=== PATIENT | female | born 1970 | race Caucasian/White ===

== ENCOUNTER 2019-11-24 13:10 | Inpatient (IN) | payer MEDICAID, OTHER ==
[2019-11-24] MEDS ORDERED: Sodium Chloride 0.9% 10 ML Syringe FLUSH PRN (13:18)
[2019-11-24] MEDS ORDERED: LORazepam 2 MG/ML SDV IVPUSH ONE ×2 (13:18→17:28)
[2019-11-24] MEDS ORDERED: Ondansetron 4 MG/2 ML SDV IVPUSH ONE (13:18)
[2019-11-24] MEDS ORDERED: Lactated Ringers 1,000 ML IV ONE (13:18)
[2019-11-24] MEDS ORDERED: Sodium Chloride 0.9% 2.5 ML Syringe FLUSH PRN (13:18)
[2019-11-24] MEDS ORDERED: chlordiazePOXIDE 25 MG Cap PO ONE (13:20)
[2019-11-24] MEDS ORDERED: Ketorolac 30 MG/ML SDV IVPUSH ONE (13:27)
--- NOTE | 2019-11-24 13:28 | EDM.PDOCBH ---
ED HPI GENERAL MEDICAL PROBLEM - General Chief Complaint: Drug or Alcohol Abuse Stated Complaint: DETOX Time Seen by Provider: 11/24/19 13:17 Source of Information: Reports: Patient History Limitations: Reports: No Limitations - History of Present Illness INITIAL COMMENTS - FREE TEXT/NARRATIVE: 49F PMHx COPD, TOB use, alcohol abuse, gastritis, pancreatitis presents for multiple complaints. Patient notes several days of worsening N/V with inability to tolerate PO. She states this feels just like prior episodes of pancreatitis. She had been on a drinking binge last week before symptoms. She ahs been trying to drink with last drink "a shot" this morning, but she has cut back a lot. She notes chronic cough and SOB unchanged, but she is concerned about COVID. No fevers or CP. Patient notes auditory and visual hallucinations since htis morning "the angle on my shoulder keeps talking to me even though I know she isn't real." Right Back Pain Score (Numeric/FACES): 8 - Related Data Allergies Allergy/AdvReac Type Severity Reaction Status Date / Time No Known Allergies Allergy Verified 11/24/19 13:22 Home Meds: Home Meds Amylase/Lipase/Protease [John LYLE 24,000 Unit] 12,000 unit PO WITHMEALSANDBED 01/21/18 [History] Levothyroxine [Levothroid] 225 mcg PO DAILY 01/21/18 [History] Omeprazole 40 mg PO DAILY 01/21/18 [History] hydrOXYzine HCL [hydrOXYzine] 10 mg PO DAILY PRN 01/21/18 [History] Fluticasone Propionate [Flonase] 1 spray NASBOTH DAILY #1 bottle 01/26/18 [Rx] diphenhydrAMINE HCL [Benadryl Allergy] 100 mg DAILY PRN 02/24/19 [History] Ketorolac [Toradol] 10 mg PO Q8H PRN #15 tab 02/28/19 [Rx] Thiamine [Vitamin B-1] 100 mg PO BEDTIME #30 tab 02/28/19 [Rx] Non-Formulary Medication [NF Drug] 11/24/19 [History] Past Medical History HEENT History: Reports: Impaired Vision Cardiovascular History: Reports: None Respiratory History: Reports: None Gastrointestinal History: Reports: Pancreatitis Other Gastrointestinal History: fatty liver Genitourinary History: Reports: None SAMPLE STITCHER History: Reports: Other (See Below) Other SAMPLE STITCHER History: Patient has tubes tied. Musculoskeletal History: Reports: None Neurological History: Reports: None Psychiatric History: Reports: Anxiety, Depression Endocrine/Metabolic History: Reports: None Hematologic History: Reports: Other (See Below) Other Hematologic History: Hep C Immunologic History: Reports: None Oncologic (Cancer) History: Reports: None Dermatologic History: Reports: Psoriasis - Infectious Disease History Infectious Disease History: Reports: Hepatitis C - Past Surgical History Head Surgeries/Procedures: Reports: None HEENT Surgical History: Reports: None Cardiovascular Surgical History: Reports: None Respiratory Surgical History: Reports: None GI Surgical History: Reports: None, Hernia Repair/Other Female Surgical History: Reports: Tubal Ligation Endocrine Surgical History: Reports: None Neurological Surgical History: Reports: None Musculoskeletal Surgical History: Reports: None Oncologic Surgical History: Reports: None Dermatological Surgical History: Reports: None Social & Family History - Family History Family Medical History: Noncontributory - Caffeine Use Caffeine Use: Reports: None ED ROS GENERAL - Review of Systems Review Of Systems: Comprehensive ROS is negative, except as noted in HPI. ED EXAM, BEHAVIORAL HEALTH - Physical Exam Exam: See Below Exam Limited By: No Limitations General Appearance: Alert, WD/WN, No Apparent Distress, Anxious Ears: Normal External Exam Nose: Normal Inspection Throat/Mouth: Normal Inspection, Normal Voice, No Airway Compromise Head: Atraumatic, Normocephalic Neck: Normal Inspection Respiratory/Chest: No Respiratory Distress, No Accessory Muscle Use, Rales, Rhonchi, Wheezing Cardiovascular: Normal Peripheral Pulses, Regular Rate, Rhythm GI/Abdominal: Soft, Other (midepigastric TTP without rebound or guarding) Back Exam: Normal Inspection Extremities: Normal Inspection Neurological: Alert, Normal Mood/Affect Psychiatric: Alert, Normal Affect Skin Exam: Warm, Dry, Intact EKG INTERPRETATION EKG Date: 11/24/19 Time: 13:40 Rhythm: NSR Rate (Beats/Min): 82 [place]: Normal P-Wave: Present QRS: Normal ST-T: Normal QT: Normal COURSE, BEHAVIORAL HEALTH COMP - Course Vital Signs: Last Vital Signs Temp 96.9 F 11/24/19 13:22 Pulse 74 11/24/19 17:41 Resp 16 11/24/19 17:41 BP 120/76 11/24/19 17:41 Pulse Ox 96 11/24/19 17:41 Orders, Labs, Meds: Active Orders 24 hr Category Date Time Status Cardiac Monitoring [RC] . DIRECTED Care 11/24/19 13:18 Active EKG Documentation Completion [RC] STAT Care 11/24/19 13:18 Active Pulse Oximetry [RC] ASDIRECTED Care 11/24/19 13:18 Active LACTIC ACID,WHOLE BLOOD [BG] Routine Lab 11/24/19 17:49 Ordered Sodium Chloride 0.9% [Saline Flush] Med 11/24/19 13:18 Active 10 ml FLUSH ASDIRECTED PRN Sodium Chloride 0.9% [Saline Flush] Med 11/24/19 13:18 Active 2.5 ml FLUSH ASDIRECTED PRN Saline Lock Insert [OM.PC] Stat Oth 11/24/19 13:18 Ordered Medication Orders Sodium Chloride (Saline Flush) 10 ml FLUSH ASDIRECTED PRN PRN Reason: Keep Vein Open Last Admin: 11/24/19 13:52 Dose: 10 ml Documented by: MURYOSEF Sodium Chloride (Saline Flush) 2.5 ml FLUSH ASDIRECTED PRN PRN Reason: Keep Vein Open Last Admin: 11/24/19 13:52 Dose: 2.5 ml Documented by: MURDNIC Laboratory Tests 11/24/19 11/24/19 11/24/19 Range/Units 13:44 13:44 13:44 WBC 4.61 (4.0-11.0) K/uL RBC 4.34 (4.30-5.90) M/uL Hgb 14.7 (12.0-16.0) g/dL Hct 43.7 (36.0-46.0) % MCV 100.7 H (80.0-98.0) fL MCH 33.9 H (27.0-32.0) pg MCHC 33.6 (31.0-37.0) g/dL RDW Std Deviation 50.3 (28.0-62.0) fl RDW Coeff of Jennifer 14 (11.0-15.0) % Plt Count 131 L (150-400) K/uL MPV 9.90 (7.40-12.00) fL Neut % (Auto) 54.9 (48.0-80.0) % Lymph % (Auto) 35.6 (16.0-40.0) % Cache % (Auto) 6.7 (0.0-15.0) % Eos % (Auto) 1.5 (0.0-7.0) % Baso % (Auto) 1.3 (0.0-1.5) % Neut # (Auto) 2.5 (1.4-5.7) K/uL Lymph # (Auto) 1.6 (0.6-2.4) K/uL [place] # (Auto) 0.3 (0.0-0.8) K/uL Eos # (Auto) 0.1 (0.0-0.7) K/uL Baso # (Auto) 0.1 (0.0-0.1) K/uL Nucleated RBC % 0.0 /100WBC Nucleated RBCs # 0 K/uL INR 1.29 APTT 24.3 (18.6-31.3) SEC Lactate 2.3 H* (0.20-2.00) mmol/L Sodium (136-145) mmol/L Potassium (3.5-5.1) mmol/L Chloride (98-107) mmol/L Carbon Dioxide (21.0-32.0) mmol/L BUN (7.0-18.0) mg/dL Creatinine (0.6-1.0) mg/dL Est Cr Clr Drug Dosing mL/min Estimated GFR (MDRD) ml/min Glucose (74-106) mg/dL Calcium (8.5-10.1) mg/dL Magnesium (1.8-2.4) mg/dL Total Bilirubin (0.2-1.0) mg/dL AST (15-37) IU/L ALT (14-63) IU/L Alkaline Phosphatase (46-116) U/L Total Protein (6.4-8.2) g/dL Albumin (3.4-5.0) g/dL Globulin (2.6-4.0) g/dL Albumin/Globulin Ratio (0.9-1.6) Lipase (73-393) U/L Urine Color Urine Appearance Urine pH (5.0-8.0) Ur Specific [place] (1.001-1.035) Urine Protein (NEGATIVE) mg/dL Urine Glucose (UA) (NEGATIVE) mg/dL Urine Ketones (NEGATIVE) mg/dL Urine Occult Blood (NEGATIVE) Urine Nitrite (NEGATIVE) Urine Bilirubin (NEGATIVE) Urine Urobilinogen (<2.0) EU/dL Ur Leukocyte Esterase (NEGATIVE) Urine HCG, Qual (NEGATIVE) Urine Opiates Screen (NEGATIVE) Ur Oxycodone Screen (NEGATIVE) Urine Methadone Screen (NEGATIVE) Ur Barbiturates Screen (NEGATIVE) Ur Phencyclidine Scrn (NEGATIVE) Ur Amphetamine Screen (NEGATIVE) U Methamphetamines Scrn (NEGATIVE) U Benzodiazepines Scrn (NEGATIVE) U Cocaine Metab Screen (NEGATIVE) U Marijuana (THC) Screen (NEGATIVE) Ethyl Alcohol mg/dL SARS-CoV-2 RNA (DICK) (NEGATIVE) 11/24/19 11/24/19 11/24/19 Range/Units 13:44 14:03 14:03 WBC (4.0-11.0) K/uL RBC (4.30-5.90) M/uL Hgb (12.0-16.0) g/dL Hct (36.0-46.0) % MCV (80.0-98.0) fL MCH (27.0-32.0) pg MCHC (31.0-37.0) g/dL RDW Std Deviation (28.0-62.0) fl RDW Coeff of Jennifer (11.0-15.0) % Plt Count (150-400) K/uL MPV (7.40-12.00) fL Neut % (Auto) (48.0-80.0) % Lymph % (Auto) (16.0-40.0) % Cache % (Auto) (0.0-15.0) % Eos % (Auto) (0.0-7.0) % Baso % (Auto) (0.0-1.5) % Neut # (Auto) (1.4-5.7) K/uL Lymph # (Auto) (0.6-2.4) K/uL [place] # (Auto) (0.0-0.8) K/uL Eos # (Auto) (0.0-0.7) K/uL Baso # (Auto) (0.0-0.1) K/uL Nucleated RBC % /100WBC Nucleated RBCs # K/uL INR APTT (18.6-31.3) SEC Lactate (0.20-2.00) mmol/L Sodium 138 (136-145) mmol/L Potassium 4.0 (3.5-5.1) mmol/L Chloride 101 (98-107) mmol/L Carbon Dioxide 24.7 (21.0-32.0) mmol/L BUN 7 (7.0-18.0) mg/dL Creatinine 0.8 (0.6-1.0) mg/dL Est Cr Clr Drug Dosing 74.26 mL/min Estimated GFR (MDRD) > 60.0 ml/min Glucose 115 H (74-106) mg/dL Calcium 8.2 L (8.5-10.1) mg/dL Magnesium 1.7 L (1.8-2.4) mg/dL Total Bilirubin 0.4 (0.2-1.0) mg/dL AST 161 H (15-37) IU/L ALT 75 H (14-63) IU/L Alkaline Phosphatase 117 H (46-116) U/L Total Protein 6.7 (6.4-8.2) g/dL Albumin 3.7 (3.4-5.0) g/dL Globulin 3.0 (2.6-4.0) g/dL Albumin/Globulin Ratio 1.2 (0.9-1.6) Lipase 123 (73-393) U/L Urine Color YELLOW Urine Appearance CLEAR Urine pH 6.0 (5.0-8.0) Ur Specific [place] 1.020 (1.001-1.035) Urine Protein NEGATIVE (NEGATIVE) mg/dL Urine Glucose (UA) NEGATIVE (NEGATIVE) mg/dL Urine Ketones NEGATIVE (NEGATIVE) mg/dL Urine Occult Blood NEGATIVE (NEGATIVE) Urine Nitrite NEGATIVE (NEGATIVE) Urine Bilirubin NEGATIVE (NEGATIVE) Urine Urobilinogen 0.2 (<2.0) EU/dL Ur Leukocyte Esterase NEGATIVE (NEGATIVE) Urine HCG, Qual NEGATIVE (NEGATIVE) Urine Opiates Screen (NEGATIVE) Ur Oxycodone Screen (NEGATIVE) Urine Methadone Screen (NEGATIVE) Ur Barbiturates Screen (NEGATIVE) Ur Phencyclidine Scrn (NEGATIVE) Ur Amphetamine Screen (NEGATIVE) U Methamphetamines Scrn (NEGATIVE) U Benzodiazepines Scrn (NEGATIVE) U Cocaine Metab Screen (NEGATIVE) U Marijuana (THC) Screen (NEGATIVE) Ethyl Alcohol 150 mg/dL SARS-CoV-2 RNA (DICK) (NEGATIVE) 11/24/19 11/24/19 11/24/19 Range/Units 14:03 14:06 15:22 WBC (4.0-11.0) K/uL RBC (4.30-5.90) M/uL Hgb (12.0-16.0) g/dL Hct (36.0-46.0) % MCV (80.0-98.0) fL MCH (27.0-32.0) pg MCHC (31.0-37.0) g/dL RDW Std Deviation (28.0-62.0) fl RDW Coeff of Jennifer (11.0-15.0) % Plt Count (150-400) K/uL MPV (7.40-12.00) fL Neut % (Auto) (48.0-80.0) % Lymph % (Auto) (16.0-40.0) % [place] % (Auto) (0.0-15.0) % Eos % (Auto) (0.0-7.0) % Baso % (Auto) (0.0-1.5) % Neut # (Auto) (1.4-5.7) K/uL Lymph # (Auto) (0.6-2.4) K/uL [place] # (Auto) (0.0-0.8) K/uL Eos # (Auto) (0.0-0.7) K/uL Baso # (Auto) (0.0-0.1) K/uL Nucleated RBC % /100WBC Nucleated RBCs # K/uL INR APTT (18.6-31.3) SEC Lactate 2.8 H* (0.20-2.00) mmol/L Sodium (136-145) mmol/L Potassium (3.5-5.1) mmol/L Chloride (98-107) mmol/L Carbon Dioxide (21.0-32.0) mmol/L BUN (7.0-18.0) mg/dL Creatinine (0.6-1.0) mg/dL Est Cr Clr Drug Dosing mL/min Estimated GFR (MDRD) ml/min Glucose (74-106) mg/dL Calcium (8.5-10.1) mg/dL Magnesium (1.8-2.4) mg/dL Total Bilirubin (0.2-1.0) mg/dL AST (15-37) IU/L ALT (14-63) IU/L Alkaline Phosphatase (46-116) U/L Total Protein (6.4-8.2) g/dL Albumin (3.4-5.0) g/dL Globulin (2.6-4.0) g/dL Albumin/Globulin Ratio (0.9-1.6) Lipase (73-393) U/L Urine Color Urine Appearance Urine pH (5.0-8.0) Ur Specific [place] (1.001-1.035) Urine Protein (NEGATIVE) mg/dL Urine Glucose (UA) (NEGATIVE) mg/dL Urine Ketones (NEGATIVE) mg/dL Urine Occult Blood (NEGATIVE) Urine Nitrite (NEGATIVE) Urine Bilirubin (NEGATIVE) Urine Urobilinogen (<2.0) EU/dL Ur Leukocyte Esterase (NEGATIVE) Urine HCG, Qual (NEGATIVE) Urine Opiates Screen NEGATIVE (NEGATIVE) Ur Oxycodone Screen NEGATIVE (NEGATIVE) Urine Methadone Screen NEGATIVE (NEGATIVE) Ur Barbiturates Screen NEGATIVE (NEGATIVE) Ur Phencyclidine Scrn NEGATIVE (NEGATIVE) Ur Amphetamine Screen NEGATIVE (NEGATIVE) U Methamphetamines Scrn NEGATIVE (NEGATIVE) U Benzodiazepines Scrn NEGATIVE (NEGATIVE) U Cocaine Metab Screen NEGATIVE (NEGATIVE) U Marijuana (THC) Screen NEGATIVE (NEGATIVE) Ethyl Alcohol mg/dL SARS-CoV-2 RNA (DICK) NEGATIVE (NEGATIVE) Medications Generic Name Dose Route Start Last Admin Trade Name Freq PRN Reason Stop Dose Admin Sodium Chloride 10 ml 11/24/19 13:18 11/24/19 13:52 Saline Flush FLUSH 10 ml ASDIRECTED PRN Administration Keep Vein Open Sodium Chloride 2.5 ml 11/24/19 13:18 11/24/19 13:52 Saline Flush FLUSH 2.5 ml ASDIRECTED PRN Administration Keep Vein Open Discontinued Medications Generic Name Dose Route Start Last Admin Trade Name Freq PRN Reason Stop Dose Admin Chlordiazepoxide HCl 50 mg 11/24/19 13:20 11/24/19 13:53 Librium PO 11/24/19 13:21 50 mg ONETIME ONE Administration Al Hydroxide/Mg Hydroxide 15 0 ml 11/24/19 17:45 ml/ Metoclopramide HCl 5 mg/ PO 11/24/19 17:46 Lidocaine HCl 5 ml ONETIME ONE Lactated Ringer's 1,000 mls @ 999 mls/hr 11/24/19 13:18 11/24/19 13:47 Ringers, Lactated IV 11/24/19 14:18 999 mls/hr .BOLUS ONE Administration Sodium Chloride 1,000 mls @ 999 mls/hr 11/24/19 14:16 11/24/19 15:05 Normal Saline IV 11/24/19 15:16 999 mls/hr .BOLUS ONE Administration Ketorolac Tromethamine 30 mg 11/24/19 13:27 11/24/19 13:52 Toradol IVPUSH 11/24/19 13:28 30 mg ONETIME ONE Administration Lorazepam 1 mg 11/24/19 13:18 11/24/19 13:52 Ativan IVPUSH 11/24/19 13:19 1 mg ONETIME ONE Administration Lorazepam 1 mg 11/24/19 17:28 11/24/19 17:40 Ativan IVPUSH 11/24/19 17:29 1 mg ONETIME ONE Administration Morphine Sulfate 4 mg 11/24/19 15:26 11/24/19 15:35 Morphine IVPUSH 11/24/19 15:27 4 mg ONETIME ONE Administration Ondansetron HCl 4 mg 11/24/19 13:18 11/24/19 13:52 Zofran IVPUSH 11/24/19 13:19 4 mg ONETIME ONE Administration Re-Assessment/Re-Exam: Will get labs, will treat symptomatically for EtOH w/d and eval for pancreatitis. CIWA = 25 [id number]: morphine ordered as toradol was not adequate for analgesia; labs grossly unremarkable aside from uptrending lactate from 2.3 to 2.8 despite 2-L IVFB. Will get CT A/P to r/o emergent intraabdominal pathology. Lipase was negative. 1727: CT scan unremarkable. Patient still with abdominal pain. She is starting to feel shaky again. Will admit for EtOH w/d. She is no longer hallucinating. She does have h/o alcohol withdrawal seizures. 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 DIRECTED EKG Documentation Completion [RC] STAT Pulse Oximetry [RC] ASDIRECTED Sodium Chloride 0.9% [Saline Flush] 10 ml FLUSH ASDIRECTED PRN Sodium Chloride 0.9% [Saline Flush] 2.5 ml FLUSH ASDIRECTED PRN Saline Lock Insert [OM.PC] Stat 11/24/19 17:49 LACTIC ACID,WHOLE BLOOD [BG] Routine - Assessment/Plan Last 24 Hours: My Active Orders 11/24/19 13:18 Cardiac Monitoring [RC] . DIRECTED EKG Documentation Completion [RC] STAT Pulse Oximetry [RC] ASDIRECTED Sodium Chloride 0.9% [Saline Flush] 10 ml FLUSH ASDIRECTED PRN Sodium Chloride 0.9% [Saline Flush] 2.5 ml FLUSH ASDIRECTED PRN Saline Lock Insert [OM.PC] Stat 11/24/19 17:49 LACTIC ACID,WHOLE BLOOD [BG] Routine
[2019-11-24] MEDS ORDERED: Sodium Chloride 0.9% 1,000 ML IV ONE (14:16)
[2019-11-24 14:42] LABS: BLOOD UREA NITROGEN,BUN 7 mg/dL (7.0-18.0); CARBON DIOXIDE,CO2 24.7 mmol/L (21.0-32.0); CHLORIDE,CL 101 mmol/L (98-107); GLUCOSE RANDOM 115 mg/dL (74-106); LIPASE 123 U/L (73-393); SODIUM,NA 138 mmol/L (136-145)
[2019-11-24] MEDS ORDERED: Morphine 4 MG/ML Syringe IVPUSH ONE (15:26)
--- NOTE | 2019-11-24 15:30 | CR ---
Indication: Cough, COPD Technique: Chest 1 view Comparison: February 25, 2019 Findings/Impression: Cardiovascular and mediastinum: Heart size and vasculature are normal in caliber and appearance. Mediastinum is within normal limits. Lungs and pleural space: Lungs are clear. No sign of infiltrate or mass. No sign of pleural effusion. No pneumothorax. Bones and soft tissues: No significant findings. Dictated by Rizwana Brown MD @ Nov 24 2019 3:28PM Signed by Dr. Rizwana Brown @ Nov 24 2019 3:29PM
--- NOTE | 2019-11-24 17:23 | CT ---
INDICATION: Abdominal pain with nausea and vomiting TECHNIQUE: CT abdomen and pelvis acquired with 100 cc Isovue 370 IV contrast. COMPARISON: February 24, 2019 FINDINGS: Lower chest: Unremarkable. Liver: Hepatic steatosis. The liver measures 21.2 cm in length. Spleen: Unremarkable. Pancreas: Unremarkable. Gallbladder and bile ducts: Unremarkable. Adrenal glands: Unremarkable. Kidneys: Unremarkable. GI tract: Fatty infiltration of the jung of the ascending and transverse colon likely from prior inflammatory process. Appendix is not seen. Vascular structures: Unremarkable. Lymph nodes: Unremarkable. Miscellaneous: Status post ventral herniorrhaphy with mesh placement. No free air or significant free fluid. There is a 4.7 x 1.7 cm rim enhancing fluid collection in the soft tissues of the left flank. This previously measured 9.6 x 4.8 centimeters. Pelvic Organs: Unremarkable. Bones: Unremarkable for age. IMPRESSION: No acute intra-abdominal process identified. Note that the appendix is not seen on this exam. Hepatic steatosis and hepatomegaly. Significant decreased in size of rim enhancing fluid collection in the left flank, likely representing resolving hematoma. Please note that all CT scans at this facility use dose modulation, iterative reconstruction, and/or weight-based dosing when appropriate to reduce radiation dose to as low as reasonably achievable. Dictated by Rizwana Brown MD @ Nov 24 2019 5:14PM Signed by Dr. Rizwana Brown @ Nov 24 2019 5:21PM
[2019-11-24] MEDS ORDERED: Alum Hydrox/Mag Hydrox/Simeth 15 ML, Metoclopramide 5 MG, Lidocaine 2% 5 ML PO ONE ×3 (17:45)
--- NOTE | 2019-11-24 21:46 | PCM.HP.2 ---
H&P History of Present Illness - General Date of Service: 11/24/19 Admit Problem/Dx: Admission Diagnosis/Problem Admission Diagnosis/Problem Alcohol withdrawal syndrome - History of Present Illness Initial Comments - Free Text/Narative: 49 yo female with pmh of ETOH abuse, and chronic pancreatitis presents with s everal day history of abdominal pain, nausea and vomiting. She reports drinking a fifth of liquor a day. Her last drink was this morning. She does report a history of seizures during withdrawal and reports having hallucinations today. Right Back Pain Score (Numeric/FACES): 8 Abdominal Pain Score (Numeric/FACES): 8 Right Shoulder Pain Score (Numeric/FACES): 4 - Related Data Allergies/Adverse Reactions: Allergies Allergy/AdvReac Type Severity Reaction Status Date / Time No Known Allergies Allergy Verified 11/24/19 20:41 Home Medications: Home Meds Amylase/Lipase/Protease [Creon DR 24,000 Unit] 12,000 unit PO WITHMEALSANDBED 01/21/18 [History] Levothyroxine [Levothroid] 225 mcg PO DAILY 01/21/18 [History] Omeprazole 40 mg PO DAILY 01/21/18 [History] hydrOXYzine HCL [hydrOXYzine] 10 mg PO DAILY PRN 01/21/18 [History] diphenhydrAMINE HCL [Benadryl Allergy] 100 mg DAILY PRN 02/24/19 [History] Ketorolac [Toradol] 10 mg PO Q8H PRN #15 tab 02/28/19 [Rx] Thiamine [Vitamin B-1] 100 mg PO BEDTIME #30 tab 02/28/19 [Rx] Furosemide [Lasix] 40 mg PO BID 11/24/19 [History] Nicotine [Nicotine Patch] 1 patch 11/24/19 [History] Non-Formulary Medication [NF Drug] 11/24/19 [History] Past Medical History HEENT History: Reports: Impaired Vision Cardiovascular History: Reports: None Other Cardiovascular History: edema Respiratory History: Reports: COPD Gastrointestinal History: Reports: Fatty Liver, Pancreatitis Other Gastrointestinal History: fatty liver Genitourinary History: Reports: None PLUG STITCHER 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 Psychiatric History: Reports: Anxiety, Depression, Panic Attack, PTSD Endocrine/Metabolic History: Reports: Hypothyroidism, Obesity/BMI 30+ Hematologic History: Reports: Other (See Below) Other Hematologic History: Hep C Immunologic History: Reports: None Oncologic (Cancer) History: Reports: None Dermatologic History: Reports: Psoriasis - Infectious Disease History Infectious Disease History: Reports: Hepatitis C - Past Surgical History Head Surgeries/Procedures: Reports: None HEENT Surgical History: Reports: None Cardiovascular Surgical History: Reports: None Respiratory Surgical History: Reports: None GI Surgical History: Reports: None, Hernia Repair/Other Female Surgical History: Reports: Tubal Ligation Endocrine Surgical History: Reports: None Neurological Surgical History: Reports: None Musculoskeletal Surgical History: Reports: None Oncologic Surgical History: Reports: None Dermatological Surgical History: Reports: None Social & Family History - Family History Family Medical History: Noncontributory - Caffeine Use Caffeine Use: Reports: None - Recreational Drug Use Recreational Drug Use: No H&P Review of Systems - Review of Systems: Review Of Systems: Comprehensive ROS is negative, except as noted in HPI. Exam - Exam Exam: See Below - Vital Signs Vital Signs: Last Vital Signs Temp 36.3 C 11/24/19 20:35 Pulse 72 11/24/19 20:35 Resp 19 11/24/19 20:35 BP 122/76 11/24/19 20:35 Pulse Ox 96 11/24/19 20:35 Weight: 110.223 kg - Exam General: Alert, Oriented HEENT: Mucosa Moist & [place] Neck: Supple Lungs: Clear to Auscultation, Normal Respiratory Effort Cardiovascular: Regular Rate, Regular Rhythm GI/Abdominal Exam: Normal Bowel Sounds, Soft, Non-Tender, No Distention Extremities: Non-Tender, No Pedal Edema Skin: Warm, Dry, Intact Neurological: Cranial Nerves Intact. No: Focal Deficit - Patient Data Lab Results Last 24 hrs: Laboratory Results - last 24 hr 11/24/19 11/24/19 11/24/19 Range/Units 13:44 13:44 13:44 WBC 4.61 (4.0-11.0) K/uL RBC 4.34 (4.30-5.90) M/uL Hgb 14.7 (12.0-16.0) g/dL Hct 43.7 (36.0-46.0) % MCV 100.7 H (80.0-98.0) fL MCH 33.9 H (27.0-32.0) pg MCHC 33.6 (31.0-37.0) g/dL RDW Std Deviation 50.3 (28.0-62.0) fl RDW Coeff of Jennifer 14 (11.0-15.0) % Plt Count 131 L (150-400) K/uL MPV 9.90 (7.40-12.00) fL Neut % (Auto) 54.9 (48.0-80.0) % Lymph % (Auto) 35.6 (16.0-40.0) % [place] % (Auto) 6.7 (0.0-15.0) % Eos % (Auto) 1.5 (0.0-7.0) % Baso % (Auto) 1.3 (0.0-1.5) % Neut # (Auto) 2.5 (1.4-5.7) K/uL Lymph # (Auto) 1.6 (0.6-2.4) K/uL [place] # (Auto) 0.3 (0.0-0.8) K/uL Eos # (Auto) 0.1 (0.0-0.7) K/uL Baso # (Auto) 0.1 (0.0-0.1) K/uL Nucleated RBC % 0.0 /100WBC Nucleated RBCs # 0 K/uL INR 1.29 APTT 24.3 (18.6-31.3) SEC Lactate 2.3 H* (0.20-2.00) mmol/L Sodium (136-145) mmol/L Potassium (3.5-5.1) mmol/L Chloride (98-107) mmol/L Carbon Dioxide (21.0-32.0) mmol/L BUN (7.0-18.0) mg/dL Creatinine (0.6-1.0) mg/dL Est Cr Clr Drug Dosing mL/min Estimated GFR (MDRD) ml/min Glucose (74-106) mg/dL Calcium (8.5-10.1) mg/dL Magnesium (1.8-2.4) mg/dL Total Bilirubin (0.2-1.0) mg/dL AST (15-37) IU/L ALT (14-63) IU/L Alkaline Phosphatase (46-116) U/L Total Protein (6.4-8.2) g/dL Albumin (3.4-5.0) g/dL Globulin (2.6-4.0) g/dL Albumin/Globulin Ratio (0.9-1.6) Lipase (73-393) U/L Urine Color Urine Appearance Urine pH (5.0-8.0) Ur Specific [place] (1.001-1.035) Urine Protein (NEGATIVE) mg/dL Urine Glucose (UA) (NEGATIVE) mg/dL Urine Ketones (NEGATIVE) mg/dL Urine Occult Blood (NEGATIVE) Urine Nitrite (NEGATIVE) Urine Bilirubin (NEGATIVE) Urine Urobilinogen (<2.0) EU/dL Ur Leukocyte Esterase (NEGATIVE) Urine HCG, Qual (NEGATIVE) Urine Opiates Screen (NEGATIVE) Ur Oxycodone Screen (NEGATIVE) Urine Methadone Screen (NEGATIVE) Ur Barbiturates Screen (NEGATIVE) Ur Phencyclidine Scrn (NEGATIVE) Ur Amphetamine Screen (NEGATIVE) U Methamphetamines Scrn (NEGATIVE) U Benzodiazepines Scrn (NEGATIVE) U Cocaine Metab Screen (NEGATIVE) U Marijuana (THC) Screen (NEGATIVE) Ethyl Alcohol mg/dL SARS-CoV-2 RNA (DICK) (NEGATIVE) 11/24/19 11/24/19 11/24/19 Range/Units 13:44 14:03 14:03 WBC (4.0-11.0) K/uL RBC (4.30-5.90) M/uL Hgb (12.0-16.0) g/dL Hct (36.0-46.0) % MCV (80.0-98.0) fL MCH (27.0-32.0) pg MCHC (31.0-37.0) g/dL RDW Std Deviation (28.0-62.0) fl RDW Coeff of Jennifer (11.0-15.0) % Plt Count (150-400) K/uL MPV (7.40-12.00) fL Neut % (Auto) (48.0-80.0) % Lymph % (Auto) (16.0-40.0) % [place] % (Auto) (0.0-15.0) % Eos % (Auto) (0.0-7.0) % Baso % (Auto) (0.0-1.5) % Neut # (Auto) (1.4-5.7) K/uL Lymph # (Auto) (0.6-2.4) K/uL [place] # (Auto) (0.0-0.8) K/uL Eos # (Auto) (0.0-0.7) K/uL Baso # (Auto) (0.0-0.1) K/uL Nucleated RBC % /100WBC Nucleated RBCs # K/uL INR APTT (18.6-31.3) SEC Lactate (0.20-2.00) mmol/L Sodium 138 (136-145) mmol/L Potassium 4.0 (3.5-5.1) mmol/L Chloride 101 (98-107) mmol/L Carbon Dioxide 24.7 (21.0-32.0) mmol/L BUN 7 (7.0-18.0) mg/dL Creatinine 0.8 (0.6-1.0) mg/dL Est Cr Clr Drug Dosing 74.26 mL/min Estimated GFR (MDRD) > 60.0 ml/min Glucose 115 H (74-106) mg/dL Calcium 8.2 L (8.5-10.1) mg/dL Magnesium 1.7 L (1.8-2.4) mg/dL Total Bilirubin 0.4 (0.2-1.0) mg/dL AST 161 H (15-37) IU/L ALT 75 H (14-63) IU/L Alkaline Phosphatase 117 H (46-116) U/L Total Protein 6.7 (6.4-8.2) g/dL Albumin 3.7 (3.4-5.0) g/dL Globulin 3.0 (2.6-4.0) g/dL Albumin/Globulin Ratio 1.2 (0.9-1.6) Lipase 123 (73-393) U/L Urine Color YELLOW Urine Appearance CLEAR Urine pH 6.0 (5.0-8.0) Ur Specific [place] 1.020 (1.001-1.035) Urine Protein NEGATIVE (NEGATIVE) mg/dL Urine Glucose (UA) NEGATIVE (NEGATIVE) mg/dL Urine Ketones NEGATIVE (NEGATIVE) mg/dL Urine Occult Blood NEGATIVE (NEGATIVE) Urine Nitrite NEGATIVE (NEGATIVE) Urine Bilirubin NEGATIVE (NEGATIVE) Urine Urobilinogen 0.2 (<2.0) EU/dL Ur Leukocyte Esterase NEGATIVE (NEGATIVE) Urine HCG, Qual NEGATIVE (NEGATIVE) Urine Opiates Screen (NEGATIVE) Ur Oxycodone Screen (NEGATIVE) Urine Methadone Screen (NEGATIVE) Ur Barbiturates Screen (NEGATIVE) Ur Phencyclidine Scrn (NEGATIVE) Ur Amphetamine Screen (NEGATIVE) U Methamphetamines Scrn (NEGATIVE) U Benzodiazepines Scrn (NEGATIVE) U Cocaine Metab Screen (NEGATIVE) U Marijuana (THC) Screen (NEGATIVE) Ethyl Alcohol 150 mg/dL SARS-CoV-2 RNA (DICK) (NEGATIVE) 11/24/19 11/24/19 11/24/19 Range/Units 14:03 14:06 15:22 WBC (4.0-11.0) K/uL RBC (4.30-5.90) M/uL Hgb (12.0-16.0) g/dL Hct (36.0-46.0) % MCV (80.0-98.0) fL MCH (27.0-32.0) pg MCHC (31.0-37.0) g/dL RDW Std Deviation (28.0-62.0) fl RDW Coeff of Jennifer (11.0-15.0) % Plt Count (150-400) K/uL MPV (7.40-12.00) fL Neut % (Auto) (48.0-80.0) % Lymph % (Auto) (16.0-40.0) % [place] % (Auto) (0.0-15.0) % Eos % (Auto) (0.0-7.0) % Baso % (Auto) (0.0-1.5) % Neut # (Auto) (1.4-5.7) K/uL Lymph # (Auto) (0.6-2.4) K/uL [place] # (Auto) (0.0-0.8) K/uL Eos # (Auto) (0.0-0.7) K/uL Baso # (Auto) (0.0-0.1) K/uL Nucleated RBC % /100WBC Nucleated RBCs # K/uL INR APTT (18.6-31.3) SEC Lactate 2.8 H* (0.20-2.00) mmol/L Sodium (136-145) mmol/L Potassium (3.5-5.1) mmol/L Chloride (98-107) mmol/L Carbon Dioxide (21.0-32.0) mmol/L BUN (7.0-18.0) mg/dL Creatinine (0.6-1.0) mg/dL Est Cr Clr Drug Dosing mL/min Estimated GFR (MDRD) ml/min Glucose (74-106) mg/dL Calcium (8.5-10.1) mg/dL Magnesium (1.8-2.4) mg/dL Total Bilirubin (0.2-1.0) mg/dL AST (15-37) IU/L ALT (14-63) IU/L Alkaline Phosphatase (46-116) U/L Total Protein (6.4-8.2) g/dL Albumin (3.4-5.0) g/dL Globulin (2.6-4.0) g/dL Albumin/Globulin Ratio (0.9-1.6) Lipase (73-393) U/L Urine Color Urine Appearance Urine pH (5.0-8.0) Ur Specific [place] (1.001-1.035) Urine Protein (NEGATIVE) mg/dL Urine Glucose (UA) (NEGATIVE) mg/dL Urine Ketones (NEGATIVE) mg/dL Urine Occult Blood (NEGATIVE) Urine Nitrite (NEGATIVE) Urine Bilirubin (NEGATIVE) Urine Urobilinogen (<2.0) EU/dL Ur Leukocyte Esterase (NEGATIVE) Urine HCG, Qual (NEGATIVE) Urine Opiates Screen NEGATIVE (NEGATIVE) Ur Oxycodone Screen NEGATIVE (NEGATIVE) Urine Methadone Screen NEGATIVE (NEGATIVE) Ur Barbiturates Screen NEGATIVE (NEGATIVE) Ur Phencyclidine Scrn NEGATIVE (NEGATIVE) Ur Amphetamine Screen NEGATIVE (NEGATIVE) U Methamphetamines Scrn NEGATIVE (NEGATIVE) U Benzodiazepines Scrn NEGATIVE (NEGATIVE) U Cocaine Metab Screen NEGATIVE (NEGATIVE) U Marijuana (THC) Screen NEGATIVE (NEGATIVE) Ethyl Alcohol mg/dL SARS-CoV-2 RNA (DICK) NEGATIVE (NEGATIVE) 11/24/19 11/24/19 Range/Units 18:06 19:50 WBC (4.0-11.0) K/uL RBC (4.30-5.90) M/uL Hgb (12.0-16.0) g/dL Hct (36.0-46.0) % MCV (80.0-98.0) fL MCH (27.0-32.0) pg MCHC (31.0-37.0) g/dL RDW Std Deviation (28.0-62.0) fl RDW Coeff of Jennifer (11.0-15.0) % Plt Count (150-400) K/uL MPV (7.40-12.00) fL Neut % (Auto) (48.0-80.0) % Lymph % (Auto) (16.0-40.0) % [place] % (Auto) (0.0-15.0) % Eos % (Auto) (0.0-7.0) % Baso % (Auto) (0.0-1.5) % Neut # (Auto) (1.4-5.7) K/uL Lymph # (Auto) (0.6-2.4) K/uL [place] # (Auto) (0.0-0.8) K/uL Eos # (Auto) (0.0-0.7) K/uL Baso # (Auto) (0.0-0.1) K/uL Nucleated RBC % /100WBC Nucleated RBCs # K/uL INR APTT (18.6-31.3) SEC Lactate 2.0 3.2 H* (0.20-2.00) mmol/L Sodium (136-145) mmol/L Potassium (3.5-5.1) mmol/L Chloride (98-107) mmol/L Carbon Dioxide (21.0-32.0) mmol/L BUN (7.0-18.0) mg/dL Creatinine (0.6-1.0) mg/dL Est Cr Clr Drug Dosing mL/min Estimated GFR (MDRD) ml/min Glucose (74-106) mg/dL Calcium (8.5-10.1) mg/dL Magnesium (1.8-2.4) mg/dL Total Bilirubin (0.2-1.0) mg/dL AST (15-37) IU/L ALT (14-63) IU/L Alkaline Phosphatase (46-116) U/L Total Protein (6.4-8.2) g/dL Albumin (3.4-5.0) g/dL Globulin (2.6-4.0) g/dL Albumin/Globulin Ratio (0.9-1.6) Lipase (73-393) U/L Urine Color Urine Appearance Urine pH (5.0-8.0) Ur Specific [place] (1.001-1.035) Urine Protein (NEGATIVE) mg/dL Urine Glucose (UA) (NEGATIVE) mg/dL Urine Ketones (NEGATIVE) mg/dL Urine Occult Blood (NEGATIVE) Urine Nitrite (NEGATIVE) Urine Bilirubin (NEGATIVE) Urine Urobilinogen (<2.0) EU/dL Ur Leukocyte Esterase (NEGATIVE) Urine HCG, Qual (NEGATIVE) Urine Opiates Screen (NEGATIVE) Ur Oxycodone Screen (NEGATIVE) Urine Methadone Screen (NEGATIVE) Ur Barbiturates Screen (NEGATIVE) Ur Phencyclidine Scrn (NEGATIVE) Ur Amphetamine Screen (NEGATIVE) U Methamphetamines Scrn (NEGATIVE) U Benzodiazepines Scrn (NEGATIVE) U Cocaine Metab Screen (NEGATIVE) U Marijuana (THC) Screen (NEGATIVE) Ethyl Alcohol mg/dL SARS-CoV-2 RNA (DICK) (NEGATIVE) Result Diagrams: 11/25/19 05:25 11/25/19 05:25 Sepsis Event Note - Evaluation Sepsis Screening Result: No Definite Risk - Focused Exam Vital Signs: Vital Signs Temp Pulse Resp BP Pulse Ox 11/24/19 20:35 36.3 C 72 19 122/76 96 11/24/19 19:35 36.0 C L 76 18 121/96 H 97 11/24/19 17:41 74 16 120/76 96 11/24/19 15:06 75 18 110/79 96 11/24/19 14:07 80 18 116/78 95 11/24/19 13:22 36.1 C 97 18 67/36 L 95 Problem List Initiated/Reviewed/Updated: Yes Orders Last 24hrs: Active Orders 24 hr Category Date Time Status Patient Status [ADT] Routine ADT 11/24/19 17:53 Active Cardiac Monitoring [RC] . DIRECTED Care 11/24/19 13:18 Active Pulse Oximetry [RC] ASDIRECTED Care 11/24/19 13:18 Active CBC WITH AUTO DIFF [HEME] AM Lab 11/25/19 05:11 Ordered CBC WITH AUTO DIFF [HEME] AM Lab 11/26/19 05:11 Ordered COMPREHENSIVE METABOLIC PN,CMP [CHEM] AM Lab 11/25/19 05:11 Ordered COMPREHENSIVE METABOLIC PN,CMP [CHEM] AM Lab 11/26/19 05:11 Ordered LACTATE WITH REFLEX [BG] Stat Lab 11/25/19 02:00 Ordered LIPASE [CHEM] AM Lab 11/25/19 05:11 Ordered LIPASE [CHEM] AM Lab 11/26/19 05:11 Ordered Folic Acid Med 11/24/19 21:45 Ordered 1 mg IV DAILY LORazepam [Ativan] Med 11/24/19 21:40 Ordered See Protocol IVPUSH Q4H PRN Sodium Chloride 0.9% @ 150 MLS/HR (1,000ml) Med 11/24/19 21:45 Ordered Sodium Chloride 0.9% [Normal Saline] 1,000 ml IV ASDIRECTED Sodium Chloride 0.9% [Saline Flush] Med 11/24/19 13:18 Active 10 ml FLUSH ASDIRECTED PRN Sodium Chloride 0.9% [Saline Flush] Med 11/24/19 13:18 Active 2.5 ml FLUSH ASDIRECTED PRN Thiamine [Vitamin B-1] Med 11/24/19 21:45 Ordered 100 mg IVPUSH DAILY traMADol [Ultram] Med 11/24/19 21:42 Ordered 50 mg PO Q6H PRN Saline Lock Insert [OM.PC] Stat Oth 11/24/19 13:18 Ordered Medication Orders Folic Acid (Folic Acid) 1 mg IV DAILY DIANA Sodium Chloride (Normal Saline) 1,000 mls @ 150 mls/hr IV ASDIRECTED DIANA Lorazepam (Ativan) 0 mg IVPUSH Q4H PRN; Protocol PRN Reason: CIWAA Sodium Chloride (Saline Flush) 10 ml FLUSH ASDIRECTED PRN PRN Reason: Keep Vein Open Last Admin: 11/24/19 13:52 Dose: 10 ml Documented by: MURDNIC Sodium Chloride (Saline Flush) 2.5 ml FLUSH ASDIRECTED PRN PRN Reason: Keep Vein Open Last Admin: 11/24/19 13:52 Dose: 2.5 ml Documented by: MURDNIC Thiamine HCl (Vitamin B-1) 100 mg IVPUSH DAILY DIANA Tramadol HCl (Ultram) 50 mg PO Q6H PRN PRN Reason: Pain Assessment/Plan Comment:: 49 yo female admitted with ETOH gastritis. ETOH gastritis: will keep NPO tonight, Hydrate with IV fluids ETOH withdrawal: patient is agreeable to detox. Will treat with IV ativan prn CIWAA, thiamin and folic acid.
[2019-11-24] MEDS ORDERED: Ondansetron 4 MG/2 ML SDV IVPUSH PRN (21:51)
[2019-11-24] MEDS: Sodium Chloride 0.9% 1,000 ML IV SCH (22:15)
[2019-11-24] MEDS: traMADol 50 MG Tab PO PRN (22:19)
[2019-11-24] MEDS: Thiamine 200 MG/2 ML MDV IVPUSH SCH (22:21)
[2019-11-24] MEDS: Folic Acid 50 MG/10 ML MDV IV SCH (22:21)
[2019-11-24] MEDS: LORazepam 2 MG/ML SDV IVPUSH PRN (22:22)
[2019-11-25] MEDS ORDERED: Pantoprazole 40 MG in Sodium Chloride 0.9% 10 ML IV SCH ×2
[2019-11-25] MEDS ORDERED: Albuterol/Ipratropium 3.0-0.5 MG/3 ML Neb Soln NEB PRN (00:29)
[2019-11-25] MEDS: traMADol 50 MG Tab PO PRN (04:09)
[2019-11-25] MEDS: LORazepam 2 MG/ML SDV IVPUSH PRN ×6 (04:24→23:48)
[2019-11-25] MEDS: Sodium Chloride 0.9% 1,000 ML IV SCH ×4 (05:05→21:28)
[2019-11-25 06:15] LABS: BLOOD UREA NITROGEN,BUN 6 mg/dL (7.0-18.0); CARBON DIOXIDE,CO2 22.2 mmol/L (21.0-32.0); CHLORIDE,CL 103 mmol/L (98-107); GLUCOSE RANDOM 105 mg/dL (74-106); LIPASE 109 U/L (73-393); POTASSIUM,K 3.7 mmol/L (3.5-5.1); SODIUM,NA 138 mmol/L (136-145)
[2019-11-25] MEDS: Folic Acid 50 MG/10 ML MDV IV SCH (09:07)
[2019-11-25] MEDS: Thiamine 200 MG/2 ML MDV IVPUSH SCH (09:08)
[2019-11-25] MEDS ORDERED: Alum Hydrox/Mag Hydrox/Simeth 15 ML, Lidocaine 2% 5 ML PO ONE ×2 (12:30)
[2019-11-25] MEDS ORDERED: oxyCODONE 5 MG Tab PO ONE (13:23)
[2019-11-25] MEDS: Nystatin Topical Powder 15 GM Bottle TOP SCH ×2 (13:41→21:33)
[2019-11-25] MEDS: Nicotine 14 MG/24 Hr Patch TRDERM SCH (14:15)
--- NOTE | 2019-11-25 14:16 | PCM.PN ---
- General Info Date of Service: 11/25/19 Admission Dx/Problem (Free Text): Admission Diagnosis/Problem Admission Diagnosis/Problem Alcohol withdrawal syndrome Subjective Update: Reports abdominal pain is the same, Tramadol not helping with pain Functional Status: Reports: Pain Controlled, Tolerating Diet, Ambulating - Review of Systems General: Reports: No Symptoms. Denies: Fever, Weakness, Fatigue HEENT: Reports: No Symptoms Pulmonary: Reports: No Symptoms. Denies: Shortness of Breath, Cough, Sputum Cardiovascular: Reports: No Symptoms. Denies: Chest Pain Gastrointestinal: Reports: No Symptoms. Denies: Abdominal Pain Genitourinary: Reports: No Symptoms. Denies: Dysuria, Frequency, Burning Neurological: Reports: No Symptoms Psychiatric: Reports: No Symptoms - Patient Data Vitals - Most Recent: Last Vital Signs Temp 98.6 F 11/25/19 11:00 Pulse 90 11/25/19 11:00 Resp 16 11/25/19 11:00 BP 112/72 11/25/19 11:00 Pulse Ox 94 L 11/25/19 11:00 Weight - Most Recent: 110.223 kg I&O - Last 24 Hours: Intake & Output 11/24/19 11/25/19 11/25/19 22:59 06:59 14:59 Intake Total 1030 Output Total 500 Balance 530 Lab Results Last 24 Hours: Laboratory Results - last 24 hr 11/24/19 11/24/19 11/24/19 Range/Units 13:44 14:03 14:03 WBC (4.0-11.0) K/uL RBC (4.30-5.90) M/uL Hgb (12.0-16.0) g/dL Hct (36.0-46.0) % MCV (80.0-98.0) fL MCH (27.0-32.0) pg MCHC (31.0-37.0) g/dL RDW Std Deviation (28.0-62.0) fl RDW Coeff of Jennifer (11.0-15.0) % Plt Count (150-400) K/uL MPV (7.40-12.00) fL Neut % (Auto) (48.0-80.0) % Lymph % (Auto) (16.0-40.0) % [place] % (Auto) (0.0-15.0) % Eos % (Auto) (0.0-7.0) % Baso % (Auto) (0.0-1.5) % Neut # (Auto) (1.4-5.7) K/uL Lymph # (Auto) (0.6-2.4) K/uL [place] # (Auto) (0.0-0.8) K/uL Eos # (Auto) (0.0-0.7) K/uL Baso # (Auto) (0.0-0.1) K/uL Nucleated RBC % /100WBC Nucleated RBCs # K/uL Lactate (0.20-2.00) mmol/L Sodium 138 (136-145) mmol/L Potassium 4.0 (3.5-5.1) mmol/L Chloride 101 (98-107) mmol/L Carbon Dioxide 24.7 (21.0-32.0) mmol/L BUN 7 (7.0-18.0) mg/dL Creatinine 0.8 (0.6-1.0) mg/dL Est Cr Clr Drug Dosing 74.26 mL/min Estimated GFR (MDRD) > 60.0 ml/min Glucose 115 H (74-106) mg/dL Calcium 8.2 L (8.5-10.1) mg/dL Magnesium 1.7 L (1.8-2.4) mg/dL Total Bilirubin 0.4 (0.2-1.0) mg/dL AST 161 H (15-37) IU/L ALT 75 H (14-63) IU/L Alkaline Phosphatase 117 H (46-116) U/L Total Protein 6.7 (6.4-8.2) g/dL Albumin 3.7 (3.4-5.0) g/dL Globulin 3.0 (2.6-4.0) g/dL Albumin/Globulin Ratio 1.2 (0.9-1.6) Lipase 123 (73-393) U/L Urine Color YELLOW Urine Appearance CLEAR Urine pH 6.0 (5.0-8.0) Ur Specific [place] 1.020 (1.001-1.035) Urine Protein NEGATIVE (NEGATIVE) mg/dL Urine Glucose (UA) NEGATIVE (NEGATIVE) mg/dL Urine Ketones NEGATIVE (NEGATIVE) mg/dL Urine Occult Blood NEGATIVE (NEGATIVE) Urine Nitrite NEGATIVE (NEGATIVE) Urine Bilirubin NEGATIVE (NEGATIVE) Urine Urobilinogen 0.2 (<2.0) EU/dL Ur Leukocyte Esterase NEGATIVE (NEGATIVE) Urine HCG, Qual NEGATIVE (NEGATIVE) Urine Opiates Screen (NEGATIVE) Ur Oxycodone Screen (NEGATIVE) Urine Methadone Screen (NEGATIVE) Ur Barbiturates Screen (NEGATIVE) Ur Phencyclidine Scrn (NEGATIVE) Ur Amphetamine Screen (NEGATIVE) U Methamphetamines Scrn (NEGATIVE) U Benzodiazepines Scrn (NEGATIVE) U Cocaine Metab Screen (NEGATIVE) U Marijuana (THC) Screen (NEGATIVE) Ethyl Alcohol 150 mg/dL SARS-CoV-2 RNA (DICK) (NEGATIVE) 11/24/19 11/24/19 11/24/19 Range/Units 14:03 14:06 15:22 WBC (4.0-11.0) K/uL RBC (4.30-5.90) M/uL Hgb (12.0-16.0) g/dL Hct (36.0-46.0) % MCV (80.0-98.0) fL MCH (27.0-32.0) pg MCHC (31.0-37.0) g/dL RDW Std Deviation (28.0-62.0) fl RDW Coeff of Jennifer (11.0-15.0) % Plt Count (150-400) K/uL MPV (7.40-12.00) fL Neut % (Auto) (48.0-80.0) % Lymph % (Auto) (16.0-40.0) % [place] % (Auto) (0.0-15.0) % Eos % (Auto) (0.0-7.0) % Baso % (Auto) (0.0-1.5) % Neut # (Auto) (1.4-5.7) K/uL Lymph # (Auto) (0.6-2.4) K/uL [place] # (Auto) (0.0-0.8) K/uL Eos # (Auto) (0.0-0.7) K/uL Baso # (Auto) (0.0-0.1) K/uL Nucleated RBC % /100WBC Nucleated RBCs # K/uL Lactate 2.8 H* (0.20-2.00) mmol/L Sodium (136-145) mmol/L Potassium (3.5-5.1) mmol/L Chloride (98-107) mmol/L Carbon Dioxide (21.0-32.0) mmol/L BUN (7.0-18.0) mg/dL Creatinine (0.6-1.0) mg/dL Est Cr Clr Drug Dosing mL/min Estimated GFR (MDRD) ml/min Glucose (74-106) mg/dL Calcium (8.5-10.1) mg/dL Magnesium (1.8-2.4) mg/dL Total Bilirubin (0.2-1.0) mg/dL AST (15-37) IU/L ALT (14-63) IU/L Alkaline Phosphatase (46-116) U/L Total Protein (6.4-8.2) g/dL Albumin (3.4-5.0) g/dL Globulin (2.6-4.0) g/dL Albumin/Globulin Ratio (0.9-1.6) Lipase (73-393) U/L Urine Color Urine Appearance Urine pH (5.0-8.0) Ur Specific [place] (1.001-1.035) Urine Protein (NEGATIVE) mg/dL Urine Glucose (UA) (NEGATIVE) mg/dL Urine Ketones (NEGATIVE) mg/dL Urine Occult Blood (NEGATIVE) Urine Nitrite (NEGATIVE) Urine Bilirubin (NEGATIVE) Urine Urobilinogen (<2.0) EU/dL Ur Leukocyte Esterase (NEGATIVE) Urine HCG, Qual (NEGATIVE) Urine Opiates Screen NEGATIVE (NEGATIVE) Ur Oxycodone Screen NEGATIVE (NEGATIVE) Urine Methadone Screen NEGATIVE (NEGATIVE) Ur Barbiturates Screen NEGATIVE (NEGATIVE) Ur Phencyclidine Scrn NEGATIVE (NEGATIVE) Ur Amphetamine Screen NEGATIVE (NEGATIVE) U Methamphetamines Scrn NEGATIVE (NEGATIVE) U Benzodiazepines Scrn NEGATIVE (NEGATIVE) U Cocaine Metab Screen NEGATIVE (NEGATIVE) U Marijuana (THC) Screen NEGATIVE (NEGATIVE) Ethyl Alcohol mg/dL SARS-CoV-2 RNA (DICK) NEGATIVE (NEGATIVE) 11/24/19 11/24/19 11/25/19 Range/Units 18:06 19:50 02:02 WBC (4.0-11.0) K/uL RBC (4.30-5.90) M/uL Hgb (12.0-16.0) g/dL Hct (36.0-46.0) % MCV (80.0-98.0) fL MCH (27.0-32.0) pg MCHC (31.0-37.0) g/dL RDW Std Deviation (28.0-62.0) fl RDW Coeff of Jennifer (11.0-15.0) % Plt Count (150-400) K/uL MPV (7.40-12.00) fL Neut % (Auto) (48.0-80.0) % Lymph % (Auto) (16.0-40.0) % [place] % (Auto) (0.0-15.0) % Eos % (Auto) (0.0-7.0) % Baso % (Auto) (0.0-1.5) % Neut # (Auto) (1.4-5.7) K/uL Lymph # (Auto) (0.6-2.4) K/uL [place] # (Auto) (0.0-0.8) K/uL Eos # (Auto) (0.0-0.7) K/uL Baso # (Auto) (0.0-0.1) K/uL Nucleated RBC % /100WBC Nucleated RBCs # K/uL Lactate 2.0 3.2 H* 2.1 H* (0.20-2.00) mmol/L Sodium (136-145) mmol/L Potassium (3.5-5.1) mmol/L Chloride (98-107) mmol/L Carbon Dioxide (21.0-32.0) mmol/L BUN (7.0-18.0) mg/dL Creatinine (0.6-1.0) mg/dL Est Cr Clr Drug Dosing mL/min Estimated GFR (MDRD) ml/min Glucose (74-106) mg/dL Calcium (8.5-10.1) mg/dL Magnesium (1.8-2.4) mg/dL Total Bilirubin (0.2-1.0) mg/dL AST (15-37) IU/L ALT (14-63) IU/L Alkaline Phosphatase (46-116) U/L Total Protein (6.4-8.2) g/dL Albumin (3.4-5.0) g/dL Globulin (2.6-4.0) g/dL Albumin/Globulin Ratio (0.9-1.6) Lipase (73-393) U/L Urine Color Urine Appearance Urine pH (5.0-8.0) Ur Specific [place] (1.001-1.035) Urine Protein (NEGATIVE) mg/dL Urine Glucose (UA) (NEGATIVE) mg/dL Urine Ketones (NEGATIVE) mg/dL Urine Occult Blood (NEGATIVE) Urine Nitrite (NEGATIVE) Urine Bilirubin (NEGATIVE) Urine Urobilinogen (<2.0) EU/dL Ur Leukocyte Esterase (NEGATIVE) Urine HCG, Qual (NEGATIVE) Urine Opiates Screen (NEGATIVE) Ur Oxycodone Screen (NEGATIVE) Urine Methadone Screen (NEGATIVE) Ur Barbiturates Screen (NEGATIVE) Ur Phencyclidine Scrn (NEGATIVE) Ur Amphetamine Screen (NEGATIVE) U Methamphetamines Scrn (NEGATIVE) U Benzodiazepines Scrn (NEGATIVE) U Cocaine Metab Screen (NEGATIVE) U Marijuana (THC) Screen (NEGATIVE) Ethyl Alcohol mg/dL SARS-CoV-2 RNA (DICK) (NEGATIVE) 11/25/19 11/25/19 11/25/19 Range/Units 05:25 05:25 08:48 WBC 7.13 (4.0-11.0) K/uL RBC 3.92 L (4.30-5.90) M/uL Hgb 13.2 (12.0-16.0) g/dL Hct 40.0 (36.0-46.0) % MCV 102.0 H (80.0-98.0) fL MCH 33.7 H (27.0-32.0) pg MCHC 33.0 (31.0-37.0) g/dL RDW Std Deviation 50.9 (28.0-62.0) fl RDW Coeff of Jennifer 14 (11.0-15.0) % Plt Count 116 L (150-400) K/uL MPV 10.00 (7.40-12.00) fL Neut % (Auto) 65.3 (48.0-80.0) % Lymph % (Auto) 26.9 (16.0-40.0) % [place] % (Auto) 5.5 (0.0-15.0) % Eos % (Auto) 2.0 (0.0-7.0) % Baso % (Auto) 0.3 (0.0-1.5) % Neut # (Auto) 4.7 (1.4-5.7) K/uL Lymph # (Auto) 1.9 (0.6-2.4) K/uL [place] # (Auto) 0.4 (0.0-0.8) K/uL Eos # (Auto) 0.1 (0.0-0.7) K/uL Baso # (Auto) 0.0 (0.0-0.1) K/uL Nucleated RBC % 0.0 /100WBC Nucleated RBCs # 0 K/uL Lactate 1.7 (0.20-2.00) mmol/L Sodium 138 (136-145) mmol/L Potassium 3.7 (3.5-5.1) mmol/L Chloride 103 (98-107) mmol/L Carbon Dioxide 22.2 (21.0-32.0) mmol/L BUN 6 L (7.0-18.0) mg/dL Creatinine 0.9 (0.6-1.0) mg/dL Est Cr Clr Drug Dosing 63.24 mL/min Estimated GFR (MDRD) > 60.0 ml/min Glucose 105 (74-106) mg/dL Calcium 7.1 L (8.5-10.1) mg/dL Magnesium (1.8-2.4) mg/dL Total Bilirubin 0.5 (0.2-1.0) mg/dL AST 116 H (15-37) IU/L ALT 67 H (14-63) IU/L Alkaline Phosphatase 100 (46-116) U/L Total Protein 6.1 L (6.4-8.2) g/dL Albumin 3.3 L (3.4-5.0) g/dL Globulin 2.8 (2.6-4.0) g/dL Albumin/Globulin Ratio 1.2 (0.9-1.6) Lipase 109 (73-393) U/L Urine Color Urine Appearance Urine pH (5.0-8.0) Ur Specific [place] (1.001-1.035) Urine Protein (NEGATIVE) mg/dL Urine Glucose (UA) (NEGATIVE) mg/dL Urine Ketones (NEGATIVE) mg/dL Urine Occult Blood (NEGATIVE) Urine Nitrite (NEGATIVE) Urine Bilirubin (NEGATIVE) Urine Urobilinogen (<2.0) EU/dL Ur Leukocyte Esterase (NEGATIVE) Urine HCG, Qual (NEGATIVE) Urine Opiates Screen (NEGATIVE) Ur Oxycodone Screen (NEGATIVE) Urine Methadone Screen (NEGATIVE) Ur Barbiturates Screen (NEGATIVE) Ur Phencyclidine Scrn (NEGATIVE) Ur Amphetamine Screen (NEGATIVE) U Methamphetamines Scrn (NEGATIVE) U Benzodiazepines Scrn (NEGATIVE) U Cocaine Metab Screen (NEGATIVE) U Marijuana (THC) Screen (NEGATIVE) Ethyl Alcohol mg/dL SARS-CoV-2 RNA (DICK) (NEGATIVE) Med Orders - Current: Current Medications Albuterol/Ipratropium (Duoneb 3.0-0.5 Mg/3 Ml) 3 ml NEB Q4HRRT PRN PRN Reason: Wheezing Folic Acid (Folic Acid) 1 mg IV DAILY [facility] Last Admin: 11/25/19 09:07 Dose: 1 mg Documented by: Sodium Chloride (Normal Saline) 1,000 mls @ 150 mls/hr IV ASDIRECTED [facility] Last Admin: 11/25/19 11:30 Dose: 150 mls/hr Documented by: Pantoprazole Sodium 40 mg/ (Sodium Chloride) 10 mls @ 300 mls/hr IV Q24H [facility] Last Admin: 11/25/19 00:33 Dose: 300 mls/hr Documented by: Lorazepam (Ativan) 0 mg IVPUSH Q4H PRN; Protocol PRN Reason: CIWAA Last Admin: 11/25/19 12:55 Dose: 1 mg Documented by: Nicotine (Habitrol) 14 mg TRDERM DAILY [facility] Nystatin (Nystop) 1 gm TOP TID [facility] Last Admin: 11/25/19 13:41 Dose: 1 applic Documented by: Ondansetron HCl (Zofran) 4 mg IVPUSH Q4H PRN PRN Reason: Nausea Amylase/Lipase/Protease 12,000 Unit Cap.Cr 1 each PO WITHMEALSANDBED [facility] Sodium Chloride (Saline Flush) 10 ml FLUSH ASDIRECTED PRN PRN Reason: Keep Vein Open Last Admin: 11/24/19 13:52 Dose: 10 ml Documented by: Sodium Chloride (Saline Flush) 2.5 ml FLUSH ASDIRECTED PRN PRN Reason: Keep Vein Open Last Admin: 11/24/19 13:52 Dose: 2.5 ml Documented by: Thiamine HCl (Vitamin B-1) 100 mg IVPUSH DAILY [facility] Last Admin: 11/25/19 09:08 Dose: 100 mg Documented by: Discontinued Medications Chlordiazepoxide HCl (Librium) 50 mg PO ONETIME ONE Stop: 11/24/19 13:21 Last Admin: 11/24/19 13:53 Dose: 50 mg Documented by: Al Hydroxide/Mg Hydroxide 15 ml/ Metoclopramide HCl 5 mg/Lidocaine HCl 5 ml 0 ml PO ONETIME ONE Stop: 11/24/19 17:46 Last Admin: 11/24/19 19:35 Dose: 25 each Documented by: Al Hydroxide/Mg Hydroxide 15 (ml/ Lidocaine HCl 5 ml) 0 ml PO ONETIME ONE Stop: 11/25/19 12:31 Last Admin: 11/25/19 12:38 Dose: 1 each Documented by: Lactated Ringer's (Ringers, Lactated) 1,000 mls @ 999 mls/hr IV .BOLUS ONE Stop: 11/24/19 14:18 Last Admin: 11/24/19 13:47 Dose: 999 mls/hr Documented by: Sodium Chloride (Normal Saline) 1,000 mls @ 999 mls/hr IV .BOLUS ONE Stop: 11/24/19 15:16 Last Admin: 11/24/19 15:05 Dose: 999 mls/hr Documented by: Ketorolac Tromethamine (Toradol) 30 mg IVPUSH ONETIME ONE Stop: 11/24/19 13:28 Last Admin: 11/24/19 13:52 Dose: 30 mg Documented by: Lorazepam (Ativan) 1 mg IVPUSH ONETIME ONE Stop: 11/24/19 13:19 Last Admin: 11/24/19 13:52 Dose: 1 mg Documented by: Lorazepam (Ativan) 1 mg IVPUSH ONETIME ONE Stop: 11/24/19 17:29 Last Admin: 11/24/19 17:40 Dose: 1 mg Documented by: Morphine Sulfate (Morphine) 4 mg IVPUSH ONETIME ONE Stop: 11/24/19 15:27 Last Admin: 11/24/19 15:35 Dose: 4 mg Documented by: Ondansetron HCl (Zofran) 4 mg IVPUSH ONETIME ONE Stop: 11/24/19 13:19 Last Admin: 11/24/19 13:52 Dose: 4 mg Documented by: Oxycodone HCl (Oxycodone) 5 mg PO ONETIME ONE Stop: 11/25/19 13:24 Last Admin: 11/25/19 13:41 Dose: 5 mg Documented by: Tramadol HCl (Ultram) 50 mg PO Q6H PRN PRN Reason: Pain Last Admin: 11/25/19 04:09 Dose: 50 mg Documented by: - Exam General: Alert, Oriented, Cooperative, No Acute Distress Lungs: Clear to Auscultation Cardiovascular: Regular Rate, Regular Rhythm GI/Abdominal Exam: Normal Bowel Sounds, Soft, Non-Tender Extremities: Normal Inspection, Normal Range of Motion, Non-Tender, No Pedal Edema Psy/Mental Status: Alert, Normal Affect, Normal Mood Sepsis Event Note - Evaluation Sepsis Screening Result: No Definite Risk - Focused Exam Vital Signs: Vital Signs Temp Pulse Resp BP Pulse Ox 11/25/19 11:00 98.6 F 90 16 112/72 94 L 11/25/19 07:11 98.0 F 93 18 121/76 96 11/25/19 04:00 97.3 F 89 18 111/62 91 L - Problem List & Annotations (1) Chronic pancreatitis SNOMED Code(s): 449886713 Code(s): K86.1 - OTHER CHRONIC PANCREATITIS Status: Acute Current Visit: Yes (2) Alcohol withdrawal SNOMED Code(s): 684533169 Code(s): F10.239 - ALCOHOL DEPENDENCE WITH WITHDRAWAL, UNSPECIFIED Status: Acute Current Visit: Yes Qualifiers: Complication of substance-induced condition: with perceptual disturbance Qualified Code(s): F10.232 - Alcohol dependence with withdrawal with perceptual disturbance (3) Alcohol abuse SNOMED Code(s): 89839834 Code(s): F10.10 - ALCOHOL ABUSE, UNCOMPLICATED Status: Chronic Current Visit: No (4) Hypothyroidism SNOMED Code(s): 13296531 Code(s): E03.9 - HYPOTHYROIDISM, UNSPECIFIED Status: Chronic Current Visit: No (5) Psoriasis SNOMED Code(s): 9894906 Code(s): L40.9 - PSORIASIS, UNSPECIFIED Status: Chronic Current Visit: No (6) Tobacco abuse SNOMED Code(s): 947859263 Code(s): Z72.0 - Status: Chronic Current Visit: No - Problem List Review Problem List Initiated/Reviewed/Updated: Yes - My Orders Last 24 Hours: My Active Orders 11/25/19 Breakfast Clear Liquid Diet [DIET] 11/25/19 14:00 Nicotine [Habitrol] 14 mg TRDERM DAILY Nystatin [Nystop] 1 gm TOP TID 11/25/19 17:30 Patient's Own Medication [Ptom] 1 each PO WITHMEALSANDBED - Plan Plan:: 49 yo female admitted with ETOH gastritis. 1. ETOH gastritis: - Continue Protonix - Give Oxycodone x1 today and monitor 2. ETOH withdrawal: - CIWAA with PRN Ativan - Thiamine and folic acid 3. Chronic pancreatitis - Lipase normal - Oxycodone x1 - Advance diet to CL today VTE prophylaxis: SCDs Dispo: 1-2 days
[2019-11-25] MEDS ORDERED: hydrOXYzine HCl 25 MG Tab PO PRN (14:22)
[2019-11-25] MEDS: Pantoprazole 40 MG in Sodium Chloride 0.9% 10 ML IV SCH (14:54)
[2019-11-25] MEDS ORDERED: Acetaminophen 325 MG Tab PO PRN (16:35)
[2019-11-25] MEDS: Acetaminophen 325 MG Tab PO PRN ×2 (16:46→21:27)
[2019-11-25] MEDS: Amylase/Lipase/Protease 12,000 Unit Cap.CR PO SCH ×2 (18:08→21:59)
[2019-11-25] MEDS: Acetaminophen/oxyCODONE 325-5 MG Tab PO PRN (23:40)
[2019-11-26] MEDS: Sodium Chloride 0.9% 1,000 ML IV SCH (02:05)
[2019-11-26] MEDS: Pantoprazole 40 MG in Sodium Chloride 0.9% 10 ML IV SCH ×2 (02:10→14:10)
[2019-11-26] MEDS: Nystatin Topical Powder 15 GM Bottle TOP SCH ×3 (06:32→22:15)
[2019-11-26] MEDS: Acetaminophen/oxyCODONE 325-5 MG Tab PO PRN ×3 (06:37→20:18)
[2019-11-26] MEDS: LORazepam 2 MG/ML SDV IVPUSH PRN ×2 (06:52→14:34)
[2019-11-26 07:40] LABS: BLOOD UREA NITROGEN,BUN 4 mg/dL (7.0-18.0); CARBON DIOXIDE,CO2 26.6 mmol/L (21.0-32.0); CHLORIDE,CL 109 mmol/L (98-107); GLUCOSE RANDOM 93 mg/dL (74-106); LIPASE 93 U/L (73-393); SODIUM,NA 143 mmol/L (136-145)
[2019-11-26] MEDS ORDERED: Potassium Chloride 20 MEQ Tab.ER PO ONE (08:04)
[2019-11-26] MEDS: Amylase/Lipase/Protease 12,000 Unit Cap.CR PO SCH ×4 (09:23→21:02)
[2019-11-26] MEDS: Folic Acid 50 MG/10 ML MDV IV SCH (09:24)
[2019-11-26] MEDS: Thiamine 200 MG/2 ML MDV IVPUSH SCH (09:25)
[2019-11-26] MEDS: Nicotine 14 MG/24 Hr Patch TRDERM SCH (09:25)
[2019-11-26] MEDS: Acetaminophen 325 MG Tab PO PRN (10:46)
[2019-11-26] MEDS ORDERED: Magnesium Sulfate/Water 2 GM/50 ML Premix Bag IV ONE (11:03)
--- NOTE | 2019-11-26 11:04 | PCM.PN ---
- General Info Date of Service: 11/26/19 Admission Dx/Problem (Free Text): Admission Diagnosis/Problem Admission Diagnosis/Problem Alcohol withdrawal syndrome Subjective Update: Reports abdominal pain, but wanting to eat more. Withdrawal is improving, no further hallucinations. No chest pain or SOB. Functional Status: Reports: Pain Controlled, Tolerating Diet, Ambulating, Urinating - Review of Systems General: Reports: No Symptoms. Denies: Fever, Weakness, Fatigue Pulmonary: Reports: No Symptoms. Denies: Shortness of Breath Cardiovascular: Reports: No Symptoms. Denies: Chest Pain Gastrointestinal: Reports: Abdominal Pain. Denies: Diarrhea, Nausea, Vomiting Genitourinary: Reports: No Symptoms. Denies: Dysuria, Frequency Musculoskeletal: Reports: No Symptoms Skin: Reports: No Symptoms Neurological: Reports: No Symptoms Psychiatric: Reports: No Symptoms - Patient Data Vitals - Most Recent: Last Vital Signs Temp 97.1 F 11/26/19 08:00 Pulse 67 11/26/19 08:00 Resp 16 11/26/19 08:00 BP 108/63 11/26/19 08:00 Pulse Ox 88 L 11/26/19 08:00 Weight - Most Recent: 110.223 kg I&O - Last 24 Hours: Intake & Output 11/25/19 11/26/19 11/26/19 22:59 06:59 14:59 Intake Total 860 1260 Balance 860 1260 Lab Results Last 24 Hours: Laboratory Results - last 24 hr 11/26/19 11/26/19 11/26/19 Range/Units 06:28 06:28 06:28 WBC 3.36 L (4.0-11.0) K/uL RBC 3.57 L (4.30-5.90) M/uL Hgb 11.9 L (12.0-16.0) g/dL Hct 37.1 (36.0-46.0) % MCV 103.9 H (80.0-98.0) fL MCH 33.3 H (27.0-32.0) pg MCHC 32.1 (31.0-37.0) g/dL RDW Std Deviation 52.7 (28.0-62.0) fl RDW Coeff of Jennifer 14 (11.0-15.0) % Plt Count 100 L (150-400) K/uL MPV 10.30 (7.40-12.00) fL Neut % (Auto) 33.9 L (48.0-80.0) % Lymph % (Auto) 52.4 H (16.0-40.0) % [place] % (Auto) 9.5 (0.0-15.0) % Eos % (Auto) 3.6 (0.0-7.0) % Baso % (Auto) 0.6 (0.0-1.5) % Neut # (Auto) 1.1 L (1.4-5.7) K/uL Lymph # (Auto) 1.8 (0.6-2.4) K/uL [place] # (Auto) 0.3 (0.0-0.8) K/uL Eos # (Auto) 0.1 (0.0-0.7) K/uL Baso # (Auto) 0.0 (0.0-0.1) K/uL Nucleated RBC % 0.0 /100WBC Nucleated RBCs # 0 K/uL Sodium 143 (136-145) mmol/L Potassium 3.0 L (3.5-5.1) mmol/L Chloride 109 H (98-107) mmol/L Carbon Dioxide 26.6 (21.0-32.0) mmol/L BUN 4 L (7.0-18.0) mg/dL Creatinine 0.8 (0.6-1.0) mg/dL Est Cr Clr Drug Dosing 71.14 mL/min Estimated GFR (MDRD) > 60.0 ml/min Glucose 93 (74-106) mg/dL Calcium 6.7 L (8.5-10.1) mg/dL Magnesium 1.7 L (1.8-2.4) mg/dL Total Bilirubin 0.6 (0.2-1.0) mg/dL AST 62 H (15-37) IU/L ALT 48 (14-63) IU/L Alkaline Phosphatase 83 (46-116) U/L Total Protein 5.4 L (6.4-8.2) g/dL Albumin 2.8 L (3.4-5.0) g/dL Globulin 2.6 (2.6-4.0) g/dL Albumin/Globulin Ratio 1.1 (0.9-1.6) Lipase 93 (73-393) U/L Med Orders - Current: Current Medications Acetaminophen (Tylenol) 650 mg PO Q6H PRN PRN Reason: Pain Last Admin: 11/26/19 10:46 Dose: 650 mg Documented by: Albuterol/Ipratropium (Duoneb 3.0-0.5 Mg/3 Ml) 3 ml NEB Q4HRRT PRN PRN Reason: Wheezing Folic Acid (Folic Acid) 1 mg IV DAILY [facility] Last Admin: 11/26/19 09:24 Dose: 1 mg Documented by: Hydroxyzine HCl (Atarax) 25 mg PO DAILY PRN PRN Reason: Itching Last Admin: 11/25/19 16:46 Dose: 25 mg Documented by: Pantoprazole Sodium 40 mg/ (Sodium Chloride) 10 mls @ 300 mls/hr IV Q12H [facility] Last Admin: 11/26/19 02:10 Dose: 300 mls/hr Documented by: Lorazepam (Ativan) 0 mg IVPUSH Q4H PRN; Protocol PRN Reason: CIWAA Last Admin: 11/26/19 06:52 Dose: 2 mg Documented by: Magnesium Sulfate (Magnesium Sulfate In Water Premix) 2 gm IV ONETIME ONE Stop: 11/26/19 11:04 Nicotine (Habitrol) 14 mg TRDERM DAILY [facility] Last Admin: 11/26/19 09:25 Dose: 14 mg Documented by: Nystatin (Nystop) 1 gm TOP TID [facility] Last Admin: 11/26/19 06:32 Dose: 1 applic Documented by: Ondansetron HCl (Zofran) 4 mg IVPUSH Q4H PRN PRN Reason: Nausea Oxycodone/Acetaminophen (Percocet 325-5 Mg) 1 tab PO Q6H PRN PRN Reason: Pain Last Admin: 11/26/19 06:37 Dose: 1 tab Documented by: Amylase/Lipase/Protease 12,000 Unit Cap.Cr 1 each PO WITHMEALSANDBED [facility] Last Admin: 11/26/19 09:23 Dose: Not Given Documented by: Sodium Chloride (Saline Flush) 10 ml FLUSH ASDIRECTED PRN PRN Reason: Keep Vein Open Last Admin: 11/24/19 13:52 Dose: 10 ml Documented by: Sodium Chloride (Saline Flush) 2.5 ml FLUSH ASDIRECTED PRN PRN Reason: Keep Vein Open Last Admin: 11/24/19 13:52 Dose: 2.5 ml Documented by: Thiamine HCl (Vitamin B-1) 100 mg IVPUSH DAILY [facility] Last Admin: 11/26/19 09:25 Dose: 100 mg Documented by: Discontinued Medications Acetaminophen (Tylenol) 650 mg PO Q4H PRN PRN Reason: Pain Chlordiazepoxide HCl (Librium) 50 mg PO ONETIME ONE Stop: 11/24/19 13:21 Last Admin: 11/24/19 13:53 Dose: 50 mg Documented by: Al Hydroxide/Mg Hydroxide 15 ml/ Metoclopramide HCl 5 mg/Lidocaine HCl 5 ml 0 ml PO ONETIME ONE Stop: 11/24/19 17:46 Last Admin: 11/24/19 19:35 Dose: 25 each Documented by: Al Hydroxide/Mg Hydroxide 15 (ml/ Lidocaine HCl 5 ml) 0 ml PO ONETIME ONE Stop: 11/25/19 12:31 Last Admin: 11/25/19 12:38 Dose: 1 each Documented by: Lactated Ringer's (Ringers, Lactated) 1,000 mls @ 999 mls/hr IV .BOLUS ONE Stop: 11/24/19 14:18 Last Admin: 11/24/19 13:47 Dose: 999 mls/hr Documented by: Sodium Chloride (Normal Saline) 1,000 mls @ 999 mls/hr IV .BOLUS ONE Stop: 11/24/19 15:16 Last Admin: 11/24/19 15:05 Dose: 999 mls/hr Documented by: Sodium Chloride (Normal Saline) 1,000 mls @ 150 mls/hr IV ASDIRECTED [facility] Last Admin: 11/25/19 11:30 Dose: 150 mls/hr Documented by: Pantoprazole Sodium 40 mg/ (Sodium Chloride) 10 mls @ 300 mls/hr IV Q24H [facility] Last Admin: 11/25/19 00:33 Dose: 300 mls/hr Documented by: Sodium Chloride (Normal Saline) 1,000 mls @ 100 mls/hr IV Q10H [facility] Last Admin: 11/26/19 02:05 Dose: Not Given Documented by: Ketorolac Tromethamine (Toradol) 30 mg IVPUSH ONETIME ONE Stop: 11/24/19 13:28 Last Admin: 09/30/20 13:52 Dose: 30 mg Documented by: Lorazepam (Ativan) 1 mg IVPUSH ONETIME ONE Stop: 11/24/19 13:19 Last Admin: 11/24/19 13:52 Dose: 1 mg Documented by: Lorazepam (Ativan) 1 mg IVPUSH ONETIME ONE Stop: 11/24/19 17:29 Last Admin: 11/24/19 17:40 Dose: 1 mg Documented by: Morphine Sulfate (Morphine) 4 mg IVPUSH ONETIME ONE Stop: 11/24/19 15:27 Last Admin: 11/24/19 15:35 Dose: 4 mg Documented by: Ondansetron HCl (Zofran) 4 mg IVPUSH ONETIME ONE Stop: 11/24/19 13:19 Last Admin: 11/24/19 13:52 Dose: 4 mg Documented by: Oxycodone HCl (Oxycodone) 5 mg PO ONETIME ONE Stop: 11/25/19 13:24 Last Admin: 11/25/19 13:41 Dose: 5 mg Documented by: Potassium Chloride (Klor-Con M20) 40 meq PO ONETIME ONE Stop: 11/26/19 08:05 Last Admin: 11/26/19 09:24 Dose: 40 meq Documented by: Tramadol HCl (Ultram) 50 mg PO Q6H PRN PRN Reason: Pain Last Admin: 11/25/19 04:09 Dose: 50 mg Documented by: - Exam General: Alert, Oriented, Cooperative, No Acute Distress Lungs: Clear to Auscultation, Normal Respiratory Effort Cardiovascular: Regular Rate, Regular Rhythm GI/Abdominal Exam: Normal Bowel Sounds, Soft, Tender Extremities: Normal Inspection, Normal Range of Motion, Non-Tender, No Pedal Edema Neurological: No New Focal Deficit Psy/Mental Status: Alert, Normal Affect, Normal Mood Sepsis Event Note - Evaluation Sepsis Screening Result: No Definite Risk - Focused Exam Vital Signs: Vital Signs Temp Pulse Resp BP Pulse Ox 11/26/19 08:00 97.1 F 67 16 108/63 88 L 11/26/19 04:19 98.2 F 75 16 107/63 92 L 11/25/19 23:43 97.4 F 90 16 111/64 93 L - Problem List & Annotations (1) Chronic pancreatitis SNOMED Code(s): 603736582 Code(s): K86.1 - OTHER CHRONIC PANCREATITIS Status: Acute Current Visit: Yes (2) Alcohol withdrawal SNOMED Code(s): 768266764 Code(s): F10.239 - ALCOHOL DEPENDENCE WITH WITHDRAWAL, UNSPECIFIED Status: Acute Current Visit: Yes Qualifiers: Complication of substance-induced condition: with perceptual disturbance Qualified Code(s): F10.232 - Alcohol dependence with withdrawal with perceptual disturbance (3) Alcohol abuse SNOMED Code(s): 89819594 Code(s): F10.10 - ALCOHOL ABUSE, UNCOMPLICATED Status: Chronic Current Visit: No (4) Hypothyroidism SNOMED Code(s): 54559774 Code(s): E03.9 - HYPOTHYROIDISM, UNSPECIFIED Status: Chronic Current Visit: No (5) Psoriasis SNOMED Code(s): 4927952 Code(s): L40.9 - PSORIASIS, UNSPECIFIED Status: Chronic Current Visit: No (6) Tobacco abuse SNOMED Code(s): 125899614 Code(s): Z72.0 - TOBACCO USE Status: Chronic Current Visit: No - Problem List Review Problem List Initiated/Reviewed/Updated: Yes - My Orders Last 24 Hours: My Active Orders 11/25/19 14:00 Nicotine [Habitrol] 14 mg TRDERM DAILY Nystatin [Nystop] 1 gm TOP TID 11/25/19 14:22 hydrOXYzine HCL [Atarax] 25 mg PO DAILY PRN 11/25/19 14:30 Pantoprazole [ProTONIX IV] 40 mg Sodium Chloride 0.9% [Normal Saline] 10 ml IV Q12H 11/25/19 16:37 Acetaminophen [TylenoL] 650 mg PO Q6H PRN 11/25/19 17:30 Patient's Own Medication [Ptom] 1 each PO WITHMEALSANDBED 11/26/19 Breakfast Soft Diet [DIET] 11/26/19 11:03 Magnesium Sulfate/Water [Magnesium Sulfate in Water Premix] 2 gm IV ONETIME ONE - Plan Plan:: 49 yo female admitted with ETOH gastritis. 1. ETOH gastritis: - Continue Protonix - Give Percocet every 6 hours PRN 2. ETOH withdrawal: - CIWAA with PRN Ativan - Thiamine and folic acid 3. Chronic pancreatitis - Lipase normal - Advance diet to soft VTE prophylaxis: SCDs Dispo: 1-2 days
[2019-11-26] MEDS ORDERED: Magnesium Sulfate/Water 2 GM/50 ML BAG IV ONE (11:15)
[2019-11-26] MEDS ORDERED: Ketorolac 15 MG/ML SDV IVPUSH PRN (22:34)
[2019-11-27] MEDS: Pantoprazole 40 MG in Sodium Chloride 0.9% 10 ML IV SCH (03:49)
[2019-11-27] MEDS: LORazepam 2 MG/ML SDV IVPUSH PRN (04:17)
[2019-11-27] MEDS ORDERED: Ketorolac 15 MG/ML SDV IVPUSH PRN (05:00)
[2019-11-27] MEDS: Nystatin Topical Powder 15 GM Bottle TOP SCH (06:24)
[2019-11-27] MEDS: Acetaminophen/oxyCODONE 325-5 MG Tab PO PRN ×2 (06:25→14:32)
[2019-11-27 06:34] LABS: BLOOD UREA NITROGEN,BUN 3 mg/dL (7.0-18.0); CHLORIDE,CL 108 mmol/L (98-107); GLUCOSE RANDOM 99 mg/dL (74-106); POTASSIUM,K 3.8 mmol/L (3.5-5.1); SODIUM,NA 142 mmol/L (136-145)
[2019-11-27] MEDS: Amylase/Lipase/Protease 12,000 Unit Cap.CR PO SCH ×2 (08:18→12:44)
[2019-11-27] MEDS: Folic Acid 50 MG/10 ML MDV IV SCH (08:38)
[2019-11-27] MEDS: Thiamine 200 MG/2 ML MDV IVPUSH SCH (08:39)
[2019-11-27] MEDS: Nicotine 14 MG/24 Hr Patch TRDERM SCH (08:39)
[2019-11-27] MEDS ORDERED: Ketorolac 10 MG Tab PO PRN (09:50)
--- NOTE | 2019-11-27 09:54 | PCM.PN ---
- Patient Data Vitals - Most Recent: Last Vital Signs Temp 36.4 C 11/27/19 08:00 Pulse 67 11/27/19 08:00 Resp 18 11/27/19 08:00 BP 107/79 11/27/19 08:00 Pulse Ox 94 L 11/27/19 08:00 Weight - Most Recent: 110.223 kg I&O - Last 24 Hours: Intake & Output 11/26/19 11/27/19 11/27/19 22:59 06:59 14:59 Intake Total 1420 1000 Output Total 700 1300 Balance 720 -300 Lab Results Last 24 Hours: Laboratory Results - last 24 hr 11/27/19 11/27/19 Range/Units 05:55 05:55 WBC 3.61 L (4.0-11.0) K/uL RBC 3.52 L (4.30-5.90) M/uL Hgb 11.7 L (12.0-16.0) g/dL Hct 37.2 (36.0-46.0) % MCV 105.7 H (80.0-98.0) fL MCH 33.2 H (27.0-32.0) pg MCHC 31.5 (31.0-37.0) g/dL RDW Std Deviation 54.2 (28.0-62.0) fl RDW Coeff of Jennifer 14 (11.0-15.0) % Plt Count 114 L (150-400) K/uL MPV 10.60 (7.40-12.00) fL Neut % (Auto) 42.6 L (48.0-80.0) % Lymph % (Auto) 47.1 H (16.0-40.0) % [place] % (Auto) 6.1 (0.0-15.0) % Eos % (Auto) 3.6 (0.0-7.0) % Baso % (Auto) 0.6 (0.0-1.5) % Neut # (Auto) 1.5 (1.4-5.7) K/uL Lymph # (Auto) 1.7 (0.6-2.4) K/uL [place] # (Auto) 0.2 (0.0-0.8) K/uL Eos # (Auto) 0.1 (0.0-0.7) K/uL Baso # (Auto) 0.0 (0.0-0.1) K/uL Nucleated RBC % 0.0 /100WBC Nucleated RBCs # 0 K/uL Sodium 142 (136-145) mmol/L Potassium 3.8 (3.5-5.1) mmol/L Chloride 108 H (98-107) mmol/L Carbon Dioxide 29.0 (21.0-32.0) mmol/L BUN 3 L (7.0-18.0) mg/dL Creatinine 0.7 (0.6-1.0) mg/dL Est Cr Clr Drug Dosing 81.30 mL/min Estimated GFR (MDRD) > 60.0 ml/min Glucose 99 (74-106) mg/dL Calcium 7.5 L (8.5-10.1) mg/dL Magnesium 2.1 (1.8-2.4) mg/dL Total Bilirubin 0.4 (0.2-1.0) mg/dL AST 57 H (15-37) IU/L ALT 44 (14-63) IU/L Alkaline Phosphatase 77 (46-116) U/L Total Protein 5.2 L (6.4-8.2) g/dL Albumin 2.6 L (3.4-5.0) g/dL Globulin 2.6 (2.6-4.0) g/dL Albumin/Globulin Ratio 1.0 (0.9-1.6) Med Orders - Current: Current Medications Acetaminophen (Tylenol) 650 mg PO Q6H PRN PRN Reason: Pain Last Admin: 11/26/19 10:46 Dose: 650 mg Documented by: Albuterol/Ipratropium (Duoneb 3.0-0.5 Mg/3 Ml) 3 ml NEB Q4HRRT PRN PRN Reason: Wheezing Folic Acid (Folic Acid) 1 mg IV DAILY [facility] Last Admin: 11/27/19 08:38 Dose: 1 mg Documented by: Hydroxyzine HCl (Atarax) 25 mg PO DAILY PRN PRN Reason: Itching Last Admin: 11/25/19 16:46 Dose: 25 mg Documented by: Pantoprazole Sodium 40 mg/ (Sodium Chloride) 10 mls @ 300 mls/hr IV Q12H [facility] Last Admin: 11/27/19 03:49 Dose: 300 mls/hr Documented by: Ketorolac Tromethamine (Toradol) 10 mg PO Q8H PRN PRN Reason: Abdominal Pain Stop: 12/02/19 09:51 Lorazepam (Ativan) 0 mg IVPUSH Q4H PRN; Protocol PRN Reason: CIWAA Last Admin: 11/27/19 04:17 Dose: 1 mg Documented by: Nicotine (Habitrol) 14 mg TRDERM DAILY [facility] Last Admin: 11/27/19 08:39 Dose: 14 mg Documented by: Non-Formulary Medication (Levothyroxine [Levothroid]) 225 mcg PO DAILY [facility] Nystatin (Nystop) 1 gm TOP TID [facility] Last Admin: 11/27/19 06:24 Dose: 1 applic Documented by: Ondansetron HCl (Zofran) 4 mg IVPUSH Q4H PRN PRN Reason: Nausea Oxycodone/Acetaminophen (Percocet 325-5 Mg) 1 tab PO Q6H PRN PRN Reason: Pain Last Admin: 11/27/19 06:25 Dose: 1 tab Documented by: Amylase/Lipase/Protease 12,000 Unit Cap.Cr 1 each PO WITHMEALSANDBED [facility] Last Admin: 11/27/19 08:18 Dose: Not Given Documented by: Sodium Chloride (Saline Flush) 10 ml FLUSH ASDIRECTED PRN PRN Reason: Keep Vein Open Last Admin: 11/24/19 13:52 Dose: 10 ml Documented by: Sodium Chloride (Saline Flush) 2.5 ml FLUSH ASDIRECTED PRN PRN Reason: Keep Vein Open Last Admin: 11/24/19 13:52 Dose: 2.5 ml Documented by: Thiamine HCl (Vitamin B-1) 100 mg IVPUSH DAILY [facility] Last Admin: 11/27/19 08:39 Dose: 100 mg Documented by: Discontinued Medications Acetaminophen (Tylenol) 650 mg PO Q4H PRN PRN Reason: Pain Chlordiazepoxide HCl (Librium) 50 mg PO ONETIME ONE Stop: 11/24/19 13:21 Last Admin: 11/24/19 13:53 Dose: 50 mg Documented by: Al Hydroxide/Mg Hydroxide 15 ml/ Metoclopramide HCl 5 mg/Lidocaine HCl 5 ml 0 ml PO ONETIME ONE Stop: 11/24/19 17:46 Last Admin: 11/24/19 19:35 Dose: 25 each Documented by: Al Hydroxide/Mg Hydroxide 15 (ml/ Lidocaine HCl 5 ml) 0 ml PO ONETIME ONE Stop: 11/25/19 12:31 Last Admin: 11/25/19 12:38 Dose: 1 each Documented by: Lactated Ringer's (Ringers, Lactated) 1,000 mls @ 999 mls/hr IV .BOLUS ONE Stop: 11/24/19 14:18 Last Admin: 11/24/19 13:47 Dose: 999 mls/hr Documented by: Sodium Chloride (Normal Saline) 1,000 mls @ 999 mls/hr IV .BOLUS ONE Stop: 11/24/19 15:16 Last Admin: 11/24/19 15:05 Dose: 999 mls/hr Documented by: Sodium Chloride (Normal Saline) 1,000 mls @ 150 mls/hr IV ASDIRECTED [facility] Last Admin: 11/25/19 11:30 Dose: 150 mls/hr Documented by: Pantoprazole Sodium 40 mg/ (Sodium Chloride) 10 mls @ 300 mls/hr IV Q24H [facility] Last Admin: 11/25/19 00:33 Dose: 300 mls/hr Documented by: Sodium Chloride (Normal Saline) 1,000 mls @ 100 mls/hr IV Q10H [facility] Last Admin: 11/26/19 02:05 Dose: Not Given Documented by: Magnesium Sulfate (Magnesium Sulfate In Water Premix) 2 gm in 50 mls @ 50 mls/hr IV ONETIME ONE Stop: 11/26/19 12:14 Last Admin: 11/26/19 11:38 Dose: 50 mls/hr Documented by: Ketorolac Tromethamine (Toradol) 30 mg IVPUSH ONETIME ONE Stop: 11/24/19 13:28 Last Admin: 11/24/19 13:52 Dose: 30 mg Documented by: Ketorolac Tromethamine (Toradol) 15 mg IVPUSH Q4H PRN PRN Reason: Pain Stop: 12/01/19 22:34 Last Admin: 11/26/19 23:07 Dose: 15 mg Documented by: Ketorolac Tromethamine (Toradol) 15 mg IVPUSH Q6H PRN PRN Reason: Pain Stop: 12/02/19 05:01 Last Admin: 11/27/19 08:41 Dose: 15 mg Documented by: Lorazepam (Ativan) 1 mg IVPUSH ONETIME ONE Stop: 11/24/19 13:19 Last Admin: 11/24/19 13:52 Dose: 1 mg Documented by: Lorazepam (Ativan) 1 mg IVPUSH ONETIME ONE Stop: 11/24/19 17:29 Last Admin: 11/24/19 17:40 Dose: 1 mg Documented by: Morphine Sulfate (Morphine) 4 mg IVPUSH ONETIME ONE Stop: 11/24/19 15:27 Last Admin: 11/24/19 15:35 Dose: 4 mg Documented by: Ondansetron HCl (Zofran) 4 mg IVPUSH ONETIME ONE Stop: 11/24/19 13:19 Last Admin: 11/24/19 13:52 Dose: 4 mg Documented by: Oxycodone HCl (Oxycodone) 5 mg PO ONETIME ONE Stop: 11/25/19 13:24 Last Admin: 11/25/19 13:41 Dose: 5 mg Documented by: Potassium Chloride (Klor-Con M20) 40 meq PO ONETIME ONE Stop: 11/26/19 08:05 Last Admin: 11/26/19 09:24 Dose: 40 meq Documented by: Tramadol HCl (Ultram) 50 mg PO Q6H PRN PRN Reason: Pain Last Admin: 11/25/19 04:09 Dose: 50 mg Documented by: Sepsis Event Note - Evaluation Sepsis Screening Result: No Definite Risk - Focused Exam Vital Signs: Vital Signs Temp Pulse Resp BP Pulse Ox 11/27/19 08:00 36.4 C 67 18 107/79 94 L 11/27/19 04:00 36.6 C 75 18 100/66 91 L 11/27/19 00:00 36.9 C 81 18 136/77 95 - My Orders Last 24 Hours: My Active Orders 11/27/19 09:50 Ketorolac [Toradol] 10 mg PO Q8H PRN 11/27/19 10:00 Nicotine [Habitrol] DOSE UNIT RTE FREQ 11/28/19 09:00 Levothyroxine [Levothroid] 225 mcg PO DAILY - Plan Plan:: 49 yo female admitted with ETOH gastritis. 1. ETOH gastritis: - Continue Protonix - Give Percocet every 6 hours PRN 2. ETOH withdrawal: - CIWAA with PRN Ativan - Thiamine and folic acid 3. Chronic pancreatitis - Lipase normal - Advance diet to soft VTE prophylaxis: SCDs Dispo: 1-2 days
--- NOTE | 2019-11-27 11:59 | PCM.DCSUM1 ---
Discharge Summary - Hospital Course Free Text/Narrative:: 49 yo female with pmh of ETOH abuse, and chronic pancreatitis presented with several day history of abdominal pain, nausea and vomiting. She reported drinking a fifth of liquor a day. Her last drink was on day of admission. She did report a history of seizures during withdrawal and reports having hallucinations. Patient admitted for managdent of alcoholic gastritis, kept NPO, started on IV fluids, IV PPI, and prn opoids for pain. patient was started on CIWAA protocol and Ativan to help her with possible alcohol withdrawal. Over next2 days patients pain improved, she was close to her baseline, was eating and drinking, medically stable, was counseled thoroughly against alcohol abuse, was discharged home, given resources to call for possible alcohol rehab if needed. Diagnosis: Stroke: No - Discharge Data Discharge Date: 11/27/19 Discharge Disposition: Home, Self-Care 01 Condition: Good - Referral to Home Health Primary Care Physician: PCP None - Patient Instructions Diet: GI Soft/Low Residue/Low Fiber Driving: [address] Drive Today Showering/Bathing: June Shower Notify Provider of: Fever, Increased Pain, Swelling and Redness, Drainage, Nausea and/or Vomiting - Discharge Plan *PRESCRIPTION DRUG MONITORING PROGRAM REVIEWED*: No *COPY OF PRESCRIPTION DRUG MONITORING REPORT IN PATIENT BAKARI: No Prescriptions/Med Rec: Nystatin [Nystop] 1 gm TOP TID #1 bottle Acetaminophen/oxyCODONE [Percocet 325-5 MG] 1 tab PO Q6H PRN #20 tablet PRN Reason: Pain Home Medications: Home Meds Amylase/Lipase/Protease [John LYLE 24,000 Unit] 12,000 unit PO WITHMEALSANDBED 01/21/18 [History] Levothyroxine [Levothroid] 225 mcg PO DAILY 01/21/18 [History] Omeprazole 40 mg PO DAILY 01/21/18 [History] hydrOXYzine HCL [hydrOXYzine] 10 mg PO DAILY PRN 01/21/18 [History] diphenhydrAMINE HCL [Benadryl Allergy] 100 mg DAILY PRN 02/24/19 [History] Ketorolac [Toradol] 10 mg PO Q8H PRN #15 tab 02/28/19 [Rx] Thiamine [Vitamin B-1] 100 mg PO BEDTIME #30 tab 02/28/19 [Rx] Furosemide [Lasix] 40 mg PO BID 11/24/19 [History] Nicotine [Nicotine Patch] 1 patch 11/24/19 [History] Non-Formulary Medication [NF Drug] 11/24/19 [History] Acetaminophen/oxyCODONE [Percocet 325-5 MG] 1 tab PO Q6H PRN #20 tablet 11/27/19 [Rx] Nystatin [Nystop] 1 gm TOP TID #1 bottle 11/27/19 [Rx] Oxygen Therapy Mode: Room Air Patient Handouts: Alcohol Use Disorder, Nystatin tablets, Oxycodone tablets or capsules Referrals: Gisel Durham PA [Physician [facility]] - 12/06/19 8:30 am - Discharge Summary/Plan Comment DC Time >30 min.: No - Patient Data Vitals - Most Recent: Last Vital Signs Temp 36.4 C 11/27/19 11:28 Pulse 73 11/27/19 11:28 Resp 18 11/27/19 11:28 BP 95/61 11/27/19 11:28 Pulse Ox 94 L 11/27/19 11:28 Weight - Most Recent: 110.223 kg I&O - Last 24 hours: Intake & Output 11/26/19 11/27/19 11/27/19 22:59 06:59 14:59 Intake Total 1420 1000 Output Total 700 1300 Balance 720 -300 Lab Results - Last 24 hrs: Laboratory Results - last 24 hr 11/27/19 11/27/19 Range/Units 05:55 05:55 WBC 3.61 L (4.0-11.0) K/uL RBC 3.52 L (4.30-5.90) M/uL Hgb 11.7 L (12.0-16.0) g/dL Hct 37.2 (36.0-46.0) % MCV 105.7 H (80.0-98.0) fL MCH 33.2 H (27.0-32.0) pg MCHC 31.5 (31.0-37.0) g/dL RDW Std Deviation 54.2 (28.0-62.0) fl RDW Coeff of Jennifer 14 (11.0-15.0) % Plt Count 114 L (150-400) K/uL MPV 10.60 (7.40-12.00) fL Neut % (Auto) 42.6 L (48.0-80.0) % Lymph % (Auto) 47.1 H (16.0-40.0) % [place] % (Auto) 6.1 (0.0-15.0) % Eos % (Auto) 3.6 (0.0-7.0) % Baso % (Auto) 0.6 (0.0-1.5) % Neut # (Auto) 1.5 (1.4-5.7) K/uL Lymph # (Auto) 1.7 (0.6-2.4) K/uL [place] # (Auto) 0.2 (0.0-0.8) K/uL Eos # (Auto) 0.1 (0.0-0.7) K/uL Baso # (Auto) 0.0 (0.0-0.1) K/uL Nucleated RBC % 0.0 /100WBC Nucleated RBCs # 0 K/uL Sodium 142 (136-145) mmol/L Potassium 3.8 (3.5-5.1) mmol/L Chloride 108 H (98-107) mmol/L Carbon Dioxide 29.0 (21.0-32.0) mmol/L BUN 3 L (7.0-18.0) mg/dL Creatinine 0.7 (0.6-1.0) mg/dL Est Cr Clr Drug Dosing 81.30 mL/min Estimated GFR (MDRD) > 60.0 ml/min Glucose 99 (74-106) mg/dL Calcium 7.5 L (8.5-10.1) mg/dL Magnesium 2.1 (1.8-2.4) mg/dL Total Bilirubin 0.4 (0.2-1.0) mg/dL AST 57 H (15-37) IU/L ALT 44 (14-63) IU/L Alkaline Phosphatase 77 (46-116) U/L Total Protein 5.2 L (6.4-8.2) g/dL Albumin 2.6 L (3.4-5.0) g/dL Globulin 2.6 (2.6-4.0) g/dL Albumin/Globulin Ratio 1.0 (0.9-1.6) Med Orders - Current: Current Medications Acetaminophen (Tylenol) 650 mg PO Q6H PRN PRN Reason: Pain Last Admin: 11/26/19 10:46 Dose: 650 mg Documented by: Albuterol/Ipratropium (Duoneb 3.0-0.5 Mg/3 Ml) 3 ml NEB Q4HRRT PRN PRN Reason: Wheezing Folic Acid (Folic Acid) 1 mg IV DAILY [facility] Last Admin: 11/27/19 08:38 Dose: 1 mg Documented by: Hydroxyzine HCl (Atarax) 25 mg PO DAILY PRN PRN Reason: Itching Last Admin: 11/25/19 16:46 Dose: 25 mg Documented by: Pantoprazole Sodium 40 mg/ (Sodium Chloride) 10 mls @ 300 mls/hr IV Q12H [facility] Last Admin: 11/27/19 03:49 Dose: 300 mls/hr Documented by: Ketorolac Tromethamine (Toradol) 10 mg PO Q8H PRN PRN Reason: Abdominal Pain Stop: 12/02/19 09:51 Levothyroxine Sodium 125 mcg/ (Levothyroxine Sodium 100 mcg) 225 mcg PO ACBREAKFAST [facility] Lorazepam (Ativan) 0 mg IVPUSH Q4H PRN; Protocol PRN Reason: CIWAA Last Admin: 11/27/19 04:17 Dose: 1 mg Documented by: Nicotine (Habitrol) 14 mg TRDERM DAILY [facility] Last Admin: 11/27/19 08:39 Dose: 14 mg Documented by: Nystatin (Nystop) 1 gm TOP TID [facility] Last Admin: 11/27/19 06:24 Dose: 1 applic Documented by: Ondansetron HCl (Zofran) 4 mg IVPUSH Q4H PRN PRN Reason: Nausea Oxycodone/Acetaminophen (Percocet 325-5 Mg) 1 tab PO Q6H PRN PRN Reason: Pain Last Admin: 11/27/19 06:25 Dose: 1 tab Documented by: Amylase/Lipase/Protease 12,000 Unit Cap.Cr 1 each PO WITHMEALSANDBED [facility] Last Admin: 11/27/19 08:18 Dose: Not Given Documented by: Sodium Chloride (Saline Flush) 10 ml FLUSH ASDIRECTED PRN PRN Reason: Keep Vein Open Last Admin: 11/24/19 13:52 Dose: 10 ml Documented by: Sodium Chloride (Saline Flush) 2.5 ml FLUSH ASDIRECTED PRN PRN Reason: Keep Vein Open Last Admin: 11/24/19 13:52 Dose: 2.5 ml Documented by: Thiamine HCl (Vitamin B-1) 100 mg IVPUSH DAILY [facility] Last Admin: 11/27/19 08:39 Dose: 100 mg Documented by: Discontinued Medications Acetaminophen (Tylenol) 650 mg PO Q4H PRN PRN Reason: Pain Chlordiazepoxide HCl (Librium) 50 mg PO ONETIME ONE Stop: 11/24/19 13:21 Last Admin: 11/24/19 13:53 Dose: 50 mg Documented by: Al Hydroxide/Mg Hydroxide 15 ml/ Metoclopramide HCl 5 mg/Lidocaine HCl 5 ml 0 ml PO ONETIME ONE Stop: 11/24/19 17:46 Last Admin: 11/24/19 19:35 Dose: 25 each Documented by: Al Hydroxide/Mg Hydroxide 15 (ml/ Lidocaine HCl 5 ml) 0 ml PO ONETIME ONE Stop: 11/25/19 12:31 Last Admin: 11/25/19 12:38 Dose: 1 each Documented by: Lactated Ringer's (Ringers, Lactated) 1,000 mls @ 999 mls/hr IV .BOLUS ONE Stop: 11/24/19 14:18 Last Admin: 11/24/19 13:47 Dose: 999 mls/hr Documented by: Sodium Chloride (Normal Saline) 1,000 mls @ 999 mls/hr IV .BOLUS ONE Stop: 11/24/19 15:16 Last Admin: 11/24/19 15:05 Dose: 999 mls/hr Documented by: Sodium Chloride (Normal Saline) 1,000 mls @ 150 mls/hr IV ASDIRECTED [facility] Last Admin: 11/25/19 11:30 Dose: 150 mls/hr Documented by: Pantoprazole Sodium 40 mg/ (Sodium Chloride) 10 mls @ 300 mls/hr IV Q24H [facility] Last Admin: 11/25/19 00:33 Dose: 300 mls/hr Documented by: Sodium Chloride (Normal Saline) 1,000 mls @ 100 mls/hr IV Q10H [facility] Last Admin: 11/26/19 02:05 Dose: Not Given Documented by: Magnesium Sulfate (Magnesium Sulfate In Water Premix) 2 gm in 50 mls @ 50 mls/hr IV ONETIME ONE Stop: 11/26/19 12:14 Last Admin: 11/26/19 11:38 Dose: 50 mls/hr Documented by: Ketorolac Tromethamine (Toradol) 30 mg IVPUSH ONETIME ONE Stop: 11/24/19 13:28 Last Admin: 11/24/19 13:52 Dose: 30 mg Documented by: Ketorolac Tromethamine (Toradol) 15 mg IVPUSH Q4H PRN PRN Reason: Pain Stop: 12/01/19 22:34 Last Admin: 11/26/19 23:07 Dose: 15 mg Documented by: Ketorolac Tromethamine (Toradol) 15 mg IVPUSH Q6H PRN PRN Reason: Pain Stop: 12/02/19 05:01 Last Admin: 11/27/19 08:41 Dose: 15 mg Documented by: Lorazepam (Ativan) 1 mg IVPUSH ONETIME ONE Stop: 11/24/19 13:19 Last Admin: 11/24/19 13:52 Dose: 1 mg Documented by: Lorazepam (Ativan) 1 mg IVPUSH ONETIME ONE Stop: 11/24/19 17:29 Last Admin: 11/24/19 17:40 Dose: 1 mg Documented by: Morphine Sulfate (Morphine) 4 mg IVPUSH ONETIME ONE Stop: 11/24/19 15:27 Last Admin: 11/24/19 15:35 Dose: 4 mg Documented by: Ondansetron HCl (Zofran) 4 mg IVPUSH ONETIME ONE Stop: 11/24/19 13:19 Last Admin: 11/24/19 13:52 Dose: 4 mg Documented by: Oxycodone HCl (Oxycodone) 5 mg PO ONETIME ONE Stop: 11/25/19 13:24 Last Admin: 11/25/19 13:41 Dose: 5 mg Documented by: Potassium Chloride (Klor-Con M20) 40 meq PO ONETIME ONE Stop: 11/26/19 08:05 Last Admin: 11/26/19 09:24 Dose: 40 meq Documented by: Tramadol HCl (Ultram) 50 mg PO Q6H PRN PRN Reason: Pain Last Admin: 11/25/19 04:09 Dose: 50 mg Documented by:
[2019-11-28] MEDS ORDERED: LEVOTHYROXINE PO SCH (09:00)
== END 2019-11-27 12:15 | disposition home or self-care (01) | DRG 897 ==
LOC: MW.ED 13:10 → MW.MS 17:53 → OBSVTOIN 21:50 → MW.MS 11-25 10:25
PROVIDERS: ADMIT Internal Medicine; ATTEND Internal Medicine
DX: F10.232 Alcohol dependence with withdrawal with perceptual disturbance (principal); K86.1 Other chronic pancreatitis; Z68.41 Body mass index [BMI] 40.0-44.9, adult; K29.20 Alcoholic gastritis without bleeding; F10.288 Alcohol dependence with other alcohol-induced disorder; F32.9 Major depressive disorder, single episode, unspecified; K76.0 Fatty (change of) liver, not elsewhere classified; Z20.828 Contact with and (suspected) exposure to other viral communicable diseases; J44.9 Chronic obstructive pulmonary disease, unspecified; F41.0 Panic disorder [episodic paroxysmal anxiety]; E03.9 Hypothyroidism, unspecified; Z79.890 Hormone replacement therapy; Z79.899 Other long term (current) drug therapy; E66.9 Obesity, unspecified
CPT/HCPCS: 36415; 71045; 71045-26; 74177; 74177-26; 80053; 80305-QW; 80307; 81003; 81025; 83605; 83690; 83735; 85025; 85610; 85730; 93005; 93010; 96361; 96374; 96375; 96376; 99222; 99232; 99238; 99285; 99285-25; A9270-GY; C9113; G0378; J1885; J2060; J2270; J2405; J3411; J3475; J7030; J7050; J7120; U0002

== ENCOUNTER 2019-12-16 08:08 | Day surgery (SDC) | payer MEDICAID ==
[~2019-12-16 08:08] MED LIST: Lactated Ringers 1,000 ML IV SCH
[2019-12-16] MEDS ORDERED: Propofol 200 MG/20 ML SDV ONE ×2 (09:07→10:13)
[2019-12-16] MEDS ORDERED: Midazolam 1 MG/ML 2 ML SDV ONE (09:08)
[2019-12-16] MEDS ORDERED: fentaNYL 100 MCG/2 ML SDV ONE (09:08)
--- NOTE | 2019-12-16 09:43 | PCM.PREANE ---
Preanesthetic Assessment - Anesthesia/Transfusion/Family Hx Anesthesia History: No Prior Anesthesia Family History of Anesthesia Reaction: No Transfusion History: No Prior Transfusion(s) Intubation History: Unknown - Review of Systems General: No Symptoms Pulmonary: No Symptoms Cardiovascular: No Symptoms Gastrointestinal: Abdominal Pain (epigastric) Neurological: No Symptoms Other: Reports: None - Physical Assessment Height: 5 ft 5 in Weight: 104.326 kg ASA Class: 3 Mental Status: Alert & Oriented x3 Airway Class: Mallampati = 2 Dentition: Reports: Dentures (upper) Thyro-Mental Finger Breadths: 3 Mouth Opening Finger Breadths: 3 ROM/Head Extension: Full Lungs: Clear to Auscultation, Normal Respiratory Effort Cardiovascular: Regular Rate, Regular Rhythm - Allergies Allergies/Adverse Reactions: Allergies Allergy/AdvReac Type Severity Reaction Status Date / Time No Known Allergies Allergy Verified 12/10/19 10:38 - Blood Blood Available: No - Anesthesia Plan Pre-Op Medication Ordered: None - Acknowledgements Anesthesia Type Planned: MAC Pt an Appropriate Candidate for the Planned Anesthesia: Yes Alternatives and Risks of Anesthesia Discussed w Pt/Guardian: Yes Pt/Guardian Understands and Agrees with Anesthesia Plan: Yes PreAnesthesia Questionnaire HEENT History: Reports: Impaired Vision Other HEENT History: wears glasses Cardiovascular History: Reports: None Other Cardiovascular History: edema Respiratory History: Reports: COPD Other Respiratory History: states wheezes at times from smoking Gastrointestinal History: Reports: Fatty Liver, Pancreatitis (chronic from ETOH abuse, sobe last three weeks) Other Gastrointestinal History: fatty liver Genitourinary History: Reports: None 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 Psychiatric History: Reports: Anxiety, Bipolar, Depression, Panic Attack, PTSD, Other (See Below) (ETOH abuse) Endocrine/Metabolic History: Reports: Hypothyroidism, Obesity/BMI 30+ (BMI 38.3) Hematologic History: Reports: Other (See Below) Other Hematologic History: Hep C Immunologic History: Reports: None Oncologic (Cancer) History: Reports: None Dermatologic History: Reports: Psoriasis - Infectious Disease History Infectious Disease History: Reports: Hepatitis C - Past Surgical History Other Head Surgeries/Procedures: facial surgery HEENT Surgical History: Reports: None GI Surgical History: Reports: Hernia Repair/Other (umbilical) Female Surgical History: Reports: Tubal Ligation Dermatological Surgical History: Reports: None - SUBSTANCE USE Tobacco Use Status *Q: Current Every Day Tobacco User (1/2 ppd now) Recreational Drug Use History: Yes - HOME MEDS Home Medications: Home Meds Amylase/Lipase/Protease [John LYLE 24,000 Unit] 12,000 unit PO ASDIRECTED 01/21/18 [History] Levothyroxine [Levothroid] 300 mcg PO DAILY 01/21/18 [History] Omeprazole 40 mg PO DAILY 01/21/18 [History] hydrOXYzine HCL [hydrOXYzine] 10 mg PO BEDTIME PRN 01/21/18 [History] Furosemide [Lasix] 40 mg PO BID 11/24/19 [History] Albuterol Sulfate [Albuterol Sulfate Hfa] 1 - 2 puff INH ASDIRECTED PRN 12/10/19 [History] Budesonide/Formoterol Fumarate [Symbicort 80-4.5 MCG] 2 puff INH BID 12/10/19 [History] Clobetasol [Clobetasol 0.05%] 1 applic TOP ASDIRECTED 12/10/19 [History] Fluocinolone Acetonide [Capex 0.01% Shampoo] 1 applic TOP ASDIRECTED 12/10/19 [History] Folic Acid 1 tab PO DAILY 12/10/19 [History] Ibuprofen 1 tab PO TID PRN 12/10/19 [History] Mv-Mn/Iron/FA/Herbal/Digestive [ One Tablet] 1 tab PO DAILY 12/10/19 [History] Naproxen [Naprosyn] 1 tab PO ASDIRECTED PRN 12/10/19 [History] Potassium Chloride 2 tab PO DAILY 12/10/19 [History] Sertraline HCl 1 tab PO DAILY 12/10/19 [History] - CURRENT (IN HOUSE) MEDS Current Meds: Current Medications Lactated Ringer's (Ringers, Lactated) 1,000 mls @ 125 mls/hr IV ASDIRECTED DIANA Discontinued Medications Fentanyl (Sublimaze) Confirm Administered Dose 100 mcg .ROUTE .STK-MED ONE Stop: 12/16/19 09:09 Lidocaine HCl (Xylocaine-Mpf 1%) Confirm Administered Dose 5 ml .ROUTE .STK-MED ONE Stop: 12/16/19 09:09 Midazolam HCl (Versed 1 Mg/Ml) Confirm Administered Dose 2 mg .ROUTE .STK-MED ONE Stop: 12/16/19 09:09 Propofol (Diprivan 20 Ml) Confirm Administered Dose 200 mg .ROUTE .STK-MED ONE Stop: 12/16/19 09:08
[2019-12-16] MEDS ORDERED: Ketorolac 15 MG/ML SDV IVPUSH ONE (11:18)
[2019-12-16] MEDS ORDERED: Ketorolac 30 MG/ML SDV ONE (11:21)
--- NOTE | 2019-12-16 11:31 | PCM.POSTAN ---
POST ANESTHESIA ASSESSMENT - MENTAL STATUS Mental Status: Alert, Oriented - VITAL SIGNS Vital Signs: Last Vital Signs Temp 36.0 C L 12/16/19 09:30 Pulse 64 12/16/19 09:30 Resp 15 12/16/19 09:30 BP 126/80 12/16/19 09:30 Pulse Ox 95 12/16/19 09:30 - RESPIRATORY Respiratory Status: Respiratory Rate WNL, Airway Patent, O2 Saturation Stable - CARDIOVASCULAR CV Status: Pulse Rate WNL, Blood Pressure Stable - GASTROINTESTINAL GI Status: No Symptoms - PAIN Pain Score: 0 - POST OP HYDRATION Hydration Status: Adequate & Stable - OBSERVATIONS Free Text/Narrative:: No anesthesia problems
--- NOTE | 2019-12-16 12:19 | PCM48HPAN ---
Post Anesthesia Note - EVALUATION WITHIN 48HRS OF ANESTHETIC Vital Signs in Normal Range: Yes Patient Participated in Evaluation: Yes Respiratory Function Stable: Yes Airway Patent: Yes Cardiovascular Function Stable: Yes Hydration Status Stable: Yes Pain Control Satisfactory: Yes Nausea and Vomiting Control Satisfactory: Yes Mental Status Recovered: Yes Vital Signs: Last Vital Signs Temp 36.0 C L 12/16/19 09:30 Pulse 54 L 12/16/19 11:30 Resp 10 L 12/16/19 11:30 BP 96/59 L 12/16/19 11:30 Pulse Ox 94 L 12/16/19 11:30 - COMMENTS/OBSERVATIONS Free Text/Narrative:: No anesthesia problems
--- NOTE | 2019-12-16 12:34 | PCM.OPNOTE ---
- General Post-Op/Procedure Note Date of Surgery/Procedure: 12/16/19 Operative Procedure(s): EGD with biopsies Findings: Irregular GE junction, dictation #[id number] Pre Op Diagnosis: Abdominal pain Post-Op Diagnosis: irregular GE junction Anesthesia Technique: Moderate Sedation Primary Surgeon: Donny Bucio Pathology: biopsies of pylorus and GE junction Complications: None Condition: Good Free Text/Narrative:: Intake & Output 12/15/19 12/16/19 12/16/19 22:59 06:59 14:59 Intake Total 1250 Balance 1250
--- NOTE | 2019-12-16 15:49 | OR ---
SURGEON: LUISITO MISHRA MD DATE OF PROCEDURE: 12/16/2019 PREOPERATIVE DIAGNOSIS: Abdominal pain. POSTOPERATIVE DIAGNOSIS: Irregular gastroesophageal junction. PROCEDURE PERFORMED: Esophagogastroduodenoscopy with biopsies. PRIMARY SURGEON: Luisito Mishra MD ANESTHESIA: General with the anesthesiologist present. BIOPSIES: GE junction and pylorus. COMPLICATIONS: None. REASON FOR PROCEDURE: The patient is a pleasant 49-year-old female who has had upper abdominal pain for the past 3 to 4 years. She says it is in the epigastric area. She says she has been diagnosed with chronic pancreatitis. She was admitted in the hospital for alcohol withdrawals and was told she had alcoholic gastritis. She has now been off alcohol for 3 weeks and is going back to an inpatient rehab. She has started taking her omeprazole. She is doing a little bit better, but still having the abdominal pain that she has had for the last 3 to 4 years. PROCEDURE IN DETAIL: Physical examination was performed. The major risks and benefits associated with the procedure were explained to the patient in detail. The patient verbalized understanding of the same. The patient was then connected to appropriate monitoring devices and IV started. EKG, pulse, pulse oximetry, blood pressure, and capnography were monitored throughout the procedure. The patient's oxygen and sedation were provided by the anesthesiologist. The patient was placed in left lateral decubitus position and sedation began. After sedation began, the bite block was placed. Now, an upper endoscope was advanced under direct visualization without any difficulties. The underlying mucosae of the esophagus, GE junction, stomach, pylorus, and at least the first part of duodenum were inspected. Duodenum appeared normal. Scope was brought back to the stomach. Stomach also with retrograde and antegrade views were done. Mucosa looked fairly normal. No signs of ulcerations. Did do some biopsies of the pylorus. Checked for H. pylori. Scope was brought up to the GE junction. GE junction was about 36 cm from incisor and had slightly irregular squamocolumnar junction, so four-quadrant biopsies were done. The scope was brought back down into the stomach. The stomach was desufflated. Scope was brought up to the GE junction. There was good hemostasis. Scope was brought up to esophagus. Esophagus appeared normal. Now, scope was removed and the procedure was terminated. ENDOSCOPIC DIAGNOSIS: Irregular gastroesophageal junction. RECOMMENDATIONS: The patient should continue her omeprazole, continue her sobriety. The patient may follow up in clinic to go over her biopsies. AMTTHEW / DEYANIRA /[id number]
== END 2019-12-16 12:05 | disposition home or self-care (01) ==
LOC: MW.SDS 08:08
PROVIDERS: ATTEND Surgery
DX: K29.50 Unspecified chronic gastritis without bleeding (principal); K31.89 Other diseases of stomach and duodenum; F10.20 Alcohol dependence, uncomplicated; K86.1 Other chronic pancreatitis; J44.9 Chronic obstructive pulmonary disease, unspecified; F41.8 Other specified anxiety disorders; B18.2 Chronic viral hepatitis C; E03.9 Hypothyroidism, unspecified; G47.00 Insomnia, unspecified; F17.200 Nicotine dependence, unspecified, uncomplicated; E66.9 Obesity, unspecified; Z68.38 Body mass index [BMI] 38.0-38.9, adult; Z79.899 Other long term (current) drug therapy; Z79.890 Hormone replacement therapy; Z98.890 Other specified postprocedural states
CPT/HCPCS: 43239; 81025; J1885; J2001; J2250; J2704; J3010; J7120; 00731; 88305; 88312

== ENCOUNTER 2020-01-14 17:40 | Emergency (ER) | payer MEDICAID ==
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
[2020-01-14] MEDS ORDERED: Haloperidol Lactate 5 MG/ML SDV ONE (18:42)
[2020-01-14] MEDS ORDERED: LORazepam 2 MG/ML SDV ONE (18:42)
[2020-01-14 18:58] LABS: BLOOD UREA NITROGEN,BUN 8 mg/dL (7.0-18.0); CARBON DIOXIDE,CO2 26.8 mmol/L (21.0-32.0); CHLORIDE,CL 111 mmol/L (98-107); GLUCOSE RANDOM 109 mg/dL (74-106); POTASSIUM,K 3.8 mmol/L (3.5-5.1); SODIUM,NA 148 mmol/L (136-145)
[2020-01-14 19:00] LABS: ACETAMINOPHEN <2.0 ug/mL
[2020-01-14] MEDS ORDERED: LORazepam 2 MG/ML SDV IM ONE (19:29)
[2020-01-14] MEDS ORDERED: Haloperidol Lactate 5 MG/ML SDV IM ONE (19:29)
[2020-01-14] MEDS ORDERED: Sodium Chloride 0.9% 1,000 ML IV ONE ×2 (20:08)
--- NOTE | 2020-01-15 00:01 | PCM.SN.2 ---
- Free Text/Narrative Note: After prolonged observation in the ER, the patient improved and is currently stable for discharge. I performed a repeat exam and did not appreciate new abnormal findings. Patient exhibits normal vital signs. I reassessed the patient, she is now clinically sober and denies suicidality. She was taking her prescribed dose of her Suboxone. She denies HI, SI, VH, AH, physical pain. From my assessment at this time, I do not think she warrants transfer for psychiatric assessment. Case was discussed with Radha Geiger [facility], they agree she doesn't meet criteria for psych assessment now. They did offer her inpatient detox if she consents to that plan. This was offered to the patient. We asked Radha Andujar and requested them to follow-up with the patient by phone. Patient has a ride home. She exhibits a normal gait. I advised the patient to return to the ER for reevaluation if symptoms worsened, including fever, suicidal thoughts, hallucinations, or any other worrisome symptoms. I instructed the patient to follow up with Radha Geiger [facility] on Friday.
== END 2020-01-15 00:56 | disposition home or self-care (01) ==
LOC: MW.ED 17:40
DX: F10.129 Alcohol abuse with intoxication, unspecified (principal); J44.9 Chronic obstructive pulmonary disease, unspecified; E03.9 Hypothyroidism, unspecified; F41.9 Anxiety disorder, unspecified; F31.9 Bipolar disorder, unspecified; E66.9 Obesity, unspecified; Z68.36 Body mass index [BMI] 36.0-36.9, adult; Z79.899 Other long term (current) drug therapy; Y90.8 Blood alcohol level of 240 mg/100 ml or more; Z20.828 Contact with and (suspected) exposure to other viral communicable diseases
CPT/HCPCS: 36415; 80053; 80305; 80307; 81001; 83735; 84443; 84702; 85025; 87635; 93005; 96372; 99284; J1630; J2060; J7030; 93010; 99283; U0002

== ENCOUNTER 2020-02-11 12:12 | Inpatient (IN) | payer MEDICAID ==
[2020-02-11] MEDS ORDERED: Ondansetron 4 MG/2 ML SDV IVPUSH ONE (13:02)
[2020-02-11] MEDS ORDERED: Sodium Chloride 0.9% 10 ML Syringe FLUSH PRN (13:02)
[2020-02-11] MEDS ORDERED: Sodium Chloride 0.9% 2.5 ML Syringe FLUSH PRN (13:02)
[2020-02-11] MEDS ORDERED: LORazepam 2 MG/ML SDV IVPUSH ONE ×2 (13:05→18:50)
[2020-02-11] MEDS ORDERED: Pantoprazole 40 MG in Sodium Chloride 0.9% 10 ML IV ONE (13:05)
--- NOTE | 2020-02-11 13:07 | EDM.PDOC ---
ED HPI GENERAL MEDICAL PROBLEM - General Chief Complaint: Abdominal Pain Stated Complaint: ABDOMINAL PAIN Time Seen by Provider: 02/11/20 12:58 - History of Present Illness INITIAL COMMENTS - FREE TEXT/NARRATIVE: History of present illness: [] This patient is an admitted alcoholic says she quit drinking yesterday because her belly hurts so bad. Increasing pain since is gotten unbearable. She has severe epigastric pain nausea vomiting and during the night thought she might of vomited a little bit of blood. Has a long history of alcohol abuse and when she which her last time she was in the hospital for 11 days and says she was in ICU and went into DTs. He has no fever chills cough or other systemic signs of infection. Review of systems: As per history of present illness and below otherwise all systems reviewed and negative. Past medical history: As per history of present illness and as reviewed below otherwise noncontributory. Surgical history: As per history of present illness and as reviewed below otherwise noncontributory. Social history: No reported history of drug or alcohol abuse. Family history: As per history of present illness and as reviewed below otherwise noncontributory. Physical exam: Constitutional - well developed, well-nourished and in no acute distress HEENT - normocephalic, no evidence of trauma - external nose and mouth normal - no mass in neck and no JVD - mucosae moist EYES - full EOM, PERRL, no icterus - no evidence of inflammation, injection, or drainage Respiratory - no respiratory distress, equal bilateral expansion, lungs clear to auscultation and no abnormal lung sounds Cardiovascular - Regular Rhythm with S1 and S2 appreciated and no murmur, gallop or rub. GI - abdomen soft without distension or organomegaly - normal bowel sounds - no guard or rebound diffusely tender Musculoskeletal no gross deformity of long bones or joints - no tenderness, swelling or edema Neurologic - Alert and oriented times four - CN II-XII grossly intact - motor sensory and coordination symmetrically normal Psychiatric - appropriate mood and affect with normal thought content Hematologic - No petechiae or purpura - mucosa appropriate color and sclera not pale - normal nail bed color and refill Integument - no rash or evidence of trauma - normal turgor Diagnostics: [] Therapeutics: [] Impression: [] Plan: [] Definitive disposition and diagnosis as appropriate pending reevaluation and review of above. abdomen Pain Score (Numeric/FACES): 10 - Related Data Allergies Allergy/AdvReac Type Severity Reaction Status Date / Time No Known Allergies Allergy Verified 02/11/20 13:03 Home Meds: Home Meds Amylase/Lipase/Protease [John LYLE 24,000 Unit] 12,000 unit PO ASDIRECTED 01/21/18 [History] Levothyroxine [Levothroid] 300 mcg PO DAILY 01/21/18 [History] Omeprazole 40 mg PO DAILY 01/21/18 [History] hydrOXYzine HCL [hydrOXYzine] 10 mg PO BEDTIME PRN 01/21/18 [History] Furosemide [Lasix] 40 mg PO BID 11/24/19 [History] Albuterol Sulfate [Albuterol Sulfate Hfa] 1 - 2 puff INH ASDIRECTED PRN 12/10/19 [History] Budesonide/Formoterol Fumarate [Symbicort 80-4.5 MCG] 2 puff INH BID 12/10/19 [History] Clobetasol [Clobetasol 0.05%] 1 applic TOP ASDIRECTED 12/10/19 [History] Fluocinolone Acetonide [C[employer] 0.01% Shampoo] 1 applic TOP ASDIRECTED 12/10/19 [History] Folic Acid 1 tab PO DAILY 12/10/19 [History] Ibuprofen 1 tab PO TID PRN 12/10/19 [History] Mv-Mn/Iron/FA/Herbal/Digestive [ One Tablet] 1 tab PO DAILY 12/10/19 [History] Naproxen [Naprosyn] 1 tab PO ASDIRECTED PRN 12/10/19 [History] Potassium Chloride 2 tab PO DAILY 12/10/19 [History] Sertraline HCl 1 tab PO DAILY 12/10/19 [History] Past Medical History HEENT History: Reports: Impaired Vision Other HEENT History: wears glasses Cardiovascular History: Reports: None Other Cardiovascular History: edema Respiratory History: Reports: COPD Other Respiratory History: states wheezes at times from smoking Gastrointestinal History: Reports: Fatty Liver, Pancreatitis Other Gastrointestinal History: fatty liver Genitourinary History: Reports: None ONCOLOGY COORDINATOR History: Reports: Other (See Below) Other ONCOLOGY COORDINATOR History: Patient has tubes tied. 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 Psychiatric History: Reports: Anxiety, Bipolar, Depression, Panic Attack, PTSD, Other (See Below) Endocrine/Metabolic History: Reports: Hypothyroidism, Obesity/BMI 30+ Hematologic History: Reports: Other (See Below) Other Hematologic History: Hep C Immunologic History: Reports: None Oncologic (Cancer) History: Reports: None Dermatologic History: Reports: Psoriasis - Infectious Disease History Infectious Disease History: Reports: Hepatitis C - Past Surgical History Head Surgeries/Procedures: Reports: None HEENT Surgical History: Reports: None Cardiovascular Surgical History: Reports: None Respiratory Surgical History: Reports: None GI Surgical History: Reports: Hernia Repair/Other Female Surgical History: Reports: Tubal Ligation Endocrine Surgical History: Reports: None Neurological Surgical History: Reports: None Musculoskeletal Surgical History: Reports: None Oncologic Surgical History: Reports: None Dermatological Surgical History: Reports: None Social & Family History - Family History Family Medical History: No Pertinent Family History - Caffeine Use Caffeine Use: Reports: Coffee ED ROS GENERAL - Review of Systems Review Of Systems: Comprehensive ROS is negative, except as noted in HPI. ED EXAM, GENERAL - Physical Exam Exam: See Below Free Text/Narrative:: My physical exam is in the HPI #1 Interpretation EKG Interpretation Comments: G done at 1:17 PM sinus tachycardia heart rate 101 axis -16 HI 167 QT 468 prominent S wave in 1 2 and 3. R prime in V1 and V2. Impression no obvious injury. Course - Vital Signs Text/Narrative:: Plan adequate relief with IV moderate pain. Then she went to ultrasound because of the elevated lipase and severe pain. Found pending at 1458 hrs. Lactate came down to normal with hydration. Patient improved somewhat. Still severe pain. Requesting change in pain medicine his morphine is not working. Discussed with Dr. Manjarrez and Dr. Napoles. Patient admitted to inpatient care. Last Recorded V/S: Last Vital Signs Temp 36.2 C 02/11/20 12:49 Pulse 78 02/11/20 18:11 Resp 16 02/11/20 18:11 BP 130/76 02/11/20 18:11 Pulse Ox 98 02/11/20 18:11 - Orders/Labs/Meds Orders: Active Orders 24 hr Category Date Time Status Admission Status [Patient Status] [ADT] Stat ADT 02/11/20 18:13 Ordered EKG Documentation Completion [RC] AM Care 02/11/20 13:02 Active Sodium Chloride 0.9% [Normal Saline] 1,000 ml Med 02/11/20 13:15 Active IV ASDIRECTED Sodium Chloride 0.9% [Normal Saline] 1,000 ml Med 02/11/20 13:45 Active IV ASDIRECTED Sodium Chloride 0.9% [Saline Flush] Med 02/11/20 13:02 Active 10 ml FLUSH ASDIRECTED PRN Sodium Chloride 0.9% [Saline Flush] Med 02/11/20 13:02 Active 2.5 ml FLUSH ASDIRECTED PRN Saline Lock Insert [OM.PC] Stat Oth 02/11/20 13:03 Ordered Medication Orders Sodium Chloride (Normal Saline) 1,000 mls @ 150 mls/hr IV ASDIRECTED DIANA Last Admin: 02/11/20 13:27 Dose: 150 mls/hr Documented by: MURDNIC Sodium Chloride (Normal Saline) 1,000 mls @ 1,000 mls/hr IV ASDIRECTED DIANA Last Admin: 02/11/20 16:33 Dose: 1,000 mls/hr Documented by: MURDNIC Sodium Chloride (Saline Flush) 10 ml FLUSH ASDIRECTED PRN PRN Reason: Keep Vein Open Last Admin: 02/11/20 13:28 Dose: 10 ml Documented by: MURDNIC Sodium Chloride (Saline Flush) 2.5 ml FLUSH ASDIRECTED PRN PRN Reason: Keep Vein Open Last Admin: 02/11/20 13:28 Dose: 2.5 ml Documented by: KIKI Labs: Laboratory Tests 02/11/20 02/11/20 02/11/20 Range/Units 13:18 13:18 13:18 WBC 11.66 H (4.0-11.0) K/uL RBC 5.39 (4.30-5.90) M/uL Hgb 17.2 H (12.0-16.0) g/dL Hct 51.4 H (36.0-46.0) % MCV 95.4 (80.0-98.0) fL MCH 31.9 (27.0-32.0) pg MCHC 33.5 (31.0-37.0) g/dL RDW Std Deviation 44.3 (28.0-62.0) fl RDW Coeff of Jennifer 13 (11.0-15.0) % Plt Count 171 (150-400) K/uL MPV 10.50 (7.40-12.00) fL Neut % (Auto) 72.7 (48.0-80.0) % Lymph % (Auto) 20.1 (16.0-40.0) % [place] % (Auto) 6.8 (0.0-15.0) % Eos % (Auto) 0.2 (0.0-7.0) % Baso % (Auto) 0.2 (0.0-1.5) % Neut # (Auto) 8.5 H (1.4-5.7) K/uL Lymph # (Auto) 2.3 (0.6-2.4) K/uL [place] # (Auto) 0.8 (0.0-0.8) K/uL Eos # (Auto) 0.0 (0.0-0.7) K/uL Baso # (Auto) 0.0 (0.0-0.1) K/uL Nucleated RBC % 0.0 /100WBC Nucleated RBCs # 0 K/uL Lactate 3.2 H* (0.20-2.00) mmol/L Sodium 140 (136-145) mmol/L Potassium 4.5 (3.5-5.1) mmol/L Chloride 100 (98-107) mmol/L Carbon Dioxide 25.8 (21.0-32.0) mmol/L BUN 15 (7.0-18.0) mg/dL Creatinine 1.2 H (0.6-1.0) mg/dL Est Cr Clr Drug Dosing TNP Estimated GFR (MDRD) 47.9 ml/min Glucose 130 H (74-106) mg/dL Calcium 9.8 (8.5-10.1) mg/dL Magnesium 1.7 L (1.8-2.4) mg/dL Total Bilirubin 1.2 H (0.2-1.0) mg/dL AST 35 (15-37) IU/L ALT 31 (14-63) IU/L Alkaline Phosphatase 105 (46-116) U/L Total Protein 8.2 (6.4-8.2) g/dL Albumin 4.2 (3.4-5.0) g/dL Globulin 4.0 (2.6-4.0) g/dL Albumin/Globulin Ratio 1.0 (0.9-1.6) Lipase 949 H (73-393) U/L SARS-CoV-2 RNA (DICK) (NEGATIVE) 02/11/20 02/11/20 Range/Units 17:08 17:55 WBC (4.0-11.0) K/uL RBC (4.30-5.90) M/uL Hgb (12.0-16.0) g/dL Hct (36.0-46.0) % MCV (80.0-98.0) fL MCH (27.0-32.0) pg MCHC (31.0-37.0) g/dL RDW Std Deviation (28.0-62.0) fl RDW Coeff of Jennifer (11.0-15.0) % Plt Count (150-400) K/uL MPV (7.40-12.00) fL Neut % (Auto) (48.0-80.0) % Lymph % (Auto) (16.0-40.0) % [place] % (Auto) (0.0-15.0) % Eos % (Auto) (0.0-7.0) % Baso % (Auto) (0.0-1.5) % Neut # (Auto) (1.4-5.7) K/uL Lymph # (Auto) (0.6-2.4) K/uL [place] # (Auto) (0.0-0.8) K/uL Eos # (Auto) (0.0-0.7) K/uL Baso # (Auto) (0.0-0.1) K/uL Nucleated RBC % /100WBC Nucleated RBCs # K/uL Lactate 1.7 (0.20-2.00) mmol/L Sodium (136-145) mmol/L Potassium (3.5-5.1) mmol/L Chloride (98-107) mmol/L Carbon Dioxide (21.0-32.0) mmol/L BUN (7.0-18.0) mg/dL Creatinine (0.6-1.0) mg/dL Est Cr Clr Drug Dosing Estimated GFR (MDRD) ml/min Glucose (74-106) mg/dL Calcium (8.5-10.1) mg/dL Magnesium (1.8-2.4) mg/dL Total Bilirubin (0.2-1.0) mg/dL AST (15-37) IU/L ALT (14-63) IU/L Alkaline Phosphatase (46-116) U/L Total Protein (6.4-8.2) g/dL Albumin (3.4-5.0) g/dL Globulin (2.6-4.0) g/dL Albumin/Globulin Ratio (0.9-1.6) Lipase (73-393) U/L SARS-CoV-2 RNA (DICK) NEGATIVE (NEGATIVE) Meds: Medications Generic Name Dose Route Start Last Admin Trade Name Freq PRN Reason Stop Dose Admin Sodium Chloride 1,000 mls @ 150 mls/hr 02/11/20 13:15 02/11/20 13:27 Normal Saline IV 150 mls/hr ASDIRECTED DIANA Administration Sodium Chloride 1,000 mls @ 1,000 mls/hr 02/11/20 13:45 02/11/20 16:33 Normal Saline IV 1,000 mls/hr ASDIRECTED DIANA Administration Sodium Chloride 10 ml 02/11/20 13:02 02/11/20 13:28 Saline Flush FLUSH 10 ml ASDIRECTED PRN Administration Keep Vein Open Sodium Chloride 2.5 ml 02/11/20 13:02 02/11/20 13:28 Saline Flush FLUSH 2.5 ml ASDIRECTED PRN Administration Keep Vein Open Discontinued Medications Generic Name Dose Route Start Last Admin Trade Name Freq PRN Reason Stop Dose Admin Pantoprazole Sodium 40 mg/ 10 mls @ 300 mls/hr 02/11/20 13:05 02/11/20 13:27 Sodium Chloride IV 02/11/20 13:06 300 mls/hr NOW ONE Administration Iopamidol 100 ml 02/11/20 16:22 02/11/20 16:22 Isovue Multipack-370 (76%) IVPUSH 02/11/20 16:23 100 ml ONETIME ONE Administration Lorazepam 1 mg 02/11/20 13:05 02/11/20 13:28 Ativan IVPUSH 02/11/20 13:06 1 mg ONETIME ONE Administration Morphine Sulfate 4 mg 02/11/20 13:52 02/11/20 14:12 Morphine IVPUSH 02/11/20 13:53 4 mg ONETIME ONE Administration Morphine Sulfate 4 mg 02/11/20 15:43 02/11/20 16:00 Morphine IVPUSH 02/11/20 15:44 4 mg ONETIME ONE Administration Ondansetron HCl 4 mg 02/11/20 13:02 02/11/20 13:28 Zofran IVPUSH 02/11/20 13:03 4 mg ONETIME ONE Administration Departure - Departure Time of Disposition: 18:16 Disposition: Admitted As Inpatient 67 Condition: Fair Clinical Impression: Acute pancreatitis - Discharge Information Referrals: Gisel Durham PA [Primary Care Provider] - Forms: ED Department Discharge Sepsis Event Note (ED) - Evaluation Sepsis Screening Result: No Definite Risk - Focused Exam Vital Signs: Vital Signs Temp Pulse Resp BP Pulse Ox 02/11/20 18:11 78 16 130/76 98 02/11/20 17:16 98 18 130/76 98 02/11/20 16:34 93 16 120/80 96 02/11/20 15:40 89 16 127/64 95 02/11/20 14:00 92 16 136/85 96 02/11/20 13:40 91 18 143/83 H 98 02/11/20 12:49 36.2 C 107 H 20 163/114 H 99 - My Orders Last 24 Hours: My Active Orders 02/11/20 13:02 EKG Documentation Completion [RC] AM Sodium Chloride 0.9% [Saline Flush] 10 ml FLUSH ASDIRECTED PRN Sodium Chloride 0.9% [Saline Flush] 2.5 ml FLUSH ASDIRECTED PRN 02/11/20 13:03 Saline Lock Insert [OM.PC] Stat 02/11/20 13:15 Sodium Chloride 0.9% [Normal Saline] 1,000 ml IV ASDIRECTED 02/11/20 13:45 Sodium Chloride 0.9% [Normal Saline] 1,000 ml IV ASDIRECTED 02/11/20 18:13 Admission Status [Patient Status] [ADT] Stat - Assessment/Plan Last 24 Hours: My Active Orders 02/11/20 13:02 EKG Documentation Completion [RC] AM Sodium Chloride 0.9% [Saline Flush] 10 ml FLUSH ASDIRECTED PRN Sodium Chloride 0.9% [Saline Flush] 2.5 ml FLUSH ASDIRECTED PRN 02/11/20 13:03 Saline Lock Insert [OM.PC] Stat 02/11/20 13:15 Sodium Chloride 0.9% [Normal Saline] 1,000 ml IV ASDIRECTED 02/11/20 13:45 Sodium Chloride 0.9% [Normal Saline] 1,000 ml IV ASDIRECTED 02/11/20 18:13 Admission Status [Patient Status] [ADT] Stat
[2020-02-11] MEDS ORDERED: Sodium Chloride 0.9% 1,000 ML IV SCH ×2 (13:15→13:45)
[2020-02-11] MEDS ORDERED: Morphine 4 MG/ML Syringe IVPUSH ONE ×2 (13:52→15:43)
[2020-02-11 14:04] LABS: BLOOD UREA NITROGEN,BUN 15 mg/dL (7.0-18.0); CARBON DIOXIDE,CO2 25.8 mmol/L (21.0-32.0); CHLORIDE,CL 100 mmol/L (98-107); GLUCOSE RANDOM 130 mg/dL (74-106); LIPASE 949 U/L (73-393); POTASSIUM,K 4.5 mmol/L (3.5-5.1); SODIUM,NA 140 mmol/L (136-145)
[2020-02-11] MEDS ORDERED: Iopamidol 755 MG/ML 500 ML Multipack Bottle IVPUSH ONE (16:22)
--- NOTE | 2020-02-11 16:22 | US ---
INDICATION: Right upper quadrant pain, elevated LFTs TECHNIQUE: Multiple grayscale sonographic images of the right upper quadrant the abdomen. COMPARISON: CT abdomen pelvis with contrast 11/24/2019 and ultrasound abdomen 02/25/2019 FINDINGS: There is mild hepatomegaly. Increased echogenicity of the liver parenchyma wound is consistent with steatosis. No stones are seen in the gallbladder lumen. Small amount of sludge is suggested. There is no gallbladder wall thickening or pericholecystic fluid. However, a positive sonographic Murillo sign is reported by the foundry engineer. The common bile duct is mildly enlarged, measuring up to 8 mm. The pancreas is partially visualized, with the visualized portions appearing unremarkable. The pancreatic duct is nondilated where visualized. The intrahepatic IVC is patent. There is normal caliber of the abdominal aorta. The right kidney measures 11.9 cm in length and demonstrates normal cortical thickness and echotexture, without hydronephrosis. IMPRESSION: 1. Small amount of gallbladder sludge. No significant gallbladder wall thickening or pericholecystic fluid. Positive sonographic Murillo sign. Findings are equivocal for cholecystitis. Consider follow-up HIDA scan. 2. Dilated CBD measuring up to 8 mm. No choledocholithiasis demonstrated by sonography. Consider follow-up MRCP. 3. Mild hepatomegaly with steatosis, similar to priors. Dictated by Mario Maddox MD @ Feb 11 2020 4:04PM Signed by Dr. Mario Maddox @ Feb 11 2020 4:22PM
--- NOTE | 2020-02-11 17:32 | CT ---
Indication: Severe pain, pancreatitis Technique: Contrast enhanced axial CT imaging through the abdomen. 100 mL of Isovue 370 contrast agent was administered intravenously. Sagittal and coronal reconstructions are provided. Comparison: Ultrasound abdomen limited 02/11/[address] abdomen pelvis with contrast 11/24/2019 Findings: There is moderate retroperitoneal edema centered around the pancreatic head, consistent with pancreatitis. There is normal enhancement of the pancreatic parenchyma. The pancreatic duct is nondilated. There is no peripancreatic fluid collection. The common bile duct is mildly distended, measuring up to 8 mm. No radiopaque filling defects are seen within the distal CBD. The gallbladder is mildly distended. There is no appreciable gallbladder wall thickening or pericholecystic fluid No significant abnormalities are demonstrated relating to the liver, spleen, adrenal glands, and kidneys. There is no significant lymphadenopathy. There is normal caliber of the abdominal aorta. The portal vein, hepatic veins, IVC, and renal veins are patent. The stomach is unremarkable. The visualized small bowel and colon demonstrate no wall thickening or abnormal distention. There is evidence of old supraumbilical ventral hernia repair. The visualized osseous structures are unremarkable. The included lung bases are clear. Impression: 1. Acute pancreatitis involving the pancreatic head. No evidence of pancreatic necrosis or peripancreatic pseudocyst. 2. Mild extrahepatic biliary dilatation. No radiopaque CBD stone. Consider follow-up MRCP. Please note that all CT scans at this facility use dose modulation, iterative reconstruction, and/or weight-based dosing when appropriate to reduce radiation dose to as low as reasonably achievable. Dictated by Mario Maddox MD @ Feb 11 2020 5:23PM Signed by Dr. Mario Maddox @ Feb 11 2020 5:30PM
[2020-02-11] MEDS ORDERED: Ibuprofen 400 MG Tab PO PRN (18:47)
[2020-02-11] MEDS ORDERED: Morphine 2 MG/ML SYRINGE IVPUSH PRN (18:47)
[2020-02-11] MEDS ORDERED: fentaNYL 50 MCG/ML SDV IVPUSH ONE (18:50)
--- NOTE | 2020-02-11 18:56 | PCM.HP.2 ---
<Guera Brooke - Last Filed: 02/11/20 19:43> H&P History of Present Illness - General Date of Service: 02/11/20 Admit Problem/Dx: Admission Diagnosis/Problem Admission Diagnosis/Problem Pancreatitis Source of Information: Patient History Limitations: Reports: No Limitations - History of Present Illness Initial Comments - Free Text/Narative: Patient is a chronic alcoholic with a significant past medical history of chronic pancreatitis, COPD, hepatitis C, bipolar disorder, depression, hypothyroidism; presenting today to the ED for worsening abdominal pain. Of note patient was discharged from the hospital for acute pancreatitis 1/2 months prior; however was drinking alcohol right after discharge up until 1 days prior. Patient denies any fevers or chills but does endorses significant nausea and vomiting and nonbloody emesis x 2 to 3 days. Last drink of alcohol was yesterday with concerns about increasing abdominal pain. Past medical history also includes alcohol withdrawal with hallucinations. 1 pack/day tobacco abuse. ED course: Received 2 L lactated Ringer's. Morphine and fentanyl for pain control. CT abdomen: Acute pancreatitis involving pancreatic head. No evidence of pancreatic necrosis and or pseudocyst. Mild extrahepatic biliary dilatation. Abdominal ultrasound: CBD measuring at 8 mm. positive sonographic Murillo sign Surgery consulted recommended medical management at this time. Bedside: Patient endorsing moderate abdominal pain and emotional distress secondary to returning back to the hospital. abdomen Pain Score (Numeric/FACES): 10 - Related Data Allergies/Adverse Reactions: Allergies Allergy/AdvReac Type Severity Reaction Status Date / Time No Known Allergies Allergy Verified 02/13/20 02:23 Home Medications: Home Meds Amylase/Lipase/Protease [John LYLE 24,000 Unit] 24,000 unit PO TIDMEALS 01/21/18 [History] Levothyroxine [Levothroid] 300 mcg PO DAILY 01/21/18 [History] Omeprazole 40 mg PO DAILY 01/21/18 [History] hydrOXYzine HCL [hydrOXYzine] 10 mg PO BEDTIME PRN 01/21/18 [History] Furosemide [Lasix] 40 mg PO BID 11/24/19 [History] Albuterol Sulfate [Albuterol Sulfate Hfa] 1 - 2 puff INH ASDIRECTED PRN 12/10/19 [History] Budesonide/Formoterol Fumarate [Symbicort 80-4.5 MCG] 2 puff INH BID 12/10/19 [History] Clobetasol [Clobetasol 0.05%] 1 applic TOP .TO SCALP PRN 12/10/19 [History] Fluocinolone Acetonide [Capex 0.01% Shampoo] 1 applic TOP .TO SCALP PRN 12/10/19 [History] Folic Acid 1 mg PO DAILY 12/10/19 [History] Mv-Mn/Iron/FA/Herbal/Digestive [ One Tablet] 1 tab PO DAILY 12/10/19 [History] Potassium Chloride 40 meq PO DAILY 12/10/19 [History] Sertraline HCl 50 mg PO DAILY 12/10/19 [History] Amylase/Lipase/Protease [John LYLE 12,000 Units] 12,000 unit PO .WITH SNAKCS 02/14/20 [History] Buprenorphine HCl/Naloxone HCl [Buprenorp-Nalox 8-2 mg Sl Film] 12 mg SL DAILY 02/14/20 [History] Ibuprofen [Motrin] 200 mg PO Q4H PRN #0 tablet 02/16/20 [Rx] Melatonin 3 mg PO BEDTIME PRN tablet 02/16/20 [Rx] Ondansetron [Zofran ODT] 4 mg PO Q4H PRN 5 Days #30 tab.dis 02/16/20 [Rx] oxyCODONE 5 mg PO Q6H PRN 6 Days #24 tablet 02/16/20 [Rx] Past Medical History HEENT History: Reports: Impaired Vision Other HEENT History: wears glasses Cardiovascular History: Reports: None Other Cardiovascular History: edema Respiratory History: Reports: COPD Other Respiratory History: states wheezes at times from smoking Gastrointestinal History: Reports: Fatty Liver, Pancreatitis Other Gastrointestinal History: fatty liver Genitourinary History: Reports: None [employer] INS[employer] 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 Psychiatric History: Reports: Anxiety, Bipolar, Depression, Panic Attack, PTSD, Other (See Below) Endocrine/Metabolic History: Reports: Hypothyroidism, Obesity/BMI 30+ Do You Give Correction Boluses or Sliding Scale: No Hematologic History: Reports: Other (See Below) Other Hematologic History: Hep C Immunologic History: Reports: None Oncologic (Cancer) History: Reports: None Dermatologic History: Reports: Psoriasis - Infectious Disease History Infectious Disease History: Reports: Hepatitis C - Past Surgical History Head Surgeries/Procedures: Reports: None HEENT Surgical History: Reports: None Cardiovascular Surgical History: Reports: None Respiratory Surgical History: Reports: None GI Surgical History: Reports: Hernia Repair/Other Female Surgical History: Reports: Tubal Ligation Endocrine Surgical History: Reports: None Neurological Surgical History: Reports: None Musculoskeletal Surgical History: Reports: None Oncologic Surgical History: Reports: None Dermatological Surgical History: Reports: None Social & Family History - Family History Family Medical History: No Pertinent Family History - Tobacco Use Tobacco Use Status *Q: Current Every Day Tobacco User Years of Tobacco use: 20 Packs/Tins Daily: 1 - Caffeine Use Caffeine Use: Reports: Coffee - Alcohol Use Days Per Week of Alcohol Use: 7 Number of Drinks Per Day: 7 Total Drinks Per Week: 49 - Recreational Drug Use Recreational Drug Use: Yes Recreational Drug Type: Reports: Other (see below) Other Recreational Drug Type: on Suboxen this time H&P Review of Systems - Review of Systems: Review Of Systems: See Below General: Reports: Malaise HEENT: Reports: No Symptoms Pulmonary: Reports: No Symptoms Cardiovascular: Reports: No Symptoms Gastrointestinal: Reports: Abdominal Pain, Diarrhea, Decreased Appetite, Nausea, Vomiting. Denies: Constipation, Hematemesis, Hematochezia, Melena Genitourinary: Reports: No Symptoms Musculoskeletal: Reports: No Symptoms Skin: Reports: No Symptoms Psychiatric: Reports: Depression, Anxiety Neurological: Reports: Headache Hematologic/Lymphatic: Reports: No Symptoms Exam - Exam Exam: See Below - Vital Signs Vital Signs: Last Vital Signs Temp 97.1 F 02/11/20 12:49 Pulse 78 02/11/20 18:11 Resp 16 02/11/20 18:11 BP 130/76 02/11/20 18:11 Pulse Ox 98 02/11/20 18:11 Weight: 104.326 kg - Exam Quality Assessment: No: Supplemental Oxygen General: Alert, Oriented, Mild Distress HEENT: EOMI Neck: Supple, Trachea Midline Lungs: Clear to Auscultation, Normal Respiratory Effort Cardiovascular: Regular Rhythm, Tachycardia GI/Abdominal Exam: No Distention, Tender Back Exam: Normal Inspection Extremities: Normal Inspection, No Pedal Edema Neurological: Cranial Nerves Intact Neuro Extensive - Mental Status: Alert, Oriented x3 Psychiatric: Anxious, Depressed - Patient Data Lab Results Last 24 hrs: Laboratory Results - last 24 hr 02/11/20 02/11/20 02/11/20 Range/Units 13:18 13:18 13:18 WBC 11.66 H (4.0-11.0) K/uL RBC 5.39 (4.30-5.90) M/uL Hgb 17.2 H (12.0-16.0) g/dL Hct 51.4 H (36.0-46.0) % MCV 95.4 (80.0-98.0) fL MCH 31.9 (27.0-32.0) pg MCHC 33.5 (31.0-37.0) g/dL RDW Std Deviation 44.3 (28.0-62.0) fl RDW Coeff of Jennifer 13 (11.0-15.0) % Plt Count 171 (150-400) K/uL MPV 10.50 (7.40-12.00) fL Neut % (Auto) 72.7 (48.0-80.0) % Lymph % (Auto) 20.1 (16.0-40.0) % Ross % (Auto) 6.8 (0.0-15.0) % Eos % (Auto) 0.2 (0.0-7.0) % Baso % (Auto) 0.2 (0.0-1.5) % Neut # (Auto) 8.5 H (1.4-5.7) K/uL Lymph # (Auto) 2.3 (0.6-2.4) K/uL Ross # (Auto) 0.8 (0.0-0.8) K/uL Eos # (Auto) 0.0 (0.0-0.7) K/uL Baso # (Auto) 0.0 (0.0-0.1) K/uL Nucleated RBC % 0.0 /100WBC Nucleated RBCs # 0 K/uL Lactate 3.2 H* (0.20-2.00) mmol/L Sodium 140 (136-145) mmol/L Potassium 4.5 (3.5-5.1) mmol/L Chloride 100 (98-107) mmol/L Carbon Dioxide 25.8 (21.0-32.0) mmol/L BUN 15 (7.0-18.0) mg/dL Creatinine 1.2 H (0.6-1.0) mg/dL Est Cr Clr Drug Dosing TNP Estimated GFR (MDRD) 47.9 ml/min Glucose 130 H (74-106) mg/dL Calcium 9.8 (8.5-10.1) mg/dL Magnesium 1.7 L (1.8-2.4) mg/dL Total Bilirubin 1.2 H (0.2-1.0) mg/dL AST 35 (15-37) IU/L ALT 31 (14-63) IU/L Alkaline Phosphatase 105 (46-116) U/L Total Protein 8.2 (6.4-8.2) g/dL Albumin 4.2 (3.4-5.0) g/dL Globulin 4.0 (2.6-4.0) g/dL Albumin/Globulin Ratio 1.0 (0.9-1.6) Lipase 949 H (73-393) U/L SARS-CoV-2 RNA (DICK) (NEGATIVE) 02/11/20 02/11/20 Range/Units 17:08 17:55 WBC (4.0-11.0) K/uL RBC (4.30-5.90) M/uL Hgb (12.0-16.0) g/dL Hct (36.0-46.0) % MCV (80.0-98.0) fL MCH (27.0-32.0) pg MCHC (31.0-37.0) g/dL RDW Std Deviation (28.0-62.0) fl RDW Coeff of Jennifer (11.0-15.0) % Plt Count (150-400) K/uL MPV (7.40-12.00) fL Neut % (Auto) (48.0-80.0) % Lymph % (Auto) (16.0-40.0) % Ross % (Auto) (0.0-15.0) % Eos % (Auto) (0.0-7.0) % Baso % (Auto) (0.0-1.5) % Neut # (Auto) (1.4-5.7) K/uL Lymph # (Auto) (0.6-2.4) K/uL Ross # (Auto) (0.0-0.8) K/uL Eos # (Auto) (0.0-0.7) K/uL Baso # (Auto) (0.0-0.1) K/uL Nucleated RBC % /100WBC Nucleated RBCs # K/uL Lactate 1.7 (0.20-2.00) mmol/L Sodium (136-145) mmol/L Potassium (3.5-5.1) mmol/L Chloride (98-107) mmol/L Carbon Dioxide (21.0-32.0) mmol/L BUN (7.0-18.0) mg/dL Creatinine (0.6-1.0) mg/dL Est Cr Clr Drug Dosing Estimated GFR (MDRD) ml/min Glucose (74-106) mg/dL Calcium (8.5-10.1) mg/dL Magnesium (1.8-2.4) mg/dL Total Bilirubin (0.2-1.0) mg/dL AST (15-37) IU/L ALT (14-63) IU/L Alkaline Phosphatase (46-116) U/L Total Protein (6.4-8.2) g/dL Albumin (3.4-5.0) g/dL Globulin (2.6-4.0) g/dL Albumin/Globulin Ratio (0.9-1.6) Lipase (73-393) U/L SARS-CoV-2 RNA (DICK) NEGATIVE (NEGATIVE) Result Diagrams: 02/11/20 13:18 02/11/20 13:18 Sepsis Event Note - Evaluation Sepsis Screening Result: No Definite Risk - Focused Exam Vital Signs: Vital Signs Temp Pulse Resp BP Pulse Ox 02/11/20 18:11 78 16 130/76 98 02/11/20 17:16 98 18 130/76 98 02/11/20 16:34 93 16 120/80 96 02/11/20 15:40 89 16 127/64 95 02/11/20 14:00 92 16 136/85 96 02/11/20 13:40 91 18 143/83 H 98 02/11/20 12:49 97.1 F 107 H 20 163/114 H 99 - Problem List (1) Acute on chronic pancreatitis SNOMED Code(s): 590889368 ICD Code: K85.90 - ACUTE PANCREATITIS WITHOUT NECROSIS OR INFECTION, UNSP; K86.1 - OTHER CHRONIC PANCREATITIS Status: Acute Problem List Initiated/Reviewed/Updated: Yes Orders Last 24hrs: Active Orders 24 hr Category Date Time Status Admission Status [Patient Status] [ADT] Stat ADT 02/11/20 18:13 Active CIWAA Assessment [RC] ASDIRECTED Care 02/11/20 18:50 Ordered EKG Documentation Completion [RC] AM Care 02/11/20 13:02 Active Oxygen Therapy [RC] PRN Care 02/11/20 18:47 Ordered Oxygen Therapy [RC] PRN Care 02/11/20 18:48 Ordered VTE/DVT Education [RC] PER UNIT ROUTINE Care 02/11/20 18:47 Ordered VTE/DVT Education [RC] PER UNIT ROUTINE Care 02/11/20 18:48 Ordered Vital Signs [RC] Q4H Care 02/11/20 18:47 Ordered Vital Signs [RC] Q4H Care 02/11/20 18:48 Ordered Nothing per Oral Now Diet [DIET] Diet 02/11/20 Breakfast Ordered CBC WITH AUTO DIFF [HEME] AM Lab 02/12/20 05:11 Ordered CBC WITH AUTO DIFF [HEME] AM Lab 02/13/20 05:11 Ordered CBC WITH AUTO DIFF [HEME] AM Lab 02/14/20 05:11 Ordered COMPREHENSIVE METABOLIC PN,CMP [CHEM] AM Lab 02/12/20 05:11 Ordered COMPREHENSIVE METABOLIC PN,CMP [CHEM] AM Lab 02/13/20 05:11 Ordered COMPREHENSIVE METABOLIC PN,CMP [CHEM] AM Lab 02/14/20 05:11 Ordered MAGNESIUM [CHEM] Routine Lab 02/11/20 18:52 Stop Req MAGNESIUM [CHEM] Routine Lab 02/12/20 05:00 Ordered Ibuprofen [Motrin] Med 02/11/20 18:47 Ordered 400 mg PO Q6H PRN Melatonin Med 02/11/20 18:53 Ordered 3 mg PO BEDTIME PRN Morphine Med 02/11/20 18:47 Ordered 2 mg IVPUSH Q4H PRN Ondansetron [Zofran ODT] Med 02/11/20 18:47 Ordered 4 mg PO Q4H PRN Pantoprazole [ProTONIX IV] 40 mg Med 02/11/20 19:00 Ordered Sodium Chloride 0.9% [Normal Saline] 10 ml IV Q24H Sodium Chloride 0.9% [Normal Saline] 1,000 ml Med 02/11/20 13:15 Active IV ASDIRECTED Sodium Chloride 0.9% [Normal Saline] 1,000 ml Med 02/11/20 13:45 Active IV ASDIRECTED Sodium Chloride 0.9% [Saline Flush] Med 02/11/20 13:02 Active 10 ml FLUSH ASDIRECTED PRN Sodium Chloride 0.9% [Saline Flush] Med 02/11/20 13:02 Active 2.5 ml FLUSH ASDIRECTED PRN Saline Lock Insert [OM.PC] Stat Oth 02/11/20 13:03 Ordered Resuscitation Status Routine Resus Stat 02/11/20 18:47 Ordered Medication Orders Sodium Chloride (Normal Saline) 1,000 mls @ 150 mls/hr IV ASDIRECTED [facility] Last Admin: 02/11/20 13:27 Dose: 150 mls/hr Documented by: KIKI Sodium Chloride (Normal Saline) 1,000 mls @ 1,000 mls/hr IV ASDIRECTED [facility] Last Admin: 02/11/20 16:33 Dose: 1,000 mls/hr Documented by: KIKI Pantoprazole Sodium 40 mg/ (Sodium Chloride) 10 mls @ 300 mls/hr IV Q24H [facility] Ibuprofen (Motrin) 400 mg PO Q6H PRN PRN Reason: Pain (mild 1-3) Melatonin (Melatonin) 3 mg PO BEDTIME PRN PRN Reason: Insomnia Morphine Sulfate (Morphine) 2 mg IVPUSH Q4H PRN PRN Reason: Pain Ondansetron HCl (Zofran Odt) 4 mg PO Q4H PRN PRN Reason: nausea, able to take PO Sodium Chloride (Saline Flush) 10 ml FLUSH ASDIRECTED PRN PRN Reason: Keep Vein Open Last Admin: 02/11/20 13:28 Dose: 10 ml Documented by: KIKI Sodium Chloride (Saline Flush) 2.5 ml FLUSH ASDIRECTED PRN PRN Reason: Keep Vein Open Last Admin: 02/11/20 13:28 Dose: 2.5 ml Documented by: KIKI Assessment/Plan Comment:: Assessment: 1. Acute on chronic pancreatitis 2. Extrahepatic biliary dilatation. 3. History of alcohol abuse 4. Past medical history: Hypothyroidism, hepatitis C. Chronic alcohol abuse with significant withdrawal, history of opioid abuse on Suboxone, obesity, depression/anxiety/bipolar disorder 5. JOHN: Plan Admit to inpatient. Full code. I's and O's per routine vitals per routine Diet: NPO 1. Acute on chronic pancreatitis secondary to alcohol abuse: Received 2 L LR in ED; continue with 200 cc LR overnight for total of 2 additional liters. Monitor hydration status in a.m. Repeat CBC CMP and magnesium in a.m. Extrahepatic dilatation with a 8 millimeter dilation of CBD; will continue with recommendation from surgery for medical management; may require MRCP on discharge/outside facility. elevated lipase on admission; continue to monitor clinical response moving forward marginal leukocytosis w. lactate elevated however resolution w. 2 Liter bolus in ED ; recheck CBC in AM Pain control: Morphine 2 mg every 4 hours IV PPI daily SCDs 2. Significant alcohol use: Past medical history of alcohol withdrawals with hallucination; initiate CIWA and Ativan protocol Start patient on thiamine and folate daily. Recheck Mg2+ in AM 3. JOHN: continue hydration secondary to dehydration; recheck BMP in AM <Cristóbal Manjarrez - Last Filed: 02/18/20 10:18> H&P History of Present Illness - General Admit Problem/Dx: Admission Diagnosis/Problem Admission Diagnosis/Problem Pancreatitis Exam - Vital Signs Vital Signs: Last Vital Signs Temp 36.5 C 02/16/20 16:00 Pulse 80 02/16/20 16:00 Resp 16 02/16/20 16:00 BP 136/95 H 02/16/20 16:00 Pulse Ox 92 L 02/16/20 16:00 - Patient Data Result Diagrams: 02/16/20 05:55 02/16/20 05:55 Assessment/Plan Comment:: I performed a history and physical exam of the patient and discussed management with resident. I have reviewed the residents note and agree with documented findings and plan unless otherwise specified in my note.
[2020-02-11] MEDS ORDERED: Glucagon,Human Recombinant 1 MG Vial IM PRN (18:59)
[2020-02-11] MEDS ORDERED: 50% Dextrose in Water 50 ML Syringe IV PRN (18:59)
[2020-02-11] MEDS: Pantoprazole 40 MG in Sodium Chloride 0.9% 10 ML IV SCH (20:04)
[2020-02-11] MEDS: Folic Acid 1 MG Tab PO SCH (20:05)
[2020-02-11] MEDS: Lactated Ringers 1,000 ML IV SCH (20:10)
[2020-02-11] MEDS: Ondansetron 4 MG Tab.DIS PO PRN (20:17)
[2020-02-11] MEDS: Thiamine 100 MG in Sodium Chloride 0.9% 100 ML IV SCH (20:43)
[2020-02-11] MEDS: Melatonin 3 MG Tab PO PRN (23:21)
[2020-02-11] MEDS ORDERED: Ondansetron 4 MG/2 ML SDV IVPUSH PRN (23:54)
[2020-02-12] MEDS: Morphine 2 MG/ML SYRINGE IVPUSH PRN ×7 (00:06→23:37)
[2020-02-12] MEDS: Lactated Ringers 1,000 ML IV SCH ×4 (02:27→16:21)
[2020-02-12] MEDS: LORazepam 2 MG/ML SDV IVPUSH PRN ×2 (04:45→18:16)
[2020-02-12] MEDS: Insulin Aspart 100 Units/ML 3 ML Pen SUBCUT SCH ×3 (06:55→17:47)
[2020-02-12 06:57] LABS: BLOOD UREA NITROGEN,BUN 8 mg/dL (7.0-18.0); CARBON DIOXIDE,CO2 26.4 mmol/L (21.0-32.0); CHLORIDE,CL 109 mmol/L (98-107); GLUCOSE RANDOM 105 mg/dL (74-106); POTASSIUM,K 3.6 mmol/L (3.5-5.1); SODIUM,NA 145 mmol/L (136-145)
[2020-02-12] MEDS ORDERED: Magnesium Sulfate/Water 2 GM/50 ML BAG IV ONE (07:32)
--- NOTE | 2020-02-12 09:02 | PCM.CONS ---
H&P History of Present Illness - General Date of Service: 02/12/20 Admit Problem/Dx: Admission Diagnosis/Problem Admission Diagnosis/Problem Pancreatitis Source of Information: Patient History Limitations: Reports: No Limitations - History of Present Illness Initial Comments - Free Text/Narative: Patient is a 49 year old female with a history of alcohol abuse who presented to the ER last evening with severe epigastric pain. She has a history of DTs and ICU admissions for withdrawl. She last drank 2 days ago. Her pain was associated with nausea and vomiting. She was hypertensive and mildly tachycardic on arrival to the ER. Her hgb was elevated at 17, wbc mildly elevated and her lactate was 3.2. She was given fluids. Bili was mildly elevated at 1.2. LFTs were normal. US of the RUQ and CT abdomen pelvis showed acute pancreatitis with mildly dilated CBD at 8mm. There were no signs of choledocholithiasis or cholelithiasis, but there was sludge in the gallbladder. She was admitted to the medicine team. I was consulted regarding the radiologic findings. Repeat labs this am have improved. LFTs, bili, heme/hct, and WBC are all within normal limits. Patient complains of ongoing epigastric pain. abdomen Pain Score (Numeric/FACES): 10 - Related Data Allergies/Adverse Reactions: Allergies Allergy/AdvReac Type Severity Reaction Status Date / Time No Known Allergies Allergy Verified 02/11/20 13:03 Home Medications: Home Meds Amylase/Lipase/Protease [John LYLE 24,000 Unit] 12,000 unit PO ASDIRECTED 01/21/18 [History] Levothyroxine [Levothroid] 300 mcg PO DAILY 01/21/18 [History] Omeprazole 40 mg PO DAILY 01/21/18 [History] hydrOXYzine HCL [hydrOXYzine] 10 mg PO BEDTIME PRN 01/21/18 [History] Furosemide [Lasix] 40 mg PO BID 11/24/19 [History] Albuterol Sulfate [Albuterol Sulfate Hfa] 1 - 2 puff INH ASDIRECTED PRN 12/10/19 [History] Budesonide/Formoterol Fumarate [Symbicort 80-4.5 MCG] 2 puff INH BID 12/10/19 [History] Clobetasol [Clobetasol 0.05%] 1 applic TOP ASDIRECTED 12/10/19 [History] Fluocinolone Acetonide [[employer] 0.01% Shampoo] 1 applic TOP ASDIRECTED 12/10/19 [History] Folic Acid 1 tab PO DAILY 12/10/19 [History] Ibuprofen 1 tab PO TID PRN 12/10/19 [History] Mv-Mn/Iron/FA/Herbal/Digestive [ One Tablet] 1 tab PO DAILY 12/10/19 [History] Naproxen [Naprosyn] 1 tab PO ASDIRECTED PRN 12/10/19 [History] Potassium Chloride 2 tab PO DAILY 12/10/19 [History] Sertraline HCl 1 tab PO DAILY 12/10/19 [History] Past Medical History HEENT History: Reports: Impaired Vision Other HEENT History: wears glasses Cardiovascular History: Reports: None Other Cardiovascular History: edema Respiratory History: Reports: COPD Other Respiratory History: states wheezes at times from smoking Gastrointestinal History: Reports: Fatty Liver, Pancreatitis Other Gastrointestinal History: fatty liver Genitourinary History: Reports: None PUBLIC AREA 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 Psychiatric History: Reports: Anxiety, Bipolar, Depression, Panic Attack, PTSD, Other (See Below) Endocrine/Metabolic History: Reports: Hypothyroidism, Obesity/BMI 30+ Do You Give Correction Boluses or Sliding Scale: No Hematologic History: Reports: Other (See Below) Other Hematologic History: Hep C Immunologic History: Reports: None Oncologic (Cancer) History: Reports: None Dermatologic History: Reports: Psoriasis - Infectious Disease History Infectious Disease History: Reports: Hepatitis C - Past Surgical History Head Surgeries/Procedures: Reports: None HEENT Surgical History: Reports: None Cardiovascular Surgical History: Reports: None Respiratory Surgical History: Reports: None GI Surgical History: Reports: Hernia Repair/Other Female Surgical History: Reports: Tubal Ligation Endocrine Surgical History: Reports: None Neurological Surgical History: Reports: None Musculoskeletal Surgical History: Reports: None Oncologic Surgical History: Reports: None Dermatological Surgical History: Reports: None Social & Family History - Family History Family Medical History: No Pertinent Family History - Tobacco Use Tobacco Use Status *Q: Current Every Day Tobacco User Years of Tobacco use: 3 Packs/Tins Daily: 1 - Caffeine Use Caffeine Use: Reports: Coffee, Soda - Alcohol Use Days Per Week of Alcohol Use: 6 Number of Drinks Per Day: 1 Total Drinks Per Week: 6 - Recreational Drug Use Recreational Drug Use: No Recreational Drug Type: Reports: Other (see below) Other Recreational Drug Type: on Suboxen this time H&P Review of Systems - Review of Systems: Review Of Systems: Comprehensive ROS is negative, except as noted in HPI. Exam - Exam Exam: See Below - Vital Signs Vital Signs: Last Vital Signs Temp 36.6 C 02/12/20 07:10 Pulse 92 02/12/20 07:10 Resp 17 02/12/20 07:10 BP 144/91 H 02/12/20 07:10 Pulse Ox 91 L 02/12/20 07:10 Weight: 104.145 kg - Exam General: Alert, Oriented HEENT: Conjunctiva Clear, Mucosa Moist & [place], Posterior Pharynx Clear Lungs: Clear to Auscultation, Normal Respiratory Effort Cardiovascular: Regular Rate, Regular Rhythm GI/Abdominal Exam: Soft, Non-Tender, No Distention, No Mass, Tender (mild ep igastric tenderness). No: Guarding, Rigid, Rebound Extremities: Normal Inspection - Patient Data Lab Results Last 24 hrs: Laboratory Results - last 24 hr 02/11/20 02/11/20 02/11/20 Range/Units 13:18 13:18 13:18 WBC 11.66 H (4.0-11.0) K/uL RBC 5.39 (4.30-5.90) M/uL Hgb 17.2 H (12.0-16.0) g/dL Hct 51.4 H (36.0-46.0) % MCV 95.4 (80.0-98.0) fL MCH 31.9 (27.0-32.0) pg MCHC 33.5 (31.0-37.0) g/dL RDW Std Deviation 44.3 (28.0-62.0) fl RDW Coeff of Jennifer 13 (11.0-15.0) % Plt Count 171 (150-400) K/uL MPV 10.50 (7.40-12.00) fL Neut % (Auto) 72.7 (48.0-80.0) % Lymph % (Auto) 20.1 (16.0-40.0) % [place] % (Auto) 6.8 (0.0-15.0) % Eos % (Auto) 0.2 (0.0-7.0) % Baso % (Auto) 0.2 (0.0-1.5) % Neut # (Auto) 8.5 H (1.4-5.7) K/uL Lymph # (Auto) 2.3 (0.6-2.4) K/uL [place] # (Auto) 0.8 (0.0-0.8) K/uL Eos # (Auto) 0.0 (0.0-0.7) K/uL Baso # (Auto) 0.0 (0.0-0.1) K/uL Nucleated RBC % 0.0 /100WBC Nucleated RBCs # 0 K/uL Lactate 3.2 H* (0.20-2.00) mmol/L Sodium 140 (136-145) mmol/L Potassium 4.5 (3.5-5.1) mmol/L Chloride 100 (98-107) mmol/L Carbon Dioxide 25.8 (21.0-32.0) mmol/L BUN 15 (7.0-18.0) mg/dL Creatinine 1.2 H (0.6-1.0) mg/dL Est Cr Clr Drug Dosing TNP Estimated GFR (MDRD) 47.9 ml/min Glucose 130 H (74-106) mg/dL POC Glucose (60-110) mg/dL Calcium 9.8 (8.5-10.1) mg/dL Phosphorus (2.6-4.7) mg/dL Magnesium 1.7 L (1.8-2.4) mg/dL Total Bilirubin 1.2 H (0.2-1.0) mg/dL AST 35 (15-37) IU/L ALT 31 (14-63) IU/L Alkaline Phosphatase 105 (46-116) U/L Total Protein 8.2 (6.4-8.2) g/dL Albumin 4.2 (3.4-5.0) g/dL Globulin 4.0 (2.6-4.0) g/dL Albumin/Globulin Ratio 1.0 (0.9-1.6) Lipase 949 H (73-393) U/L SARS-CoV-2 RNA (DICK) (NEGATIVE) 02/11/20 02/11/20 02/11/20 Range/Units 17:08 17:55 19:12 WBC (4.0-11.0) K/uL RBC (4.30-5.90) M/uL Hgb (12.0-16.0) g/dL Hct (36.0-46.0) % MCV (80.0-98.0) fL MCH (27.0-32.0) pg MCHC (31.0-37.0) g/dL RDW Std Deviation (28.0-62.0) fl RDW Coeff of Jennifer (11.0-15.0) % Plt Count (150-400) K/uL MPV (7.40-12.00) fL Neut % (Auto) (48.0-80.0) % Lymph % (Auto) (16.0-40.0) % [place] % (Auto) (0.0-15.0) % Eos % (Auto) (0.0-7.0) % Baso % (Auto) (0.0-1.5) % Neut # (Auto) (1.4-5.7) K/uL Lymph # (Auto) (0.6-2.4) K/uL [place] # (Auto) (0.0-0.8) K/uL Eos # (Auto) (0.0-0.7) K/uL Baso # (Auto) (0.0-0.1) K/uL Nucleated RBC % /100WBC Nucleated RBCs # K/uL Lactate 1.7 (0.20-2.00) mmol/L Sodium (136-145) mmol/L Potassium (3.5-5.1) mmol/L Chloride (98-107) mmol/L Carbon Dioxide (21.0-32.0) mmol/L BUN (7.0-18.0) mg/dL Creatinine (0.6-1.0) mg/dL Est Cr Clr Drug Dosing Estimated GFR (MDRD) ml/min Glucose (74-106) mg/dL POC Glucose 117 H (60-110) mg/dL Calcium (8.5-10.1) mg/dL Phosphorus (2.6-4.7) mg/dL Magnesium (1.8-2.4) mg/dL Total Bilirubin (0.2-1.0) mg/dL AST (15-37) IU/L ALT (14-63) IU/L Alkaline Phosphatase (46-116) U/L Total Protein (6.4-8.2) g/dL Albumin (3.4-5.0) g/dL Globulin (2.6-4.0) g/dL Albumin/Globulin Ratio (0.9-1.6) Lipase (73-393) U/L SARS-CoV-2 RNA (DICK) NEGATIVE (NEGATIVE) 02/12/20 02/12/20 02/12/20 Range/Units 05:30 05:30 05:30 WBC 8.37 (4.0-11.0) K/uL RBC 4.38 (4.30-5.90) M/uL Hgb 13.7 (12.0-16.0) g/dL Hct 42.2 (36.0-46.0) % MCV 96.3 (80.0-98.0) fL MCH 31.3 (27.0-32.0) pg MCHC 32.5 (31.0-37.0) g/dL RDW Std Deviation 44.1 (28.0-62.0) fl RDW Coeff of Jennifer 13 (11.0-15.0) % Plt Count 246 (150-400) K/uL MPV 10.40 (7.40-12.00) fL Neut % (Auto) 69.1 (48.0-80.0) % Lymph % (Auto) 21.6 (16.0-40.0) % [place] % (Auto) 8.6 (0.0-15.0) % Eos % (Auto) 0.5 (0.0-7.0) % Baso % (Auto) 0.2 (0.0-1.5) % Neut # (Auto) 5.8 H (1.4-5.7) K/uL Lymph # (Auto) 1.8 (0.6-2.4) K/uL [place] # (Auto) 0.7 (0.0-0.8) K/uL Eos # (Auto) 0.0 (0.0-0.7) K/uL Baso # (Auto) 0.0 (0.0-0.1) K/uL Nucleated RBC % 0.0 /100WBC Nucleated RBCs # 0 K/uL Lactate (0.20-2.00) mmol/L Sodium 145 (136-145) mmol/L Potassium 3.6 (3.5-5.1) mmol/L Chloride 109 H (98-107) mmol/L Carbon Dioxide 26.4 (21.0-32.0) mmol/L BUN 8 (7.0-18.0) mg/dL Creatinine 0.9 (0.6-1.0) mg/dL Est Cr Clr Drug Dosing 71.56 Estimated GFR (MDRD) > 60.0 ml/min Glucose 105 (74-106) mg/dL POC Glucose (60-110) mg/dL Calcium 9.0 (8.5-10.1) mg/dL Phosphorus (2.6-4.7) mg/dL Magnesium 1.7 L (1.8-2.4) mg/dL Total Bilirubin 0.6 (0.2-1.0) mg/dL AST 21 (15-37) IU/L ALT 21 (14-63) IU/L Alkaline Phosphatase 77 (46-116) U/L Total Protein 6.2 L (6.4-8.2) g/dL Albumin 3.0 L (3.4-5.0) g/dL Globulin 3.2 (2.6-4.0) g/dL Albumin/Globulin Ratio 0.9 (0.9-1.6) Lipase (73-393) U/L SARS-CoV-2 RNA (DICK) (NEGATIVE) 02/12/20 02/12/20 Range/Units 05:30 06:36 WBC (4.0-11.0) K/uL RBC (4.30-5.90) M/uL Hgb (12.0-16.0) g/dL Hct (36.0-46.0) % MCV (80.0-98.0) fL MCH (27.0-32.0) pg MCHC (31.0-37.0) g/dL RDW Std Deviation (28.0-62.0) fl RDW Coeff of Jennifer (11.0-15.0) % Plt Count (150-400) K/uL MPV (7.40-12.00) fL Neut % (Auto) (48.0-80.0) % Lymph % (Auto) (16.0-40.0) % [place] % (Auto) (0.0-15.0) % Eos % (Auto) (0.0-7.0) % Baso % (Auto) (0.0-1.5) % Neut # (Auto) (1.4-5.7) K/uL Lymph # (Auto) (0.6-2.4) K/uL [place] # (Auto) (0.0-0.8) K/uL Eos # (Auto) (0.0-0.7) K/uL Baso # (Auto) (0.0-0.1) K/uL Nucleated RBC % /100WBC Nucleated RBCs # K/uL Lactate (0.20-2.00) mmol/L Sodium (136-145) mmol/L Potassium (3.5-5.1) mmol/L Chloride (98-107) mmol/L Carbon Dioxide (21.0-32.0) mmol/L BUN (7.0-18.0) mg/dL Creatinine (0.6-1.0) mg/dL Est Cr Clr Drug Dosing Estimated GFR (MDRD) ml/min Glucose (74-106) mg/dL POC Glucose 91 (60-110) mg/dL Calcium (8.5-10.1) mg/dL Phosphorus 3.9 (2.6-4.7) mg/dL Magnesium (1.8-2.4) mg/dL Total Bilirubin (0.2-1.0) mg/dL AST (15-37) IU/L ALT (14-63) IU/L Alkaline Phosphatase (46-116) U/L Total Protein (6.4-8.2) g/dL Albumin (3.4-5.0) g/dL Globulin (2.6-4.0) g/dL Albumin/Globulin Ratio (0.9-1.6) Lipase (73-393) U/L SARS-CoV-2 RNA (DICK) (NEGATIVE) Result Diagrams: 02/12/20 05:30 02/12/20 05:30 Sepsis Event Note - Evaluation Sepsis Screening Result: No Definite Risk - Focused Exam Vital Signs: Vital Signs Temp Pulse Resp BP Pulse Ox 02/12/20 07:10 36.6 C 92 17 144/91 H 91 L 02/12/20 04:00 94 18 141/93 H 95 02/12/20 02:00 36.4 C 94 18 141/93 H 90 L 02/12/20 00:00 36.6 C 93 20 137/71 94 L Consult PN Assessment/Plan Procedures: Procedures ASSAY OF AMYLASE (05/07/18) ASSAY OF LIPASE (01/01/19) ASSAY OF MAGNESIUM (01/14/20) ASSAY OF NATRIURETIC PEPTIDE (08/18/18) ASSAY THYROID STIM HORMONE (01/14/20) CHORIONIC GONADOTROPIN TEST (01/14/20) COMPLETE CBC AUTOMATED (05/07/18) COMPLETE CBC W/AUTO DIFF WBC (01/14/20) COMPREHEN METABOLIC PANEL (01/14/20) CT ABD & PELV W/CONTRAST (01/01/19) CT THORAX W/DYE (01/01/19) DRUG SCREEN QUANTALCOHOLS (01/01/19) DRUG TEST PRSMV CHEM ANLYZR (01/14/20) DRUG TEST PRSMV DIR OPT OBS (01/14/20) EGD BIOPSY SINGLE/MULTIPLE (12/16/19) ELECTROCARDIOGRAM TRACING (01/14/20) EMERGENCY DEPT VISIT (01/14/20) EMERGENCY DEPT VISIT (01/01/19) EMERGENCY DEPT VISIT (09/05/18) FIBRIN DEGRADATION QUANT (08/18/18) GLYCOSYLATED HEMOGLOBIN TEST (05/07/18) HEMATOCRIT (01/01/19) HEMOGLOBIN (01/01/19) HEP B CORE ANTIBODY IGM (01/13/19) HEP B CORE ANTIBODY TOTAL (01/13/19) HEPATITIS C AB TEST (01/13/19) HEPATITIS C REVRS TRNSCRPJ (01/13/19) HPYLORI STOOL IA (12/09/19) HYDRATE IV INFUSION ADD-ON (01/01/19) IMMUNIZATION ADMIN (01/01/19) METABOLIC PANEL TOTAL CA (07/07/18) PROTHROMBIN TIME (01/01/19) ROUTINE VENIPUNCTURE (01/14/20) SARS-COV2 COVID-19 AMP PRB (01/14/20) TB TEST CELL IMMUN MEASURE (12/07/19) TDAP VACCINE 7 YRS/> IM (01/01/19) THER/PROPH/DIAG INJ IV PUSH (01/01/19) THER/PROPH/DIAG INJ SC/IM (01/14/20) TX/PRO/DX INJ NEW DRUG ADDON (01/01/19) TX/PRO/DX INJ SAME DRUG RAILROAD CRANE OPERATOR (01/01/19) URINALYSIS AUTO W/O SCOPE (01/01/19) URINALYSIS AUTO W/SCOPE (01/14/20) URINE CULTURE/COLONY COUNT (09/05/18) URINE TEST (12/16/19) X-RAY EXAM CHEST 2 VIEWS (09/30/18) (1) Acute pancreatitis SNOMED Code(s): 669548513 Code(s): K85.90 - ACUTE PANCREATITIS WITHOUT NECROSIS OR INFECTION, UNSP Current Visit: Yes Problem List Initiated/Reviewed/Updated: Yes Plan: I believe the patient's pancreatitis is secondary to alcohol. With gallstone pancreatitis I would have expected to see a rise in her LFTs. Can undergo a non- emergent MRCP to further evaluate the biliary tree. This can be done Friday if patient is still in the hospital or as an outpatient if patient discharged b efore then. Will sign off at this time but please call with any further questions.
--- NOTE | 2020-02-12 09:13 | PCM.PN ---
- General Info Date of Service: 02/12/20 Subjective Update: Bedside: mentions some insomnia; no new pain ; low appetite - Review of Systems General: Reports: Fatigue HEENT: Reports: No Symptoms Pulmonary: Reports: No Symptoms Cardiovascular: Reports: No Symptoms Gastrointestinal: Reports: Abdominal Pain, Decreased Appetite, Nausea, Vomiting. Denies: Diarrhea, Melena Genitourinary: Reports: No Symptoms Musculoskeletal: Reports: No Symptoms Skin: Reports: No Symptoms Neurological: Reports: Headache Psychiatric: Reports: No Symptoms - Patient Data Vitals - Most Recent: Last Vital Signs Temp 97.8 F 02/12/20 07:10 Pulse 92 02/12/20 07:10 Resp 17 02/12/20 07:10 BP 144/91 H 02/12/20 07:10 Pulse Ox 91 L 02/12/20 07:10 Weight - Most Recent: 104.145 kg I&O - Last 24 Hours: Intake & Output 02/11/20 02/12/20 02/12/20 22:59 06:59 14:59 Intake Total 1513 Output Total 1550 Balance -37 Lab Results Last 24 Hours: Laboratory Results - last 24 hr 02/11/20 02/11/20 02/11/20 Range/Units 13:18 13:18 13:18 WBC 11.66 H (4.0-11.0) K/uL RBC 5.39 (4.30-5.90) M/uL Hgb 17.2 H (12.0-16.0) g/dL Hct 51.4 H (36.0-46.0) % MCV 95.4 (80.0-98.0) fL MCH 31.9 (27.0-32.0) pg MCHC 33.5 (31.0-37.0) g/dL RDW Std Deviation 44.3 (28.0-62.0) fl RDW Coeff of Jennifer 13 (11.0-15.0) % Plt Count 171 (150-400) K/uL MPV 10.50 (7.40-12.00) fL Neut % (Auto) 72.7 (48.0-80.0) % Lymph % (Auto) 20.1 (16.0-40.0) % [place] % (Auto) 6.8 (0.0-15.0) % Eos % (Auto) 0.2 (0.0-7.0) % Baso % (Auto) 0.2 (0.0-1.5) % Neut # (Auto) 8.5 H (1.4-5.7) K/uL Lymph # (Auto) 2.3 (0.6-2.4) K/uL [place] # (Auto) 0.8 (0.0-0.8) K/uL Eos # (Auto) 0.0 (0.0-0.7) K/uL Baso # (Auto) 0.0 (0.0-0.1) K/uL Nucleated RBC % 0.0 /100WBC Nucleated RBCs # 0 K/uL Lactate 3.2 H* (0.20-2.00) mmol/L Sodium 140 (136-145) mmol/L Potassium 4.5 (3.5-5.1) mmol/L Chloride 100 (98-107) mmol/L Carbon Dioxide 25.8 (21.0-32.0) mmol/L BUN 15 (7.0-18.0) mg/dL Creatinine 1.2 H (0.6-1.0) mg/dL Est Cr Clr Drug Dosing TNP Estimated GFR (MDRD) 47.9 ml/min Glucose 130 H (74-106) mg/dL POC Glucose (60-110) mg/dL Calcium 9.8 (8.5-10.1) mg/dL Phosphorus (2.6-4.7) mg/dL Magnesium 1.7 L (1.8-2.4) mg/dL Total Bilirubin 1.2 H (0.2-1.0) mg/dL AST 35 (15-37) IU/L ALT 31 (14-63) IU/L Alkaline Phosphatase 105 (46-116) U/L Total Protein 8.2 (6.4-8.2) g/dL Albumin 4.2 (3.4-5.0) g/dL Globulin 4.0 (2.6-4.0) g/dL Albumin/Globulin Ratio 1.0 (0.9-1.6) Lipase 949 H (73-393) U/L SARS-CoV-2 RNA (DICK) (NEGATIVE) 02/11/20 02/11/20 02/11/20 Range/Units 17:08 17:55 19:12 WBC (4.0-11.0) K/uL RBC (4.30-5.90) M/uL Hgb (12.0-16.0) g/dL Hct (36.0-46.0) % MCV (80.0-98.0) fL MCH (27.0-32.0) pg MCHC (31.0-37.0) g/dL RDW Std Deviation (28.0-62.0) fl RDW Coeff of Jennifer (11.0-15.0) % Plt Count (150-400) K/uL MPV (7.40-12.00) fL Neut % (Auto) (48.0-80.0) % Lymph % (Auto) (16.0-40.0) % [place] % (Auto) (0.0-15.0) % Eos % (Auto) (0.0-7.0) % Baso % (Auto) (0.0-1.5) % Neut # (Auto) (1.4-5.7) K/uL Lymph # (Auto) (0.6-2.4) K/uL [place] # (Auto) (0.0-0.8) K/uL Eos # (Auto) (0.0-0.7) K/uL Baso # (Auto) (0.0-0.1) K/uL Nucleated RBC % /100WBC Nucleated RBCs # K/uL Lactate 1.7 (0.20-2.00) mmol/L Sodium (136-145) mmol/L Potassium (3.5-5.1) mmol/L Chloride (98-107) mmol/L Carbon Dioxide (21.0-32.0) mmol/L BUN (7.0-18.0) mg/dL Creatinine (0.6-1.0) mg/dL Est Cr Clr Drug Dosing Estimated GFR (MDRD) ml/min Glucose (74-106) mg/dL POC Glucose 117 H (60-110) mg/dL Calcium (8.5-10.1) mg/dL Phosphorus (2.6-4.7) mg/dL Magnesium (1.8-2.4) mg/dL Total Bilirubin (0.2-1.0) mg/dL AST (15-37) IU/L ALT (14-63) IU/L Alkaline Phosphatase (46-116) U/L Total Protein (6.4-8.2) g/dL Albumin (3.4-5.0) g/dL Globulin (2.6-4.0) g/dL Albumin/Globulin Ratio (0.9-1.6) Lipase (73-393) U/L SARS-CoV-2 RNA (DICK) NEGATIVE (NEGATIVE) 02/12/20 02/12/20 02/12/20 Range/Units 05:30 05:30 05:30 WBC 8.37 (4.0-11.0) K/uL RBC 4.38 (4.30-5.90) M/uL Hgb 13.7 (12.0-16.0) g/dL Hct 42.2 (36.0-46.0) % MCV 96.3 (80.0-98.0) fL MCH 31.3 (27.0-32.0) pg MCHC 32.5 (31.0-37.0) g/dL RDW Std Deviation 44.1 (28.0-62.0) fl RDW Coeff of Jennifer 13 (11.0-15.0) % Plt Count 246 (150-400) K/uL MPV 10.40 (7.40-12.00) fL Neut % (Auto) 69.1 (48.0-80.0) % Lymph % (Auto) 21.6 (16.0-40.0) % [place] % (Auto) 8.6 (0.0-15.0) % Eos % (Auto) 0.5 (0.0-7.0) % Baso % (Auto) 0.2 (0.0-1.5) % Neut # (Auto) 5.8 H (1.4-5.7) K/uL Lymph # (Auto) 1.8 (0.6-2.4) K/uL [place] # (Auto) 0.7 (0.0-0.8) K/uL Eos # (Auto) 0.0 (0.0-0.7) K/uL Baso # (Auto) 0.0 (0.0-0.1) K/uL Nucleated RBC % 0.0 /100WBC Nucleated RBCs # 0 K/uL Lactate (0.20-2.00) mmol/L Sodium 145 (136-145) mmol/L Potassium 3.6 (3.5-5.1) mmol/L Chloride 109 H (98-107) mmol/L Carbon Dioxide 26.4 (21.0-32.0) mmol/L BUN 8 (7.0-18.0) mg/dL Creatinine 0.9 (0.6-1.0) mg/dL Est Cr Clr Drug Dosing 71.56 Estimated GFR (MDRD) > 60.0 ml/min Glucose 105 (74-106) mg/dL POC Glucose (60-110) mg/dL Calcium 9.0 (8.5-10.1) mg/dL Phosphorus (2.6-4.7) mg/dL Magnesium 1.7 L (1.8-2.4) mg/dL Total Bilirubin 0.6 (0.2-1.0) mg/dL AST 21 (15-37) IU/L ALT 21 (14-63) IU/L Alkaline Phosphatase 77 (46-116) U/L Total Protein 6.2 L (6.4-8.2) g/dL Albumin 3.0 L (3.4-5.0) g/dL Globulin 3.2 (2.6-4.0) g/dL Albumin/Globulin Ratio 0.9 (0.9-1.6) Lipase (73-393) U/L SARS-CoV-2 RNA (DICK) (NEGATIVE) 02/12/20 02/12/20 Range/Units 05:30 06:36 WBC (4.0-11.0) K/uL RBC (4.30-5.90) M/uL Hgb (12.0-16.0) g/dL Hct (36.0-46.0) % MCV (80.0-98.0) fL MCH (27.0-32.0) pg MCHC (31.0-37.0) g/dL RDW Std Deviation (28.0-62.0) fl RDW Coeff of Jennifer (11.0-15.0) % Plt Count (150-400) K/uL MPV (7.40-12.00) fL Neut % (Auto) (48.0-80.0) % Lymph % (Auto) (16.0-40.0) % [place] % (Auto) (0.0-15.0) % Eos % (Auto) (0.0-7.0) % Baso % (Auto) (0.0-1.5) % Neut # (Auto) (1.4-5.7) K/uL Lymph # (Auto) (0.6-2.4) K/uL [place] # (Auto) (0.0-0.8) K/uL Eos # (Auto) (0.0-0.7) K/uL Baso # (Auto) (0.0-0.1) K/uL Nucleated RBC % /100WBC Nucleated RBCs # K/uL Lactate (0.20-2.00) mmol/L Sodium (136-145) mmol/L Potassium (3.5-5.1) mmol/L Chloride (98-107) mmol/L Carbon Dioxide (21.0-32.0) mmol/L BUN (7.0-18.0) mg/dL Creatinine (0.6-1.0) mg/dL Est Cr Clr Drug Dosing Estimated GFR (MDRD) ml/min Glucose (74-106) mg/dL POC Glucose 91 (60-110) mg/dL Calcium (8.5-10.1) mg/dL Phosphorus 3.9 (2.6-4.7) mg/dL Magnesium (1.8-2.4) mg/dL Total Bilirubin (0.2-1.0) mg/dL AST (15-37) IU/L ALT (14-63) IU/L Alkaline Phosphatase (46-116) U/L Total Protein (6.4-8.2) g/dL Albumin (3.4-5.0) g/dL Globulin (2.6-4.0) g/dL Albumin/Globulin Ratio (0.9-1.6) Lipase (73-393) U/L SARS-CoV-2 RNA (DICK) (NEGATIVE) Med Orders - Current: Current Medications Dextrose/Water (Dextrose 50% In Water) 50 ml IV ASDIRECTED PRN PRN Reason: Hypoglycemia Folic Acid (Folic Acid) 1 mg PO DAILY DIANA Last Admin: 02/11/20 20:05 Dose: 1 mg Documented by: Glucagon (Glucagen) 1 mg IM ASDIRECTED PRN PRN Reason: Hypoglycemia Sodium Chloride (Normal Saline) 1,000 mls @ 150 mls/hr IV ASDIRECTED [facility] Last Admin: 02/11/20 13:27 Dose: 150 mls/hr Documented by: Sodium Chloride (Normal Saline) 1,000 mls @ 1,000 mls/hr IV ASDIRECTED [facility] Last Admin: 02/11/20 16:33 Dose: 1,000 mls/hr Documented by: Pantoprazole Sodium 40 mg/ (Sodium Chloride) 10 mls @ 300 mls/hr IV Q24H [facility] Last Admin: 02/11/20 20:04 Dose: 300 mls/hr Documented by: Thiamine HCl 100 mg/ Sodium (Chloride) 101 mls @ 202 mls/hr IV DAILY [facility] Last Admin: 02/11/20 20:43 Dose: 202 mls/hr Documented by: Lactated Ringer's (Ringers, Lactated) 1,000 mls @ 200 mls/hr IV ASDIRECTED [facility] Last Admin: 02/12/20 07:44 Dose: 200 mls/hr Documented by: Insulin Aspart (Novolog) 0 unit SUBCUT TIDAC [facility]; Protocol Last Admin: 02/12/20 06:55 Dose: Not Given Documented by: Lorazepam (Ativan) 0 mg IVPUSH Q4H PRN; Protocol PRN Reason: Anxiety Last Admin: 02/12/20 04:45 Dose: 2 mg Documented by: Melatonin (Melatonin) 3 mg PO BEDTIME PRN PRN Reason: Insomnia Last Admin: 02/11/20 23:21 Dose: 3 mg Documented by: Morphine Sulfate (Morphine) 2 mg IVPUSH Q4H PRN PRN Reason: Pain Last Admin: 02/11/20 21:46 Dose: 2 mg Documented by: Morphine Sulfate (Morphine) 2 mg IVPUSH Q3H PRN PRN Reason: Pain (mild 1-3) Last Admin: 02/12/20 07:38 Dose: 2 mg Documented by: Ondansetron HCl (Zofran Odt) 4 mg PO Q4H PRN PRN Reason: nausea, able to take PO Last Admin: 02/11/20 20:17 Dose: 4 mg Documented by: Ondansetron HCl (Zofran) 4 mg IVPUSH Q4H PRN PRN Reason: Nausea/Vomiting Sodium Chloride (Saline Flush) 10 ml FLUSH ASDIRECTED PRN PRN Reason: Keep Vein Open Last Admin: 02/11/20 13:28 Dose: 10 ml Documented by: Sodium Chloride (Saline Flush) 2.5 ml FLUSH ASDIRECTED PRN PRN Reason: Keep Vein Open Last Admin: 02/11/20 13:28 Dose: 2.5 ml Documented by: Discontinued Medications Fentanyl (Fentanyl) 50 mcg IVPUSH ONETIME ONE Stop: 02/11/20 18:51 Last Admin: 02/11/20 18:56 Dose: 50 mcg Documented by: Pantoprazole Sodium 40 mg/ (Sodium Chloride) 10 mls @ 300 mls/hr IV NOW ONE Stop: 02/11/20 13:06 Last Admin: 02/11/20 13:27 Dose: 300 mls/hr Documented by: Magnesium Sulfate (Magnesium Sulfate In Water Premix) 2 gm in 50 mls @ 50 mls/hr IV ONETIME ONE Stop: 02/12/20 08:31 Last Admin: 02/12/20 07:43 Dose: 50 mls/hr Documented by: Ibuprofen (Motrin) 400 mg PO Q6H PRN PRN Reason: Pain (mild 1-3) Iopamidol (Isovue Multipack-370 (76%)) 100 ml IVPUSH ONETIME ONE Stop: 02/11/20 16:23 Last Admin: 02/11/20 16:22 Dose: 100 ml Documented by: Lorazepam (Ativan) 1 mg IVPUSH ONETIME ONE Stop: 02/11/20 13:06 Last Admin: 02/11/20 13:28 Dose: 1 mg Documented by: Lorazepam (Ativan) 0 mg IVPUSH ONETIME ONE; Protocol Stop: 02/11/20 18:51 Last Admin: 02/11/20 20:03 Dose: 1 mg Documented by: Morphine Sulfate (Morphine) 4 mg IVPUSH ONETIME ONE Stop: 02/11/20 13:53 Last Admin: 02/11/20 14:12 Dose: 4 mg Documented by: Morphine Sulfate (Morphine) 4 mg IVPUSH ONETIME ONE Stop: 02/11/20 15:44 Last Admin: 02/11/20 16:00 Dose: 4 mg Documented by: Ondansetron HCl (Zofran) 4 mg IVPUSH ONETIME ONE Stop: 02/11/20 13:03 Last Admin: 02/11/20 13:28 Dose: 4 mg Documented by: - Exam General: Alert, Oriented HEENT: EOMI Neck: Supple Lungs: Clear to Auscultation, Normal Respiratory Effort GI/Abdominal Exam: Soft, Other (interval tenderness from admission ) Extremities: Normal Inspection Skin: Warm, Dry Wound/Incisions: Healing Well Neurological: No New Focal Deficit Psy/Mental Status: Alert Sepsis Event Note - Evaluation Sepsis Screening Result: No Definite Risk - Focused Exam Vital Signs: Vital Signs Temp Pulse Resp BP Pulse Ox 02/12/20 07:10 97.8 F 92 17 144/91 H 91 L 02/12/20 04:00 94 18 141/93 H 95 02/12/20 02:00 97.6 F 94 18 141/93 H 90 L 02/12/20 00:00 97.9 F 93 20 137/71 94 L - Problem List & Annotations (1) Acute on chronic pancreatitis SNOMED Code(s): 123267811 Code(s): K85.90 - ACUTE PANCREATITIS WITHOUT NECROSIS OR INFECTION, UNSP; K86.1 - OTHER CHRONIC PANCREATITIS Status: Acute Current Visit: No - Problem List Review Problem List Initiated/Reviewed/Updated: Yes - My Orders Last 24 Hours: My Active Orders 02/11/20 18:47 Oxygen Therapy [RC] PRN VTE/DVT Education [RC] PER UNIT ROUTINE Vital Signs [RC] Q4H Morphine 2 mg IVPUSH Q4H PRN Ondansetron [Zofran ODT] 4 mg PO Q4H PRN Resuscitation Status Routine 02/11/20 18:48 Oxygen Therapy [RC] PRN VTE/DVT Education [RC] PER UNIT ROUTINE Vital Signs [RC] Q4H 02/11/20 18:50 CIWAA Assessment [RC] Q4H 02/11/20 18:53 Melatonin 3 mg PO BEDTIME PRN 02/11/20 18:59 Accu Check [Blood Glucose Check, Bedside] [RC] TIDMEALS Dextrose 50% in Water 50 ml IV ASDIRECTED PRN Glucagon,Human Recombinant [GlucaGen] 1 mg IM ASDIRECTED PRN 02/11/20 19:00 Folic Acid 1 mg PO DAILY Lactated Ringers [Ringers, Lactated] 1,000 ml IV ASDIRECTED Pantoprazole [ProTONIX IV] 40 mg Sodium Chloride 0.9% [Normal Saline] 10 ml IV Q24H Thiamine [Vitamin B-1] 100 mg Sodium Chloride 0.9% [Normal Saline] 100 ml IV DAILY 02/11/20 19:07 Consult to Physician [CONS] Routine 02/11/20 19:08 Notify Provider Consults [RC] ASDIRECTED 02/11/20 19:36 Antiembolic Devices [RC] PER UNIT ROUTINE Sequential Compression Device [OM.PC] Routine 02/12/20 07:30 Insulin Aspart [NovoLOG] See Protocol SUBCUT TIDAC 02/13/20 05:11 CBC WITH AUTO DIFF [HEME] AM COMPREHENSIVE METABOLIC PN,CMP [CHEM] AM 02/14/20 05:11 CBC WITH AUTO DIFF [HEME] AM COMPREHENSIVE METABOLIC PN,CMP [CHEM] AM - Plan Plan:: Assessment: 1. Acute on chronic pancreatitis 2. Extrahepatic biliary dilatation. 3. History of alcohol abuse 4. Past medical history: Hypothyroidism, hepatitis C. Chronic alcohol abuse with significant withdrawal, history of opioid abuse on Suboxone, obesity, depression/anxiety/bipolar disorder 5. JOHN: Resolved Plan Admit to inpatient. Full code. I's and O's per routine vitals per routine Diet: NPO 1. Acute on chronic pancreatitis secondary to alcohol abuse: LR @ 200 cc/hr : hydration status improved this AM surgery consult: most likely will need outpatient follow up; no acute surgical intervention at this time ; we appreciate Dr Napoles of Surgery recommendations Will advance diet once tolerated Pain control: Morphine 2 mg every 6 hours+tramadol PRN IV PPI daily SCDs 2. Significant alcohol use: Past medical history of alcohol withdrawals with hallucination; CIWAA this AM : 15; continue ativan per protocol Continue patient on thiamine and folate daily. Mg2+ : repleted w. 2 grams this AM ; recheck in AM 3. JOHN: resolved; continue to monitor
[2020-02-12] MEDS: Folic Acid 1 MG Tab PO SCH (10:30)
[2020-02-12] MEDS: Thiamine 100 MG in Sodium Chloride 0.9% 100 ML IV SCH (10:31)
[2020-02-12] MEDS: traMADol 50 MG Tab PO PRN ×2 (13:17→19:14)
[2020-02-12] MEDS: Pantoprazole 40 MG in Sodium Chloride 0.9% 10 ML IV SCH (18:11)
[2020-02-12] MEDS: Melatonin 3 MG Tab PO PRN (23:37)
[2020-02-13] MEDS: traMADol 50 MG Tab PO PRN ×3 (02:19→16:27)
[2020-02-13] MEDS: LORazepam 2 MG/ML SDV IVPUSH PRN (03:16)
[2020-02-13] MEDS: Lactated Ringers 1,000 ML IV SCH ×3 (03:28→15:24)
[2020-02-13 06:46] LABS: BLOOD UREA NITROGEN,BUN 5 mg/dL (7.0-18.0); CARBON DIOXIDE,CO2 29.2 mmol/L (21.0-32.0); CHLORIDE,CL 105 mmol/L (98-107); GLUCOSE RANDOM 74 mg/dL (74-106); POTASSIUM,K 3.7 mmol/L (3.5-5.1); SODIUM,NA 144 mmol/L (136-145)
[2020-02-13] MEDS: Insulin Aspart 100 Units/ML 3 ML Pen SUBCUT SCH ×3 (07:29→18:22)
[2020-02-13] MEDS: Morphine 2 MG/ML SYRINGE IVPUSH PRN ×3 (07:46→18:23)
[2020-02-13] MEDS ORDERED: Albuterol HFA 18 Gm Inhaler INH PRN (08:46)
--- NOTE | 2020-02-13 08:50 | PCM.PN ---
- General Info Date of Service: 02/13/20 - Review of Systems Systems Review Comment:: reports abdominal pain today better with tramadol but still requiring morphine - Patient Data Vitals - Most Recent: Last Vital Signs Temp 36.3 C 02/13/20 07:44 Pulse 78 02/13/20 07:44 Resp 18 02/13/20 07:44 BP 135/92 H 02/13/20 07:44 Pulse Ox 94 L 02/13/20 07:44 Weight - Most Recent: 104.145 kg I&O - Last 24 Hours: Intake & Output 02/12/20 02/13/20 02/13/20 22:59 06:59 14:59 Intake Total 1975 Output Total 1650 Balance 325 Lab Results Last 24 Hours: Laboratory Results - last 24 hr 02/12/20 02/12/20 02/13/20 Range/Units 11:31 17:29 05:55 WBC 8.00 (4.0-11.0) K/uL RBC 4.30 (4.30-5.90) M/uL Hgb 13.2 (12.0-16.0) g/dL Hct 42.2 (36.0-46.0) % MCV 98.1 H (80.0-98.0) fL MCH 30.7 (27.0-32.0) pg MCHC 31.3 (31.0-37.0) g/dL RDW Std Deviation 45.8 (28.0-62.0) fl RDW Coeff of Jennifer 13 (11.0-15.0) % Plt Count 249 (150-400) K/uL MPV 10.20 (7.40-12.00) fL Neut % (Auto) 67.4 (48.0-80.0) % Lymph % (Auto) 24.1 (16.0-40.0) % [place] % (Auto) 6.3 (0.0-15.0) % Eos % (Auto) 1.8 (0.0-7.0) % Baso % (Auto) 0.4 (0.0-1.5) % Neut # (Auto) 5.4 (1.4-5.7) K/uL Lymph # (Auto) 1.9 (0.6-2.4) K/uL [place] # (Auto) 0.5 (0.0-0.8) K/uL Eos # (Auto) 0.1 (0.0-0.7) K/uL Baso # (Auto) 0.0 (0.0-0.1) K/uL Nucleated RBC % 0.0 /100WBC Nucleated RBCs # 0 K/uL Sodium (136-145) mmol/L Potassium (3.5-5.1) mmol/L Chloride (98-107) mmol/L Carbon Dioxide (21.0-32.0) mmol/L BUN (7.0-18.0) mg/dL Creatinine (0.6-1.0) mg/dL Est Cr Clr Drug Dosing mL/min Estimated GFR (MDRD) ml/min Glucose (74-106) mg/dL POC Glucose 95 95 (60-110) mg/dL Calcium (8.5-10.1) mg/dL Magnesium (1.8-2.4) mg/dL Total Bilirubin (0.2-1.0) mg/dL AST (15-37) IU/L ALT (14-63) IU/L Alkaline Phosphatase (46-116) U/L Total Protein (6.4-8.2) g/dL Albumin (3.4-5.0) g/dL Globulin (2.6-4.0) g/dL Albumin/Globulin Ratio (0.9-1.6) 02/13/20 02/13/20 Range/Units 05:55 07:07 WBC (4.0-11.0) K/uL RBC (4.30-5.90) M/uL Hgb (12.0-16.0) g/dL Hct (36.0-46.0) % MCV (80.0-98.0) fL MCH (27.0-32.0) pg MCHC (31.0-37.0) g/dL RDW Std Deviation (28.0-62.0) fl RDW Coeff of Jennifer (11.0-15.0) % Plt Count (150-400) K/uL MPV (7.40-12.00) fL Neut % (Auto) (48.0-80.0) % Lymph % (Auto) (16.0-40.0) % [place] % (Auto) (0.0-15.0) % Eos % (Auto) (0.0-7.0) % Baso % (Auto) (0.0-1.5) % Neut # (Auto) (1.4-5.7) K/uL Lymph # (Auto) (0.6-2.4) K/uL [place] # (Auto) (0.0-0.8) K/uL Eos # (Auto) (0.0-0.7) K/uL Baso # (Auto) (0.0-0.1) K/uL Nucleated RBC % /100WBC Nucleated RBCs # K/uL Sodium 144 (136-145) mmol/L Potassium 3.7 (3.5-5.1) mmol/L Chloride 105 (98-107) mmol/L Carbon Dioxide 29.2 (21.0-32.0) mmol/L BUN 5 L (7.0-18.0) mg/dL Creatinine 0.8 (0.6-1.0) mg/dL Est Cr Clr Drug Dosing 80.51 mL/min Estimated GFR (MDRD) > 60.0 ml/min Glucose 74 (74-106) mg/dL POC Glucose 66 (60-110) mg/dL Calcium 8.9 (8.5-10.1) mg/dL Magnesium 1.8 (1.8-2.4) mg/dL Total Bilirubin 0.4 (0.2-1.0) mg/dL AST 21 (15-37) IU/L ALT 19 (14-63) IU/L Alkaline Phosphatase 68 (46-116) U/L Total Protein 6.2 L (6.4-8.2) g/dL Albumin 2.8 L (3.4-5.0) g/dL Globulin 3.4 (2.6-4.0) g/dL Albumin/Globulin Ratio 0.8 L (0.9-1.6) Med Orders - Current: Current Medications Dextrose/Water (Dextrose 50% In Water) 50 ml IV ASDIRECTED PRN PRN Reason: Hypoglycemia Folic Acid (Folic Acid) 1 mg PO DAILY [facility]IANA Last Admin: 02/12/20 10:30 Dose: 1 mg Documented by: Glucagon (Glucagen) 1 mg IM ASDIRECTED PRN PRN Reason: Hypoglycemia Pantoprazole Sodium 40 mg/ (Sodium Chloride) 10 mls @ 300 mls/hr IV Q24H [facility] Last Admin: 02/12/20 18:11 Dose: 300 mls/hr Documented by: Thiamine HCl 100 mg/ Sodium (Chloride) 101 mls @ 202 mls/hr IV DAILY [facility] Last Admin: 02/12/20 10:31 Dose: 202 mls/hr Documented by: Lactated Ringer's (Ringers, Lactated) 1,000 mls @ 150 mls/hr IV ASDIRECTED [facility] Last Admin: 02/12/20 16:19 Dose: 150 mls/hr Documented by: Lactated Ringer's (Ringers, Lactated) 1,000 mls @ 200 mls/hr IV ASDIRECTED [facility] Last Admin: 02/13/20 03:28 Dose: 200 mls/hr Documented by: Insulin Aspart (Novolog) 0 unit SUBCUT TIDAC [facility]; Protocol Last Admin: 02/13/20 07:29 Dose: Not Given Documented by: Lorazepam (Ativan) 0 mg IVPUSH Q4H PRN; Protocol PRN Reason: Anxiety Last Admin: 02/13/20 03:16 Dose: 2 mg Documented by: Melatonin (Melatonin) 3 mg PO BEDTIME PRN PRN Reason: Insomnia Last Admin: 02/12/20 23:37 Dose: 3 mg Documented by: Morphine Sulfate (Morphine) 2 mg IVPUSH Q4H PRN PRN Reason: Pain (mild 1-3) Last Admin: 02/13/20 07:46 Dose: 2 mg Documented by: Ondansetron HCl (Zofran Odt) 4 mg PO Q4H PRN PRN Reason: nausea, able to take PO Last Admin: 02/11/20 20:17 Dose: 4 mg Documented by: Ondansetron HCl (Zofran) 4 mg IVPUSH Q4H PRN PRN Reason: Nausea/Vomiting Last Admin: 02/13/20 03:12 Dose: 4 mg Documented by: Sodium Chloride (Saline Flush) 10 ml FLUSH ASDIRECTED PRN PRN Reason: Keep Vein Open Last Admin: 02/11/20 13:28 Dose: 10 ml Documented by: Sodium Chloride (Saline Flush) 2.5 ml FLUSH ASDIRECTED PRN PRN Reason: Keep Vein Open Last Admin: 02/11/20 13:28 Dose: 2.5 ml Documented by: Tramadol HCl (Ultram) 100 mg PO Q6H PRN PRN Reason: Pain Last Admin: 02/13/20 02:19 Dose: 100 mg Documented by: Discontinued Medications Fentanyl (Fentanyl) 50 mcg IVPUSH ONETIME ONE Stop: 02/11/20 18:51 Last Admin: 02/11/20 18:56 Dose: 50 mcg Documented by: Sodium Chloride (Normal Saline) 1,000 mls @ 150 mls/hr IV ASDIRECTED [facility] Last Admin: 02/11/20 13:27 Dose: 150 mls/hr Documented by: Pantoprazole Sodium 40 mg/ (Sodium Chloride) 10 mls @ 300 mls/hr IV NOW ONE Stop: 02/11/20 13:06 Last Admin: 02/11/20 13:27 Dose: 300 mls/hr Documented by: Sodium Chloride (Normal Saline) 1,000 mls @ 1,000 mls/hr IV ASDIRECTED [facility] Last Admin: 02/11/20 16:33 Dose: 1,000 mls/hr Documented by: Magnesium Sulfate (Magnesium Sulfate In Water Premix) 2 gm in 50 mls @ 50 mls/hr IV ONETIME ONE Stop: 02/12/20 08:31 Last Admin: 02/12/20 07:43 Dose: 50 mls/hr Documented by: Ibuprofen (Motrin) 400 mg PO Q6H PRN PRN Reason: Pain (mild 1-3) Iopamidol (Isovue Multipack-370 (76%)) 100 ml IVPUSH ONETIME ONE Stop: 02/11/20 16:23 Last Admin: 02/11/20 16:22 Dose: 100 ml Documented by: Lorazepam (Ativan) 1 mg IVPUSH ONETIME ONE Stop: 02/11/20 13:06 Last Admin: 02/11/20 13:28 Dose: 1 mg Documented by: Lorazepam (Ativan) 0 mg IVPUSH ONETIME ONE; Protocol Stop: 02/11/20 18:51 Last Admin: 02/11/20 20:03 Dose: 1 mg Documented by: Morphine Sulfate (Morphine) 4 mg IVPUSH ONETIME ONE Stop: 02/11/20 13:53 Last Admin: 02/11/20 14:12 Dose: 4 mg Documented by: Morphine Sulfate (Morphine) 4 mg IVPUSH ONETIME ONE Stop: 02/11/20 15:44 Last Admin: 02/11/20 16:00 Dose: 4 mg Documented by: Morphine Sulfate (Morphine) 2 mg IVPUSH Q4H PRN PRN Reason: Pain Last Admin: 02/11/20 21:46 Dose: 2 mg Documented by: Morphine Sulfate (Morphine) 2 mg IVPUSH Q3H PRN PRN Reason: Pain (mild 1-3) Last Admin: 02/12/20 10:35 Dose: 2 mg Documented by: Ondansetron HCl (Zofran) 4 mg IVPUSH ONETIME ONE Stop: 02/11/20 13:03 Last Admin: 02/11/20 13:28 Dose: 4 mg Documented by: - Exam General: Alert, Oriented Neck: Supple Lungs: Clear to Auscultation, Normal Respiratory Effort Cardiovascular: Regular Rate, Regular Rhythm GI/Abdominal Exam: Soft, Non-Tender, No Distention Extremities: Non-Tender, No Pedal Edema Sepsis Event Note - Evaluation Sepsis Screening Result: No Definite Risk - Focused Exam Vital Signs: Vital Signs Temp Pulse Resp BP Pulse Ox 02/13/20 07:44 36.3 C 78 18 135/92 H 94 L 02/13/20 03:20 36.4 C 70 18 159/65 H 91 L 02/13/20 00:00 36.5 C 58 L 18 119/86 93 L - Problem List Review Problem List Initiated/Reviewed/Updated: Yes - My Orders Last 24 Hours: My Active Orders 02/12/20 16:00 Lactated Ringers [Ringers, Lactated] 1,000 ml IV ASDIRECTED - Plan Plan:: 49 yo female admitted for acute on chronic pancreatitis and ETOH withdrawal Pancreatitis: continue IV fluids, morphine and PO tramadol ETOH withdrawal: CIWA protocol and thiamine
[2020-02-13] MEDS: Thiamine 100 MG in Sodium Chloride 0.9% 100 ML IV SCH (09:09)
[2020-02-13] MEDS: Folic Acid 1 MG Tab PO SCH (09:57)
[2020-02-13] MEDS: Omeprazole 20 MG Cap.CR PO SCH (09:58)
[2020-02-13] MEDS: Levothyroxine 150 MCG Tab PO SCH (10:37)
[2020-02-13] MEDS: Sertraline 50 MG Tab PO SCH (10:37)
[2020-02-13] MEDS: Ondansetron 4 MG Tab.DIS PO PRN (12:18)
[2020-02-13] MEDS: Dextrose 5%-0.45% NaCl 1,000 ML IV SCH (16:09)
[2020-02-13] MEDS: Nicotine 14 MG/24 Hr Patch TRDERM SCH (16:18)
[2020-02-13] MEDS: Pantoprazole 40 MG in Sodium Chloride 0.9% 10 ML IV SCH (18:27)
[2020-02-13] MEDS: HYDROmorphone 1 MG/ML Syringe IVPUSH PRN (22:25)
[2020-02-13] MEDS: Melatonin 3 MG Tab PO PRN (22:33)
[2020-02-14] MEDS: Dextrose 5%-0.45% NaCl 1,000 ML IV SCH ×3 (00:43→21:38)
[2020-02-14] MEDS: traMADol 50 MG Tab PO PRN ×3 (00:46→21:40)
[2020-02-14] MEDS: HYDROmorphone 1 MG/ML Syringe IVPUSH PRN ×4 (03:51→18:45)
[2020-02-14 05:43] LABS: BLOOD UREA NITROGEN,BUN 4 mg/dL (7.0-18.0); CARBON DIOXIDE,CO2 31.8 mmol/L (21.0-32.0); CHLORIDE,CL 104 mmol/L (98-107); GLUCOSE RANDOM 102 mg/dL (74-106); SODIUM,NA 145 mmol/L (136-145)
[2020-02-14] MEDS: Levothyroxine 150 MCG Tab PO SCH (07:19)
[2020-02-14] MEDS: Omeprazole 20 MG Cap.CR PO SCH (07:19)
[2020-02-14] MEDS: Insulin Aspart 100 Units/ML 3 ML Pen SUBCUT SCH ×3 (08:06→19:00)
[2020-02-14] MEDS: Sertraline 50 MG Tab PO SCH (08:37)
[2020-02-14] MEDS: Folic Acid 1 MG Tab PO SCH (08:37)
[2020-02-14] MEDS: Thiamine 100 MG in Sodium Chloride 0.9% 100 ML IV SCH (08:38)
[2020-02-14] MEDS: Nicotine 14 MG/24 Hr Patch TRDERM SCH (08:49)
[2020-02-14] MEDS ORDERED: Potassium Chloride 20 MEQ Tab.ER PO ONE (10:12)
[2020-02-14] MEDS ORDERED: Magnesium Sulfate/Water 2 GM/50 ML BAG IV ONE (10:12)
--- NOTE | 2020-02-14 12:04 | PCM.PN ---
- General Info Date of Service: 02/14/20 Admission Dx/Problem (Free Text): Admission Diagnosis/Problem Admission Diagnosis/Problem Pancreatitis Subjective Update: 49-year-old female with abdominal pain secondary to acute on chronic pancreatitis and alcohol withdrawal. Today is day 3 of admission. No overnight events reported. Patient is alert and oriented x4, continues to complain of some pain, has been kept on liquids and we have not advanced her diet. Patient does not complain of any appetite or hunger. Functional Status: Reports: Urinating. Denies: Pain Controlled, Tolerating Diet - Review of Systems General: Denies: Appetite HEENT: Reports: No Symptoms Pulmonary: Reports: No Symptoms Cardiovascular: Reports: No Symptoms Gastrointestinal: Reports: Abdominal Pain, Decreased Appetite Genitourinary: Reports: No Symptoms Musculoskeletal: Reports: No Symptoms Skin: Reports: No Symptoms Neurological: Reports: No Symptoms Psychiatric: Reports: No Symptoms - Patient Data Vitals - Most Recent: Last Vital Signs Temp 97.5 F 02/14/20 08:30 Pulse 74 02/14/20 08:30 Resp 16 02/14/20 08:30 BP 136/82 02/14/20 08:30 Pulse Ox 97 02/14/20 08:30 Weight - Most Recent: 229 lb 9.6 oz I&O - Last 24 Hours: Intake & Output 02/13/20 02/14/20 02/14/20 22:59 06:59 14:59 Intake Total 855 Output Total 1550 2350 Balance -695 -2350 Lab Results Last 24 Hours: Laboratory Results - last 24 hr 02/13/20 02/13/20 02/13/20 Range/Units 12:10 15:08 18:21 WBC (4.0-11.0) K/uL RBC (4.30-5.90) M/uL Hgb (12.0-16.0) g/dL Hct (36.0-46.0) % MCV (80.0-98.0) fL MCH (27.0-32.0) pg MCHC (31.0-37.0) g/dL RDW Std Deviation (28.0-62.0) fl RDW Coeff of Jennifer (11.0-15.0) % Plt Count (150-400) K/uL MPV (7.40-12.00) fL Neut % (Auto) (48.0-80.0) % Lymph % (Auto) (16.0-40.0) % Lipscomb % (Auto) (0.0-15.0) % Eos % (Auto) (0.0-7.0) % Baso % (Auto) (0.0-1.5) % Neut # (Auto) (1.4-5.7) K/uL Lymph # (Auto) (0.6-2.4) K/uL Lipscomb # (Auto) (0.0-0.8) K/uL Eos # (Auto) (0.0-0.7) K/uL Baso # (Auto) (0.0-0.1) K/uL Nucleated RBC % /100WBC Nucleated RBCs # K/uL Sodium (136-145) mmol/L Potassium (3.5-5.1) mmol/L Chloride (98-107) mmol/L Carbon Dioxide (21.0-32.0) mmol/L BUN (7.0-18.0) mg/dL Creatinine (0.6-1.0) mg/dL Est Cr Clr Drug Dosing mL/min Estimated GFR (MDRD) ml/min Glucose (74-106) mg/dL POC Glucose 63 63 89 (60-110) mg/dL Calcium (8.5-10.1) mg/dL Magnesium (1.8-2.4) mg/dL Total Bilirubin (0.2-1.0) mg/dL AST (15-37) IU/L ALT (14-63) IU/L Alkaline Phosphatase (46-116) U/L Total Protein (6.4-8.2) g/dL Albumin (3.4-5.0) g/dL Globulin (2.6-4.0) g/dL Albumin/Globulin Ratio (0.9-1.6) 02/14/20 02/14/20 02/14/20 Range/Units 04:45 04:45 06:00 WBC 8.17 (4.0-11.0) K/uL RBC 3.95 L (4.30-5.90) M/uL Hgb 12.2 (12.0-16.0) g/dL Hct 37.8 (36.0-46.0) % MCV 95.7 (80.0-98.0) fL MCH 30.9 (27.0-32.0) pg MCHC 32.3 (31.0-37.0) g/dL RDW Std Deviation 42.9 (28.0-62.0) fl RDW Coeff of Jennifer 12 (11.0-15.0) % Plt Count 240 (150-400) K/uL MPV 10.30 (7.40-12.00) fL Neut % (Auto) 74.6 (48.0-80.0) % Lymph % (Auto) 19.5 (16.0-40.0) % Lipscomb % (Auto) 4.8 (0.0-15.0) % Eos % (Auto) 1.0 (0.0-7.0) % Baso % (Auto) 0.1 (0.0-1.5) % Neut # (Auto) 6.1 H (1.4-5.7) K/uL Lymph # (Auto) 1.6 (0.6-2.4) K/uL Lipscomb # (Auto) 0.4 (0.0-0.8) K/uL Eos # (Auto) 0.1 (0.0-0.7) K/uL Baso # (Auto) 0.0 (0.0-0.1) K/uL Nucleated RBC % 0.0 /100WBC Nucleated RBCs # 0 K/uL Sodium 145 (136-145) mmol/L Potassium 3.0 L (3.5-5.1) mmol/L Chloride 104 (98-107) mmol/L Carbon Dioxide 31.8 (21.0-32.0) mmol/L BUN 4 L (7.0-18.0) mg/dL Creatinine 0.8 (0.6-1.0) mg/dL Est Cr Clr Drug Dosing 80.51 mL/min Estimated GFR (MDRD) > 60.0 ml/min Glucose 102 (74-106) mg/dL POC Glucose 109 (60-110) mg/dL Calcium 8.4 L (8.5-10.1) mg/dL Magnesium 1.6 L (1.8-2.4) mg/dL Total Bilirubin 0.3 (0.2-1.0) mg/dL AST 18 (15-37) IU/L ALT 17 (14-63) IU/L Alkaline Phosphatase 66 (46-116) U/L Total Protein 6.2 L (6.4-8.2) g/dL Albumin 2.8 L (3.4-5.0) g/dL Globulin 3.4 (2.6-4.0) g/dL Albumin/Globulin Ratio 0.8 L (0.9-1.6) Med Orders - Current: Current Medications Albuterol (Ventolin Hfa) 0 gm INH Q6HRRT PRN PRN Reason: Shortness of Breath Dextrose/Water (Dextrose 50% In Water) 50 ml IV ASDIRECTED PRN PRN Reason: Hypoglycemia Folic Acid (Folic Acid) 1 mg PO DAILY [facility] Last Admin: 02/14/20 08:37 Dose: 1 mg Documented by: Glucagon (Glucagen) 1 mg IM ASDIRECTED PRN PRN Reason: Hypoglycemia Hydromorphone HCl (Dilaudid) 0.5 mg IVPUSH Q4H PRN PRN Reason: Pain Last Admin: 02/14/20 08:48 Dose: 0.5 mg Documented by: Pantoprazole Sodium 40 mg/ (Sodium Chloride) 10 mls @ 300 mls/hr IV Q24H [facility] Last Admin: 02/13/20 18:27 Dose: 300 mls/hr Documented by: Thiamine HCl 100 mg/ Sodium (Chloride) 101 mls @ 202 mls/hr IV DAILY [facility] Last Admin: 02/14/20 08:38 Dose: 202 mls/hr Documented by: Dextrose/Sodium Chloride (Dextrose 5%-1/2 Ns) 1,000 mls @ 125 mls/hr IV ASDIRECTED [facility] Last Admin: 02/14/20 08:53 Dose: 125 mls/hr Documented by: Insulin Aspart (Novolog) 0 unit SUBCUT TIDAC [facility]; Protocol Last Admin: 02/14/20 08:06 Dose: Not Given Documented by: Levothyroxine Sodium (Levothyroxine) 300 mcg PO ACBREAKFAST [facility] Last Admin: 02/14/20 07:19 Dose: 300 mcg Documented by: Lorazepam (Ativan) 0 mg IVPUSH Q4H PRN; Protocol PRN Reason: Anxiety Last Admin: 02/13/20 03:16 Dose: 2 mg Documented by: Melatonin (Melatonin) 3 mg PO BEDTIME PRN PRN Reason: Insomnia Last Admin: 02/13/20 22:33 Dose: 3 mg Documented by: Nicotine (Habitrol) 14 mg TRDERM DAILY [facility] Last Admin: 02/14/20 08:49 Dose: 14 mg Documented by: Omeprazole (Omeprazole) 40 mg PO ACBREAKFAST [facility] Last Admin: 02/14/20 07:19 Dose: 40 mg Documented by: Ondansetron HCl (Zofran Odt) 4 mg PO Q4H PRN PRN Reason: nausea, able to take PO Last Admin: 02/13/20 12:18 Dose: 4 mg Documented by: Ondansetron HCl (Zofran) 4 mg IVPUSH Q4H PRN PRN Reason: Nausea/Vomiting Last Admin: 02/13/20 03:12 Dose: 4 mg Documented by: Sertraline HCl (Zoloft) 50 mg PO DAILY [facility] Last Admin: 02/14/20 08:37 Dose: 50 mg Documented by: Sodium Chloride (Saline Flush) 10 ml FLUSH ASDIRECTED PRN PRN Reason: Keep Vein Open Last Admin: 02/11/20 13:28 Dose: 10 ml Documented by: Sodium Chloride (Saline Flush) 2.5 ml FLUSH ASDIRECTED PRN PRN Reason: Keep Vein Open Last Admin: 02/11/20 13:28 Dose: 2.5 ml Documented by: Tramadol HCl (Ultram) 100 mg PO Q6H PRN PRN Reason: Pain Last Admin: 02/14/20 11:46 Dose: 100 mg Documented by: Discontinued Medications Fentanyl (Fentanyl) 50 mcg IVPUSH ONETIME ONE Stop: 02/11/20 18:51 Last Admin: 02/11/20 18:56 Dose: 50 mcg Documented by: Sodium Chloride (Normal Saline) 1,000 mls @ 150 mls/hr IV ASDIRECTED [facility] Last Admin: 02/11/20 13:27 Dose: 150 mls/hr Documented by: Pantoprazole Sodium 40 mg/ (Sodium Chloride) 10 mls @ 300 mls/hr IV NOW ONE Stop: 02/11/20 13:06 Last Admin: 02/11/20 13:27 Dose: 300 mls/hr Documented by: Sodium Chloride (Normal Saline) 1,000 mls @ 1,000 mls/hr IV ASDIRECTED [facility] Last Admin: 02/11/20 16:33 Dose: 1,000 mls/hr Documented by: Lactated Ringer's (Ringers, Lactated) 1,000 mls @ 150 mls/hr IV ASDIRECTED [facility] Last Admin: 02/12/20 16:19 Dose: 150 mls/hr Documented by: Magnesium Sulfate (Magnesium Sulfate In Water Premix) 2 gm in 50 mls @ 50 mls/hr IV ONETIME ONE Stop: 02/12/20 08:31 Last Admin: 02/12/20 07:43 Dose: 50 mls/hr Documented by: Lactated Ringer's (Ringers, Lactated) 1,000 mls @ 200 mls/hr IV ASDIRECTED [facility] Last Admin: 02/13/20 15:24 Dose: 200 mls/hr Documented by: Magnesium Sulfate (Magnesium Sulfate In Water Premix) 2 gm in 50 mls @ 50 mls/hr IV ONETIME ONE Stop: 02/14/20 11:11 Last Admin: 02/14/20 11:41 Dose: 50 mls/hr Documented by: Ibuprofen (Motrin) 400 mg PO Q6H PRN PRN Reason: Pain (mild 1-3) Iopamidol (Isovue Multipack-370 (76%)) 100 ml IVPUSH ONETIME ONE Stop: 02/11/20 16:23 Last Admin: 02/11/20 16:22 Dose: 100 ml Documented by: Lorazepam (Ativan) 1 mg IVPUSH ONETIME ONE Stop: 02/11/20 13:06 Last Admin: 02/11/20 13:28 Dose: 1 mg Documented by: Lorazepam (Ativan) 0 mg IVPUSH ONETIME ONE; Protocol Stop: 02/11/20 18:51 Last Admin: 02/11/20 20:03 Dose: 1 mg Documented by: Morphine Sulfate (Morphine) 4 mg IVPUSH ONETIME ONE Stop: 02/11/20 13:53 Last Admin: 02/11/20 14:12 Dose: 4 mg Documented by: Morphine Sulfate (Morphine) 4 mg IVPUSH ONETIME ONE Stop: 02/11/20 15:44 Last Admin: 02/11/20 16:00 Dose: 4 mg Documented by: Morphine Sulfate (Morphine) 2 mg IVPUSH Q4H PRN PRN Reason: Pain Last Admin: 02/11/20 21:46 Dose: 2 mg Documented by: Morphine Sulfate (Morphine) 2 mg IVPUSH Q3H PRN PRN Reason: Pain (mild 1-3) Last Admin: 02/12/20 10:35 Dose: 2 mg Documented by: Morphine Sulfate (Morphine) 2 mg IVPUSH Q4H PRN PRN Reason: Pain (mild 1-3) Last Admin: 02/13/20 18:23 Dose: 2 mg Documented by: Ondansetron HCl (Zofran) 4 mg IVPUSH ONETIME ONE Stop: 02/11/20 13:03 Last Admin: 02/11/20 13:28 Dose: 4 mg Documented by: Potassium Chloride (Klor-Con M20) 40 meq PO ONETIME ONE Stop: 02/14/20 10:13 Last Admin: 02/14/20 10:51 Dose: 40 meq Documented by: - Exam Quality Assessment: DVT Prophylaxis General: Alert, Oriented, Cooperative, No Acute Distress HEENT: Pupils Equal, Pupils Reactive, EOMI, Mucous Membr. Moist/[place] Neck: Supple, Trachea Midline, No JVD Lungs: Clear to Auscultation, Normal Respiratory Effort Cardiovascular: Regular Rate, Regular Rhythm GI/Abdominal Exam: Normal Bowel Sounds, Soft, Non-Tender, No Distention. No: Guarding, Rigid, Rebound Extremities: Normal Inspection, Normal Range of Motion, Non-Tender, No Pedal Edema, Normal Capillary Refill Skin: Warm, Dry, Intact Neurological: No New Focal Deficit Psy/Mental Status: Alert, Normal Affect, Normal Mood Sepsis Event Note - Evaluation Sepsis Screening Result: No Definite Risk - Focused Exam Vital Signs: Vital Signs Temp Pulse Resp BP BP Pulse Ox 02/14/20 08:30 97.5 F 74 16 136/82 97 02/14/20 04:10 97 F 90 17 140/88 94 L - Problem List Review Problem List Initiated/Reviewed/Updated: Yes - Plan Plan:: 49 yo female admitted for acute on chronic pancreatitis and ETOH withdrawal Pancreatitis: continue IV fluids, morphine and PO tramadol ETOH withdrawal: CIWA protocol and thiamine, folic acid on suboxone, will advance diet once pain has been controlled
[2020-02-14] MEDS: LORazepam 2 MG/ML SDV IVPUSH PRN (16:37)
[2020-02-14] MEDS: Pantoprazole 40 MG in Sodium Chloride 0.9% 10 ML IV SCH (18:53)
[2020-02-14] MEDS: Melatonin 3 MG Tab PO PRN (21:42)
[2020-02-15] MEDS: HYDROmorphone 1 MG/ML Syringe IVPUSH PRN ×2 (03:29→08:45)
[2020-02-15] MEDS: Omeprazole 20 MG Cap.CR PO SCH (06:31)
[2020-02-15] MEDS: Levothyroxine 150 MCG Tab PO SCH (06:31)
[2020-02-15] MEDS: Insulin Aspart 100 Units/ML 3 ML Pen SUBCUT SCH ×3 (06:32→18:03)
[2020-02-15] MEDS: traMADol 50 MG Tab PO PRN ×2 (06:32→23:00)
[2020-02-15 07:08] LABS: BLOOD UREA NITROGEN,BUN 2 mg/dL (7.0-18.0); CHLORIDE,CL 107 mmol/L (98-107); GLUCOSE RANDOM 107 mg/dL (74-106); POTASSIUM,K 2.9 mmol/L (3.5-5.1); SODIUM,NA 148 mmol/L (136-145)
[2020-02-15] MEDS: Folic Acid 1 MG Tab PO SCH (08:44)
[2020-02-15] MEDS: Nicotine 14 MG/24 Hr Patch TRDERM SCH (08:44)
[2020-02-15] MEDS: Sertraline 50 MG Tab PO SCH (08:44)
[2020-02-15] MEDS: Thiamine 100 MG in Sodium Chloride 0.9% 100 ML IV SCH (08:47)
[2020-02-15] MEDS ORDERED: Magnesium Sulfate/Water 4 GM/100 ML BAG IV ONE (09:53)
[2020-02-15] MEDS ORDERED: Potassium Chloride 20 MEQ Tab.ER PO ONE ×2 (09:53→18:50)
[2020-02-15] MEDS ORDERED: Sodium Chloride 0.9% with KCl 1,000 ML IV ONE (09:55)
[2020-02-15] MEDS ORDERED: Magnesium Sulfate/Water 4 GM in Premix Bag 1 BAG IV SCH (10:45)
--- NOTE | 2020-02-15 11:41 | PCM.PN ---
- General Info Date of Service: 02/15/20 Subjective Update: 49-year-old female with abdominal pain secondary to acute on chronic pancreatitis and alcohol withdrawal. Today is day 4 of admission. There were no overnight events. This morning patient feels much improved, still complains of some abdominal/epigastric pain however does express a desire to eat. Denies any nausea, vomiting. Functional Status: Reports: Pain Controlled - Review of Systems General: Reports: No Symptoms HEENT: Reports: No Symptoms Pulmonary: Reports: No Symptoms Cardiovascular: Reports: No Symptoms Gastrointestinal: Reports: Abdominal Pain Genitourinary: Reports: No Symptoms Musculoskeletal: Reports: No Symptoms Skin: Reports: No Symptoms Neurological: Reports: No Symptoms Psychiatric: Reports: No Symptoms - Patient Data Vitals - Most Recent: Last Vital Signs Temp 97.4 F 02/15/20 08:00 Pulse 64 02/15/20 08:00 Resp 18 02/15/20 08:00 BP 140/84 02/15/20 09:01 Pulse Ox 95 02/15/20 08:00 Weight - Most Recent: 229 lb 9.6 oz I&O - Last 24 Hours: Intake & Output 02/14/20 02/15/20 02/15/20 22:59 06:59 14:59 Intake Total 1100 1944 Output Total 350 1800 Balance 750 144 Lab Results Last 24 Hours: Laboratory Results - last 24 hr 02/14/20 02/14/20 02/15/20 Range/Units 12:12 17:49 05:35 WBC (4.0-11.0) K/uL RBC (4.30-5.90) M/uL Hgb (12.0-16.0) g/dL Hct (36.0-46.0) % MCV (80.0-98.0) fL MCH (27.0-32.0) pg MCHC (31.0-37.0) g/dL RDW Std Deviation (28.0-62.0) fl RDW Coeff of Jennifer (11.0-15.0) % Plt Count (150-400) K/uL MPV (7.40-12.00) fL Neut % (Auto) (48.0-80.0) % Lymph % (Auto) (16.0-40.0) % Mcmullen % (Auto) (0.0-15.0) % Eos % (Auto) (0.0-7.0) % Baso % (Auto) (0.0-1.5) % Neut # (Auto) (1.4-5.7) K/uL Lymph # (Auto) (0.6-2.4) K/uL Mcmullen # (Auto) (0.0-0.8) K/uL Eos # (Auto) (0.0-0.7) K/uL Baso # (Auto) (0.0-0.1) K/uL Nucleated RBC % /100WBC Nucleated RBCs # K/uL Sodium 148 H (136-145) mmol/L Potassium 2.9 L (3.5-5.1) mmol/L Chloride 107 (98-107) mmol/L Carbon Dioxide 33.0 H (21.0-32.0) mmol/L BUN 2 L (7.0-18.0) mg/dL Creatinine 0.7 (0.6-1.0) mg/dL Est Cr Clr Drug Dosing 92.01 mL/min Estimated GFR (MDRD) > 60.0 ml/min Glucose 107 H (74-106) mg/dL POC Glucose 96 115 H (60-110) mg/dL Calcium 8.8 (8.5-10.1) mg/dL Magnesium 1.6 L (1.8-2.4) mg/dL Total Bilirubin 0.3 (0.2-1.0) mg/dL AST 17 (15-37) IU/L ALT 15 (14-63) IU/L Alkaline Phosphatase 63 (46-116) U/L Total Protein 6.2 L (6.4-8.2) g/dL Albumin 2.7 L (3.4-5.0) g/dL Globulin 3.5 (2.6-4.0) g/dL Albumin/Globulin Ratio 0.8 L (0.9-1.6) 02/15/20 02/15/20 Range/Units 05:35 05:50 WBC 6.76 (4.0-11.0) K/uL RBC 4.12 L (4.30-5.90) M/uL Hgb 12.6 (12.0-16.0) g/dL Hct 38.8 (36.0-46.0) % MCV 94.2 (80.0-98.0) fL MCH 30.6 (27.0-32.0) pg MCHC 32.5 (31.0-37.0) g/dL RDW Std Deviation 42.8 (28.0-62.0) fl RDW Coeff of Jennifer 13 (11.0-15.0) % Plt Count 252 (150-400) K/uL MPV 10.60 (7.40-12.00) fL Neut % (Auto) 63.5 (48.0-80.0) % Lymph % (Auto) 28.1 (16.0-40.0) % Mcmullen % (Auto) 6.5 (0.0-15.0) % Eos % (Auto) 1.8 (0.0-7.0) % Baso % (Auto) 0.1 (0.0-1.5) % Neut # (Auto) 4.3 (1.4-5.7) K/uL Lymph # (Auto) 1.9 (0.6-2.4) K/uL Mcmullen # (Auto) 0.4 (0.0-0.8) K/uL Eos # (Auto) 0.1 (0.0-0.7) K/uL Baso # (Auto) 0.0 (0.0-0.1) K/uL Nucleated RBC % 0.0 /100WBC Nucleated RBCs # 0 K/uL Sodium (136-145) mmol/L Potassium (3.5-5.1) mmol/L Chloride (98-107) mmol/L Carbon Dioxide (21.0-32.0) mmol/L BUN (7.0-18.0) mg/dL Creatinine (0.6-1.0) mg/dL Est Cr Clr Drug Dosing mL/min Estimated GFR (MDRD) ml/min Glucose (74-106) mg/dL POC Glucose 102 (60-110) mg/dL Calcium (8.5-10.1) mg/dL Magnesium (1.8-2.4) mg/dL Total Bilirubin (0.2-1.0) mg/dL AST (15-37) IU/L ALT (14-63) IU/L Alkaline Phosphatase (46-116) U/L Total Protein (6.4-8.2) g/dL Albumin (3.4-5.0) g/dL Globulin (2.6-4.0) g/dL Albumin/Globulin Ratio (0.9-1.6) Med Orders - Current: Current Medications Albuterol (Ventolin Hfa) 0 gm INH Q6HRRT PRN PRN Reason: Shortness of Breath Dextrose/Water (Dextrose 50% In Water) 50 ml IV ASDIRECTED PRN PRN Reason: Hypoglycemia Folic Acid (Folic Acid) 1 mg PO DAILY [facility] Last Admin: 02/15/20 08:44 Dose: 1 mg Documented by: Glucagon (Glucagen) 1 mg IM ASDIRECTED PRN PRN Reason: Hypoglycemia Pantoprazole Sodium 40 mg/ (Sodium Chloride) 10 mls @ 300 mls/hr IV Q24H [facility] Last Admin: 02/14/20 18:53 Dose: 300 mls/hr Documented by: Thiamine HCl 100 mg/ Sodium (Chloride) 101 mls @ 202 mls/hr IV DAILY [facility] Last Admin: 02/15/20 08:47 Dose: 202 mls/hr Documented by: Potassium Chloride/Sodium Chloride (Normal Saline With 40 Meq Kcl) 1,000 mls @ 200 mls/hr IV ONETIME ONE Stop: 02/15/20 14:54 Last Admin: 02/15/20 10:44 Dose: 200 mls/hr Documented by: Magnesium Sulfate 4 gm/ Premix 100 mls @ 50 mls/hr IV 02/15/20@1045 [facility] Stop: 02/15/20 12:44 Last Admin: 02/15/20 10:44 Dose: 50 mls/hr Documented by: Insulin Aspart (Novolog) 0 unit SUBCUT TIDAC [facility]; Protocol Last Admin: 02/15/20 06:32 Dose: Not Given Documented by: Levothyroxine Sodium (Levothyroxine) 300 mcg PO ACBREAKFAST [facility] Last Admin: 02/15/20 06:31 Dose: 300 mcg Documented by: Lorazepam (Ativan) 0 mg IVPUSH Q4H PRN; Protocol PRN Reason: Anxiety Last Admin: 02/14/20 16:37 Dose: 1 mg Documented by: Melatonin (Melatonin) 3 mg PO BEDTIME PRN PRN Reason: Insomnia Last Admin: 02/14/20 21:42 Dose: 3 mg Documented by: Nicotine (Habitrol) 14 mg TRDERM DAILY [facility] Last Admin: 02/15/20 08:44 Dose: 14 mg Documented by: Omeprazole (Omeprazole) 40 mg PO ACBREAKFAST [facility] Last Admin: 02/15/20 06:31 Dose: 40 mg Documented by: Ondansetron HCl (Zofran Odt) 4 mg PO Q4H PRN PRN Reason: nausea, able to take PO Last Admin: 02/13/20 12:18 Dose: 4 mg Documented by: Ondansetron HCl (Zofran) 4 mg IVPUSH Q4H PRN PRN Reason: Nausea/Vomiting Last Admin: 02/13/20 03:12 Dose: 4 mg Documented by: Oxycodone HCl (Oxycodone) 5 mg PO Q4H PRN PRN Reason: Pain Sertraline HCl (Zoloft) 50 mg PO DAILY [facility] Last Admin: 02/15/20 08:44 Dose: 50 mg Documented by: Sodium Chloride (Saline Flush) 10 ml FLUSH ASDIRECTED PRN PRN Reason: Keep Vein Open Last Admin: 02/11/20 13:28 Dose: 10 ml Documented by: Sodium Chloride (Saline Flush) 2.5 ml FLUSH ASDIRECTED PRN PRN Reason: Keep Vein Open Last Admin: 02/11/20 13:28 Dose: 2.5 ml Documented by: Tramadol HCl (Ultram) 100 mg PO Q6H PRN PRN Reason: Pain Last Admin: 02/15/20 06:32 Dose: 100 mg Documented by: Discontinued Medications Fentanyl (Fentanyl) 50 mcg IVPUSH ONETIME ONE Stop: 02/11/20 18:51 Last Admin: 02/11/20 18:56 Dose: 50 mcg Documented by: Hydromorphone HCl (Dilaudid) 0.5 mg IVPUSH Q4H PRN PRN Reason: Pain Last Admin: 02/15/20 08:45 Dose: 0.5 mg Documented by: Sodium Chloride (Normal Saline) 1,000 mls @ 150 mls/hr IV ASDIRECTED [facility] Last Admin: 02/11/20 13:27 Dose: 150 mls/hr Documented by: Pantoprazole Sodium 40 mg/ (Sodium Chloride) 10 mls @ 300 mls/hr IV NOW ONE Stop: 02/11/20 13:06 Last Admin: 02/11/20 13:27 Dose: 300 mls/hr Documented by: Sodium Chloride (Normal Saline) 1,000 mls @ 1,000 mls/hr IV ASDIRECTED [facility] Last Admin: 02/11/20 16:33 Dose: 1,000 mls/hr Documented by: Lactated Ringer's (Ringers, Lactated) 1,000 [facility]ls [facility] Last Admin: 02/12/20 16:19 Dose: 150 mls/hr Documented by: Magnesium Sulfate (Magnesium Sulfate In Water Premix) 2 gm in 50 mls @ 50 mls/hr IV ONETIME ONE Stop: 02/12/20 08:31 Last Admin: 02/12/20 07:43 Dose: 50 mls/hr Documented by: Lactated Ringer's (Ringers, Lactated) 1,000 mls @ [facility] Last Admin: 02/13/20 15:24 Dose: 200 mls/hr Documented by: Dextrose/Sodium Chloride (Dextrose 5%-1/2 Ns) 1,000 mls @ 125 [facility] Last Admin: 02/14/20 21:38 Dose: 125 mls/hr Documented by: Magnesium Sulfate (Magnesium Sulfate In Water Premix) 2 gm in 50 mls @ 50 mls/hr IV ONETIME ONE Stop: 02/14/20 11:11 Last Admin: 02/14/20 11:41 Dose: 50 mls/hr Documented by: Ibuprofen (Motrin) 400 mg PO Q6H PRN PRN Reason: Pain (mild 1-3) Iopamidol (Isovue Multipack-370 (76%)) 100 ml IVPUSH ONETIME ONE Stop: 02/11/20 16:23 Last Admin: 02/11/20 16:22 Dose: 100 ml Documented by: Lorazepam (Ativan) 1 mg IVPUSH ONETIME ONE Stop: 02/11/20 13:06 Last Admin: 02/11/20 13:28 Dose: 1 mg Documented by: Lorazepam (Ativan) 0 mg IVPUSH ONETIME ONE; Protocol Stop: 02/11/20 18:51 Last Admin: 02/11/20 20:03 Dose: 1 mg Documented by: Morphine Sulfate (Morphine) 4 mg IVPUSH ONETIME ONE Stop: 02/11/20 13:53 Last Admin: 02/11/20 14:12 Dose: 4 mg Documented by: Morphine Sulfate (Morphine) 4 mg IVPUSH ONETIME ONE Stop: 02/11/20 15:44 Last Admin: 02/11/20 16:00 Dose: 4 mg Documented by: Morphine Sulfate (Morphine) 2 mg IVPUSH Q4H PRN PRN Reason: Pain Last Admin: 02/11/20 21:46 Dose: 2 mg Documented by: Morphine Sulfate (Morphine) 2 mg IVPUSH Q3H PRN PRN Reason: Pain (mild 1-3) Last Admin: 02/12/20 10:35 Dose: 2 mg Documented by: Morphine Sulfate (Morphine) 2 mg IVPUSH Q4H PRN PRN Reason: Pain (mild 1-3) Last Admin: 02/13/20 18:23 Dose: 2 mg Documented by: Ondansetron HCl (Zofran) 4 mg IVPUSH ONETIME ONE Stop: 02/11/20 13:03 Last Admin: 02/11/20 13:28 Dose: 4 mg Documented by: Potassium Chloride (Klor-Con M20) 40 meq PO ONETIME ONE Stop: 02/14/20 10:13 Last Admin: 02/14/20 10:51 Dose: 40 meq Documented by: Potassium Chloride (Klor-Con M20) 40 meq PO ONETIME ONE Stop: 02/15/20 09:54 Last Admin: 02/15/20 10:34 Dose: 40 meq Documented by: - Exam Quality Assessment: DVT Prophylaxis. No: Supplemental Oxygen General: Alert, Oriented, Cooperative, No Acute Distress HEENT: Pupils Equal, Pupils Reactive, EOMI, Mucous Membr. Moist/[place] Neck: Supple, No JVD Lungs: Clear to Auscultation, Normal Respiratory Effort Cardiovascular: Regular Rate, Regular Rhythm, No Murmurs GI/Abdominal Exam: Normal Bowel Sounds, Soft, No Organomegaly, No Distention, No Abnormal Bruit, No Mass, Rebound, Tender Back Exam: Normal Inspection, Full Range of Motion Extremities: Normal Inspection, Normal Range of Motion, Non-Tender, No Pedal Edema, Normal Capillary Refill Skin: Warm, Dry, Intact Neurological: No New Focal Deficit, Cranial Nerves Intact Psy/Mental Status: Alert, Normal Affect, Normal Mood Sepsis Event Note - Evaluation Sepsis Screening Result: No Definite Risk - Focused Exam Vital Signs: Vital Signs Temp Pulse Resp BP Pulse Ox 02/15/20 09:01 140/84 02/15/20 08:00 97.4 F 64 18 175/98 H 95 02/15/20 05:00 96.6 F L 64 16 148/94 H 91 L 02/14/20 23:50 97.8 F 65 17 140/71 94 L - Problem List & Annotations (1) Acute on chronic pancreatitis SNOMED Code(s): 267578110 Code(s): K85.90 - ACUTE PANCREATITIS WITHOUT NECROSIS OR INFECTION, UNSP; K86.1 - OTHER CHRONIC PANCREATITIS Status: Acute Current Visit: No (2) Hypokalemia SNOMED Code(s): 66456817 Code(s): E87.6 - HYPOKALEMIA Status: Acute Current Visit: No - Problem List Review Problem List Initiated/Reviewed/Updated: Yes - My Orders Last 24 Hours: My Active Orders 02/15/20 10:45 Magnesium Sulfate/Water [Magnesium Sulfate in Water Premix] 4 gm Premix Bag 1 bag IV 02/15/20@1045 02/16/20 05:11 CBC WITH AUTO DIFF [HEME] AM CMP [COMPREHENSIVE METABOLIC PN,CMP] [CHEM] AM 02/17/20 05:11 CBC WITH AUTO DIFF [HEME] AM CMP [COMPREHENSIVE METABOLIC PN,CMP] [CHEM] AM 02/18/20 05:11 CBC WITH AUTO DIFF [HEME] AM CMP [COMPREHENSIVE METABOLIC PN,CMP] [CHEM] AM 02/19/20 05:11 CMP [COMPREHENSIVE METABOLIC PN,CMP] [CHEM] AM - Plan Plan:: Patient is a 49-year-old female admitted for acute on chronic pancreatitis with significant history of alcohol abuse. 1. Acute on chronic pancreatitis: -Continue to manage pain with tramadol, will DC Dilaudid and provide oxycodone/ibuprofen. Start patient on clear liquid diet, will advance as tolerated 2. Hypokalemia: Current potassium 2.9 Supplement 80 mEq total; will provide 40 mEq p.o. and 40 mEq IV Recheck potassium level at 3 PM 3. Hypomagnesium: Supplement 4 mg IV Recheck mag level at 3 PM 4. History of alcohol abuse and pain: Resume home medications, follow-up continue with folic acid and thiamine, will resume Suboxone as outpatient. Disposition: Possible discharge pending tomorrow DVT prophylaxis: SCDs
[2020-02-15] MEDS: oxyCODONE 5 MG Tab PO PRN ×2 (14:55→20:36)
[2020-02-15 16:18] LABS: POTASSIUM,K 3.3 mmol/L (3.5-5.1)
[2020-02-15] MEDS: Pantoprazole 40 MG in Sodium Chloride 0.9% 10 ML IV SCH (18:04)
[2020-02-15] MEDS ORDERED: Potassium Chloride 10% 20 MEQ/15 ML Soln 30 ML UD Cup PO ONE (18:50)
[2020-02-15] MEDS: Melatonin 3 MG Tab PO PRN (22:56)
[2020-02-16] MEDS: oxyCODONE 5 MG Tab PO PRN ×2 (01:23→06:12)
[2020-02-16] MEDS: Levothyroxine 150 MCG Tab PO SCH (06:29)
[2020-02-16] MEDS: Insulin Aspart 100 Units/ML 3 ML Pen SUBCUT SCH ×3 (06:29→18:10)
[2020-02-16] MEDS: Omeprazole 20 MG Cap.CR PO SCH (06:30)
[2020-02-16 06:40] LABS: HEMOGLOBIN A1C 5.2 %
[2020-02-16 06:46] LABS: BLOOD UREA NITROGEN,BUN 3 mg/dL (7.0-18.0); CARBON DIOXIDE,CO2 32.9 mmol/L (21.0-32.0); CHLORIDE,CL 109 mmol/L (98-107); GLUCOSE RANDOM 96 mg/dL (74-106); POTASSIUM,K 3.5 mmol/L (3.5-5.1); SODIUM,NA 148 mmol/L (136-145)
[2020-02-16] MEDS ORDERED: Ibuprofen 200 MG Tab PO PRN (07:42)
[2020-02-16] MEDS: Thiamine 100 MG in Sodium Chloride 0.9% 100 ML IV SCH (09:11)
[2020-02-16] MEDS: Folic Acid 1 MG Tab PO SCH (09:24)
[2020-02-16] MEDS: traMADol 50 MG Tab PO PRN ×2 (09:24→16:45)
[2020-02-16] MEDS: Sertraline 50 MG Tab PO SCH (09:25)
[2020-02-16] MEDS: Nicotine 14 MG/24 Hr Patch TRDERM SCH (09:25)
[2020-02-16] MEDS ORDERED: oxyCODONE 5 MG Tab PO PRN (09:56)
--- NOTE | 2020-02-16 14:39 | PCM.DCSUM1 ---
<Negra Chao - Last Filed: 02/16/20 14:39> Discharge Summary - Hospital Course Brief History: Patient is a chronic alcoholic with a significant past medical history of chronic pancreatitis, COPD, hepatitis C, bipolar disorder, depression, hypothyroidism; presenting today to the ED for worsening abdominal pain. Of note patient was discharged from the hospital for acute pancreatitis 1/2 months prior; however was drinking alcohol right after discharge up until 1 days prior. Patient denies any fevers or chills but does endorses significant nausea and vomiting and nonbloody emesis x 2 to 3 days. Last drink of alcohol was yesterday with concerns about increasing abdominal pain. Past medical history also includes alcohol withdrawal with hallucinations. 1 pack/day tobacco abuse. ED course: Received 2 L lactated Ringer's. Morphine and fentanyl for pain control. CT abdomen: Acute pancreatitis involving pancreatic head. No evidence of pancreatic necrosis and or pseudocyst. Mild extrahepatic biliary dilatation. Abdominal ultrasound: CBD measuring at 8 mm. positive sonographic Murillo sign. Surgery consulted recommended medical management at this time. Bedside: Patient endorsing moderate abdominal pain and emotional distress secondary to returning back to the hospital. Diagnosis: Stroke: No - Discharge Data Discharge Date: 02/16/20 Discharge Disposition: Home, Self-Care 01 Condition: Good - Referral to Home Health Primary Care Physician: ELENA Romero - Discharge Diagnosis/Problem(s) (1) Acute on chronic pancreatitis SNOMED Code(s): 272418459 ICD Code: K85.90 - ACUTE PANCREATITIS WITHOUT NECROSIS OR INFECTION, UNSP; K86.1 - OTHER CHRONIC PANCREATITIS Status: Acute (2) Hypokalemia SNOMED Code(s): 44076003 ICD Code: E87.6 - HYPOKALEMIA Status: Acute - Patient Summary/Data Consults: Consultations 02/11/20 19:07 Consult to Physician [CONS] Routine Hospital Course: Patient was admitted for pancreatitis and alcohol withdrawal, was kept n.p.o. per protocol with appropriate pain management and fluid hydration. Yesterday we initiated a clear liquid diet and advanced as tolerated today. Patient states that she is much improved, expressed a desire to go home. Patient has had normal see was is in and is no longer withdrawing. Patient has not been using her Suboxone, wishes to discontinue after discharge. Will be discharged home with some pain medication to get her through the next couple of days until she has her follow-up appointment with her PCP Dr. Gisel Martinez scheduled for Friday, February 21, 2020. - Patient Instructions Diet: Heart Healthy Diet, Diabetic Diet Activity: As Tolerated Driving: May Drive Today Showering/Bathing: May Shower Notify Provider of: Fever, Increased Pain, Nausea and/or Vomiting Other/Special Instructions: Please return to hospital in the event your symptoms worsen you develop a fever, worsening of abdominal pain, are unable to tolerate a diet. - Discharge Plan *PRESCRIPTION DRUG MONITORING PROGRAM REVIEWED*: Yes *COPY OF PRESCRIPTION DRUG MONITORING REPORT IN PATIENT BAKARI: No Prescriptions/Med Rec: oxyCODONE 5 mg PO Q6H PRN 6 Days #24 tablet PRN Reason: Pain Ondansetron [Zofran ODT] 4 mg PO Q4H PRN 5 Days #30 tab.dis PRN Reason: nausea, able to take PO Home Medications: Home Meds Amylase/Lipase/Protease [John LYLE 24,000 Unit] 24,000 unit PO TIDMEALS 01/21/18 [History] Levothyroxine [Levothroid] 300 mcg PO DAILY 01/21/18 [History] Omeprazole 40 mg PO DAILY 01/21/18 [History] hydrOXYzine HCL [hydrOXYzine] 10 mg PO BEDTIME PRN 01/21/18 [History] Furosemide [Lasix] 40 mg PO BID 11/24/19 [History] Albuterol Sulfate [Albuterol Sulfate Hfa] 1 - 2 puff INH ASDIRECTED PRN 12/10/19 [History] Budesonide/Formoterol Fumarate [Symbicort 80-4.5 MCG] 2 puff INH BID 12/10/19 [History] Clobetasol [Clobetasol 0.05%] 1 applic TOP .TO SCALP PRN 12/10/19 [History] Fluocinolone Acetonide [C[employer]x 0.01% Shampoo] 1 applic TOP .TO SCALP PRN 12/10/19 [History] Folic Acid 1 mg PO DAILY 12/10/19 [History] Mv-Mn/Iron/FA/Herbal/Digestive [ One Tablet] 1 tab PO DAILY 12/10/19 [History] Potassium Chloride 40 meq PO DAILY 12/10/19 [History] Sertraline HCl 50 mg PO DAILY 12/10/19 [History] Amylase/Lipase/Protease [John LYLE 12,000 Units] 12,000 unit PO .WITH SNAKCS 02/14/20 [History] Buprenorphine HCl/Naloxone HCl [Buprenorp-Nalox 8-2 mg Sl Film] 12 mg SL DAILY 02/14/20 [History] Ibuprofen [Motrin] 200 mg PO Q4H PRN #0 tablet 02/16/20 [Rx] Melatonin 3 mg PO BEDTIME PRN tablet 02/16/20 [Rx] Ondansetron [Zofran ODT] 4 mg PO Q4H PRN 5 Days #30 tab.dis 02/16/20 [Rx] oxyCODONE 5 mg PO Q6H PRN 6 Days #24 tablet 02/16/20 [Rx] Patient Handouts: Alcohol Use Disorder, Ondansetron tablets, Acute Pancreatitis, [id number], Oxycodone tablets or capsules Referrals: Gisel Durham PA [Primary Care Provider] - 02/21/20 3:45 pm (Please arrive 15 minutes early with facemask, insurance cards and a photo ID.) - Discharge Summary/Plan Comment DC Time >30 min.: No - Patient Data Vitals - Most Recent: Last Vital Signs Temp 97.6 F 02/16/20 11:59 Pulse 78 02/16/20 11:59 Resp 16 02/16/20 11:59 BP 142/95 H 02/16/20 11:59 Pulse Ox 94 L 02/16/20 11:59 Weight - Most Recent: 104.145 kg I&O - Last 24 hours: Intake & Output 02/15/20 02/16/20 02/16/20 22:59 06:59 14:59 Intake Total 1680 780 Output Total 4100 1600 Balance -2420 -820 Lab Results - Last 24 hrs: Laboratory Results - last 24 hr 02/15/20 02/15/20 02/16/20 Range/Units 15:54 18:02 05:55 WBC 6.43 (4.0-11.0) K/uL RBC 4.32 (4.30-5.90) M/uL Hgb 13.2 (12.0-16.0) g/dL Hct 41.0 (36.0-46.0) % MCV 94.9 (80.0-98.0) fL MCH 30.6 (27.0-32.0) pg MCHC 32.2 (31.0-37.0) g/dL RDW Std Deviation 43.9 (28.0-62.0) fl RDW Coeff of Jennifer 13 (11.0-15.0) % Plt Count 267 (150-400) K/uL MPV 10.50 (7.40-12.00) fL Neut % (Auto) 57.7 (48.0-80.0) % Lymph % (Auto) 33.9 (16.0-40.0) % [place] % (Auto) 6.5 (0.0-15.0) % Eos % (Auto) 1.7 (0.0-7.0) % Baso % (Auto) 0.2 (0.0-1.5) % Neut # (Auto) 3.7 (1.4-5.7) K/uL Lymph # (Auto) 2.2 (0.6-2.4) K/uL [place] # (Auto) 0.4 (0.0-0.8) K/uL Eos # (Auto) 0.1 (0.0-0.7) K/uL Baso # (Auto) 0.0 (0.0-0.1) K/uL Nucleated RBC % 0.0 /100WBC Nucleated RBCs # 0 K/uL Sodium (136-145) mmol/L Potassium 3.3 L (3.5-5.1) mmol/L Chloride (98-107) mmol/L Carbon Dioxide (21.0-32.0) mmol/L BUN (7.0-18.0) mg/dL Creatinine (0.6-1.0) mg/dL Est Cr Clr Drug Dosing mL/min Estimated GFR (MDRD) ml/min Glucose (74-106) mg/dL POC Glucose 106 (60-110) mg/dL Hemoglobin A1c (4.5 - 6.2) % Calcium (8.5-10.1) mg/dL Magnesium 2.4 (1.8-2.4) mg/dL Total Bilirubin (0.2-1.0) mg/dL AST (15-37) IU/L ALT (14-63) IU/L Alkaline Phosphatase (46-116) U/L Total Protein (6.4-8.2) g/dL Albumin (3.4-5.0) g/dL Globulin (2.6-4.0) g/dL Albumin/Globulin Ratio (0.9-1.6) 02/16/20 02/16/20 02/16/20 Range/Units 05:55 05:55 06:10 WBC (4.0-11.0) K/uL RBC (4.30-5.90) M/uL Hgb (12.0-16.0) g/dL Hct (36.0-46.0) % MCV (80.0-98.0) fL MCH (27.0-32.0) pg MCHC (31.0-37.0) g/dL RDW Std Deviation (28.0-62.0) fl RDW Coeff of Jennifer (11.0-15.0) % Plt Count (150-400) K/uL MPV (7.40-12.00) fL Neut % (Auto) (48.0-80.0) % Lymph % (Auto) (16.0-40.0) % [place] % (Auto) (0.0-15.0) % Eos % (Auto) (0.0-7.0) % Baso % (Auto) (0.0-1.5) % Neut # (Auto) (1.4-5.7) K/uL Lymph # (Auto) (0.6-2.4) K/uL [place] # (Auto) (0.0-0.8) K/uL Eos # (Auto) (0.0-0.7) K/uL Baso # (Auto) (0.0-0.1) K/uL Nucleated RBC % /100WBC Nucleated RBCs # K/uL Sodium 148 H (136-145) mmol/L Potassium 3.5 (3.5-5.1) mmol/L Chloride 109 H (98-107) mmol/L Carbon Dioxide 32.9 H (21.0-32.0) mmol/L BUN 3 L (7.0-18.0) mg/dL Creatinine 0.8 (0.6-1.0) mg/dL Est Cr Clr Drug Dosing 80.51 mL/min Estimated GFR (MDRD) > 60.0 ml/min Glucose 96 (74-106) mg/dL POC Glucose 92 (60-110) mg/dL Hemoglobin A1c 5.2 (4.5 - 6.2) % Calcium 8.8 (8.5-10.1) mg/dL Magnesium (1.8-2.4) mg/dL Total Bilirubin 0.4 (0.2-1.0) mg/dL AST 22 (15-37) IU/L ALT 16 (14-63) IU/L Alkaline Phosphatase 68 (46-116) U/L Total Protein 6.2 L (6.4-8.2) g/dL Albumin 2.6 L (3.4-5.0) g/dL Globulin 3.6 (2.6-4.0) g/dL Albumin/Globulin Ratio 0.7 L (0.9-1.6) 02/16/20 Range/Units 11:54 WBC (4.0-11.0) K/uL RBC (4.30-5.90) M/uL Hgb (12.0-16.0) g/dL Hct (36.0-46.0) % MCV (80.0-98.0) fL MCH (27.0-32.0) pg MCHC (31.0-37.0) g/dL RDW Std Deviation (28.0-62.0) fl RDW Coeff of Jennifer (11.0-15.0) % Plt Count (150-400) K/uL MPV (7.40-12.00) fL Neut % (Auto) (48.0-80.0) % Lymph % (Auto) (16.0-40.0) % [place] % (Auto) (0.0-15.0) % Eos % (Auto) (0.0-7.0) % Baso % (Auto) (0.0-1.5) % Neut # (Auto) (1.4-5.7) K/uL Lymph # (Auto) (0.6-2.4) K/uL [place] # (Auto) (0.0-0.8) K/uL Eos # (Auto) (0.0-0.7) K/uL Baso # (Auto) (0.0-0.1) K/uL Nucleated RBC % /100WBC Nucleated RBCs # K/uL Sodium (136-145) mmol/L Potassium (3.5-5.1) mmol/L Chloride (98-107) mmol/L Carbon Dioxide (21.0-32.0) mmol/L BUN (7.0-18.0) mg/dL Creatinine (0.6-1.0) mg/dL Est Cr Clr Drug Dosing mL/min Estimated GFR (MDRD) ml/min Glucose (74-106) mg/dL POC Glucose 122 H (60-110) mg/dL Hemoglobin A1c (4.5 - 6.2) % Calcium (8.5-10.1) mg/dL Magnesium (1.8-2.4) mg/dL Total Bilirubin (0.2-1.0) mg/dL AST (15-37) IU/L ALT (14-63) IU/L Alkaline Phosphatase (46-116) U/L Total Protein (6.4-8.2) g/dL Albumin (3.4-5.0) g/dL Globulin (2.6-4.0) g/dL Albumin/Globulin Ratio (0.9-1.6) Med Orders - Current: Current Medications Albuterol (Ventolin Hfa) 0 gm INH Q6HRRT PRN PRN Reason: Shortness of Breath Dextrose/Water (Dextrose 50% In Water) 50 ml IV ASDIRECTED PRN PRN Reason: Hypoglycemia Folic Acid (Folic Acid) 1 mg PO DAILY [facility] Last Admin: 02/16/20 09:24 Dose: 1 mg Documented by: Glucagon (Glucagen) 1 mg IM ASDIRECTED PRN PRN Reason: Hypoglycemia Pantoprazole Sodium 40 mg/ (Sodium Chloride) 10 mls @ 300 mls/hr IV Q24H [facility] Last Admin: 02/15/20 18:04 Dose: 300 mls/hr Documented by: Thiamine HCl 100 mg/ Sodium (Chloride) 101 mls @ 202 mls/hr IV DAILY [facility] Last Admin: 02/16/20 09:11 Dose: 202 mls/hr Documented by: Ibuprofen (Motrin) 200 mg PO Q4H PRN PRN Reason: Abdominal Pain Insulin Aspart (Novolog) 0 unit SUBCUT TIDAC [facility]; Protocol Last Admin: 02/16/20 11:56 Dose: Not Given Documented by: Levothyroxine Sodium (Levothyroxine) 300 mcg PO ACBREAKFAST [facility] Last Admin: 02/16/20 06:29 Dose: 300 mcg Documented by: Lorazepam (Ativan) 0 mg IVPUSH Q4H PRN; Protocol PRN Reason: Anxiety Last Admin: 02/14/20 16:37 Dose: 1 mg Documented by: Melatonin (Melatonin) 3 mg PO BEDTIME PRN PRN Reason: Insomnia Last Admin: 02/15/20 22:56 Dose: 3 mg Documented by: Nicotine (Habitrol) 14 mg TRDERM DAILY [facility] Last Admin: 02/16/20 09:25 Dose: 14 mg Documented by: Omeprazole (Omeprazole) 40 mg PO ACBREAKFAST [facility] Last Admin: 02/16/20 06:30 Dose: 40 mg Documented by: Ondansetron HCl (Zofran Odt) 4 mg PO Q4H PRN PRN Reason: nausea, able to take PO Last Admin: 02/13/20 12:18 Dose: 4 mg Documented by: Ondansetron HCl (Zofran) 4 mg IVPUSH Q4H PRN PRN Reason: Nausea/Vomiting Last Admin: 02/13/20 03:12 Dose: 4 mg Documented by: Oxycodone HCl (Oxycodone) 5 mg PO Q6H PRN PRN Reason: Pain Last Admin: 02/16/20 11:55 Dose: 5 mg Documented by: Sertraline HCl (Zoloft) 50 mg PO DAILY [facility] Last Admin: 02/16/20 09:25 Dose: 50 mg Documented by: Sodium Chloride (Saline Flush) 10 ml FLUSH ASDIRECTED PRN PRN Reason: Keep Vein Open Last Admin: 02/11/20 13:28 Dose: 10 ml Documented by: Sodium Chloride (Saline Flush) 2.5 ml FLUSH ASDIRECTED PRN PRN Reason: Keep Vein Open Last Admin: 02/11/20 13:28 Dose: 2.5 ml Documented by: Tramadol HCl (Ultram) 100 mg PO Q6H PRN PRN Reason: Pain Last Admin: 02/16/20 09:24 Dose: 100 mg Documented by: Discontinued Medications Fentanyl (Fentanyl) 50 mcg IVPUSH ONETIME ONE Stop: 02/11/20 18:51 Last Admin: 02/11/20 18:56 Dose: 50 mcg Documented by: Hydromorphone HCl (Dilaudid) 0.5 mg IVPUSH Q4H PRN PRN Reason: Pain Last Admin: 02/15/20 08:45 Dose: 0.5 mg Documented by: Sodium Chloride (Normal Saline) 1,000 mls @ 150 mls/hr IV ASDIRECTED [facility] Last Admin: 02/11/20 13:27 Dose: 150 mls/hr Documented by: Pantoprazole Sodium 40 mg/ (Sodium Chloride) 10 mls @ 300 mls/hr IV NOW ONE Stop: 02/11/20 13:06 Last Admin: 02/11/20 13:27 Dose: 300 mls/hr Documented by: Sodium Chloride (Normal Saline) 1,000 mls @ 1,000 mls/hr IV ASDIRECTED [facility] Last Admin: 02/11/20 16:33 Dose: 1,000 mls/hr Documented by: Lactated Ringer's (Ringers, Lactated) 1,000 mls @ [facility] Admin: 02/12/20 16:19 Dose: 150 mls/hr Documented by: Magnesium Sulfate (Magnesium Sulfate In Water Premix) 2 gm in 50 mls @ 50 mls/hr IV ONETIME ONE Stop: 02/12/20 08:31 Last Admin: 02/12/20 07:43 Dose: 50 mls/hr Documented by: Lactated Ringer's (Ringers, Lactated) 1,000 mls @ [facility] Last Admin: 02/13/20 15:24 Dose: 200 mls/hr Documented by: Dextrose/Sodium Chloride (Dextrose 5%-1/2 Ns) 1,000 mls @ 125 mls/hr IV ASDIRECTED [facility] Last Admin: 02/14/20 21:38 Dose: 125 mls/hr Documented by: Magnesium Sulfate (Magnesium Sulfate In Water Premix) 2 gm in 50 mls @ 50 mls/hr IV ONETIME ONE Stop: 02/14/20 11:11 Last Admin: 02/14/20 11:41 Dose: 50 mls/hr Documented by: Potassium Chloride/Sodium Chloride (Normal Saline With 40 Meq Kcl) 1,000 mls @ 200 mls/hr IV ONETIME ONE Stop: 02/15/20 14:54 Last Admin: 02/15/20 10:44 Dose: 200 mls/hr Documented by: Magnesium Sulfate 4 gm/ Premix 100 mls @ 50 mls/hr IV 02/15/20@1045 DIANA Stop: 02/15/20 12:44 Last Admin: 02/15/20 10:44 Dose: 50 mls/hr Documented by: Ibuprofen (Motrin) 400 mg PO Q6H PRN PRN Reason: Pain (mild 1-3) Iopamidol (Isovue Multipack-370 (76%)) 100 ml IVPUSH ONETIME ONE Stop: 02/11/20 16:23 Last Admin: 02/11/20 16:22 Dose: 100 ml Documented by: Lorazepam (Ativan) 1 mg IVPUSH ONETIME ONE Stop: 02/11/20 13:06 Last Admin: 02/11/20 13:28 Dose: 1 mg Documented by: Lorazepam (Ativan) 0 mg IVPUSH ONETIME ONE; Protocol Stop: 02/11/20 18:51 Last Admin: 02/11/20 20:03 Dose: 1 mg Documented by: Morphine Sulfate (Morphine) 4 mg IVPUSH ONETIME ONE Stop: 02/11/20 13:53 Last Admin: 02/11/20 14:12 Dose: 4 mg Documented by: Morphine Sulfate (Morphine) 4 mg IVPUSH ONETIME ONE Stop: 02/11/20 15:44 Last Admin: 02/11/20 16:00 Dose: 4 mg Documented by: Morphine Sulfate (Morphine) 2 mg IVPUSH Q4H PRN PRN Reason: Pain Last Admin: 02/11/20 21:46 Dose: 2 mg Documented by: Morphine Sulfate (Morphine) 2 mg IVPUSH Q3H PRN PRN Reason: Pain (mild 1-3) Last Admin: 02/12/20 10:35 Dose: 2 mg Documented by: Morphine Sulfate (Morphine) 2 mg IVPUSH Q4H PRN PRN Reason: Pain (mild 1-3) Last Admin: 02/13/20 18:23 Dose: 2 mg Documented by: Ondansetron HCl (Zofran) 4 mg IVPUSH ONETIME ONE Stop: 02/11/20 13:03 Last Admin: 02/11/20 13:28 Dose: 4 mg Documented by: Oxycodone HCl (Oxycodone) 5 mg PO Q4H PRN PRN Reason: Pain Last Admin: 02/16/20 06:12 Dose: 5 mg Documented by: Potassium Chloride (Klor-Con M20) 40 meq PO ONETIME ONE Stop: 02/14/20 10:13 Last Admin: 02/14/20 10:51 Dose: 40 meq Documented by: Potassium Chloride (Klor-Con M20) 40 meq PO ONETIME ONE Stop: 02/15/20 09:54 Last Admin: 02/15/20 10:34 Dose: 40 meq Documented by: Potassium Chloride (Potassium Chloride) 40 meq PO ONETIME ONE Stop: 02/15/20 18:51 Last Admin: 02/15/20 19:13 Dose: 40 meq Documented by: Potassium Chloride (Klor-Con M20) 20 meq PO ONETIME ONE Stop: 02/15/20 18:51 Last Admin: 02/15/20 19:13 Dose: 20 meq Documented by: <Cristóbal Manjarrez - Last Filed: 02/18/20 10:16> Discharge Summary - Hospital Course Brief History: I performed a history and physical exam of the patient and discussed management with resident. I have reviewed the residents note and agree with documented findings and plan unless otherwise specified in my note. I have seen and evaluated the patient and agree with the residents note unless specified in my note - Referral to Home Health Primary Care Physician: ELENA Romero - Patient Summary/Data Consults: Consultations 02/11/20 19:07 Consult to Physician [CONS] Routine - Patient Data Vitals - Most Recent: Last Vital Signs Temp 36.5 C 02/16/20 16:00 Pulse 80 02/16/20 16:00 Resp 16 02/16/20 16:00 BP 136/95 H 02/16/20 16:00 Pulse Ox 92 L 02/16/20 16:00 Med Orders - Current: Current Medications Discontinued Medications Albuterol (Ventolin Hfa) 0 gm INH Q6HRRT PRN PRN Reason: Shortness of Breath Dextrose/Water (Dextrose 50% In Water) 50 ml IV ASDIRECTED PRN PRN Reason: Hypoglycemia Fentanyl (Fentanyl) 50 mcg IVPUSH ONETIME ONE Stop: 02/11/20 18:51 Last Admin: 02/11/20 18:56 Dose: 50 mcg Documented by: Folic Acid (Folic Acid) 1 mg PO DAILY [facility] Last Admin: 02/16/20 09:24 Dose: 1 mg Documented by: Glucagon (Glucagen) 1 mg IM ASDIRECTED PRN PRN Reason: Hypoglycemia Hydromorphone HCl (Dilaudid) 0.5 mg IVPUSH Q4H PRN PRN Reason: Pain Last Admin: 02/15/20 08:45 Dose: 0.5 mg Documented by: Sodium Chloride (Normal Saline) 1,000 mls @ 150 mls/hr IV ASDIRECTED [facility] Last Admin: 02/11/20 13:27 Dose: 150 mls/hr Documented by: Pantoprazole Sodium 40 mg/ (Sodium Chloride) 10 mls @ 300 mls/hr IV NOW ONE Stop: 02/11/20 13:06 Last Admin: 02/11/20 13:27 Dose: 300 mls/hr Documented by: Sodium Chloride (Normal Saline) 1,000 mls @ 1,000 mls/hr IV ASDIRECTED [facility] Last Admin: 02/11/20 16:33 Dose: 1,000 mls/hr Documented by: Pantoprazole Sodium 40 mg/ (Sodium Chloride) 10 mls @ 300 mls/hr IV Q24H [facility] Last Admin: 02/15/20 18:04 Dose: 300 mls/hr Documented by: Thiamine HCl 100 mg/ Sodium (Chloride) 101 mls @ 202 mls/hr IV DAILY [facility] Last Admin: 02/16/20 09:11 Dose: 202 mls/hr Documented by: Lactated Ringer's (Ringers, Lactated) 1,000 mls @ 150 mls/hr IV ASDIRECTED [facility] Last Admin: 02/12/20 16:19 Dose: 150 mls/hr Documented by: Magnesium Sulfate (Magnesium Sulfate In Water Premix) 2 gm in 50 mls @ 50 mls/hr IV ONETIME ONE Stop: 02/12/20 08:31 Last Admin: 02/12/20 07:43 Dose: 50 mls/hr Documented by: Lactated Ringer's (Ringers, Lactated) 1,000 mls @ 200 mls/hr IV ASDIRECTED [facility] Last Admin: 02/13/20 15:24 Dose: 200 mls/hr Documented by: Dextrose/Sodium Chloride (Dextrose 5%-1/2 Ns) 1,000 mls @ 125 mls/hr IV ASDIRECTED [facility] Last Admin: 02/14/20 21:38 Dose: 125 mls/hr Documented by: Magnesium Sulfate (Magnesium Sulfate In Water Premix) 2 gm in 50 mls @ 50 mls/hr IV ONETIME ONE Stop: 02/14/20 11:11 Last Admin: 02/14/20 11:41 Dose: 50 mls/hr Documented by: Potassium Chloride/Sodium Chloride (Normal Saline With 40 Meq Kcl) 1,000 mls @ 200 mls/hr IV ONETIME ONE Stop: 02/15/20 14:54 Last Admin: 02/15/20 10:44 Dose: 200 mls/hr Documented by: Magnesium Sulfate 4 gm/ Premix 100 mls @ 50 mls/hr IV 02/15/20@1045 [facility] Stop: 02/15/20 12:44 Last Admin: 02/15/20 10:44 Dose: 50 mls/hr Documented by: Ibuprofen (Motrin) 400 mg PO Q6H PRN PRN Reason: Pain (mild 1-3) Ibuprofen (Motrin) 200 mg PO Q4H PRN PRN Reason: Abdominal Pain Insulin Aspart (Novolog) 0 unit SUBCUT TIDAC [facility]; Protocol Last Admin: 02/16/20 18:10 Dose: Not Given Documented by: Iopamidol (Isovue Multipack-370 (76%)) 100 ml IVPUSH ONETIME ONE Stop: 02/11/20 16:23 Last Admin: 02/11/20 16:22 Dose: 100 ml Documented by: Levothyroxine Sodium (Levothyroxine) 300 mcg PO ACBREAKFAST [facility] Last Admin: 02/16/20 06:29 Dose: 300 mcg Documented by: Lorazepam (Ativan) 1 mg IVPUSH ONETIME ONE Stop: 02/11/20 13:06 Last Admin: 02/11/20 13:28 Dose: 1 mg Documented by: Lorazepam (Ativan) 0 mg IVPUSH ONETIME ONE; Protocol Stop: 02/11/20 18:51 Last Admin: 02/11/20 20:03 Dose: 1 mg Documented by: Lorazepam (Ativan) 0 mg IVPUSH Q4H PRN; Protocol PRN Reason: Anxiety Last Admin: 02/14/20 16:37 Dose: 1 mg Documented by: Melatonin (Melatonin) 3 mg PO BEDTIME PRN PRN Reason: Insomnia Last Admin: 02/15/20 22:56 Dose: 3 mg Documented by: Morphine Sulfate (Morphine) 4 mg IVPUSH ONETIME ONE Stop: 02/11/20 13:53 Last Admin: 02/11/20 14:12 Dose: 4 mg Documented by: Morphine Sulfate (Morphine) 4 mg IVPUSH ONETIME ONE Stop: 02/11/20 15:44 Last Admin: 02/11/20 16:00 Dose: 4 mg Documented by: Morphine Sulfate (Morphine) 2 mg IVPUSH Q4H PRN PRN Reason: Pain Last Admin: 02/11/20 21:46 Dose: 2 mg Documented by: Morphine Sulfate (Morphine) 2 mg IVPUSH Q3H PRN PRN Reason: Pain (mild 1-3) Last Admin: 02/12/20 10:35 Dose: 2 mg Documented by: Morphine Sulfate (Morphine) 2 mg IVPUSH Q4H PRN PRN Reason: Pain (mild 1-3) Last Admin: 02/13/20 18:23 Dose: 2 mg Documented by: Nicotine (Habitrol) 14 mg TRDERM DAILY [facility] Last Admin: 02/16/20 09:25 Dose: 14 mg Documented by: Omeprazole (Omeprazole) 40 mg PO ACBREAKFAST [facility] Last Admin: 02/16/20 06:30 Dose: 40 mg Documented by: Ondansetron HCl (Zofran) 4 mg IVPUSH ONETIME ONE Stop: 02/11/20 13:03 Last Admin: 02/11/20 13:28 Dose: 4 mg Documented by: Ondansetron HCl (Zofran Odt) 4 mg PO Q4H PRN PRN Reason: nausea, able to take PO Last Admin: 02/13/20 12:18 Dose: 4 mg Documented by: Ondansetron HCl (Zofran) 4 mg IVPUSH Q4H PRN PRN Reason: Nausea/Vomiting Last Admin: 02/13/20 03:12 Dose: 4 mg Documented by: Oxycodone HCl (Oxycodone) 5 mg PO Q4H PRN PRN Reason: Pain Last Admin: 02/16/20 06:12 Dose: 5 mg Documented by: Oxycodone HCl (Oxycodone) 5 mg PO Q6H PRN PRN Reason: Pain Last Admin: 02/16/20 11:55 Dose: 5 mg Documented by: Potassium Chloride (Klor-Con M20) 40 meq PO ONETIME ONE Stop: 02/14/20 10:13 Last Admin: 02/14/20 10:51 Dose: 40 meq Documented by: Potassium Chloride (Klor-Con M20) 40 meq PO ONETIME ONE Stop: 02/15/20 09:54 Last Admin: 02/15/20 10:34 Dose: 40 meq Documented by: Potassium Chloride (Potassium Chloride) 40 meq PO ONETIME ONE Stop: 02/15/20 18:51 Last Admin: 02/15/20 19:13 Dose: 40 meq Documented by: Potassium Chloride (Klor-Con M20) 20 meq PO ONETIME ONE Stop: 02/15/20 18:51 Last Admin: 02/15/20 19:13 Dose: 20 meq Documented by: Sertraline HCl (Zoloft) 50 mg PO DAILY DIANA Last Admin: 02/16/20 09:25 Dose: 50 mg Documented by: Sodium Chloride (Saline Flush) 10 ml FLUSH ASDIRECTED PRN PRN Reason: Keep Vein Open Last Admin: 02/11/20 13:28 Dose: 10 ml Documented by: Sodium Chloride (Saline Flush) 2.5 ml FLUSH ASDIRECTED PRN PRN Reason: Keep Vein Open Last Admin: 02/11/20 13:28 Dose: 2.5 ml Documented by: Tramadol HCl (Ultram) 100 mg PO Q6H PRN PRN Reason: Pain Last Admin: 02/16/20 16:45 Dose: 100 mg Documented by:
== END 2020-02-16 18:00 | disposition home or self-care (01) | DRG 439 ==
LOC: MW.ED 12:12 → MW.MS 18:13
PROVIDERS: ADMIT Student in an Organized Health Care Education/Training Program; ATTEND Student in an Organized Health Care Education/Training Program
DX: K85.20 Alcohol induced acute pancreatitis without necrosis or infection (principal); N17.9 Acute kidney failure, unspecified; F10.139 Alcohol abuse with withdrawal, unspecified; K86.1 Other chronic pancreatitis; F31.9 Bipolar disorder, unspecified; J44.9 Chronic obstructive pulmonary disease, unspecified; B19.20 Unspecified viral hepatitis C without hepatic coma; E03.9 Hypothyroidism, unspecified; E87.6 Hypokalemia; F41.9 Anxiety disorder, unspecified; F43.12 Post-traumatic stress disorder, chronic; Z98.51 Tubal ligation status; K83.9 Disease of biliary tract, unspecified; E86.0 Dehydration; Z20.828 Contact with and (suspected) exposure to other viral communicable diseases
CPT/HCPCS: 36415; 74160; 74160-26; 76705; 76705-26; 80053; 82962; 83036; 83605; 83690; 83735; 84100; 84132; 85025; 93005; 93010; 96374; 96375; 96376; 99283; 99285-25; A9270-GY; C9113; J1170; J2060; J2270; J2405; J3010; J3411; J3475; J3480; J7030; J7042; J7120; Q9967; U0002

== ENCOUNTER 2020-06-10 17:29 | Emergency (ER) | payer MEDICAID ==
[2020-06-10] MEDS ORDERED: Sodium Chloride 0.9% 2.5 ML Syringe FLUSH PRN (17:30)
[2020-06-10] MEDS ORDERED: Sodium Chloride 0.9% 10 ML Syringe FLUSH PRN (17:30)
[2020-06-10] MEDS ORDERED: Sodium Chloride 0.9% 1,000 ML IV ONE (17:31)
--- NOTE | 2020-06-10 17:45 | EDM.PDOC ---
<Champ Estrada - Last Filed: 06/10/20 19:36> ED HPI GENERAL MEDICAL PROBLEM - General Chief Complaint: Abdominal Pain Stated Complaint: PANCREATITIS Time Seen by Provider: 06/10/20 17:30 - History of Present Illness INITIAL COMMENTS - FREE TEXT/NARRATIVE: 50yoF with a h/o etOH abuse and pancreatitis presenting with c/o abd pain and requesting detox. Pt states that 2 days ago she decided to stop drinking etOH and detox herself. She states that when she does this she has withdrawal seizures and pancreatitis. She states that she has had no etOH in the last 2 days. She states that her pancreatitis got bad 3 days ago. She endorses nausea. Pt's pain was 10/10 at the scene. She was given 100 mcg of fentanyl by EMS and pain is now a 4/10. Pt also states that she was supposed to go up to [place] recently for an endoscopy but was unable to make that appointment because she did not have transportation. abd Pain Score (Numeric/FACES): 3 - Related Data Allergies Allergy/AdvReac Type Severity Reaction Status Date / Time No Known Allergies Allergy Verified 06/10/20 17:34 Home Meds: Home Meds Amylase/Lipase/Protease [John LYLE 24,000 Unit] 24,000 unit PO TIDMEALS 01/21/18 [History] Levothyroxine [Levothroid] 300 mcg PO DAILY 01/21/18 [History] Omeprazole 40 mg PO DAILY 01/21/18 [History] hydrOXYzine HCL [hydrOXYzine] 10 mg PO BEDTIME PRN 01/21/18 [History] Furosemide [Lasix] 40 mg PO BID 11/24/19 [History] Albuterol Sulfate [Albuterol Sulfate Hfa] 1 - 2 puff INH ASDIRECTED PRN 12/10/19 [History] Budesonide/Formoterol Fumarate [Symbicort 80-4.5 MCG] 2 puff INH BID 12/10/19 [History] Clobetasol [Clobetasol 0.05%] 1 applic TOP .TO SCALP PRN 12/10/19 [History] Fluocinolone Acetonide [Capex 0.01% Shampoo] 1 applic TOP .TO SCALP PRN 12/10/19 [History] Folic Acid 1 mg PO DAILY 12/10/19 [History] Mv-Mn/Iron/FA/Herbal/Digestive [ One Tablet] 1 tab PO DAILY 12/10/19 [History] Potassium Chloride 40 meq PO DAILY 12/10/19 [History] Sertraline HCl 50 mg PO DAILY 12/10/19 [History] Amylase/Lipase/Protease [Creon DR 12,000 Units] 12,000 unit PO .WITH SNAKCS 02/14/20 [History] Buprenorphine HCl/Naloxone HCl [Buprenorphine-Nalox 8-2Mg Film] 12 mg SL DAILY 02/14/20 [History] Ibuprofen [Motrin] 200 mg PO Q4H PRN #0 tablet 02/16/20 [Rx] Melatonin 3 mg PO BEDTIME PRN tablet 02/16/20 [Rx] Ondansetron [Zofran ODT] 4 mg PO Q4H PRN 5 Days #30 tab.dis 02/16/20 [Rx] oxyCODONE 5 mg PO Q6H PRN 6 Days #24 tablet 02/16/20 [Rx] Past Medical History HEENT History: Reports: Impaired Vision Other HEENT History: wears glasses Cardiovascular History: Reports: None Other Cardiovascular History: edema Respiratory History: Reports: COPD Other Respiratory History: states wheezes at times from smoking Gastrointestinal History: Reports: Fatty Liver, Pancreatitis Other Gastrointestinal History: fatty liver Genitourinary History: Reports: None USER EXPERIENCE DEVELOPER History: Reports: Other (See Below) Other USER EXPERIENCE DEVELOPER History: Patient has tubes tied. 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 Psychiatric History: Reports: Anxiety, Bipolar, Depression, Panic Attack, PTSD, Other (See Below) Endocrine/Metabolic History: Reports: Hypothyroidism, Obesity/BMI 30+ Hematologic History: Reports: Other (See Below) Other Hematologic History: Hep C Immunologic History: Reports: None Oncologic (Cancer) History: Reports: None Dermatologic History: Reports: Psoriasis - Infectious Disease History Infectious Disease History: Reports: Hepatitis C - Past Surgical History Head Surgeries/Procedures: Reports: None HEENT Surgical History: Reports: None Cardiovascular Surgical History: Reports: None Respiratory Surgical History: Reports: None GI Surgical History: Reports: Hernia Repair/Other Female Surgical History: Reports: Tubal Ligation Endocrine Surgical History: Reports: None Neurological Surgical History: Reports: None Musculoskeletal Surgical History: Reports: None Oncologic Surgical History: Reports: None Dermatological Surgical History: Reports: None Social & Family History - Family History Family Medical History: No Pertinent Family History - Caffeine Use Caffeine Use: Reports: Coffee, Soda ED ROS GENERAL - Review of Systems Review Of Systems: See Below Free Text/Narrative/Comment: General: No fever. Skin: No rash. Eyes: No vision problems. ENT: No sore throat. Neck: No neck stiffness. Respiratory: No shortness of breath. Cardiac: No chest pain. Gastrointestinal: per HPI Urinary: No dysuria. Musculoskeletal: No myalgias/arthralgias. Neurologic: per HPI ED EXAM, GENERAL - Physical Exam Exam: See Below Free Text/Narrative:: General Appearance: No acute distress, appears comfortable Skin: No rash HEENT: Normocephalic/atraumatic, sclera anicteric, mucous membranes dry Neck: Normal range of motion Chest and Lungs: Bilateral breath sounds, clear to auscultation Cardiovascular: Regular rate and rhythm, no murmur Abdomen: soft, poorly localized tenderness without guarding or rebound Back: Normal Musculoskeletal: No edema or tenderness Neurologic: Awake, alert, no obvious deficits, moving all extremities, clinically intoxicated Psychiatric: cooperative #1 Interpretation EKG Date: 06/10/20 Time: 18:05 EKG Interpretation Comments: Normal sinus rhythm rate of 85 left axis deviation no acute ischemia normal intervals QTC 463 Departure - Departure Disposition: Home, Self-Care 01 Clinical Impression: Abdominal pain, Alcohol intoxication - Discharge Information Instructions: Alcohol Intoxication, [id number], Abdominal Pain, Adult, [id number] Referrals: Geovanna Dangelo [Primary Care Provider] - Forms: ED Department Discharge Additional Instructions: You were seen and evaluated in the ER today secondary to concerns that you had regarding alcohol withdrawal. Your alcohol level today was greater than 300 so it would be extremely unlikely that you would be withdrawn with such a high alcohol level. You have been given analgesia in the ED for your abdominal pain. We recommend that you slow down on the amount of alcohol that you are drinking and we will give you referral information for outpatient assistance with your alcohol use disorder. Please make an appointment to follow-up with your primary care physician in the next 2 to 3 days. The following information is given to patients seen in the emergency department who are being discharged to home. This information is to outline your options for follow-up care. We provide all patients seen in our emergency department with a follow-up referral. The need for follow-up, as well as the timing and circumstances, are variable depending upon the specifics of your emergency department visit. If you don't have a primary care physician on staff, we will provide you with a referral. We always advise you to contact your personal physician following an emergency department visit to inform them of the circumstance of the visit and for follow-up with them and/or the need for any referrals to a consulting specialist. The emergency department will also refer you to a specialist when appropriate. This referral assures that you have the opportunity for follow-up care with a specialist. All of these measure are taken in an effort to provide you with optimal care, which includes your follow-up. Under all circumstances we always encourage you to contact your private physician who remains a resource for coordinating your care. When calling for follow-up care, please make the office aware that this follow-up is from your recent emergency room visit. If for any reason you are refused follow-up, please contact the [facility] Emergency Department at and asked to speak to the emergency department charge nurse. [facility] - Primary Care [address] [place] [address] [id number] [address] [id number] - Assessment/Plan Assessment:: 50-year-old female with history as noted above presenting with abdominal pain nausea and clinical findings consistent with alcohol intoxication. Alcohol level is pending. We need to consider alternative causes of patient's symptoms as well and for this reason EKG troponin chest x-ray CBC CMP and lipase are pending. IV fluid is been ordered as well as patient patient has dry mucous membranes and is clinically dehydrated. ACS is a consideration I think it is unlikely patient symptoms similar EKG and troponin should be sufficient to exclude this. Patient without focal right upper quadrant tenderness acute biliary pathology is possible but without further evaluate without unexpected LFT abnormalities or leukocytosis. Patient repeatedly asked to be admitted for detox. We discussed that we do not have inpatient detox at this facility and that additional evaluation is needed before I can responsibly admit her to the hospital. No lower abdominal symptoms that would suggest appendicitis or diverticulitis. Patient is without objective signs of alcohol withdrawal at this time. 1844: Pt's labs are notable for an etOH level in the 300s as well as a lipase of 360 which is within the upper limit of normal. Pt also with mild hypernatremia that is likely related to dehydration. Pt was given IVF. pt will need a reassessment when clinically sober. Pt signed out to Dr. Marino pending this and final disposition. <Tej Marino - Last Filed: 06/10/20 19:48> ED HPI GENERAL MEDICAL PROBLEM - History of Present Illness INITIAL COMMENTS - FREE TEXT/NARRATIVE: 744 PM: Signout received by me at 7 PM. Patient seen and reevaluated by me at 7:40 PM. Patient called me into her room to request to be discharged home. Patient presents to the ED complaining of possibility of withdrawal but patient's alcohol level is markedly elevated here in the ER. I have discussed this with the patient at this time I have recommended that she stay in the ED until she is more sober. Patient has received adequate analgesia in the ED and she is not requesting any further analgesic medications. Patient reports that she can get a safe ride home and would prefer to go home if there is no indication for admission to the hospital at this time. Patient currently is alert awake and orient x3. Patient appears to be exhibiting both the capacity for medical decision-making as well as competency. Patient is ambulating in the ED with stable gait. Patient is making phone calls and if she is able to get a safe ride home with someone who will be able to watch her, I would feel comfortable was discharging her to home. This patient was seen and evaluated during the 2019 SARS-CoV-2 novel coronavirus pandemic period. Community viral transmission is ongoing at time of this encounter and the emergency department is operating under pandemic response procedures. Constitutional: Patient is oriented to person, place, and time. Appears well- developed and well-nourished. No distress. HEENT: Moist mucous membranes Head: Normocephalic and atraumatic Eyes: Right eye exhibits no discharge. Left eye exhibits no discharge. No scleral icterus Neck: Normal range of motion. No tracheal deviation present. Cardiovascular: Normal rate and regular rhythm. Pulmonary: Effort normal, no respiratory distress. Abd: Soft, nondistended, no rebound/guarding, no psoas or obturator signs, no tenderness at Mcberney's point, no Murillo's sign. Pt does not present with an exam that would be consistent with an acute surgical abdomen at this time, nontender to palpation. Musculoskeletal: Normal range of motion Neurologic: Alert and oriented to person, place and time. Skin: [place], warm and dry. Psychiatric: Normal mood and affect. Behavior is normal. Judgment and thought content normal. Nursing note and vital signs have been reviewed Assessment and plan: Acute alcohol intoxication with likely gastritis resulting in abdominal discomfort. I have discussed with the patient the need for cutting back on her alcohol use. Patient will be given referrals for outpatient assistance for alcohol detox. ED ROS GENERAL - Review of Systems Review Of Systems: See Below ED EXAM, GENERAL - Physical Exam Exam: See Below Course - Vital Signs Last Recorded V/S: Last Vital Signs Temp 96.0 F L 06/10/20 17:35 Pulse 102 H 06/10/20 17:35 Resp 18 06/10/20 17:35 BP 99/81 06/10/20 17:35 Pulse Ox 96 06/10/20 17:35 - Orders/Labs/Meds Orders: Active Orders 24 hr Category Date Time Status EKG Documentation Completion [RC] AM Care 06/10/20 17:30 Active Sodium Chloride 0.9% [Saline Flush] Med 06/10/20 17:30 Active 10 ml FLUSH ASDIRECTED PRN Sodium Chloride 0.9% [Saline Flush] Med 06/10/20 17:30 Active 2.5 ml FLUSH ASDIRECTED PRN Saline Lock Insert [OM.PC] Stat Oth 06/10/20 17:30 Ordered Medication Orders Sodium Chloride (Sodium Chloride 0.9% 10 Ml Syringe) 10 ml FLUSH ASDIRECTED PRN PRN Reason: Keep Vein Open Last Admin: 06/10/20 17:44 Dose: 10 ml Documented by: CAROLINA Sodium Chloride (Sodium Chloride 0.9% 2.5 Ml Syringe) 2.5 ml FLUSH ASDIRECTED PRN PRN Reason: Keep Vein Open Last Admin: 06/10/20 17:44 Dose: 2.5 ml Documented by: CAROLINA Labs: Laboratory Tests 06/10/20 06/10/20 Range/Units 17:55 17:55 WBC 7.99 (4.0-11.0) K/uL RBC 4.52 (4.30-5.90) M/uL Hgb 14.8 (12.0-16.0) g/dL Hct 43.7 (36.0-46.0) % MCV 96.7 (80.0-98.0) fL MCH 32.7 H (27.0-32.0) pg MCHC 33.9 (31.0-37.0) g/dL RDW Std Deviation 47.2 (28.0-62.0) fl RDW Coeff of Jennifer 13 (11.0-15.0) % Plt Count 411 H (150-400) K/uL MPV 9.60 (7.40-12.00) fL Neut % (Auto) 53.5 (48.0-80.0) % Lymph % (Auto) 39.7 (16.0-40.0) % Moca % (Auto) 5.1 (0.0-15.0) % Eos % (Auto) 0.9 (0.0-7.0) % Baso % (Auto) 0.8 (0.0-1.5) % Neut # (Auto) 4.3 (1.4-5.7) K/uL Lymph # (Auto) 3.2 H (0.6-2.4) K/uL Moca # (Auto) 0.4 (0.0-0.8) K/uL Eos # (Auto) 0.1 (0.0-0.7) K/uL Baso # (Auto) 0.1 (0.0-0.1) K/uL Nucleated RBC % 0.0 /100WBC Nucleated RBCs # 0 K/uL Sodium 147 H (136-145) mmol/L Potassium 3.9 (3.5-5.1) mmol/L Chloride 110 H (98-107) mmol/L Carbon Dioxide 25.7 (21.0-32.0) mmol/L BUN 16 (7.0-18.0) mg/dL Creatinine 0.9 (0.6-1.0) mg/dL Est Cr Clr Drug Dosing 76.28 mL/min Estimated GFR (MDRD) > 60.0 ml/min Glucose 129 H (74-106) mg/dL Calcium 8.3 L (8.5-10.1) mg/dL Magnesium 2.3 (1.8-2.4) mg/dL Total Bilirubin 0.1 L (0.2-1.0) mg/dL AST 27 (15-37) IU/L ALT 29 (14-63) IU/L Alkaline Phosphatase 88 (46-116) U/L Troponin I < 0.050 (0.000-0.056) ng/mL Total Protein 7.6 (6.4-8.2) g/dL Albumin 3.6 (3.4-5.0) g/dL Globulin 4.0 (2.6-4.0) g/dL Albumin/Globulin Ratio 0.9 (0.9-1.6) Lipase 359 (73-393) U/L Ethyl Alcohol 331 mg/dL Meds: Medications Generic Name Dose Route Start Last Admin Trade Name Freq PRN Reason Stop Dose Admin Sodium Chloride 10 ml 06/10/20 17:30 06/10/20 17:44 Sodium Chloride 0.9% 10 Ml Syringe FLUSH 10 ml ASDIRECTED PRN Administration Keep Vein Open Sodium Chloride 2.5 ml 06/10/20 17:30 06/10/20 17:44 Sodium Chloride 0.9% 2.5 Ml Syringe FLUSH 2.5 ml ASDIRECTED PRN Administration Keep Vein Open Discontinued Medications Generic Name Dose Route Start Last Admin Trade Name Freq PRN Reason Stop Dose Admin Sodium Chloride 1,000 mls @ 999 mls/hr 06/10/20 17:31 06/10/20 17:44 Normal Saline IV 06/10/20 18:31 999 mls/hr .Bolus ONE Administration Morphine Sulfate 4 mg 06/10/20 18:27 06/10/20 18:36 Morphine 4 Mg/Ml Syringe IVPUSH 06/10/20 18:28 4 mg ONETIME ONE Administration Ondansetron HCl 4 mg 06/10/20 18:27 06/10/20 18:36 Ondansetron 4 Mg/2 Ml Sdv IVPUSH 06/10/20 18:28 4 mg ONETIME ONE Administration Departure - Departure Time of Disposition: 19:47 Condition: Good Sepsis Event Note (ED) - Focused Exam Vital Signs: Vital Signs Temp Pulse Resp BP Pulse Ox 06/10/20 17:35 96.0 F L 102 H 18 99/81 96
[2020-06-10 18:27] LABS: BLOOD UREA NITROGEN,BUN 16 mg/dL (7.0-18.0); CARBON DIOXIDE,CO2 25.7 mmol/L (21.0-32.0); CHLORIDE,CL 110 mmol/L (98-107); GLUCOSE RANDOM 129 mg/dL (74-106); LIPASE 359 U/L (73-393); POTASSIUM,K 3.9 mmol/L (3.5-5.1); SODIUM,NA 147 mmol/L (136-145)
[2020-06-10] MEDS ORDERED: Ondansetron 4 MG/2 ML SDV IVPUSH ONE (18:27)
[2020-06-10] MEDS ORDERED: Morphine 4 MG/ML Syringe IVPUSH ONE (18:27)
== END 2020-06-10 19:54 | disposition home or self-care (01) ==
LOC: MW.ED 17:29
DX: R10.9 Unspecified abdominal pain (principal); F10.129 Alcohol abuse with intoxication, unspecified; J44.9 Chronic obstructive pulmonary disease, unspecified; E03.9 Hypothyroidism, unspecified; E66.9 Obesity, unspecified; Z68.30 Body mass index [BMI] 30.0-30.9, adult
CPT/HCPCS: 36415; 80053; 80307; 83690; 83735; 84484; 85025; 93005; 96374; 96375; 99284; J2270; J2405; J7030

== ENCOUNTER 2020-08-02 22:24 | Emergency (ER) | payer MEDICAID ==
[2020-08-02] MEDS ORDERED: Sodium Chloride 0.9% 10 ML Syringe FLUSH PRN (22:45)
[2020-08-02] MEDS ORDERED: Sodium Chloride 0.9% 1,000 ML IV ONE ×2 (22:45→23:54)
[2020-08-02] MEDS ORDERED: Sodium Chloride 0.9% 2.5 ML Syringe FLUSH PRN (22:45)
[2020-08-02] MEDS ORDERED: Ondansetron 4 MG/2 ML SDV IVPUSH ONE (22:45)
[2020-08-02] MEDS ORDERED: Ketorolac 15 MG/ML SDV IVPUSH STA (23:40)
[2020-08-02 23:50] LABS: BLOOD UREA NITROGEN,BUN 16 mg/dL (7.0-18.0); CARBON DIOXIDE,CO2 19.5 mmol/L (21.0-32.0); CHLORIDE,CL 89 mmol/L (98-107); GLUCOSE RANDOM 119 mg/dL (74-106); LIPASE 94 U/L (73-393); POTASSIUM,K 4.6 mmol/L (3.5-5.1); SODIUM,NA 131 mmol/L (136-145)
[2020-08-03 02:51] LABS: CARBON DIOXIDE,CO2 22.9 mmol/L (21.0-32.0); POTASSIUM,K 4.8 mmol/L (3.5-5.1)
--- NOTE | 2020-08-03 03:11 | EDM.PDOC ---
ED HPI GENERAL MEDICAL PROBLEM - General Chief Complaint: Drug or Alcohol Abuse Stated Complaint: ABDOMINAL PAIN Time Seen by Provider: 08/02/20 23:03 - History of Present Illness INITIAL COMMENTS - FREE TEXT/NARRATIVE: HISTORY AND PHYSICAL: History of present illness: This is a 50-year-old female with a history significant for alcohol use disorder as well as pancreatitis who presents ER today complaining of abdominal pain, b deuce cramping, nausea, vomiting, diarrhea x2 days. Patient reports that she is a heavy drinker and stopped drinking approximately 2 days ago but started developing abdominal discomfort. Patient reports the pain that she was having is similar to her pancreatitis flareups in the past. Patient denies any recent fevers, shakes, chills. Patient has no URI symptoms or chest pain. Patient denies any shortness of breath. Patient denies any melena or bright red blood per rectum. Patient has any hematochezia or coffee-ground emesis. Patient reports that she has been sleeping in her camper and has been hot and she thinks that might of contributed to her abdominal cramping and muscle cramping. Patient denies any dysuria, frequency, urgency. In route by EMS patient was given fentanyl and started on IV fluids. Patient denies any history of hypertension, diabetes, liver, lung, kidney problems. Patient reports that she has been told in the past that she has a fatty liver. Review of systems: As per history of present illness and below otherwise all systems reviewed and negative. Past medical history: As per history of present illness and as reviewed below otherwise noncontributory. Surgical history: As per history of present illness and as reviewed below otherwise noncontributory. Social history: No reported history of drug abuse. Family history: As per history of present illness and as reviewed below otherwise noncontributory. Physical exam: This patient was seen and evaluated during the 2019 SARS-CoV-2 novel coronavirus pandemic period. Community viral transmission is ongoing at time of this encounter and the emergency department is operating under pandemic response procedures. Constitutional: Patient is oriented to person, place, and time. Appears well-developed and well-nourished. No distress. HEENT: Moist mucous membranes Head: Normocephalic and atraumatic Eyes: Right eye exhibits no discharge. Left eye exhibits no discharge. No scleral icterus Neck: Normal range of motion. No tracheal deviation present. Cardiovascular: Normal rate and regular rhythm. Pulmonary: Effort normal, no respiratory distress. Abd: Soft, nondistended, no rebound/guarding, no psoas or obturator signs, no tenderness at Mcberney's point, no Murillo's sign. Pt does not present with an exam that would be consistent with an acute surgical abdomen at this time Musculoskeletal: Normal range of motion Neurologic: Alert and oriented to person, place and time. Skin: [place], warm and dry. Psychiatric: Normal mood and affect. Behavior is normal. Judgment and thought content normal. Nursing note and vital signs have been reviewed Diagnostics: Patient's labs were significant for an elevated BUN and creatinine. Patient received 2 L of NSS and creatinine was repeated and this appears to be improving with a creatinine of 1.8. Patient's lipase is within normal limits. Therapeutics: NSS x2 L, Zofran, Toradol Assessment and plan: 50-year-old female who presents to the ER today secondary to nausea, vomiting, abdominal pain and muscle cramping. Patient likely has a degree of dehydration from sleeping in a hot camper as well as her nausea vomiting and diarrhea from gastritis from alcohol use. Patient has been hydrated here in ED and she reports that she feels much improved. Patient is been resting comfortably and sleeping without any discomfort for the last 1 to 2 hours in the ED. At this time, patient's labs are improving, patient is clinically and hemodynamically stable. Patient does not meet any criteria for inpatient or observation level of care at this time. Patient be discharged home with a prescription for Zofran to assist her with her symptoms. Reassessment at the time of disposition demonstrates that the patient is in no acute distress. The patient has remained stable throughout the entire ED visit and is without objective evidence for acute process requiring urgent intervention or hospitalization. The patient is stable for discharge, counseling is provided as documented above, discussed symptomatic treatment and specific conditions for return. I have spoken with the patient/caregiver and discussed todays findings, in addition to providing specific details for the plan of care. Questions are answered and there is agreement with the plan. Definitive disposition and diagnosis as appropriate pending reevaluation and review of above. 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, Other Medication(s) Generalized Pain Score (Numeric/FACES): 7 - Related Data Allergies Allergy/AdvReac Type Severity Reaction Status Date / Time No Known Allergies Allergy Verified 08/02/20 22:38 Home Meds: Home Meds Amylase/Lipase/Protease [John LYLE 24,000 Unit] 24,000 unit PO TIDMEALS 01/21/18 [History] Levothyroxine [Levothroid] 300 mcg PO DAILY 01/21/18 [History] Omeprazole 40 mg PO DAILY 01/21/18 [History] hydrOXYzine HCL [hydrOXYzine] 10 mg PO BEDTIME PRN 01/21/18 [History] Furosemide [Lasix] 40 mg PO BID 11/24/19 [History] Albuterol Sulfate [Albuterol Sulfate Hfa] 1 - 2 puff INH ASDIRECTED PRN 12/10/19 [History] Budesonide/Formoterol Fumarate [Symbicort 80-4.5 MCG] 2 puff INH BID 12/10/19 [History] Clobetasol [Clobetasol 0.05%] 1 applic TOP .TO SCALP PRN 12/10/19 [History] Fluocinolone Acetonide [C[employer]x 0.01% Shampoo] 1 applic TOP .TO SCALP PRN 12/10/19 [History] Folic Acid 1 mg PO DAILY 12/10/19 [History] Mv-Mn/Iron/FA/Herbal/Digestive [ One Tablet] 1 tab PO DAILY 12/10/19 [History] Potassium Chloride 40 meq PO DAILY 12/10/19 [History] Sertraline HCl 50 mg PO DAILY 12/10/19 [History] Amylase/Lipase/Protease [John LYLE 12,000 Units] 12,000 unit PO .WITH SNAKCS 02/14/20 [History] Buprenorphine HCl/Naloxone HCl [Buprenorphine-Nalox 8-2Mg Film] 12 mg SL DAILY 02/14/20 [History] Ibuprofen [Motrin] 200 mg PO Q4H PRN #0 tablet 02/16/20 [Rx] Melatonin 3 mg PO BEDTIME PRN tablet 02/16/20 [Rx] Ondansetron [Zofran ODT] 4 mg PO Q4H PRN 5 Days #30 tab.dis 02/16/20 [Rx] oxyCODONE 5 mg PO Q6H PRN 6 Days #24 tablet 02/16/20 [Rx] Past Medical History HEENT History: Reports: Impaired Vision Other HEENT History: wears glasses Cardiovascular History: Reports: None Other Cardiovascular History: edema Respiratory History: Reports: COPD Other Respiratory History: states wheezes at times from smoking Gastrointestinal History: Reports: Fatty Liver, Pancreatitis Other Gastrointestinal History: fatty liver Genitourinary History: Reports: None BUSINESS 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 Psychiatric History: Reports: Anxiety, Bipolar, Depression, Panic Attack, PTSD, Other (See Below) Endocrine/Metabolic History: Reports: Hypothyroidism, Obesity/BMI 30+ Hematologic History: Reports: Other (See Below) Other Hematologic History: Hep C Immunologic History: Reports: None Oncologic (Cancer) History: Reports: None Dermatologic History: Reports: Psoriasis - Infectious Disease History Infectious Disease History: Reports: Hepatitis C - Past Surgical History Head Surgeries/Procedures: Reports: None HEENT Surgical History: Reports: None Cardiovascular Surgical History: Reports: None Respiratory Surgical History: Reports: None GI Surgical History: Reports: Hernia Repair/Other Female Surgical History: Reports: Tubal Ligation Endocrine Surgical History: Reports: None Neurological Surgical History: Reports: None Musculoskeletal Surgical History: Reports: None Oncologic Surgical History: Reports: None Dermatological Surgical History: Reports: None Social & Family History - Family History Family Medical History: No Pertinent Family History - Caffeine Use Caffeine Use: Reports: Coffee, Soda - Recreational Drug Use Recreational Drug Use: No ED ROS GENERAL - Review of Systems Review Of Systems: See Below ED EXAM, GENERAL - Physical Exam Exam: See Below #1 Interpretation EKG Interpretation Comments: EKG: As interpreted by ER physician: Ned: Nonspecific ST-T wave abnormalities Normal axis No evidence of ST elevation [place] Sinus tachycardia with a heart rate of 111 Course - Vital Signs Last Recorded V/S: Last Vital Signs Temp 95.4 F L 08/02/20 22:32 Pulse 102 H 08/03/20 02:31 Resp 18 08/03/20 02:31 BP 117/67 08/03/20 02:31 Pulse Ox 95 08/03/20 02:31 - Orders/Labs/Meds Orders: Active Orders 24 hr Category Date Time Status EKG Documentation Completion [RC] AM Care 08/02/20 22:45 Active Sodium Chloride 0.9% [Saline Flush] Med 08/02/20 22:45 Active 10 ml FLUSH ASDIRECTED PRN Sodium Chloride 0.9% [Saline Flush] Med 08/02/20 22:45 Active 2.5 ml FLUSH ASDIRECTED PRN Saline Lock Insert [OM.PC] Stat Oth 08/02/20 22:46 Ordered Medication Orders Sodium Chloride (Sodium Chloride 0.9% 10 Ml Syringe) 10 ml FLUSH ASDIRECTED PRN PRN Reason: Keep Vein Open Sodium Chloride (Sodium Chloride 0.9% 2.5 Ml Syringe) 2.5 ml FLUSH ASDIRECTED PRN PRN Reason: Keep Vein Open Labs: Laboratory Tests 08/02/20 08/02/20 08/03/20 Range/Units 23:30 23:30 01:50 WBC 15.76 H (4.0-11.0) K/uL RBC 4.95 (4.30-5.90) M/uL Hgb 16.4 H (12.0-16.0) g/dL Hct 47.1 H (36.0-46.0) % MCV 95.2 (80.0-98.0) fL MCH 33.1 H (27.0-32.0) pg MCHC 34.8 (31.0-37.0) g/dL RDW Std Deviation 45.8 (28.0-62.0) fl RDW Coeff of Jennifer 14 (11.0-15.0) % Plt Count 267 (150-400) K/uL MPV 9.90 (7.40-12.00) fL Neut % (Auto) 83.9 H (48.0-80.0) % Lymph % (Auto) 11.0 L (16.0-40.0) % [place] % (Auto) 4.7 (0.0-15.0) % Eos % (Auto) 0.2 (0.0-7.0) % Baso % (Auto) 0.2 (0.0-1.5) % Neut # (Auto) 13.2 H (1.4-5.7) K/uL Lymph # (Auto) 1.7 (0.6-2.4) K/uL [place] # (Auto) 0.7 (0.0-0.8) K/uL Eos # (Auto) 0.0 (0.0-0.7) K/uL Baso # (Auto) 0.0 (0.0-0.1) K/uL Nucleated RBC % 0.0 /100WBC Nucleated RBCs # 0 K/uL Sodium 131 L (136-145) mmol/L Potassium 4.6 (3.5-5.1) mmol/L Chloride 89 L (98-107) mmol/L Carbon Dioxide 19.5 L (21.0-32.0) mmol/L BUN 16 (7.0-18.0) mg/dL Creatinine 2.0 H (0.6-1.0) mg/dL Est Cr Clr Drug Dosing 31.85 mL/min Estimated GFR (MDRD) 26.5 ml/min Glucose 119 H (74-106) mg/dL Calcium 8.2 L (8.5-10.1) mg/dL Total Bilirubin 0.7 (0.2-1.0) mg/dL AST 57 H (15-37) IU/L ALT 40 (14-63) IU/L Alkaline Phosphatase 118 H (46-116) U/L Total Protein 7.9 (6.4-8.2) g/dL Albumin 4.1 (3.4-5.0) g/dL Globulin 3.8 (2.6-4.0) g/dL Albumin/Globulin Ratio 1.1 (0.9-1.6) Lipase 94 (73-393) U/L Urine Color YELLOW Urine Appearance CLEAR Urine pH 5.0 (5.0-8.0) Ur Specific [place] 1.015 (1.001-1.035) Urine Protein NEGATIVE (NEGATIVE) mg/dL Urine Glucose (UA) NEGATIVE (NEGATIVE) mg/dL Urine Ketones NEGATIVE (NEGATIVE) mg/dL Urine Occult Blood LARGE H (NEGATIVE) Urine Nitrite NEGATIVE (NEGATIVE) Urine Bilirubin NEGATIVE (NEGATIVE) Urine Urobilinogen 0.2 (<2.0) EU/dL Ur Leukocyte Esterase NEGATIVE (NEGATIVE) Urine RBC 0-4 (0-2/HPF) Urine WBC 0-3 (0-5/HPF) Ur Epithelial Cells FEW (NONE-FEW) Urine Bacteria FEW (NEGATIVE) Urine Opiates Screen (NEGATIVE) Ur Oxycodone Screen (NEGATIVE) Urine Methadone Screen (NEGATIVE) Ur Barbiturates Screen (NEGATIVE) Ur Phencyclidine Scrn (NEGATIVE) Ur Amphetamine Screen (NEGATIVE) U Methamphetamines Scrn (NEGATIVE) U Benzodiazepines Scrn (NEGATIVE) U Cocaine Metab Screen (NEGATIVE) U Marijuana (THC) Screen (NEGATIVE) Ethyl Alcohol <3 mg/dL 08/03/20 08/03/20 Range/Units 01:50 02:18 WBC (4.0-11.0) K/uL RBC (4.30-5.90) M/uL Hgb (12.0-16.0) g/dL Hct (36.0-46.0) % MCV (80.0-98.0) fL MCH (27.0-32.0) pg MCHC (31.0-37.0) g/dL RDW Std Deviation (28.0-62.0) fl RDW Coeff of Jennifer (11.0-15.0) % Plt Count (150-400) K/uL MPV (7.40-12.00) fL Neut % (Auto) (48.0-80.0) % Lymph % (Auto) (16.0-40.0) % [place] % (Auto) (0.0-15.0) % Eos % (Auto) (0.0-7.0) % Baso % (Auto) (0.0-1.5) % Neut # (Auto) (1.4-5.7) K/uL Lymph # (Auto) (0.6-2.4) K/uL [place] # (Auto) (0.0-0.8) K/uL Eos # (Auto) (0.0-0.7) K/uL Baso # (Auto) (0.0-0.1) K/uL Nucleated RBC % /100WBC Nucleated RBCs # K/uL Sodium 131 L (136-145) mmol/L Potassium 4.8 (3.5-5.1) mmol/L Chloride 92 L (98-107) mmol/L Carbon Dioxide 22.9 (21.0-32.0) mmol/L BUN 13 (7.0-18.0) mg/dL Creatinine 1.8 H (0.6-1.0) mg/dL Est Cr Clr Drug Dosing 35.39 mL/min Estimated GFR (MDRD) 29.9 ml/min Glucose 120 H (74-106) mg/dL Calcium 7.6 L (8.5-10.1) mg/dL Total Bilirubin 0.7 (0.2-1.0) mg/dL AST 46 H (15-37) IU/L ALT 38 (14-63) IU/L Alkaline Phosphatase 104 (46-116) U/L Total Protein 7.0 (6.4-8.2) g/dL Albumin 3.5 (3.4-5.0) g/dL Globulin 3.5 (2.6-4.0) g/dL Albumin/Globulin Ratio 1.0 (0.9-1.6) Lipase (73-393) U/L Urine Color Urine Appearance Urine pH (5.0-8.0) Ur Specific [place] (1.001-1.035) Urine Protein (NEGATIVE) mg/dL Urine Glucose (UA) (NEGATIVE) mg/dL Urine Ketones (NEGATIVE) mg/dL Urine Occult Blood (NEGATIVE) Urine Nitrite (NEGATIVE) Urine Bilirubin (NEGATIVE) Urine Urobilinogen (<2.0) EU/dL Ur Leukocyte Esterase (NEGATIVE) Urine RBC (0-2/HPF) Urine WBC (0-5/HPF) Ur Epithelial Cells (NONE-FEW) Urine Bacteria (NEGATIVE) Urine Opiates Screen NEGATIVE (NEGATIVE) Ur Oxycodone Screen NEGATIVE (NEGATIVE) Urine Methadone Screen NEGATIVE (NEGATIVE) Ur Barbiturates Screen NEGATIVE (NEGATIVE) Ur Phencyclidine Scrn NEGATIVE (NEGATIVE) Ur Amphetamine Screen NEGATIVE (NEGATIVE) U Methamphetamines Scrn NEGATIVE (NEGATIVE) U Benzodiazepines Scrn NEGATIVE (NEGATIVE) U Cocaine Metab Screen NEGATIVE (NEGATIVE) U Marijuana (THC) Screen NEGATIVE (NEGATIVE) Ethyl Alcohol mg/dL Meds: Medications Generic Name Dose Route Start Last Admin Trade Name Freq PRN Reason Stop Dose Admin Sodium Chloride 10 ml 08/02/20 22:45 Sodium Chloride 0.9% 10 Ml Syringe FLUSH ASDIRECTED PRN Keep Vein Open Sodium Chloride 2.5 ml 08/02/20 22:45 Sodium Chloride 0.9% 2.5 Ml Syringe FLUSH ASDIRECTED PRN Keep Vein Open Discontinued Medications Generic Name Dose Route Start Last Admin Trade Name Freq PRN Reason Stop Dose Admin Sodium Chloride 1,000 mls @ 999 mls/hr 08/02/20 22:45 08/02/20 23:22 Normal Saline IV 08/02/20 23:45 999 mls/hr .Bolus ONE Administration Sodium Chloride 1,000 mls @ 999 mls/hr 08/02/20 23:54 08/03/20 00:30 Normal Saline IV 08/03/20 00:54 999 mls/hr .Bolus ONE Administration Ketorolac Tromethamine 15 mg 08/02/20 23:40 08/02/20 23:51 Ketorolac 15 Mg/Ml Sdv IVPUSH 08/02/20 23:41 15 mg Q6H STA Administration Ondansetron HCl 4 mg 08/02/20 22:45 08/02/20 23:22 Ondansetron 4 Mg/2 Ml Sdv IVPUSH 08/02/20 22:46 4 mg ONETIME ONE Administration Departure - Departure Time of Disposition: 03:09 Disposition: Home, Self-Care 01 Condition: Good Clinical Impression: Alcohol use disorder, Dehydration, Abdominal pain, Elevated serum creatinine, Muscle cramping - Discharge Information Instructions: Alcohol Use Disorder, Muscle Cramps and Spasms, [id number], Dehydration, Adult, [id number] Referrals: Gisel Durham PA [Primary Care Provider] - Additional Instructions: You were seen and evaluated in the ER today secondary to abdominal pain with associated nausea vomiting and diarrhea. This may be related to your excessive alcohol use. Please continue with refraining from drinking so much alcohol. Your blood tests were all within normal limits except for signs of dehydration. This is improved with the fluids that we have given you here in the ED. You will be discharged home with a prescription for Zofran to assist with your nausea. The following information is given to patients seen in the emergency department who are being discharged to home. This information is to outline your options for follow-up care. We provide all patients seen in our emergency department with a follow-up referral. The need for follow-up, as well as the timing and circumstances, are variable depending upon the specifics of your emergency department visit. If you don't have a primary care physician on staff, we will provide you with a referral. We always advise you to contact your personal physician following an emergency department visit to inform them of the circumstance of the visit and for follow-up with them and/or the need for any referrals to a consulting specialist. The emergency department will also refer you to a specialist when appropriate. This referral assures that you have the opportunity for follow-up care with a specialist. All of these measure are taken in an effort to provide you with optimal care, which includes your follow-up. Under all circumstances we always encourage you to contact your private physician who remains a resource for coordinating your care. When calling for follow-up care, please make the office aware that this follow-up is from your recent emergency room visit. If for any reason you are refused follow-up, please contact the [facility] Emergency Department at and asked to speak to the emergency department charge nurse. [facility] [address] [place] [address] [id number] [facility] [address] [place] [id number] Sepsis Event Note (ED) - Evaluation Sepsis Screening Result: No Definite Risk - Focused Exam Vital Signs: Vital Signs Temp Pulse Resp BP Pulse Ox 08/03/20 02:31 102 H 18 117/67 95 08/03/20 00:45 107 H 18 143/80 H 95 08/02/20 22:32 95.4 F L 137 H 18 133/94 H 95 - My Orders Last 24 Hours: My Active Orders 08/02/20 22:45 EKG Documentation Completion [RC] AM Sodium Chloride 0.9% [Saline Flush] 10 ml FLUSH ASDIRECTED PRN Sodium Chloride 0.9% [Saline Flush] 2.5 ml FLUSH ASDIRECTED PRN 08/02/20 22:46 Saline Lock Insert [OM.PC] Stat - Assessment/Plan Last 24 Hours: My Active Orders 08/02/20 22:45 EKG Documentation Completion [RC] AM Sodium Chloride 0.9% [Saline Flush] 10 ml FLUSH ASDIRECTED PRN Sodium Chloride 0.9% [Saline Flush] 2.5 ml FLUSH ASDIRECTED PRN 08/02/20 22:46 Saline Lock Insert [OM.PC] Stat
== END 2020-08-03 03:25 | disposition home or self-care (01) ==
LOC: MW.LAB 22:24 → MW.ED 22:24
DX: R10.9 Unspecified abdominal pain (principal); R00.0 Tachycardia, unspecified
CPT/HCPCS: 36415; 80053; 80305; 80307; 81001; 83690; 85025; 93005; J1885; J2405; J7030; 96374; 96375; 99285-25

== ENCOUNTER 2020-08-03 09:14 | Inpatient (IN) | payer MEDICAID ==
[2020-08-03] MEDS ORDERED: Sodium Chloride 0.9% 2.5 ML Syringe FLUSH PRN (09:18)
[2020-08-03] MEDS ORDERED: Ondansetron 4 MG/2 ML SDV IVPUSH PRN (09:18)
--- NOTE | 2020-08-03 09:26 | PCM.HP.2 ---
H&P History of Present Illness - General Date of Service: 08/03/20 Admit Problem/Dx: Admission Diagnosis/Problem Admission Diagnosis/Problem Alcohol withdrawal syndrome Source of Information: Patient History Limitations: Reports: No Limitations - History of Present Illness Initial Comments - Free Text/Narative: this 50-year-old female with past medical history of alcohol abuse and alcohol induced pancreatitis presented to the outpatient clinic today with worsening abdominal pain nausea and vomiting. She reports that she was seen in the ER last evening for similar symptoms treated with IV fluids and felt better and was discharged home. Soon after being discharged she continued to have symptoms and was seen outpatient. She reports that she is having right upper quadrant pain with nausea vomiting along with tremors and anxiety related to her alcohol withdrawal. She reports that she drinks at least a liter of alcohol daily her last drink was 2 days ago. She reports that she normally withdrawals quite heavily at times having seizures and hallucinating. Patient was in the hospital in January 2020. Patient reports [place] with her family drinking as well as being in the heat. She reports that she has had some cramping in her muscles as well as feeling very weak and tired. She denies any fevers chills or chest pain. No shortness of breath. She denies any dysuria no constipation or diarrhea. Reports that the abdominal pain is mainly in the right upper quadrant and is constant in nature. It hurts when she moves or le ans forward. She reports that she smokes 1 pack cigarettes daily and no recreational drug use. In the ER initially last evening she was noted to have significant leukocytosis 16,000 this morning repeat leukocytosis 11,000 after hydration in the ER. Hematocrit 46 hemoglobin 15.6 platelet 279,000 magnesium 1.4 lipase 85 phosphorus 3.2. CMP revealed sodium 134 chloride 94 BUN 12 creatinine 1.5 bi lirubin 1.1 AST 51 ALT 43 alk phos 122. Urine done in the ER negative Covid swab negative tox screen in the ER negative ethyl alcohol negative. CT abdomen obtained once she arrived to [facility]. Patient given Zosyn for possible abdominal infection. This revealed enlarged liver with diffuse fatty i nfiltration no focal liver lesion. Gallbladder has no biliary dilation no stones or inflammation. Otherwise unremarkable CT of the abdomen. Patient will be admitted inpatient for acute alcohol withdrawal and abdominal pain. Right Upper Abdomen Pain Score (Numeric/FACES): 8 - Related Data Allergies/Adverse Reactions: Allergies Allergy/AdvReac Type Severity Reaction Status Date / Time No Known Allergies Allergy Verified 08/03/20 11:23 Home Medications: Home Meds Amylase/Lipase/Protease [John LYLE 24,000 Unit] 24,000 unit PO TIDMEALS 01/21/18 [History] Levothyroxine [Levothroid] 300 mcg PO DAILY 01/21/18 [History] Omeprazole 40 mg PO DAILY 01/21/18 [History] hydrOXYzine HCL [hydrOXYzine] 10 mg PO BEDTIME PRN 01/21/18 [History] Albuterol Sulfate [Albuterol Sulfate Hfa] 1 - 2 puff INH Q4H PRN 12/10/19 [History] Budesonide/Formoterol Fumarate [Symbicort 80-4.5 MCG] 2 puff INH BID 12/10/19 [History] Clobetasol [Clobetasol 0.05%] 1 applic TOP BID PRN 12/10/19 [History] Fluocinolone Acetonide [Capex 0.01% Shampoo] 1 applic TOP .TO SCALP PRN 12/10/19 [History] Folic Acid 1 mg PO DAILY 12/10/19 [History] Mv-Mn/Iron/FA/Herbal/Digestive [ One Tablet] 1 tab PO DAILY 12/10/19 [ History] Potassium Chloride 40 meq PO DAILY 12/10/19 [History] Amylase/Lipase/Protease [John LYLE 12,000 Units] 12,000 unit PO .WITH SNACKS 02/14/20 [History] Amitriptyline [Elavil] 10 mg PO BEDTIME 08/03/20 [History] Clobetasol [Clobetasol 0.05%] 1 applic TOP BID PRN 08/03/20 [History] Furosemide 40 mg PO BID 08/03/20 [History] Naproxen 500 mg PO Q12H PRN 08/03/20 [History] Sertraline [Zoloft] 100 mg PO DAILY 08/03/20 [History] traMADol [Ultram] 50 mg PO TID PRN 08/03/20 [History] Past Medical History HEENT History: Reports: Impaired Vision Other HEENT History: wears glasses Cardiovascular History: Reports: None Other Cardiovascular History: edema Respiratory History: Reports: COPD Other Respiratory History: states wheezes at times from smoking Gastrointestinal History: Reports: Fatty Liver, Pancreatitis Other Gastrointestinal History: fatty liver Genitourinary History: Reports: None [employer] 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 Psychiatric History: Reports: Anxiety, Bipolar, Depression, Panic Attack, PTSD, Other (See Below) Endocrine/Metabolic History: Reports: Hypothyroidism, Obesity/BMI 30+ Hematologic History: Reports: Other (See Below) Other Hematologic History: Hep C Immunologic History: Reports: None Oncologic (Cancer) History: Reports: None Dermatologic History: Reports: Psoriasis - Infectious Disease History Infectious Disease History: Reports: Hepatitis C - Past Surgical History Head Surgeries/Procedures: Reports: None HEENT Surgical History: Reports: None Cardiovascular Surgical History: Reports: None Respiratory Surgical History: Reports: None GI Surgical History: Reports: Hernia Repair/Other Female Surgical History: Reports: Tubal Ligation Endocrine Surgical History: Reports: None Neurological Surgical History: Reports: None Musculoskeletal Surgical History: Reports: None Oncologic Surgical History: Reports: None Dermatological Surgical History: Reports: None Social & Family History - Family History Family Medical History: No Pertinent Family History - Caffeine Use Caffeine Use: Reports: Coffee, Soda H&P Review of Systems - Review of Systems: Review Of Systems: See Below General: Reports: Malaise, Weakness. Denies: Fever, Chills Pulmonary: Reports: No Symptoms. Denies: Shortness of Breath Cardiovascular: Reports: No Symptoms. Denies: Chest Pain Gastrointestinal: Reports: Abdominal Pain (Right upper quadrant) Genitourinary: Reports: No Symptoms. Denies: Dysuria, Frequency, Burning Musculoskeletal: Reports: No Symptoms Skin: Reports: Erythema (Breast folds and abdominal fold appears to be candidiasis) Psychiatric: Reports: No Symptoms Neurological: Reports: No Symptoms Hematologic/Lymphatic: Reports: No Symptoms Immunologic: Reports: No Symptoms Exam - Exam Exam: See Below - Exam General: Alert, Oriented, Cooperative HEENT: Conjunctiva Clear, Posterior Pharynx Clear Lungs: Clear to Auscultation, Normal Respiratory Effort Cardiovascular: Regular Rate, Regular Rhythm GI/Abdominal Exam: Normal Bowel Sounds, Soft, No Distention, Tender (Right upper quadrant) Extremities: Normal Inspection, Normal Range of Motion, Non-Tender, No Pedal Edema Skin: Warm, Dry, Intact Neuro Extensive - Motor, Sensory, Reflexes: CN II-XII Intact Psychiatric: Alert, Normal Affect, Normal Mood - Patient Data Result Diagrams: 08/03/20 07:05 - Problem List (1) JOHN (acute kidney injury) SNOMED Code(s): 90430621, 48157123 ICD Code: N17.9 - ACUTE KIDNEY FAILURE, UNSPECIFIED Status: Acute Current Visit: Yes (2) Abdominal pain SNOMED Code(s): 09700078 ICD Code: R10.9 - UNSPECIFIED ABDOMINAL PAIN Status: Acute Current Visit: No (3) Alcohol use disorder SNOMED Code(s): 3759224 ICD Code: AHW8332 - Status: Acute Current Visit: No (4) Alcohol withdrawal SNOMED Code(s): 903963494 ICD Code: F10.239 - ALCOHOL DEPENDENCE WITH WITHDRAWAL, UNSPECIFIED Status: Acute Current Visit: No Qualifiers: Complication of substance-induced condition: with perceptual disturbance Qualified Code(s): F10.232 - Alcohol dependence with withdrawal with perceptual disturbance (5) Chronic pancreatitis SNOMED Code(s): 295344363 ICD Code: K86.1 - OTHER CHRONIC PANCREATITIS Status: Acute Current Visit: No (6) Dehydration SNOMED Code(s): 22763569 ICD Code: E86.0 - DEHYDRATION Status: Acute Current Visit: No (7) Tobacco abuse SNOMED Code(s): 632808640 ICD Code: Z72.0 - TOBACCO USE Status: Chronic Current Visit: No Problem List Initiated/Reviewed/Updated: Yes Orders Last 24hrs: Active Orders 24 hr Category Date Time Status Patient Status [ADT] Routine ADT 08/03/20 09:18 Ordered Antiembolic Devices [RC] PER UNIT ROUTINE Care 08/03/20 09:19 Ordered CIWAA Assessment [RC] Q4H Care 08/03/20 09:18 Ordered Intake and Output [RC] QSHIFT Care 08/03/20 09:19 Ordered Oxygen Therapy [RC] PRN Care 08/03/20 09:18 Ordered Up With Assistance [RC] ASDIRECTED Care 08/03/20 09:18 Ordered VTE/DVT Education [RC] PER UNIT ROUTINE Care 08/03/20 09:18 Ordered Vital Signs [RC] Q4H Care 08/03/20 09:18 Ordered NPO [Nothing Per Oral Diet] [DIET] Diet 08/03/20 Breakfast Ordered CBC WITH AUTO DIFF [HEME] AM Lab 08/04/20 05:11 Ordered CBC WITH AUTO DIFF [HEME] AM Lab 08/05/20 05:11 Ordered CBC WITH AUTO DIFF [HEME] Routine Lab 08/03/20 09:22 Ordered COMPREHENSIVE METABOLIC PN,CMP [CHEM] AM Lab 08/04/20 05:11 Ordered COMPREHENSIVE METABOLIC PN,CMP [CHEM] AM Lab 08/05/20 05:11 Ordered LIPASE [CHEM] Routine Lab 08/03/20 09:23 Ordered MAGNESIUM [CHEM] AM Lab 08/04/20 05:11 Ordered MAGNESIUM [CHEM] AM Lab 08/05/20 05:11 Ordered MAGNESIUM [CHEM] Routine Lab 08/03/20 09:22 Ordered PHOSPHORUS [CHEM] AM Lab 08/04/20 05:11 Ordered PHOSPHORUS [CHEM] AM Lab 08/05/20 05:11 Ordered PHOSPHORUS [CHEM] Routine Lab 08/03/20 09:22 Ordered Folic Acid Med 08/03/20 09:30 Ordered 1 mg SUBCUT DAILY LORazepam [Ativan] Med 08/03/20 09:18 Ordered See Protocol IVPUSH Q2H PRN Ondansetron [Zofran] Med 08/03/20 09:18 Ordered 4 mg IVPUSH Q4H PRN Pantoprazole [ProTONIX IV] Med 08/03/20 09:30 Ordered 40 mg IV Q24H Sodium Chloride 0.9% [Normal Saline] 1,000 ml Med 08/03/20 09:30 Ordered IV ASDIRECTED Sodium Chloride 0.9% [Saline Flush] Med 08/03/20 09:18 Ordered 2.5 ml FLUSH ASDIRECTED PRN Thiamine [Vitamin B-1] 100 mg Med 08/03/20 09:30 Ordered Sodium Chloride 0.9% [Normal Saline] 100 ml IV DAILY Saline Lock Insert [OM.PC] Routine Oth 08/03/20 09:18 Ordered Sequential Compression Device [OM.PC] Per Unit Routine Oth 08/03/20 09:19 Ordered Resuscitation Status Routine Resus Stat 08/03/20 09:18 Ordered Medication Orders Folic Acid (Folic Acid 50 Mg/10 Ml Mdv) 1 mg SUBCUT DAILY DIANA Sodium Chloride (Normal Saline) 1,000 mls @ 150 mls/hr IV ASDIRECTED DIANA Thiamine HCl 100 mg/ Sodium (Chloride) 101 mls @ 202 mls/hr IV DAILY DIANA Lorazepam (Lorazepam 2 Mg/Ml Sdv) 0 mg IVPUSH Q2H PRN; Protocol PRN Reason: CIWAA Ondansetron HCl (Ondansetron 4 Mg/2 Ml Sdv) 4 mg IVPUSH Q4H PRN PRN Reason: Nausea Pantoprazole Sodium (Pantoprazole 40 Mg Vial) 40 mg IV Q24H DIANA Sodium Chloride (Sodium Chloride 0.9% 2.5 Ml Syringe) 2.5 ml FLUSH ASDIRECTED PRN PRN Reason: Keep Vein Open Assessment/Plan Comment:: This 50-year-old female admitted with acute alcohol withdrawal and abdominal pain with JOHN 1. Acute alcohol withdrawal -Start Valium 5 mg twice daily -CIWA protocol with Ativan as needed -Folic acid and thiamine supplementation -Seizure precautions - Telemetry 2. Abdominal pain/right upper quadrant -Previous imaging revealed dilated common bile duct repeat imaging today is otherwise unremarkable -Could be related to fatty liver and alcohol abuse -Dilaudid 1 mg every 3 hours as needed pain -We will obtain right upper quadrant ultrasound -Due to leukocytosis we will continue Zosyn and monitor in a.m. though CT shows no infectious process leukocytosis likely reactive 3. JOHN -Treat with fluids LR 150 -Avoid nephrotoxic medications VTE prophylaxis: SCDs GI prophylaxis: Protonix CODE STATUS: Full code Dispo: 2 days pending improvement.
[2020-08-03] MEDS ORDERED: Thiamine 100 MG in Sodium Chloride 0.9% 100 ML IV SCH (09:30)
[2020-08-03] MEDS ORDERED: Pantoprazole 40 MG Vial IV SCH (09:30)
[2020-08-03] MEDS: Pantoprazole 40 MG in Sodium Chloride 0.9% 10 ML IV SCH (11:16)
[2020-08-03] MEDS: Sodium Chloride 0.9% 1,000 ML IV SCH ×4 (11:16→23:14)
[2020-08-03] MEDS: Folic Acid 50 MG/10 ML MDV SUBCUT SCH (11:19)
[2020-08-03] MEDS: Thiamine 200 MG/2 ML MDV IVPUSH SCH (11:20)
[2020-08-03] MEDS ORDERED: Lactated Ringers 1,000 ML IV ONE (12:28)
[2020-08-03] MEDS ORDERED: Piperacillin/Tazobactam 3.375 GM in Sodium Chloride 0.9% 50 ML IV SCH (13:00)
[2020-08-03] MEDS: HYDROmorphone 1 MG/ML Syringe IVPUSH PRN ×2 (13:05→19:18)
[2020-08-03] MEDS: Piperacillin/Tazobactam 3.375 GM in Sodium Chloride 0.9% 50 ML IV SCH ×2 (15:17→23:13)
[2020-08-03] MEDS: LORazepam 2 MG/ML SDV IVPUSH PRN ×2 (15:26→20:26)
[2020-08-03] MEDS: Nystatin Topical Powder 15 GM Bottle TOP SCH ×2 (15:27→23:13)
--- NOTE | 2020-08-03 16:06 | CT ---
For Patients: As a result of the Century Cures Act, medical imaging exams and procedure reports are released immediately into your electronic medical record. You may view this report before your referring provider. If you have questions, please contact your health care provider. INDICATION: Abdominal pain TECHNIQUE: CT abdomen and pelvis without contrast. COMPARISON: February 11, 2020. FINDINGS: Lower chest: Unremarkable. Liver: Liver is enlarged with diffuse fatty infiltration. No focal liver lesion. Gallbladder and bile ducts: No stones or inflammation. No biliary dilatation. Pancreas: Unremarkable. No mass or inflammation. Spleen: Normal in size. No masses. Adrenal glands: Normal in size. No nodules. Kidneys: Normal in size. No suspicious masses, stones, or hydronephrosis. GI tract: Unremarkable. Normal in caliber. No sign of mass or inflammation. Normal appendix. Vasculature: Unremarkable. Lymph nodes: No lymphadenopathy. Abdominal wall/Omentum/Peritoneum: Unremarkable postoperative changes from ventral hernia repair. No intra-abdominal free air or fluid collection. Pelvis: Unremarkable. No pelvic masses. Bones: Unremarkable for age. IMPRESSION: No acute or specific findings to explain abdominal pain. Please note that all CT scans at this facility use dose modulation, iterative reconstruction, and/or weight-based dosing when appropriate to reduce radiation dose to as low as reasonably achievable. Dictated by Primo Gay MD @ 08/03/2020 4:04:[address] Primo Gay @ Aug 03 2020 4:04PM
[2020-08-03] MEDS: Nicotine 14 MG/24 Hr Patch TRDERM SCH (17:10)
[2020-08-03] MEDS: Diazepam 5 MG Tab PO SCH (17:11)
[2020-08-03] MEDS ORDERED: Diazepam 2 MG Tab PO ONE (22:54)
[2020-08-03] MEDS ORDERED: LORazepam 2 MG/ML SDV IVPUSH ONE (22:54)
[2020-08-04] MEDS: Piperacillin/Tazobactam 3.375 GM in Sodium Chloride 0.9% 50 ML IV SCH ×2 (05:31→10:39)
[2020-08-04] MEDS: Diazepam 5 MG Tab PO SCH ×3 (05:32→21:24)
[2020-08-04] MEDS: Sodium Chloride 0.9% 1,000 ML IV SCH ×5 (05:33→21:53)
[2020-08-04] MEDS: Nystatin Topical Powder 15 GM Bottle TOP SCH ×3 (05:46→21:25)
[2020-08-04 06:15] LABS: CARBON DIOXIDE,CO2 24.9 mmol/L (21.0-32.0); POTASSIUM,K 3.3 mmol/L (3.5-5.1)
[2020-08-04] MEDS ORDERED: Magnesium Sulfate/Water 4 GM in Premix Bag 1 BAG IV ONE (08:09)
--- NOTE | 2020-08-04 08:10 | PCM.PN ---
- General Info Date of Service: 08/04/20 Admission Dx/Problem (Free Text): Admission Diagnosis/Problem Admission Diagnosis/Problem Alcohol withdrawal syndrome Subjective Update: Feeling a little improved today, continues to have abdominal pain. Hallucinating and withdrawing from alcohol. Functional Status: Reports: Pain Controlled, Ambulating, Urinating - Review of Systems General: Reports: Fatigue, Malaise HEENT: Reports: No Symptoms. Denies: Headaches, Sore Throat, Visual Changes Pulmonary: Reports: No Symptoms. Denies: Shortness of Breath Cardiovascular: Reports: No Symptoms. Denies: Chest Pain Gastrointestinal: Reports: Abdominal Pain, Diarrhea. Denies: Nausea, Vomiting Genitourinary: Reports: No Symptoms. Denies: Dysuria, Frequency, Burning Musculoskeletal: Reports: No Symptoms Skin: Reports: No Symptoms Neurological: Reports: No Symptoms Psychiatric: Reports: No Symptoms - Patient Data Vitals - Most Recent: Last Vital Signs Temp 97 F 08/04/20 01:51 Pulse 97 08/04/20 01:51 Resp 18 08/04/20 01:51 BP 112/77 08/04/20 01:51 Pulse Ox 95 08/04/20 01:51 Weight - Most Recent: 112.128 kg I&O - Last 24 Hours: Intake & Output 08/03/20 08/04/20 08/04/20 22:59 06:59 14:59 Intake Total 120 100 50 Output Total 850 Balance 120 -750 50 Lab Results Last 24 Hours: Laboratory Results - last 24 hr 08/03/20 08/03/20 08/04/20 Range/Units 07:05 07:05 05:00 WBC 11.87 H 6.35 (4.0-11.0) K/uL RBC 4.82 3.63 L (4.30-5.90) M/uL Hgb 15.6 12.0 (12.0-16.0) g/dL Hct 46.1 H 35.5 L (36.0-46.0) % MCV 95.6 97.8 (80.0-98.0) fL MCH 32.4 H 33.1 H (27.0-32.0) pg MCHC 33.8 33.8 (31.0-37.0) g/dL RDW Std Deviation 46.8 48.2 (28.0-62.0) fl RDW Coeff of Jennifer 14 14 (11.0-15.0) % Plt Count 279 201 (150-400) K/uL MPV 10.90 10.40 (7.40-12.00) fL Neut % (Auto) 69.9 56.4 (48.0-80.0) % Lymph % (Auto) 23.5 35.7 (16.0-40.0) % Jenkins % (Auto) 5.7 6.0 (0.0-15.0) % Eos % (Auto) 0.6 1.4 (0.0-7.0) % Baso % (Auto) 0.3 0.5 (0.0-1.5) % Neut # (Auto) 8.3 H 3.6 (1.4-5.7) K/uL Lymph # (Auto) 2.8 H 2.3 (0.6-2.4) K/uL Jenkins # (Auto) 0.7 0.4 (0.0-0.8) K/uL Eos # (Auto) 0.1 0.1 (0.0-0.7) K/uL Baso # (Auto) 0.0 0.0 (0.0-0.1) K/uL Nucleated RBC % 0.0 0.0 /100WBC Nucleated RBCs # 0 0 K/uL Sodium (136-145) mmol/L Potassium (3.5-5.1) mmol/L Chloride (98-107) mmol/L Carbon Dioxide (21.0-32.0) mmol/L BUN (7.0-18.0) mg/dL Creatinine (0.6-1.0) mg/dL Est Cr Clr Drug Dosing mL/min Estimated GFR (MDRD) ml/min Glucose (74-106) mg/dL Calcium (8.5-10.1) mg/dL Phosphorus 3.2 (2.6-4.7) mg/dL Magnesium 1.4 L (1.8-2.4) mg/dL Total Bilirubin (0.2-1.0) mg/dL AST (15-37) IU/L ALT (14-63) IU/L Alkaline Phosphatase (46-116) U/L Total Protein (6.4-8.2) g/dL Albumin (3.4-5.0) g/dL Globulin (2.6-4.0) g/dL Albumin/Globulin Ratio (0.9-1.6) Lipase 85 (73-393) U/L 08/04/20 Range/Units 05:00 WBC (4.0-11.0) K/uL RBC (4.30-5.90) M/uL Hgb (12.0-16.0) g/dL Hct (36.0-46.0) % MCV (80.0-98.0) fL MCH (27.0-32.0) pg MCHC (31.0-37.0) g/dL RDW Std Deviation (28.0-62.0) fl RDW Coeff of Jennifer (11.0-15.0) % Plt Count (150-400) K/uL MPV (7.40-12.00) fL Neut % (Auto) (48.0-80.0) % Lymph % (Auto) (16.0-40.0) % Jenkins % (Auto) (0.0-15.0) % Eos % (Auto) (0.0-7.0) % Baso % (Auto) (0.0-1.5) % Neut # (Auto) (1.4-5.7) K/uL Lymph # (Auto) (0.6-2.4) K/uL Jenkins # (Auto) (0.0-0.8) K/uL Eos # (Auto) (0.0-0.7) K/uL Baso # (Auto) (0.0-0.1) K/uL Nucleated RBC % /100WBC Nucleated RBCs # K/uL Sodium 136 (136-145) mmol/L Potassium 3.3 L (3.5-5.1) mmol/L Chloride 100 (98-107) mmol/L Carbon Dioxide 24.9 (21.0-32.0) mmol/L BUN 8 (7.0-18.0) mg/dL Creatinine 1.0 (0.6-1.0) mg/dL Est Cr Clr Drug Dosing 63.71 mL/min Estimated GFR (MDRD) 58.9 ml/min Glucose 96 (74-106) mg/dL Calcium 7.0 L (8.5-10.1) mg/dL Phosphorus 1.9 L (2.6-4.7) mg/dL Magnesium 1.5 L (1.8-2.4) mg/dL Total Bilirubin 0.9 (0.2-1.0) mg/dL AST 34 (15-37) IU/L ALT 33 (14-63) IU/L Alkaline Phosphatase 89 (46-116) U/L Total Protein 6.2 L (6.4-8.2) g/dL Albumin 3.0 L (3.4-5.0) g/dL Globulin 3.2 (2.6-4.0) g/dL Albumin/Globulin Ratio 0.9 (0.9-1.6) Lipase (73-393) U/L Med Orders - Current: Current Medications Diazepam (Diazepam 5 Mg Tab) 5 mg PO Q12H [facility] Last Admin: 08/04/20 05:32 Dose: 5 mg Documented by: Folic Acid (Folic Acid 50 Mg/10 Ml Mdv) 1 mg SUBCUT DAILY [facility] Last Admin: 08/03/20 11:19 Dose: 1 mg Documented by: Hydromorphone HCl (Hydromorphone 1 Mg/Ml Syringe) 1 mg IVPUSH Q3H PRN PRN Reason: Pain Last Admin: 08/03/20 19:18 Dose: 1 mg Documented by: Sodium Chloride (Normal Saline) 1,000 mls @ 150 mls/hr IV Q6H [facility] Last Admin: 08/04/20 05:33 Dose: 150 mls/hr Documented by: Pantoprazole Sodium 40 mg/ (Sodium Chloride) 10 mls @ 300 mls/hr IV Q24H [facility] Last Admin: 08/03/20 11:16 Dose: 300 mls/hr Documented by: Piperacillin Sod/Tazobactam (Sod 3.375 gm/ Sodium Chloride) 50 mls @ 100 mls/hr IV Q6H [facility] Last Admin: 08/04/20 05:31 Dose: 100 mls/hr Documented by: Magnesium Sulfate 4 gm/ Premix 100 mls @ 50 mls/hr IV ONETIME ONE Stop: 08/04/20 10:08 Lorazepam (Lorazepam 2 Mg/Ml Sdv) 0 mg IVPUSH Q2H PRN; Protocol PRN Reason: CIWAA Last Admin: 08/03/20 20:26 Dose: 2 mg Documented by: Nicotine (Nicotine 14 Mg/24 Hr Patch) 14 mg TRDERM Q24H [facility] Last Admin: 08/03/20 17:10 Dose: 14 mg Documented by: Nystatin (Nystatin Topical Powder 15 Gm Bottle) 1 gm TOP TID [facility] Last Admin: 08/04/20 05:46 Dose: 1 applic Documented by: Ondansetron HCl (Ondansetron 4 Mg/2 Ml Sdv) 4 mg IVPUSH Q4H PRN PRN Reason: Nausea Sodium Chloride (Sodium Chloride 0.9% 2.5 Ml Syringe) 2.5 ml FLUSH ASDIRECTED PRN PRN Reason: Keep Vein Open Sodium Phosphate (Phosphorus #1 250 Mg Tab) 250 mg PO QID [facility] Thiamine HCl (Thiamine 200 Mg/2 Ml Mdv) 100 mg IVPUSH DAILY [facility] Last Admin: 08/03/20 11:20 Dose: 100 mg Documented by: Discontinued Medications Diazepam (Diazepam 2 Mg Tab) 5 mg PO ONETIME ONE Stop: 08/03/20 22:55 Last Admin: 08/03/20 23:12 Dose: 5 mg Documented by: Lactated Ringer's (Ringers, Lactated) 1,000 mls @ 999 mls/hr IV .BOLUS ONE Stop: 08/03/20 13:28 Last Admin: 08/03/20 12:55 Dose: 999 mls/hr Documented by: Piperacillin Sod/Tazobactam (Sod 3.375 gm/ Sodium Chloride) 50 mls @ 100 mls/hr IV Q6H [facility] Last Admin: 08/03/20 18:09 Dose: Not Given Documented by: Lorazepam (Lorazepam 2 Mg/Ml Sdv) 2 mg IVPUSH ONETIME ONE Stop: 08/03/20 22:55 Last Admin: 08/03/20 23:12 Dose: 2 mg Documented by: - Exam Quality Assessment: No: Supplemental Oxygen General: Alert, Oriented, Cooperative, No Acute Distress Lungs: Clear to Auscultation, Normal Respiratory Effort Cardiovascular: Regular Rate, Regular Rhythm GI/Abdominal Exam: Normal Bowel Sounds, Soft, Tender (RUQ) Extremities: Normal Inspection, Normal Range of Motion, Non-Tender, No Pedal Edema Neurological: No New Focal Deficit Psy/Mental Status: Alert, Normal Affect, Normal Mood - Patient Data Lab Results Last 24 hrs: Laboratory Results - last 24 hr 08/03/20 08/03/20 08/04/20 Range/Units 07:05 07:05 05:00 WBC 11.87 H 6.35 (4.0-11.0) K/uL RBC 4.82 3.63 L (4.30-5.90) M/uL Hgb 15.6 12.0 (12.0-16.0) g/dL Hct 46.1 H 35.5 L (36.0-46.0) % MCV 95.6 97.8 (80.0-98.0) fL MCH 32.4 H 33.1 H (27.0-32.0) pg MCHC 33.8 33.8 (31.0-37.0) g/dL RDW Std Deviation 46.8 48.2 (28.0-62.0) fl RDW Coeff of Jennifer 14 14 (11.0-15.0) % Plt Count 279 201 (150-400) K/uL MPV 10.90 10.40 (7.40-12.00) fL Neut % (Auto) 69.9 56.4 (48.0-80.0) % Lymph % (Auto) 23.5 35.7 (16.0-40.0) % Jenkins % (Auto) 5.7 6.0 (0.0-15.0) % Eos % (Auto) 0.6 1.4 (0.0-7.0) % Baso % (Auto) 0.3 0.5 (0.0-1.5) % Neut # (Auto) 8.3 H 3.6 (1.4-5.7) K/uL Lymph # (Auto) 2.8 H 2.3 (0.6-2.4) K/uL Jenkins # (Auto) 0.7 0.4 (0.0-0.8) K/uL Eos # (Auto) 0.1 0.1 (0.0-0.7) K/uL Baso # (Auto) 0.0 0.0 (0.0-0.1) K/uL Nucleated RBC % 0.0 0.0 /100WBC Nucleated RBCs # 0 0 K/uL Sodium (136-145) mmol/L Potassium (3.5-5.1) mmol/L Chloride (98-107) mmol/L Carbon Dioxide (21.0-32.0) mmol/L BUN (7.0-18.0) mg/dL Creatinine (0.6-1.0) mg/dL Est Cr Clr Drug Dosing mL/min Estimated GFR (MDRD) ml/min Glucose (74-106) mg/dL Calcium (8.5-10.1) mg/dL Phosphorus 3.2 (2.6-4.7) mg/dL Magnesium 1.4 L (1.8-2.4) mg/dL Total Bilirubin (0.2-1.0) mg/dL AST (15-37) IU/L ALT (14-63) IU/L Alkaline Phosphatase (46-116) U/L Total Protein (6.4-8.2) g/dL Albumin (3.4-5.0) g/dL Globulin (2.6-4.0) g/dL Albumin/Globulin Ratio (0.9-1.6) Lipase 85 (73-393) U/L 08/04/20 Range/Units 05:00 WBC (4.0-11.0) K/uL RBC (4.30-5.90) M/uL Hgb (12.0-16.0) g/dL Hct (36.0-46.0) % MCV (80.0-98.0) fL MCH (27.0-32.0) pg MCHC (31.0-37.0) g/dL RDW Std Deviation (28.0-62.0) fl RDW Coeff of Jennifer (11.0-15.0) % Plt Count (150-400) K/uL MPV (7.40-12.00) fL Neut % (Auto) (48.0-80.0) % Lymph % (Auto) (16.0-40.0) % Jenkins % (Auto) (0.0-15.0) % Eos % (Auto) (0.0-7.0) % Baso % (Auto) (0.0-1.5) % Neut # (Auto) (1.4-5.7) K/uL Lymph # (Auto) (0.6-2.4) K/uL Jenkins # (Auto) (0.0-0.8) K/uL Eos # (Auto) (0.0-0.7) K/uL Baso # (Auto) (0.0-0.1) K/uL Nucleated RBC % /100WBC Nucleated RBCs # K/uL Sodium 136 (136-145) mmol/L Potassium 3.3 L (3.5-5.1) mmol/L Chloride 100 (98-107) mmol/L Carbon Dioxide 24.9 (21.0-32.0) mmol/L BUN 8 (7.0-18.0) mg/dL Creatinine 1.0 (0.6-1.0) mg/dL Est Cr Clr Drug Dosing 63.71 mL/min Estimated GFR (MDRD) 58.9 ml/min Glucose 96 (74-106) mg/dL Calcium 7.0 L (8.5-10.1) mg/dL Phosphorus 1.9 L (2.6-4.7) mg/dL Magnesium 1.5 L (1.8-2.4) mg/dL Total Bilirubin 0.9 (0.2-1.0) mg/dL AST 34 (15-37) IU/L ALT 33 (14-63) IU/L Alkaline Phosphatase 89 (46-116) U/L Total Protein 6.2 L (6.4-8.2) g/dL Albumin 3.0 L (3.4-5.0) g/dL Globulin 3.2 (2.6-4.0) g/dL Albumin/Globulin Ratio 0.9 (0.9-1.6) Lipase (73-393) U/L Result Diagrams: 08/04/20 05:00 08/04/20 05:00 Sepsis Event Note - Evaluation Sepsis Screening Result: No Definite Risk - Focused Exam Vital Signs: Vital Signs Temp Pulse Resp BP Pulse Ox 08/04/20 01:51 97 F 97 18 112/77 95 08/03/20 20:13 97 F 108 H 18 126/78 97 - Problem List & Annotations (1) JOHN (acute kidney injury) SNOMED Code(s): 78387847, 57030261 Code(s): N17.9 - ACUTE KIDNEY FAILURE, UNSPECIFIED Status: Acute Current Visit: Yes (2) Abdominal pain SNOMED Code(s): 27079016 Code(s): R10.9 - UNSPECIFIED ABDOMINAL PAIN Status: Acute Current Visit: No (3) Alcohol use disorder SNOMED Code(s): 0495152 Code(s): XKB7905 - Status: Acute Current Visit: No (4) Alcohol withdrawal SNOMED Code(s): 133532252 Code(s): F10.239 - ALCOHOL DEPENDENCE WITH WITHDRAWAL, UNSPECIFIED Status: Acute Current Visit: No Qualifiers: Complication of substance-induced condition: with perceptual disturbance Qualified Code(s): F10.232 - Alcohol dependence with withdrawal with perceptual disturbance (5) Chronic pancreatitis SNOMED Code(s): 993359260 Code(s): K86.1 - OTHER CHRONIC PANCREATITIS Status: Acute Current Visit: No (6) Dehydration SNOMED Code(s): 05609511 Code(s): E86.0 - DEHYDRATION Status: Acute Current Visit: No (7) Tobacco abuse SNOMED Code(s): 635068938 Code(s): Z72.0 - TOBACCO USE Status: Chronic Current Visit: No (8) Hypophosphatemia SNOMED Code(s): 8807206 Code(s): E83.39 - OTHER DISORDERS OF PHOSPHORUS METABOLISM Status: Acute Current Visit: Yes (9) Hypomagnesemia SNOMED Code(s): 309955152 Code(s): E83.42 - HYPOMAGNESEMIA Status: Acute Current Visit: Yes - Problem List Review Problem List Initiated/Reviewed/Updated: Yes - My Orders Last 24 Hours: My Active Orders 08/03/20 09:18 Patient Status [ADT] Routine CIWAA Assessment [RC] Q4H Oxygen Therapy [RC] PRN Up With Assistance [RC] ASDIRECTED VTE/DVT Education [RC] PER UNIT ROUTINE LORazepam [Ativan] See Protocol IVPUSH Q2H PRN Ondansetron [Zofran] 4 mg IVPUSH Q4H PRN Sodium Chloride 0.9% [Saline Flush] 2.5 ml FLUSH ASDIRECTED PRN Saline Lock Insert [OM.PC] Routine Resuscitation Status Routine 08/03/20 09:19 Antiembolic Devices [RC] PER UNIT ROUTINE Sequential Compression Device [OM.PC] Per Unit Routine 08/03/20 09:30 Folic Acid 1 mg SUBCUT DAILY Sodium Chloride 0.9% [Normal Saline] 1,000 ml IV Q6H Thiamine [Vitamin B-1] 100 mg IVPUSH DAILY 08/03/20 09:45 Pantoprazole [ProTONIX IV] 40 mg Sodium Chloride 0.9% [Normal Saline] 10 ml IV Q24H 08/03/20 12:27 HYDROmorphone [Dilaudid] 1 mg IVPUSH Q3H PRN 08/03/20 14:50 Nystatin [Nystop] 1 gm TOP TID 08/03/20 16:00 Nicotine [Habitrol] 14 mg TRDERM Q24H Piperacillin/Tazobactam [Piperacil-Tazobact] 3.375 gm Sodium Chloride 0.9% [Normal Saline] 50 ml IV Q6H 08/03/20 16:15 diazePAM [Valium.] 5 mg PO Q12H 08/03/20 17:12 Telemetry Monitoring [Cardiac Monitoring] [RC] Q8H 08/04/20 08:09 Magnesium Sulfate/Water [Magnesium Sulfate in Water 4 GM/100 ML] 4 gm Premix Bag 1 bag IV ONETIME 08/04/20 12:00 Phosphorus #1 [Neutra-Phos] 250 mg PO QID 08/05/20 05:11 CBC WITH AUTO DIFF [HEME] AM COMPREHENSIVE METABOLIC PN,CMP [CHEM] AM MAGNESIUM [CHEM] AM PHOSPHORUS [CHEM] AM - Plan Plan:: This 50-year-old female admitted with acute alcohol withdrawal and abdominal pain with JOHN 1. Acute alcohol withdrawal -Continue Valium 5 mg twice daily -CIWAA protocol with Ativan as needed -Folic acid and thiamine supplementation -Seizure precautions - Telemetry 2. Abdominal pain/right upper quadrant -Continues, but no N/V -Could be related to fatty liver and alcohol abuse -Dilaudid 1 mg every 3 hours as needed pain -We will obtain right upper quadrant ultrasound -Stop Zosyn -Advance diet to clear liquid diet 3. JOHN -Resolved 4. Hypophosphatemia/hypomagnesemia - Replace and monitor in am VTE prophylaxis: SCDs GI prophylaxis: Protonix CODE STATUS: Full code Dispo: 2 days pending improvement.
[2020-08-04] MEDS: Folic Acid 50 MG/10 ML MDV SUBCUT SCH (08:35)
[2020-08-04] MEDS: Thiamine 200 MG/2 ML MDV IVPUSH SCH (08:36)
[2020-08-04] MEDS: Pantoprazole 40 MG in Sodium Chloride 0.9% 10 ML IV SCH ×2 (08:38→08:46)
[2020-08-04] MEDS: HYDROmorphone 1 MG/ML Syringe IVPUSH PRN ×3 (08:53→21:24)
[2020-08-04] MEDS: LORazepam 2 MG/ML SDV IVPUSH PRN ×2 (09:10→23:49)
--- NOTE | 2020-08-04 12:27 | US ---
For Patients: As a result of the Century Cures Act, medical imaging exams and procedure reports are released immediately into your electronic medical record. You may view this report before your referring provider. If you have questions, please contact your health care provider. INDICATION: Abdominal pain COMPARISON: none TECHNIQUE: 2D muñiz scale imaging and color Doppler analysis was performed of the right upper quadrant. FINDINGS: The patient`s liver is of normal size and has uniform increased echogenicity. There is no evidence of a focal liver mass. Findings would indicate probable generalized hepatic steatosis. There is no evidence of ascites. There is a normal appearance of the hepatic IVC and proximal abdominal aorta. The pancreas appears normal. The gallbladder is of normal size and there is no evidence of intraluminal stones or sludge. The gallbladder wall measures 2 mm in thickness. The common bile duct is of normal size and measures 3 mm in diameter at the level of the wili hepatis. The right kidney measures 11.5 cm in length. There is no evidence of a stone or hydronephrosis within the right kidney. IMPRESSION: Echogenic liver suggesting generalized hepatic steatosis. Dictated by Jamaal Gastelum MD @ 08/04/2020 12:25:[address] Jamaal Gastelum @ Aug 04 2020 12:25PM
[2020-08-04] MEDS: Phosphorus #1 250 MG Tab PO SCH ×3 (12:54→23:49)
[2020-08-04] MEDS: Nicotine 14 MG/24 Hr Patch TRDERM SCH (16:50)
[2020-08-04] MEDS ORDERED: Albuterol/Ipratropium 3.0-0.5 MG/3 ML Neb Soln NEB PRN (20:26)
[2020-08-05] MEDS: Sodium Chloride 0.9% 1,000 ML IV SCH ×4 (03:35→22:26)
[2020-08-05] MEDS: HYDROmorphone 1 MG/ML Syringe IVPUSH PRN ×4 (03:46→20:58)
[2020-08-05] MEDS: Diazepam 5 MG Tab PO SCH ×3 (06:11→22:45)
[2020-08-05] MEDS: Nystatin Topical Powder 15 GM Bottle TOP SCH ×3 (06:11→22:45)
[2020-08-05] MEDS: Phosphorus #1 250 MG Tab PO SCH ×4 (06:11→23:30)
[2020-08-05 06:37] LABS: BLOOD UREA NITROGEN,BUN 5 mg/dL (7.0-18.0); CARBON DIOXIDE,CO2 29.6 mmol/L (21.0-32.0); CHLORIDE,CL 100 mmol/L (98-107); GLUCOSE RANDOM 116 mg/dL (74-106); POTASSIUM,K 3.7 mmol/L (3.5-5.1); SODIUM,NA 136 mmol/L (136-145)
[2020-08-05] MEDS: Folic Acid 50 MG/10 ML MDV SUBCUT SCH (08:27)
[2020-08-05] MEDS: Thiamine 200 MG/2 ML MDV IVPUSH SCH (08:30)
[2020-08-05] MEDS: Pantoprazole 40 MG in Sodium Chloride 0.9% 10 ML IV SCH (09:22)
[2020-08-05] MEDS: Metoprolol Tartrate 25 MG Tab PO SCH ×2 (14:06→23:30)
[2020-08-05] MEDS: Nicotine 14 MG/24 Hr Patch TRDERM SCH (15:43)
[2020-08-05] MEDS ORDERED: Potassium Chloride 20 MEQ Tab.ER PO ONE (16:53)
--- NOTE | 2020-08-05 17:13 | PCM.PN ---
- General Info Date of Service: 08/05/20 Admission Dx/Problem (Free Text): Admission Diagnosis/Problem Admission Diagnosis/Problem Alcohol withdrawal syndrome Subjective Update: Patient seen at bedside, is with her family member, was emotional and tearful when I entered the room. Patient states that her abdominal pain is better and she wants to eat some soft diet. Still continues to complain of hallucination which are more auditory in nature but sometimes there are some visual hallucinations as well. There was episode of 11 beats of nonsustained V. tach yesterday but patient did not complain of any chest pain or shortness of breath. - Review of Systems General: Reports: Weakness. Denies: Fever, Fatigue Pulmonary: Denies: Shortness of Breath, Pleuritic Chest Pain Cardiovascular: Denies: Chest Pain, Palpitations Gastrointestinal: Reports: Abdominal Pain. Denies: Constipation, Decreased Appetite, Diarrhea Genitourinary: Denies: Dysuria, Frequency, Burning Musculoskeletal: Denies: Neck Pain, Shoulder Pain, Arm Pain Skin: Denies: Cyanosis, Jaundice, Mottled - Patient Data Vitals - Most Recent: Last Vital Signs Temp 36.3 C 08/05/20 15:41 Pulse 81 08/05/20 15:41 Resp 18 08/05/20 15:41 BP 120/75 08/05/20 15:41 Pulse Ox 98 08/05/20 15:41 Weight - Most Recent: 112.128 kg I&O - Last 24 Hours: Intake & Output 08/05/20 08/05/20 08/05/20 06:59 14:59 22:59 Intake Total 3431 3699 Output Total 1200 Balance 2231 3699 Lab Results Last 24 Hours: Laboratory Results - last 24 hr 08/05/20 08/05/20 Range/Units 06:10 06:10 WBC 5.39 (4.0-11.0) K/uL RBC 3.95 L (4.30-5.90) M/uL Hgb 12.8 (12.0-16.0) g/dL Hct 39.1 (36.0-46.0) % MCV 99.0 H (80.0-98.0) fL MCH 32.4 H (27.0-32.0) pg MCHC 32.7 (31.0-37.0) g/dL RDW Std Deviation 48.6 (28.0-62.0) fl RDW Coeff of Jennifer 13 (11.0-15.0) % Plt Count 202 (150-400) K/uL MPV 9.90 (7.40-12.00) fL Neut % (Auto) 57.4 (48.0-80.0) % Lymph % (Auto) 35.8 (16.0-40.0) % Pierce % (Auto) 4.3 (0.0-15.0) % Eos % (Auto) 1.9 (0.0-7.0) % Baso % (Auto) 0.6 (0.0-1.5) % Neut # (Auto) 3.1 (1.4-5.7) K/uL Lymph # (Auto) 1.9 (0.6-2.4) K/uL Pierce # (Auto) 0.2 (0.0-0.8) K/uL Eos # (Auto) 0.1 (0.0-0.7) K/uL Baso # (Auto) 0.0 (0.0-0.1) K/uL Nucleated RBC % 0.0 /100WBC Nucleated RBCs # 0 K/uL Sodium 136 (136-145) mmol/L Potassium 3.7 (3.5-5.1) mmol/L Chloride 100 (98-107) mmol/L Carbon Dioxide 29.6 (21.0-32.0) mmol/L BUN 5 L (7.0-18.0) mg/dL Creatinine 0.9 (0.6-1.0) mg/dL Est Cr Clr Drug Dosing 70.78 mL/min Estimated GFR (MDRD) > 60.0 ml/min Glucose 116 H (74-106) mg/dL Calcium 7.3 L (8.5-10.1) mg/dL Phosphorus 2.6 (2.6-4.7) mg/dL Magnesium 2.5 H (1.8-2.4) mg/dL Total Bilirubin 0.3 (0.2-1.0) mg/dL AST 62 H (15-37) IU/L ALT 38 (14-63) IU/L Alkaline Phosphatase 95 (46-116) U/L Total Protein 6.9 (6.4-8.2) g/dL Albumin 3.4 (3.4-5.0) g/dL Globulin 3.5 (2.6-4.0) g/dL Albumin/Globulin Ratio 1.0 (0.9-1.6) Med Orders - Current: Current Medications Albuterol/Ipratropium (Albuterol/Ipratropium 3.0-0.5 Mg/3 Ml Neb Soln) 3 ml NEB Q4HRRT PRN PRN Reason: Wheezing Last Admin: 08/04/20 21:25 Dose: 3 ml Documented by: Diazepam (Diazepam 5 Mg Tab) 5 mg PO TID ON LICENSE OF [facility] Last Admin: 08/05/20 13:23 Dose: 5 mg Documented by: Folic Acid (Folic Acid 50 Mg/10 Ml Mdv) 1 mg SUBCUT DAILY ON LICENSE OF [facility] Last Admin: 08/05/20 08:27 Dose: 1 mg Documented by: Hydromorphone HCl (Hydromorphone 1 Mg/Ml Syringe) 1 mg IVPUSH Q3H PRN PRN Reason: Pain Last Admin: 08/05/20 13:58 Dose: 1 mg Documented by: Sodium Chloride (Normal Saline) 1,000 mls @ 150 mls/hr IV Q6H ON LICENSE OF [facility] Last Admin: 08/05/20 15:46 Dose: 150 mls/hr Documented by: Pantoprazole Sodium 40 mg/ (Sodium Chloride) 10 mls @ 300 mls/hr IV Q24H ON LICENSE OF [facility] Last Admin: 08/05/20 09:22 Dose: 300 mls/hr Documented by: Lorazepam (Lorazepam 2 Mg/Ml Sdv) 0 mg IVPUSH Q2H PRN; Protocol PRN Reason: CIWAA Last Admin: 08/04/20 23:49 Dose: 1 mg Documented by: Metoprolol Tartrate (Metoprolol Tartrate 25 Mg Tab) 12.5 mg PO Q12H ON LICENSE OF [facility] Last Admin: 08/05/20 14:06 Dose: 12.5 mg Documented by: Nicotine (Nicotine 14 Mg/24 Hr Patch) 14 mg TRDERM Q24H ON LICENSE OF [facility] Last Admin: 08/05/20 15:43 Dose: 14 mg Documented by: Nystatin (Nystatin Topical Powder 15 Gm Bottle) 1 gm TOP TID ON LICENSE OF [facility] Last Admin: 08/05/20 13:23 Dose: 1 applic Documented by: Ondansetron HCl (Ondansetron 4 Mg/2 Ml Sdv) 4 mg IVPUSH Q4H PRN PRN Reason: Nausea Sodium Chloride (Sodium Chloride 0.9% 2.5 Ml Syringe) 2.5 ml FLUSH ASDIRECTED PRN PRN Reason: Keep Vein Open Sodium Phosphate (Phosphorus #1 250 Mg Tab) 250 mg PO QID ON LICENSE OF [facility] Last Admin: 08/05/20 11:23 Dose: 250 mg Documented by: Thiamine HCl (Thiamine 200 Mg/2 Ml Mdv) 100 mg IVPUSH DAILY ON LICENSE OF [facility] Last Admin: 08/05/20 08:30 Dose: 100 mg Documented by: Discontinued Medications Diazepam (Diazepam 5 Mg Tab) 5 mg PO Q12H ON LICENSE OF [facility] Last Admin: 08/04/20 05:32 Dose: 5 mg Documented by: Diazepam (Diazepam 2 Mg Tab) 5 mg PO ONETIME ONE Stop: 08/03/20 22:55 Last Admin: 08/03/20 23:12 Dose: 5 mg Documented by: Lactated Ringer's (Ringers, Lactated) 1,000 mls @ 999 mls/hr IV .BOLUS ONE Stop: 08/03/20 13:28 Last Admin: 08/03/20 12:55 Dose: 999 mls/hr Documented by: Piperacillin Sod/Tazobactam (Sod 3.375 gm/ Sodium Chloride) 50 mls @ 100 mls/hr IV Q6H ON LICENSE OF [facility] Last Admin: 08/03/20 18:09 Dose: Not Given Documented by: Piperacillin Sod/Tazobactam (Sod 3.375 gm/ Sodium Chloride) 50 mls @ 100 mls/hr IV Q6H ON LICENSE OF [facility] Last Admin: 08/04/20 10:39 Dose: Not Given Documented by: Magnesium Sulfate 4 gm/ Premix 100 mls @ 33.333 mls/hr IV ONETIME ONE Stop: 08/04/20 11:08 Last Admin: 08/04/20 08:35 Dose: 33.333 mls/hr Documented by: Lorazepam (Lorazepam 2 Mg/Ml Sdv) 2 mg IVPUSH ONETIME ONE Stop: 08/03/20 22:55 Last Admin: 08/03/20 23:12 Dose: 2 mg Documented by: Potassium Chloride (Potassium Chloride 20 Meq Tab.Er) 20 meq PO ONETIME ONE Stop: 08/05/20 16:54 - Exam General: Alert, Oriented Lungs: Clear to Auscultation, Normal Respiratory Effort Cardiovascular: Regular Rate, Regular Rhythm GI/Abdominal Exam: Normal Bowel Sounds, Soft, Tender (Improved) Back Exam: Normal Inspection, Full Range of Motion Extremities: Normal Inspection, Normal Range of Motion - Patient Data Lab Results Last 24 hrs: Laboratory Results - last 24 hr 08/05/20 08/05/20 Range/Units 06:10 06:10 WBC 5.39 (4.0-11.0) K/uL RBC 3.95 L (4.30-5.90) M/uL Hgb 12.8 (12.0-16.0) g/dL Hct 39.1 (36.0-46.0) % MCV 99.0 H (80.0-98.0) fL MCH 32.4 H (27.0-32.0) pg MCHC 32.7 (31.0-37.0) g/dL RDW Std Deviation 48.6 (28.0-62.0) fl RDW Coeff of Jennifer 13 (11.0-15.0) % Plt Count 202 (150-400) K/uL MPV 9.90 (7.40-12.00) fL Neut % (Auto) 57.4 (48.0-80.0) % Lymph % (Auto) 35.8 (16.0-40.0) % Pierce % (Auto) 4.3 (0.0-15.0) % Eos % (Auto) 1.9 (0.0-7.0) % Baso % (Auto) 0.6 (0.0-1.5) % Neut # (Auto) 3.1 (1.4-5.7) K/uL Lymph # (Auto) 1.9 (0.6-2.4) K/uL Pierce # (Auto) 0.2 (0.0-0.8) K/uL Eos # (Auto) 0.1 (0.0-0.7) K/uL Baso # (Auto) 0.0 (0.0-0.1) K/uL Nucleated RBC % 0.0 /100WBC Nucleated RBCs # 0 K/uL Sodium 136 (136-145) mmol/L Potassium 3.7 (3.5-5.1) mmol/L Chloride 100 (98-107) mmol/L Carbon Dioxide 29.6 (21.0-32.0) mmol/L BUN 5 L (7.0-18.0) mg/dL Creatinine 0.9 (0.6-1.0) mg/dL Est Cr Clr Drug Dosing 70.78 mL/min Estimated GFR (MDRD) > 60.0 ml/min Glucose 116 H (74-106) mg/dL Calcium 7.3 L (8.5-10.1) mg/dL Phosphorus 2.6 (2.6-4.7) mg/dL Magnesium 2.5 H (1.8-2.4) mg/dL Total Bilirubin 0.3 (0.2-1.0) mg/dL AST 62 H (15-37) IU/L ALT 38 (14-63) IU/L Alkaline Phosphatase 95 (46-116) U/L Total Protein 6.9 (6.4-8.2) g/dL Albumin 3.4 (3.4-5.0) g/dL Globulin 3.5 (2.6-4.0) g/dL Albumin/Globulin Ratio 1.0 (0.9-1.6) Result Diagrams: 08/05/20 06:10 08/05/20 06:10 Sepsis Event Note - Evaluation Sepsis Screening Result: No Definite Risk - Focused Exam Vital Signs: Vital Signs Temp Pulse Pulse Resp BP BP Pulse Ox 08/05/20 15:41 36.3 C 81 18 120/75 98 08/05/20 14:06 77 110/77 08/05/20 11:32 36.4 C 94 17 116/83 97 08/05/20 07:40 36.4 C 86 16 112/70 96 - Problem List & Annotations (1) Alcohol use disorder SNOMED Code(s): 1449376 Code(s): QMM1639 - Status: Acute Current Visit: No (2) Alcohol withdrawal SNOMED Code(s): 276472321 Code(s): F10.239 - ALCOHOL DEPENDENCE WITH WITHDRAWAL, UNSPECIFIED Status: Acute Current Visit: No Qualifiers: Complication of substance-induced condition: with perceptual disturbance Qualified Code(s): F10.232 - Alcohol dependence with withdrawal with perceptual disturbance - Problem List Review Problem List Initiated/Reviewed/Updated: Yes - My Orders Last 24 Hours: My Active Orders 08/04/20 20:26 RT Aerosol Therapy [RC] ASDIRECTED Albuterol/Ipratropium [DuoNeb 3.0-0.5 MG/3 ML] 3 ml NEB Q4HRRT PRN 08/05/20 12:15 Metoprolol Tartrate [Lopressor] 12.5 mg PO Q12H 08/06/20 Breakfast Soft Diet [DIET] - Plan Plan:: This 50-year-old female admitted with acute alcohol withdrawal and abdominal pain with JOHN 1. Acute alcohol withdrawal -Continue Valium 5 mg twice daily -CIWAA protocol with Ativan as needed -Folic acid and thiamine supplementation -Seizure precautions - Telemetry, patient had one episode of nonsustained V. tach, will start patient on low-dose metoprolol, may need a 2D echo sometime in future 2. Abdominal pain/right upper quadrant -Continues, but no N/V -Could be related to fatty liver and alcohol abuse -Dilaudid 1 mg every 3 hours as needed pain -Right upper quadrant ultrasound noted, no acute findings -We will advance diet to soft diet 3. JOHN -Resolved 4. Hypophosphatemia/hypomagnesemia -Resolved VTE prophylaxis: SCDs GI prophylaxis: Protonix CODE STATUS: Full code Dispo: 2 days pending improvement.
[2020-08-05] MEDS: LORazepam 2 MG/ML SDV IVPUSH PRN (17:21)
[2020-08-06] MEDS: HYDROmorphone 1 MG/ML Syringe IVPUSH PRN ×2 (01:21→05:41)
[2020-08-06] MEDS: Diazepam 5 MG Tab PO SCH ×2 (05:04→20:34)
[2020-08-06] MEDS: Phosphorus #1 250 MG Tab PO SCH ×3 (05:04→17:43)
[2020-08-06] MEDS: Sodium Chloride 0.9% 1,000 ML IV SCH ×4 (05:06→20:35)
[2020-08-06] MEDS: Nystatin Topical Powder 15 GM Bottle TOP SCH ×3 (05:07→22:16)
[2020-08-06 07:15] LABS: BLOOD UREA NITROGEN,BUN 3 mg/dL (7.0-18.0); CARBON DIOXIDE,CO2 29.7 mmol/L (21.0-32.0); CHLORIDE,CL 103 mmol/L (98-107); GLUCOSE RANDOM 92 mg/dL (74-106); POTASSIUM,K 3.7 mmol/L (3.5-5.1); SODIUM,NA 138 mmol/L (136-145)
[2020-08-06] MEDS: Folic Acid 50 MG/10 ML MDV SUBCUT SCH (08:17)
[2020-08-06] MEDS: Thiamine 200 MG/2 ML MDV IVPUSH SCH (08:18)
[2020-08-06] MEDS: oxyCODONE 5 MG Tab PO PRN ×2 (10:52→20:34)
[2020-08-06] MEDS: Pantoprazole 40 MG in Sodium Chloride 0.9% 10 ML IV SCH (10:52)
[2020-08-06] MEDS: Metoprolol Tartrate 25 MG Tab PO SCH (11:27)
--- NOTE | 2020-08-06 14:17 | PCM.PN ---
- General Info Date of Service: 08/06/20 Admission Dx/Problem (Free Text): Admission Diagnosis/Problem Admission Diagnosis/Problem Alcohol withdrawal syndrome Subjective Update: Patient seen at bedside,c/o some pain, but tolerating diet well, hallucinations are better today Functional Status: Reports: Pain Controlled, Tolerating Diet, Ambulating, Urinating - Review of Systems General: Reports: Weakness. Denies: Fever, Fatigue Pulmonary: Denies: Shortness of Breath, Pleuritic Chest Pain Cardiovascular: Denies: Chest Pain, Palpitations Gastrointestinal: Denies: Abdominal Pain, Constipation, Decreased Appetite Genitourinary: Denies: Dysuria, Frequency, Burning Musculoskeletal: Denies: Neck Pain, Shoulder Pain Skin: Denies: Cyanosis, Jaundice, Mottled Neurological: Denies: Confusion, Dizziness, Headache Psychiatric: Reports: Mood Lability, Anxiety. Denies: Confusion, Depression - Patient Data Vitals - Most Recent: Last Vital Signs Temp 36.5 C 08/06/20 11:21 Pulse 85 08/06/20 11:21 Resp 14 08/06/20 11:21 BP 102/67 08/06/20 11:23 Pulse Ox 90 L 08/06/20 11:21 Weight - Most Recent: 112.128 kg I&O - Last 24 Hours: Intake & Output 08/05/20 08/06/20 08/06/20 22:59 06:59 14:59 Intake Total 3699 1450 634 Balance 3699 1450 634 Lab Results Last 24 Hours: Laboratory Results - last 24 hr 08/06/20 08/06/20 Range/Units 06:00 06:00 WBC 4.68 (4.0-11.0) K/uL RBC 3.44 L (4.30-5.90) M/uL Hgb 11.3 L (12.0-16.0) g/dL Hct 34.3 L (36.0-46.0) % MCV 99.7 H (80.0-98.0) fL MCH 32.8 H (27.0-32.0) pg MCHC 32.9 (31.0-37.0) g/dL RDW Std Deviation 49.2 (28.0-62.0) fl RDW Coeff of Jennifer 14 (11.0-15.0) % Plt Count 186 (150-400) K/uL MPV 10.20 (7.40-12.00) fL Neut % (Auto) 55.2 (48.0-80.0) % Lymph % (Auto) 37.2 (16.0-40.0) % [place] % (Auto) 5.1 (0.0-15.0) % Eos % (Auto) 1.9 (0.0-7.0) % Baso % (Auto) 0.6 (0.0-1.5) % Neut # (Auto) 2.6 (1.4-5.7) K/uL Lymph # (Auto) 1.7 (0.6-2.4) K/uL [place] # (Auto) 0.2 (0.0-0.8) K/uL Eos # (Auto) 0.1 (0.0-0.7) K/uL Baso # (Auto) 0.0 (0.0-0.1) K/uL Nucleated RBC % 0.7 /100WBC Nucleated RBCs # 0 K/uL Sodium 138 (136-145) mmol/L Potassium 3.7 (3.5-5.1) mmol/L Chloride 103 (98-107) mmol/L Carbon Dioxide 29.7 (21.0-32.0) mmol/L BUN 3 L (7.0-18.0) mg/dL Creatinine 0.8 (0.6-1.0) mg/dL Est Cr Clr Drug Dosing 79.63 mL/min Estimated GFR (MDRD) > 60.0 ml/min Glucose 92 (74-106) mg/dL Calcium 7.5 L (8.5-10.1) mg/dL Phosphorus 2.6 (2.6-4.7) mg/dL Magnesium 1.9 (1.8-2.4) mg/dL Med Orders - Current: Current Medications Albuterol/Ipratropium (Albuterol/Ipratropium 3.0-0.5 Mg/3 Ml Neb Soln) 3 ml NEB Q4HRRT PRN PRN Reason: Wheezing Last Admin: 08/04/20 21:25 Dose: 3 ml Documented by: Diazepam (Diazepam 5 Mg Tab) 5 mg PO BID DIANA Folic Acid (Folic Acid 50 Mg/10 Ml Mdv) 1 mg SUBCUT DAILY DIANA Last Admin: 08/06/20 08:17 Dose: 1 mg Documented by: Sodium Chloride (Normal Saline) 1,000 mls @ 150 mls/hr IV Q6H [facility] Last Admin: 08/06/20 12:19 Dose: 150 mls/hr Documented by: Pantoprazole Sodium 40 mg/ (Sodium Chloride) 10 mls @ 300 mls/hr IV Q24H [facility] Last Admin: 08/06/20 10:52 Dose: 300 mls/hr Documented by: Lorazepam (Lorazepam 2 Mg/Ml Sdv) 0 mg IVPUSH Q2H PRN; Protocol PRN Reason: CIWAA Last Admin: 08/05/20 17:21 Dose: 1 mg Documented by: Metoprolol Tartrate (Metoprolol Tartrate 25 Mg Tab) 12.5 mg PO Q12H [facility] Last Admin: 08/06/20 11:27 Dose: Not Given Documented by: Nicotine (Nicotine 14 Mg/24 Hr Patch) 14 mg TRDERM Q24H [facility] Last Admin: 08/05/20 15:43 Dose: 14 mg Documented by: Nystatin (Nystatin Topical Powder 15 Gm Bottle) 1 gm TOP TID [facility] Last Admin: 08/06/20 05:07 Dose: 1 applic Documented by: Ondansetron HCl (Ondansetron 4 Mg/2 Ml Sdv) 4 mg IVPUSH Q4H PRN PRN Reason: Nausea Oxycodone HCl (Oxycodone 5 Mg Tab) 5 mg PO Q8H PRN PRN Reason: Pain Last Admin: 08/06/20 10:52 Dose: 5 mg Documented by: Sodium Chloride (Sodium Chloride 0.9% 2.5 Ml Syringe) 2.5 ml FLUSH ASDIRECTED PRN PRN Reason: Keep Vein Open Sodium Phosphate (Phosphorus #1 250 Mg Tab) 250 mg PO QID [facility] Last Admin: 08/06/20 11:24 Dose: 250 mg Documented by: Thiamine HCl (Thiamine 200 Mg/2 Ml Mdv) 100 mg IVPUSH DAILY [facility] Last Admin: 08/06/20 08:18 Dose: 100 mg Documented by: Discontinued Medications Diazepam (Diazepam 5 Mg Tab) 5 mg PO Q12H [facility] Last Admin: 08/04/20 05:32 Dose: 5 mg Documented by: Diazepam (Diazepam 2 Mg Tab) 5 mg PO ONETIME ONE Stop: 08/03/20 22:55 Last Admin: 08/03/20 23:12 Dose: 5 mg Documented by: Diazepam (Diazepam 5 Mg Tab) 5 mg PO TID [facility] Last Admin: 08/06/20 05:04 Dose: 5 mg Documented by: Hydromorphone HCl (Hydromorphone 1 Mg/Ml Syringe) 1 mg IVPUSH Q3H PRN PRN Reason: Pain Last Admin: 08/05/20 13:58 Dose: 1 mg Documented by: Hydromorphone HCl (Hydromorphone 1 Mg/Ml Syringe) 1 mg IVPUSH Q4H PRN PRN Reason: Pain Last Admin: 08/06/20 05:41 Dose: 1 mg Documented by: Lactated Ringer's (Ringers, Lactated) 1,000 mls @ 999 mls/hr IV .BOLUS ONE Stop: 08/03/20 13:28 Last Admin: 08/03/20 12:55 Dose: 999 mls/hr Documented by: Piperacillin Sod/Tazobactam (Sod 3.375 gm/ Sodium Chloride) 50 mls @ 100 mls/hr IV Q6H [facility] Last Admin: 08/03/20 18:09 Dose: Not Given Documented by: Piperacillin Sod/Tazobactam (Sod 3.375 gm/ Sodium Chloride) 50 mls @ 100 mls/hr IV Q6H [facility] Last Admin: 08/04/20 10:39 Dose: Not Given Documented by: Magnesium Sulfate 4 gm/ Premix 100 mls @ 33.333 mls/hr IV ONETIME ONE Stop: 08/04/20 11:08 Last Admin: 08/04/20 08:35 Dose: 33.333 mls/hr Documented by: Lorazepam (Lorazepam 2 Mg/Ml Sdv) 2 mg IVPUSH ONETIME ONE Stop: 08/03/20 22:55 Last Admin: 08/03/20 23:12 Dose: 2 mg Documented by: Potassium Chloride (Potassium Chloride 20 Meq Tab.Er) 20 meq PO ONETIME ONE Stop: 08/05/20 16:54 Last Admin: 08/05/20 17:15 Dose: 20 meq Documented by: - Exam General: Alert, Oriented Neck: Supple Lungs: Clear to Auscultation, Normal Respiratory Effort GI/Abdominal Exam: Normal Bowel Sounds, Soft, Guarding, Tender (improving). No: Hepatomegaly, Splenomegaly Back Exam: Normal Inspection Extremities: Normal Inspection, Normal Range of Motion, No Pedal Edema - Patient Data Lab Results Last 24 hrs: Laboratory Results - last 24 hr 08/06/20 08/06/20 Range/Units 06:00 06:00 WBC 4.68 (4.0-11.0) K/uL RBC 3.44 L (4.30-5.90) M/uL Hgb 11.3 L (12.0-16.0) g/dL Hct 34.3 L (36.0-46.0) % MCV 99.7 H (80.0-98.0) fL MCH 32.8 H (27.0-32.0) pg MCHC 32.9 (31.0-37.0) g/dL RDW Std Deviation 49.2 (28.0-62.0) fl RDW Coeff of Jennifer 14 (11.0-15.0) % Plt Count 186 (150-400) K/uL MPV 10.20 (7.40-12.00) fL Neut % (Auto) 55.2 (48.0-80.0) % Lymph % (Auto) 37.2 (16.0-40.0) % [place] % (Auto) 5.1 (0.0-15.0) % Eos % (Auto) 1.9 (0.0-7.0) % Baso % (Auto) 0.6 (0.0-1.5) % Neut # (Auto) 2.6 (1.4-5.7) K/uL Lymph # (Auto) 1.7 (0.6-2.4) K/uL [place] # (Auto) 0.2 (0.0-0.8) K/uL Eos # (Auto) 0.1 (0.0-0.7) K/uL Baso # (Auto) 0.0 (0.0-0.1) K/uL Nucleated RBC % 0.7 /100WBC Nucleated RBCs # 0 K/uL Sodium 138 (136-145) mmol/L Potassium 3.7 (3.5-5.1) mmol/L Chloride 103 (98-107) mmol/L Carbon Dioxide 29.7 (21.0-32.0) mmol/L BUN 3 L (7.0-18.0) mg/dL Creatinine 0.8 (0.6-1.0) mg/dL Est Cr Clr Drug Dosing 79.63 mL/min Estimated GFR (MDRD) > 60.0 ml/min Glucose 92 (74-106) mg/dL Calcium 7.5 L (8.5-10.1) mg/dL Phosphorus 2.6 (2.6-4.7) mg/dL Magnesium 1.9 (1.8-2.4) mg/dL Result Diagrams: 08/06/20 06:00 08/06/20 06:00 Sepsis Event Note - Evaluation Sepsis Screening Result: No Definite Risk - Focused Exam Vital Signs: Vital Signs Temp Pulse Resp BP BP Pulse Ox 08/06/20 11:23 102/67 08/06/20 11:21 36.5 C 85 14 98/61 90 L 08/06/20 08:28 36.4 C 104 H 18 105/73 94 L 08/06/20 05:00 37.0 C 89 16 93 L - Problem List & Annotations (1) Alcohol use disorder SNOMED Code(s): 5798773 Code(s): ZMI8269 - Status: Acute Current Visit: No (2) Alcohol withdrawal SNOMED Code(s): 985017272 Code(s): F10.239 - ALCOHOL DEPENDENCE WITH WITHDRAWAL, UNSPECIFIED Status: Acute Current Visit: No Qualifiers: Complication of substance-induced condition: with perceptual disturbance Qualified Code(s): F10.232 - Alcohol dependence with withdrawal with perceptual disturbance - Problem List Review Problem List Initiated/Reviewed/Updated: Yes - My Orders Last 24 Hours: My Active Orders 08/06/20 Breakfast Soft Diet [DIET] 08/06/20 09:33 oxyCODONE 5 mg PO Q8H PRN 08/06/20 21:00 diazePAM [Valium.] 5 mg PO BID - Plan Plan:: This 50-year-old female admitted with acute alcohol withdrawal and abdominal pain with JOHN 1. Acute alcohol withdrawal -decrease Valium 5 mg twice daily -CIWAA protocol with Ativan as needed -Folic acid and thiamine supplementation -Seizure precautions - Telemetry, patient had one episode of nonsustained V. tach,cont low-dose metoprolol, may need a 2D echo sometime in future 2. Abdominal pain/right upper quadrant -improved, but no N/V -Could be related to fatty liver and alcohol abuse -stop Dilaudid switch to oral oxycodone -Right upper quadrant ultrasound noted, no acute findings -cont soft diet 3. JOHN -Resolved 4. Hypophosphatemia/hypomagnesemia -Resolved VTE prophylaxis: SCDs GI prophylaxis: Protonix CODE STATUS: Full code Dispo: 2 days pending improvement.
[2020-08-06] MEDS ORDERED: Melatonin 3 MG Tab PO PRN (14:23)
[2020-08-06] MEDS: Nicotine 14 MG/24 Hr Patch TRDERM SCH (15:43)
[2020-08-06] MEDS ORDERED: Lactated Ringers 500 ML IV ONE (15:59)
[2020-08-07] MEDS: Metoprolol Tartrate 25 MG Tab PO SCH ×2 (00:05→11:58)
[2020-08-07] MEDS: Phosphorus #1 250 MG Tab PO SCH ×3 (00:09→11:58)
[2020-08-07] MEDS: Sodium Chloride 0.9% 1,000 ML IV SCH ×3 (01:48→08:35)
[2020-08-07] MEDS: oxyCODONE 5 MG Tab PO PRN (05:07)
[2020-08-07] MEDS: Nystatin Topical Powder 15 GM Bottle TOP SCH (05:08)
[2020-08-07 06:35] LABS: BLOOD UREA NITROGEN,BUN 3 mg/dL (7.0-18.0); CARBON DIOXIDE,CO2 28.8 mmol/L (21.0-32.0); CHLORIDE,CL 108 mmol/L (98-107); GLUCOSE RANDOM 114 mg/dL (74-106); POTASSIUM,K 3.3 mmol/L (3.5-5.1); SODIUM,NA 144 mmol/L (136-145)
[2020-08-07] MEDS: Diazepam 5 MG Tab PO SCH (08:23)
[2020-08-07] MEDS: Folic Acid 50 MG/10 ML MDV SUBCUT SCH (08:25)
[2020-08-07] MEDS: Thiamine 200 MG/2 ML MDV IVPUSH SCH (08:27)
--- NOTE | 2020-08-07 08:42 | PCM.PN ---
- General Info Date of Service: 08/07/20 Admission Dx/Problem (Free Text): Admission Diagnosis/Problem Admission Diagnosis/Problem Alcohol withdrawal syndrome - Patient Data Vitals - Most Recent: Last Vital Signs Temp 96.3 F L 08/07/20 05:07 Pulse 77 08/07/20 05:07 Resp 16 08/07/20 05:07 BP 120/71 08/07/20 05:07 Pulse Ox 88 L 08/07/20 05:07 Weight - Most Recent: 112.128 kg I&O - Last 24 Hours: Intake & Output 08/06/20 08/07/20 08/07/20 22:59 06:59 14:59 Intake Total 4514 800 Balance 4514 800 Lab Results Last 24 Hours: Laboratory Results - last 24 hr 08/07/20 08/07/20 Range/Units 05:45 05:45 WBC 4.59 (4.0-11.0) K/uL RBC 3.55 L (4.30-5.90) M/uL Hgb 11.5 L (12.0-16.0) g/dL Hct 35.4 L (36.0-46.0) % MCV 99.7 H (80.0-98.0) fL MCH 32.4 H (27.0-32.0) pg MCHC 32.5 (31.0-37.0) g/dL RDW Std Deviation 49.9 (28.0-62.0) fl RDW Coeff of Jennifer 14 (11.0-15.0) % Plt Count 170 (150-400) K/uL MPV 9.80 (7.40-12.00) fL Neut % (Auto) 54.8 (48.0-80.0) % Lymph % (Auto) 35.3 (16.0-40.0) % Riley % (Auto) 7.8 (0.0-15.0) % Eos % (Auto) 1.7 (0.0-7.0) % Baso % (Auto) 0.4 (0.0-1.5) % Neut # (Auto) 2.5 (1.4-5.7) K/uL Lymph # (Auto) 1.6 (0.6-2.4) K/uL Riley # (Auto) 0.4 (0.0-0.8) K/uL Eos # (Auto) 0.1 (0.0-0.7) K/uL Baso # (Auto) 0.0 (0.0-0.1) K/uL Nucleated RBC % 0.5 /100WBC Nucleated RBCs # 0 K/uL Sodium 144 (136-145) mmol/L Potassium 3.3 L (3.5-5.1) mmol/L Chloride 108 H (98-107) mmol/L Carbon Dioxide 28.8 (21.0-32.0) mmol/L BUN 3 L (7.0-18.0) mg/dL Creatinine 0.7 (0.6-1.0) mg/dL Est Cr Clr Drug Dosing 91.01 mL/min Estimated GFR (MDRD) > 60.0 ml/min Glucose 114 H (74-106) mg/dL Calcium 7.4 L (8.5-10.1) mg/dL Phosphorus 3.0 (2.6-4.7) mg/dL Magnesium 1.6 L (1.8-2.4) mg/dL Total Bilirubin 0.2 (0.2-1.0) mg/dL AST 36 (15-37) IU/L ALT 37 (14-63) IU/L Alkaline Phosphatase 74 (46-116) U/L Total Protein 5.2 L (6.4-8.2) g/dL Albumin 2.3 L (3.4-5.0) g/dL Globulin 2.9 (2.6-4.0) g/dL Albumin/Globulin Ratio 0.8 L (0.9-1.6) Med Orders - Current: Current Medications Albuterol/Ipratropium (Albuterol/Ipratropium 3.0-0.5 Mg/3 Ml Neb Soln) 3 ml NEB Q4HRRT PRN PRN Reason: Wheezing Last Admin: 08/04/20 21:25 Dose: 3 ml Documented by: Diazepam (Diazepam 5 Mg Tab) 5 mg PO BID DIANA Last Admin: 08/07/20 08:23 Dose: 5 mg Documented by: Folic Acid (Folic Acid 50 Mg/10 Ml Mdv) 1 mg SUBCUT DAILY DIANA Last Admin: 08/07/20 08:25 Dose: 1 mg Documented by: Sodium Chloride (Normal Saline) 1,000 mls @ 150 mls/hr IV Q6H [facility] Last Admin: 08/07/20 08:35 Dose: 150 mls/hr Documented by: Pantoprazole Sodium 40 mg/ (Sodium Chloride) 10 mls @ 300 mls/hr IV Q24H [facility] Last Admin: 08/06/20 10:52 Dose: 300 mls/hr Documented by: Lorazepam (Lorazepam 2 Mg/Ml Sdv) 0 mg IVPUSH Q2H PRN; Protocol PRN Reason: CIWAA Last Admin: 08/05/20 17:21 Dose: 1 mg Documented by: Melatonin (Melatonin 3 Mg Tab) 6 mg PO BEDTIME PRN PRN Reason: Insomnia Last Admin: 08/06/20 20:34 Dose: 6 mg Documented by: Metoprolol Tartrate (Metoprolol Tartrate 25 Mg Tab) 12.5 mg PO Q12H [facility] Last Admin: 08/07/20 00:05 Dose: 12.5 mg Documented by: Nicotine (Nicotine 14 Mg/24 Hr Patch) 14 mg TRDERM Q24H [facility] Last Admin: 08/06/20 15:43 Dose: 14 mg Documented by: Nystatin (Nystatin Topical Powder 15 Gm Bottle) 1 gm TOP TID [facility] Last Admin: 08/07/20 05:08 Dose: 1 applic Documented by: Ondansetron HCl (Ondansetron 4 Mg/2 Ml Sdv) 4 mg IVPUSH Q4H PRN PRN Reason: Nausea Oxycodone HCl (Oxycodone 5 Mg Tab) 5 mg PO Q8H PRN PRN Reason: Pain Last Admin: 08/07/20 05:07 Dose: 5 mg Documented by: Sodium Chloride (Sodium Chloride 0.9% 2.5 Ml Syringe) 2.5 ml FLUSH ASDIRECTED PRN PRN Reason: Keep Vein Open Sodium Phosphate (Phosphorus #1 250 Mg Tab) 250 mg PO QID [facility] Last Admin: 08/07/20 05:07 Dose: 250 mg Documented by: Thiamine HCl (Thiamine 200 Mg/2 Ml Mdv) 100 mg IVPUSH DAILY [facility] Last Admin: 08/07/20 08:27 Dose: 100 mg Documented by: Discontinued Medications Diazepam (Diazepam 5 Mg Tab) 5 mg PO Q12H [facility] Last Admin: 08/04/20 05:32 Dose: 5 mg Documented by: Diazepam (Diazepam 2 Mg Tab) 5 mg PO ONETIME ONE Stop: 08/03/20 22:55 Last Admin: 08/03/20 23:12 Dose: 5 mg Documented by: Diazepam (Diazepam 5 Mg Tab) 5 mg PO TID [facility] Last Admin: 08/06/20 05:04 Dose: 5 mg Documented by: Hydromorphone HCl (Hydromorphone 1 Mg/Ml Syringe) 1 mg IVPUSH Q3H PRN PRN Reason: Pain Last Admin: 08/05/20 13:58 Dose: 1 mg Documented by: Hydromorphone HCl (Hydromorphone 1 Mg/Ml Syringe) 1 mg IVPUSH Q4H PRN PRN Reason: Pain Last Admin: 08/06/20 05:41 Dose: 1 mg Documented by: Lactated Ringer's (Ringers, Lactated) 1,000 mls @ 999 mls/hr IV .BOLUS ONE Stop: 08/03/20 13:28 Last Admin: 08/03/20 12:55 Dose: 999 mls/hr Documented by: Piperacillin Sod/Tazobactam (Sod 3.375 gm/ Sodium Chloride) 50 mls @ 100 mls/hr IV Q6H [facility] Last Admin: 08/03/20 18:09 Dose: Not Given Documented by: Piperacillin Sod/Tazobactam (Sod 3.375 gm/ Sodium Chloride) 50 mls @ 100 mls/hr IV Q6H [facility] Last Admin: 08/04/20 10:39 Dose: Not Given Documented by: Magnesium Sulfate 4 gm/ Premix 100 mls @ 33.333 mls/hr IV ONETIME ONE Stop: 08/04/20 11:08 Last Admin: 08/04/20 08:35 Dose: 33.333 mls/hr Documented by: Lactated Ringer's (Ringers, Lactated) 500 mls @ 999 mls/hr IV .BOLUS ONE Stop: 08/06/20 16:29 Last Admin: 08/06/20 16:12 Dose: 999 mls/hr Documented by: Lorazepam (Lorazepam 2 Mg/Ml Sdv) 2 mg IVPUSH ONETIME ONE Stop: 08/03/20 22:55 Last Admin: 08/03/20 23:12 Dose: 2 mg Documented by: Potassium Chloride (Potassium Chloride 20 Meq Tab.Er) 20 meq PO ONETIME ONE Stop: 08/05/20 16:54 Last Admin: 08/05/20 17:15 Dose: 20 meq Documented by: - Patient Data Lab Results Last 24 hrs: Laboratory Results - last 24 hr 08/07/20 08/07/20 Range/Units 05:45 05:45 WBC 4.59 (4.0-11.0) K/uL RBC 3.55 L (4.30-5.90) M/uL Hgb 11.5 L (12.0-16.0) g/dL Hct 35.4 L (36.0-46.0) % MCV 99.7 H (80.0-98.0) fL MCH 32.4 H (27.0-32.0) pg MCHC 32.5 (31.0-37.0) g/dL RDW Std Deviation 49.9 (28.0-62.0) fl RDW Coeff of Jennifer 14 (11.0-15.0) % Plt Count 170 (150-400) K/uL MPV 9.80 (7.40-12.00) fL Neut % (Auto) 54.8 (48.0-80.0) % Lymph % (Auto) 35.3 (16.0-40.0) % Riley % (Auto) 7.8 (0.0-15.0) % Eos % (Auto) 1.7 (0.0-7.0) % Baso % (Auto) 0.4 (0.0-1.5) % Neut # (Auto) 2.5 (1.4-5.7) K/uL Lymph # (Auto) 1.6 (0.6-2.4) K/uL Riley # (Auto) 0.4 (0.0-0.8) K/uL Eos # (Auto) 0.1 (0.0-0.7) K/uL Baso # (Auto) 0.0 (0.0-0.1) K/uL Nucleated RBC % 0.5 /100WBC Nucleated RBCs # 0 K/uL Sodium 144 (136-145) mmol/L Potassium 3.3 L (3.5-5.1) mmol/L Chloride 108 H (98-107) mmol/L Carbon Dioxide 28.8 (21.0-32.0) mmol/L BUN 3 L (7.0-18.0) mg/dL Creatinine 0.7 (0.6-1.0) mg/dL Est Cr Clr Drug Dosing 91.01 mL/min Estimated GFR (MDRD) > 60.0 ml/min Glucose 114 H (74-106) mg/dL Calcium 7.4 L (8.5-10.1) mg/dL Phosphorus 3.0 (2.6-4.7) mg/dL Magnesium 1.6 L (1.8-2.4) mg/dL Total Bilirubin 0.2 (0.2-1.0) mg/dL AST 36 (15-37) IU/L ALT 37 (14-63) IU/L Alkaline Phosphatase 74 (46-116) U/L Total Protein 5.2 L (6.4-8.2) g/dL Albumin 2.3 L (3.4-5.0) g/dL Globulin 2.9 (2.6-4.0) g/dL Albumin/Globulin Ratio 0.8 L (0.9-1.6) Result Diagrams: 08/07/20 05:45 08/07/20 05:45 Sepsis Event Note - Evaluation Sepsis Screening Result: No Definite Risk - Focused Exam Vital Signs: Vital Signs Temp Pulse Pulse Resp BP BP BP 08/07/20 05:07 96.3 F L 77 16 120/71 08/07/20 00:05 76 127/80 08/07/20 00:00 97.3 F 77 16 94/54 L Pulse Ox 08/07/20 05:07 88 L 08/07/20 00:05 08/07/20 00:00 88 L - Problem List & Annotations (1) JOHN (acute kidney injury) SNOMED Code(s): 94351443, 84069683 Code(s): N17.9 - ACUTE KIDNEY FAILURE, UNSPECIFIED Status: Acute Current Visit: Yes (2) Abdominal pain SNOMED Code(s): 75160615 Code(s): R10.9 - UNSPECIFIED ABDOMINAL PAIN Status: Acute Current Visit: No (3) Alcohol use disorder SNOMED Code(s): 5218287 Code(s): OFS3305 - Status: Acute Current Visit: No (4) Alcohol withdrawal SNOMED Code(s): 754226770 Code(s): F10.239 - ALCOHOL DEPENDENCE WITH WITHDRAWAL, UNSPECIFIED Status: Acute Current Visit: No Qualifiers: Complication of substance-induced condition: with perceptual disturbance Qualified Code(s): F10.232 - Alcohol dependence with withdrawal with perceptual disturbance (5) Chronic pancreatitis SNOMED Code(s): 659339323 Code(s): K86.1 - OTHER CHRONIC PANCREATITIS Status: Acute Current Visit: No (6) Dehydration SNOMED Code(s): 80532836 Code(s): E86.0 - DEHYDRATION Status: Acute Current Visit: No (7) Tobacco abuse SNOMED Code(s): 827558862 Code(s): Z72.0 - TOBACCO USE Status: Chronic Current Visit: No (8) Hypophosphatemia SNOMED Code(s): 1766498 Code(s): E83.39 - OTHER DISORDERS OF PHOSPHORUS METABOLISM Status: Acute Current Visit: Yes (9) Hypomagnesemia SNOMED Code(s): 535778891 Code(s): E83.42 - HYPOMAGNESEMIA Status: Acute Current Visit: Yes - Plan Plan:: This 50-year-old female admitted with acute alcohol withdrawal and abdominal pain with JOHN 1. Acute alcohol withdrawal -decrease Valium 5 mg twice daily -CIWAA protocol with Ativan as needed -Folic acid and thiamine supplementation -Seizure precautions - Telemetry, patient had one episode of nonsustained V. tach,cont low-dose metoprolol, may need a 2D echo sometime in future 2. Abdominal pain/right upper quadrant -improved, but no N/V -Could be related to fatty liver and alcohol abuse -stop Dilaudid switch to oral oxycodone -Right upper quadrant ultrasound noted, no acute findings -cont soft diet 3. JOHN -Resolved 4. Hypophosphatemia/hypomagnesemia -Resolved VTE prophylaxis: SCDs GI prophylaxis: Protonix CODE STATUS: Full code Dispo: 2 days pending improvement.
[2020-08-07] MEDS: Pantoprazole 40 MG in Sodium Chloride 0.9% 10 ML IV SCH (08:44)
[2020-08-07] MEDS ORDERED: Potassium Chloride 20 MEQ Tab.ER PO ONE (08:46)
[2020-08-07] MEDS ORDERED: Magnesium Sulfate/Water 2 GM in Premix Bag 1 BAG IV ONE (08:46)
[2020-08-07] MEDS ORDERED: Benzocaine/Cetylpyridinium/Menthol Lozenge MUCMEM PRN (10:25)
--- NOTE | 2020-08-07 11:45 | PCM.DCSUM1 ---
Discharge Summary - Hospital Course Brief History: this 50-year-old female with past medical history of alcohol abuse and alcohol induced pancreatitis presented to the outpatient clinic today with worsening abdominal pain nausea and vomiting. She reports that she was seen in the ER last evening for similar symptoms treated with IV fluids and felt better and was discharged home. Soon after being discharged she continued to have symptoms and was seen outpatient. She reports that she is having right upper quadrant pain with nausea vomiting along with tremors and anxiety related to her alcohol withdrawal. She reports that she drinks at least a liter of alcohol daily her last drink was 2 days ago. She reports that she normally withdrawals quite heavily at times having seizures and hallucinating. Patient was in the hospital in January 2020. Patient reports [place] the [place] with her family drinking as well as being in the heat. She reports that she has had some cramping in her muscles as well as feeling very weak and tired. She denies any fevers chills or chest pain. No shortness of breath. She denies any dysuria no constipation or diarrhea. Reports that the abdominal pain is mainly in the right upper quadrant and is constant in nature. It hurts when she moves or leans forward. She reports that she smokes 1 pack cigarettes daily and no recreational drug use. In the ER initially last evening she was noted to have significant leukocytosis 16,000 this morning repeat leukocytosis 11,000 after hydration in the ER. Hematocrit 46 hemoglobin 15.6 platelet 279,000 magnesium 1.4 lipase 85 phosphorus 3.2. CMP revealed sodium 134 chloride 94 BUN 12 creatinine 1.5 bilirubin 1.1 AST 51 ALT 43 alk phos 122. Urine done in the ER negative Covid swab negative tox screen in the ER negative ethyl alcohol negative. CT abdomen obtained once she arrived to [facility]. Patient given Zosyn for possible abdominal infection. This revealed enlarged liver with diffuse fatty infiltration no focal liver lesion. Gallbladder has no biliary dilation no stones or inflammation. Otherwise unremarkable CT of the abdomen. Patient will be admitted inpatient for acute alcohol withdrawal and abdominal pain. - Discharge Data Discharge Date: 08/07/20 Discharge Disposition: Home, Self-Care 01 Condition: Good - Referral to Home Health Primary Care Physician: ELENA Romero - Discharge Diagnosis/Problem(s) (1) JOHN (acute kidney injury) SNOMED Code(s): 81856624, 56776834 ICD Code: N17.9 - ACUTE KIDNEY FAILURE, UNSPECIFIED Status: Acute Current Visit: Yes (2) Abdominal pain SNOMED Code(s): 68230782 ICD Code: R10.9 - UNSPECIFIED ABDOMINAL PAIN Status: Acute Current Visit: No (3) Alcohol use disorder SNOMED Code(s): 4793009 ICD Code: MXU1470 - Status: Acute Current Visit: No (4) Alcohol withdrawal SNOMED Code(s): 345608161 ICD Code: F10.239 - ALCOHOL DEPENDENCE WITH WITHDRAWAL, UNSPECIFIED Status: Acute Current Visit: No Qualifiers: Complication of substance-induced condition: with perceptual disturbance Qualified Code(s): F10.232 - Alcohol dependence with withdrawal with perceptual disturbance (5) Chronic pancreatitis SNOMED Code(s): 028848291 ICD Code: K86.1 - OTHER CHRONIC PANCREATITIS Status: Acute Current Visit: No (6) Dehydration SNOMED Code(s): 55040866 ICD Code: E86.0 - DEHYDRATION Status: Acute Current Visit: No (7) Tobacco abuse SNOMED Code(s): 635670288 ICD Code: Z72.0 - TOBACCO USE Status: Chronic Current Visit: No (8) Hypophosphatemia SNOMED Code(s): 2981362 ICD Code: E83.39 - OTHER DISORDERS OF PHOSPHORUS METABOLISM Status: Acute Current Visit: Yes (9) Hypomagnesemia SNOMED Code(s): 221712740 ICD Code: E83.42 - HYPOMAGNESEMIA Status: Acute Current Visit: Yes - Patient Summary/Data Hospital Course: Admission diagnoses JOHN Abdominal pain Alcohol withdrawal Acute on chronic pancreatitis Dehydration Hypomagnesemia Hypophosphatemia Discharge diagnosis JOHN-resolved Abdominal pain Alcohol withdrawal Acute on chronic pancreatitis Dehydration-resolved Hypomagnesemia-resolved Hypophosphatemia-resolved Sofia was admitted secondary to abdominal pain, nausea vomiting and dehydration. She is treated with IV fluids, pain control and bowel rest. CT abdomen failed to show any signs of common bile duct dilation which were seen previously along with no acute pancreatic changes. Patient continues to drink alcohol and likely having increased pain from acute on chronic pancreatitis. Lipase normal. She was started on Zosyn x1 day for leukocytosis and abdominal pain with concerns of possible cholecystitis. No signs of this noted on CT or abdominal ultrasound. Patient treated with Dilaudid for abdominal pain transition to oxycodone which is done well with today 1 tab every 8 hours. She was also treated for alcohol withdrawal with Valium which was initially started at 5 twice daily increase to 3 times daily with worsening perceptual disturbances and hallucinations. This was decreased down to daily and has she has tolerated this well. No Ativan since 08/05/2020. She is very eager for discharge home today counseled on no alcohol use and monitoring diet. She has been tolerating a soft diet encouraged to use low-fat diet until further evaluation by GI specialist. She will be sent home with 6 tabs of oxycodone 5 mg p.o. 3 times daily as needed pain. She is to stay away from alcohol given resources for [facility] services, celebra recovery and AA meetings. She is to return to PCP in 1 to 2 weeks. Follow-up with GI specialty that abdomen set up by PCP. She is to return to the ER clinic sooner if concerns should arise. - Patient Instructions Diet: GI Soft/Low Residue/Low Fiber (Low fat) Activity: No Strenuous Activities, Rest and Relax Today Driving: Do Not Drive Showering/Bathing: May Shower Notify Provider of: Fever, Increased Pain, Swelling and Redness, Drainage, Nausea and/or Vomiting - Discharge Plan *PRESCRIPTION DRUG MONITORING PROGRAM REVIEWED*: Not Applicable *COPY OF PRESCRIPTION DRUG MONITORING REPORT IN PATIENT BAKARI: Not Applicable Prescriptions/Med Rec: oxyCODONE 5 mg PO Q8H PRN #6 tablet PRN Reason: Pain Home Medications: Home Meds Amylase/Lipase/Protease [John LYLE 24,000 Unit] 24,000 unit PO TIDMEALS 01/21/18 [History] Levothyroxine [Levothroid] 300 mcg PO DAILY 01/21/18 [History] Omeprazole 40 mg PO DAILY 01/21/18 [History] hydrOXYzine HCL [hydrOXYzine] 10 mg PO BEDTIME PRN 01/21/18 [History] Albuterol Sulfate [Albuterol Sulfate Hfa] 1 - 2 puff INH Q4H PRN 12/10/19 [History] Budesonide/Formoterol Fumarate [Symbicort 80-4.5 MCG] 2 puff INH BID 12/10/19 [History] Clobetasol [Clobetasol 0.05%] 1 applic TOP BID PRN 12/10/19 [History] Fluocinolone Acetonide [Capex 0.01% Shampoo] 1 applic TOP .TO SCALP PRN 12/10/19 [History] Folic Acid 1 mg PO DAILY 12/10/19 [History] Mv-Mn/Iron/FA/Herbal/Digestive [ One Tablet] 1 tab PO DAILY 12/10/19 [History] Potassium Chloride 40 meq PO DAILY 12/10/19 [History] Amylase/Lipase/Protease [John LYLE 12,000 Units] 12,000 unit PO .WITH SNACKS 02/14/20 [History] Amitriptyline [Elavil] 10 mg PO BEDTIME 08/03/20 [History] Clobetasol [Clobetasol 0.05%] 1 applic TOP BID PRN 08/03/20 [History] Furosemide 40 mg PO BID 08/03/20 [History] Naproxen 500 mg PO Q12H PRN 08/03/20 [History] Sertraline [Zoloft] 100 mg PO DAILY 08/03/20 [History] traMADol [Ultram] 50 mg PO TID PRN 08/03/20 [History] oxyCODONE 5 mg PO Q8H PRN #6 tablet 08/07/20 [Rx] Oxygen Therapy Mode: Room Air Patient Handouts: Supporting Someone With an Addiction, Oxycodone tablets or capsules, Alcohol Withdrawal Syndrome, [id number]-[id number] Referrals: Gisel Durham PA [Primary Care Provider] - 08/14/20 10:30 am - Discharge Summary/Plan Comment DC Time >30 min.: No - Patient Data Vitals - Most Recent: Last Vital Signs Temp 98.1 F 08/07/20 09:00 Pulse 79 08/07/20 09:00 Resp 16 08/07/20 09:00 BP 128/79 08/07/20 09:00 Pulse Ox 93 L 08/07/20 09:00 Weight - Most Recent: 112.128 kg I&O - Last 24 hours: Intake & Output 08/06/20 08/07/20 08/07/20 22:59 06:59 14:59 Intake Total 4514 800 Balance 4514 800 Lab Results - Last 24 hrs: Laboratory Results - last 24 hr 08/07/20 08/07/20 Range/Units 05:45 05:45 WBC 4.59 (4.0-11.0) K/uL RBC 3.55 L (4.30-5.90) M/uL Hgb 11.5 L (12.0-16.0) g/dL Hct 35.4 L (36.0-46.0) % MCV 99.7 H (80.0-98.0) fL MCH 32.4 H (27.0-32.0) pg MCHC 32.5 (31.0-37.0) g/dL RDW Std Deviation 49.9 (28.0-62.0) fl RDW Coeff of Jennifer 14 (11.0-15.0) % Plt Count 170 (150-400) K/uL MPV 9.80 (7.40-12.00) fL Neut % (Auto) 54.8 (48.0-80.0) % Lymph % (Auto) 35.3 (16.0-40.0) % Daniels % (Auto) 7.8 (0.0-15.0) % Eos % (Auto) 1.7 (0.0-7.0) % Baso % (Auto) 0.4 (0.0-1.5) % Neut # (Auto) 2.5 (1.4-5.7) K/uL Lymph # (Auto) 1.6 (0.6-2.4) K/uL Daniels # (Auto) 0.4 (0.0-0.8) K/uL Eos # (Auto) 0.1 (0.0-0.7) K/uL Baso # (Auto) 0.0 (0.0-0.1) K/uL Nucleated RBC % 0.5 /100WBC Nucleated RBCs # 0 K/uL Sodium 144 (136-145) mmol/L Potassium 3.3 L (3.5-5.1) mmol/L Chloride 108 H (98-107) mmol/L Carbon Dioxide 28.8 (21.0-32.0) mmol/L BUN 3 L (7.0-18.0) mg/dL Creatinine 0.7 (0.6-1.0) mg/dL Est Cr Clr Drug Dosing 91.01 mL/min Estimated GFR (MDRD) > 60.0 ml/min Glucose 114 H (74-106) mg/dL Calcium 7.4 L (8.5-10.1) mg/dL Phosphorus 3.0 (2.6-4.7) mg/dL Magnesium 1.6 L (1.8-2.4) mg/dL Total Bilirubin 0.2 (0.2-1.0) mg/dL AST 36 (15-37) IU/L ALT 37 (14-63) IU/L Alkaline Phosphatase 74 (46-116) U/L Total Protein 5.2 L (6.4-8.2) g/dL Albumin 2.3 L (3.4-5.0) g/dL Globulin 2.9 (2.6-4.0) g/dL Albumin/Globulin Ratio 0.8 L (0.9-1.6) Med Orders - Current: Current Medications Albuterol/Ipratropium (Albuterol/Ipratropium 3.0-0.5 Mg/3 Ml Neb Soln) 3 ml NEB Q4HRRT PRN PRN Reason: Wheezing Last Admin: 08/04/20 21:25 Dose: 3 ml Documented by: Benzocaine/Menthol (Benzocaine/Cetylpyridinium/Menthol Lozenge) 1 lozenge MUCMEM Q3H PRN PRN Reason: Sore Throat Diazepam (Diazepam 5 Mg Tab) 5 mg PO DAILY [facility] Folic Acid (Folic Acid 50 Mg/10 Ml Mdv) 1 mg SUBCUT DAILY DIANA Last Admin: 08/07/20 08:25 Dose: 1 mg Documented by: Pantoprazole Sodium 40 mg/ (Sodium Chloride) 10 mls @ 300 mls/hr IV Q24H [facility] Last Admin: 08/07/20 08:44 Dose: 300 mls/hr Documented by: Magnesium Sulfate 2 gm/ Premix 50 mls @ 12.5 mls/hr IV ONETIME ONE Stop: 08/07/20 12:45 Last Admin: 08/07/20 08:56 Dose: 12.5 mls/hr Documented by: Lorazepam (Lorazepam 2 Mg/Ml Sdv) 0 mg IVPUSH Q2H PRN; Protocol PRN Reason: CIWAA Last Admin: 08/05/20 17:21 Dose: 1 mg Documented by: Melatonin (Melatonin 3 Mg Tab) 6 mg PO BEDTIME PRN PRN Reason: Insomnia Last Admin: 08/06/20 20:34 Dose: 6 mg Documented by: Metoprolol Tartrate (Metoprolol Tartrate 25 Mg Tab) 12.5 mg PO Q12H [facility] Last Admin: 08/07/20 00:05 Dose: 12.5 mg Documented by: Nicotine (Nicotine 14 Mg/24 Hr Patch) 14 mg TRDERM Q24H [facility] Last Admin: 08/06/20 15:43 Dose: 14 mg Documented by: Nystatin (Nystatin Topical Powder 15 Gm Bottle) 1 gm TOP TID [facility] Last Admin: 08/07/20 05:08 Dose: 1 applic Documented by: Ondansetron HCl (Ondansetron 4 Mg/2 Ml Sdv) 4 mg IVPUSH Q4H PRN PRN Reason: Nausea Oxycodone HCl (Oxycodone 5 Mg Tab) 5 mg PO Q8H PRN PRN Reason: Pain Last Admin: 08/07/20 05:07 Dose: 5 mg Documented by: Sodium Chloride (Sodium Chloride 0.9% 2.5 Ml Syringe) 2.5 ml FLUSH ASDIRECTED PRN PRN Reason: Keep Vein Open Sodium Phosphate (Phosphorus #1 250 Mg Tab) 250 mg PO QID [facility] Last Admin: 08/07/20 05:07 Dose: 250 mg Documented by: Thiamine HCl (Thiamine 200 Mg/2 Ml Mdv) 100 mg IVPUSH DAILY [facility] Last Admin: 08/07/20 08:27 Dose: 100 mg Documented by: Discontinued Medications Diazepam (Diazepam 5 Mg Tab) 5 mg PO Q12H [facility] Last Admin: 08/04/20 05:32 Dose: 5 mg Documented by: Diazepam (Diazepam 2 Mg Tab) 5 mg PO ONETIME ONE Stop: 08/03/20 22:55 Last Admin: 08/03/20 23:12 Dose: 5 mg Documented by: Diazepam (Diazepam 5 Mg Tab) 5 mg PO TID [facility] Last Admin: 08/06/20 05:04 Dose: 5 mg Documented by: Diazepam (Diazepam 5 Mg Tab) 5 mg PO BID [facility] Last Admin: 08/07/20 08:23 Dose: 5 mg Documented by: Hydromorphone HCl (Hydromorphone 1 Mg/Ml Syringe) 1 mg IVPUSH Q3H PRN PRN Reason: Pain Last Admin: 08/05/20 13:58 Dose: 1 mg Documented by: Hydromorphone HCl (Hydromorphone 1 Mg/Ml Syringe) 1 mg IVPUSH Q4H PRN PRN Reason: Pain Last Admin: 08/06/20 05:41 Dose: 1 mg Documented by: Sodium Chloride (Normal Saline) 1,000 mls @ 150 mls/hr IV Q6H [facility] Last Admin: 08/07/20 08:35 Dose: 150 mls/hr Documented by: Lactated Ringer's (Ringers, Lactated) 1,000 mls @ 999 mls/hr IV .BOLUS ONE Stop: 08/03/20 13:28 Last Admin: 08/03/20 12:55 Dose: 999 mls/hr Documented by: Piperacillin Sod/Tazobactam (Sod 3.375 gm/ Sodium Chloride) 50 mls @ 100 mls/hr IV Q6H [facility] Last Admin: 08/03/20 18:09 Dose: Not Given Documented by: Piperacillin Sod/Tazobactam (Sod 3.375 gm/ Sodium Chloride) 50 mls @ 100 mls/hr IV Q6H [facility] Last Admin: 08/04/20 10:39 Dose: Not Given Documented by: Magnesium Sulfate 4 gm/ Premix 100 mls @ 33.333 mls/hr IV ONETIME ONE Stop: 08/04/20 11:08 Last Admin: 08/04/20 08:35 Dose: 33.333 mls/hr Documented by: Lactated Ringer's (Ringers, Lactated) 500 mls @ 999 mls/hr IV .BOLUS ONE Stop: 08/06/20 16:29 Last Admin: 08/06/20 16:12 Dose: 999 mls/hr Documented by: Lorazepam (Lorazepam 2 Mg/Ml Sdv) 2 mg IVPUSH ONETIME ONE Stop: 08/03/20 22:55 Last Admin: 08/03/20 23:12 Dose: 2 mg Documented by: Potassium Chloride (Potassium Chloride 20 Meq Tab.Er) 20 meq PO ONETIME ONE Stop: 08/05/20 16:54 Last Admin: 08/05/20 17:15 Dose: 20 meq Documented by: Potassium Chloride (Potassium Chloride 20 Meq Tab.Er) 40 meq PO ONETIME ONE Stop: 08/07/20 08:47 Last Admin: 08/07/20 08:56 Dose: 40 meq Documented by:
[2020-08-08] MEDS ORDERED: Diazepam 5 MG Tab PO SCH (09:00)
== END 2020-08-07 14:00 | disposition home or self-care (01) | DRG 896 ==
LOC: MW.MS 09:14
PROVIDERS: ADMIT Student in an Organized Health Care Education/Training Program; ATTEND Student in an Organized Health Care Education/Training Program
PROC: HZ2ZZZZ Detoxification Services for Substance Abuse Treatment (ICD-10-PCS; principal; 2020-08-03)
DX: F10.232 Alcohol dependence with withdrawal with perceptual disturbance (principal); K85.20 Alcohol induced acute pancreatitis without necrosis or infection; K86.0 Alcohol-induced chronic pancreatitis; N17.9 Acute kidney failure, unspecified; F17.210 Nicotine dependence, cigarettes, uncomplicated; E86.0 Dehydration; E83.39 Other disorders of phosphorus metabolism; E83.42 Hypomagnesemia; Z71.41 Alcohol abuse counseling and surveillance of alcoholic; Z79.890 Hormone replacement therapy; Z79.899 Other long term (current) drug therapy; Z79.51 Long term (current) use of inhaled steroids; Z79.891 Long term (current) use of opiate analgesic; J44.9 Chronic obstructive pulmonary disease, unspecified; M19.90 Unspecified osteoarthritis, unspecified site; F31.9 Bipolar disorder, unspecified; E03.9 Hypothyroidism, unspecified; Z98.51 Tubal ligation status; K76.0 Fatty (change of) liver, not elsewhere classified
CPT/HCPCS: 36415; 74176; 74176-26; 76705; 76705-26; 80048; 80053; 83690; 83735; 84100; 85025; A9270-GY; C9113; J1170; J2060; J2543; J3411; J3475; J7030; J7120; J7620-GY

== ENCOUNTER 2020-10-25 12:34 | Inpatient (IN) | payer MEDICAID ==
[2020-10-25] MEDS ORDERED: Sodium Chloride 0.9% 1,000 ML IV ONE (13:51)
[2020-10-25] MEDS ORDERED: LORazepam 2 MG/ML SDV IVPUSH ONE (14:00)
--- NOTE | 2020-10-25 14:05 | EDM.PDOC ---
ED HPI GENERAL MEDICAL PROBLEM - General Chief Complaint: Abdominal Pain Stated Complaint: STOMACH PAIN Time Seen by Provider: 10/25/20 13:43 Source of Information: Reports: Patient History Limitations: Reports: No Limitations - History of Present Illness INITIAL COMMENTS - FREE TEXT/NARRATIVE: HISTORY AND PHYSICAL: History of present illness: Patient is a 50-year-old female who presents to the emergency room with complaints of right upper quadrant pain, nausea, vomiting, diarrhea and alcohol withdrawal. Patient has a longstanding history of alcohol abuse, alcohol induced pancreatitis, hepatitis C, anxiety/depression, alcohol withdrawal with seizures and hallucinations. Patient was last admitted on 08/03/2020 for pancreatitis and alcohol withdrawal. Patient states she tried to stop drinking alcohol 3 days ago when the symptoms started. She has been taking hard alcohol "shots" to keep herself from "feeling so shaky". She states she took 2 shots this morning, she states she was hallucinating and feeling like she was going to have a seizure. Patient denies any fever, chills, headache, change in vision, syncope or near syncope. Denies any chest pain, back pain, shortness of breath or cough. Denies any constipation, dysuria, nor blood in urine or stool. Patient has not been eating and drinking appropriately. Review of systems: As per history of present illness and below otherwise all systems reviewed and negative. Past medical history: As per history of present illness and as reviewed below otherwise noncontributory. Surgical history: As per history of present illness and as reviewed below otherwise noncontributory. Social history: See social history for further information Family history: As per history of present illness and as reviewed below otherwise noncontributory. Physical exam: General: Well developed and well nourished 50-year-old female. Alert and orientated x 3. Nontoxic in appearance and in no acute distress. Vital signs are stable and have been reviewed by me. Nursing notes were reviewed. HEENT: Atraumatic, normocephalic, pupils equal and reactive bilaterally, negative for conjunctival pallor or scleral icterus, mucous membranes moist, TMs normal bilaterally, throat clear, neck supple, nontender, trachea midline. No drooling or trismus noted. No meningeal signs. No hot potato voice noted. Lungs: Clear to auscultation bilaterally. No wheezes, rales, or rhonchi. Chest nontender. Normal work of breathing, no accessory muscles used. Heart: S1S2, regular rate and rhythm without overt murmur, gallops, or rubs. No JVD. No peripheral edema Abdomen: Soft, nondistended, nontender. Normoactive bowel sounds. Negative for masses or costovertebral tenderness. Skin: Intact, warm, dry. No lesions or rashes noted. Hematologic: No petechiae or purpra. Mucosa appropriate color and normal nail bed color and refill. Extremities: Atraumatic, moves all extremities per self without difficulty or deficits, negative for cords or calf pain. Neurovascular unremarkable. Neuro: Awake, alert, oriented. Cranial nerves II through XII unremarkable. Cerebellum unremarkable. Motor and sensory unremarkable throughout. Exam nonfocal. Psychiatric: Mood and affect are appropriate. Normal thought process. Answering questions appropriately. Please note that the patient was seen and evaluated during the 2019 SARS-CoV-2 novel coronavirus pandemic period. Community viral transmission is ongoing at time of this encounter and the emergency department is operating under pandemic response procedures. Medical Decision Making: Patient is a 50 year old female who presents to the ED with complaints of abdominal pain. States she was admitted about 1.5 months ago for her alcohol related pancreatitis and believes she needs to be re-admitted as she has been drinking and has "pancreatic pain". She states she drank a few shots of hard alcohol this morning to help with the pain and to prevent herself from withdrawls. Patient has generalized abdominal pain in all 4 quadrants. We will do basic lab work along with a CT of the abdomen and pelvis pending results. No acute lab findings are noted. Her lipase is within normal limits. CT of the abdomen shows a new mild fat stranding between the uncinate process of the pancreas and the transverse duodenum could represent mild acute pancreatitis versus duodenitis. Hepatomegaly with moderate to severe diffuse hepatic steatosis. She is asked multiple times for narcotic pain medication. I will give her Tramadol PO to see if she is able to tolerate PO, we were successful although she states she feels nauseated. After talking with patient about diagnostics, she is crying and pushing towards admission. She states she has increased pain that she feels she will be able to handle at home and has continuous nausea. I did talk with Dr. Manjarrez, hospitalist on-call about this patient, she is agreeable to keeping her for further care. We will give patient some p.o. Valium and IV Dilaudid. Patient's vital signs are stable and she is in no acute distress. Diagnostics: CBC, CMP, magnesium, UA, urine drug screen, EtOH, lipase Therapeutics: IV fluids, Toradol, Zofran, Tramadol, Valium, Dilaudid Impression: Duodenitis Mild pancreatitis Plan: Observation admission to Med/Surg Definitive disposition and diagnosis as appropriate pending reevaluation and review of above. [place] Pain Score (Numeric/FACES): 8 - Related Data Allergies Allergy/AdvReac Type Severity Reaction Status Date / Time No Known Allergies Allergy Verified 10/25/20 13:50 Home Meds: Home Meds Amylase/Lipase/Protease [John LYLE 24,000 Unit] 24,000 unit PO TIDMEALS 01/21/18 [History] Levothyroxine [Levothroid] 300 mcg PO DAILY 01/21/18 [History] Omeprazole 40 mg PO DAILY 01/21/18 [History] hydrOXYzine HCL [hydrOXYzine] 10 mg PO BEDTIME PRN 01/21/18 [History] Albuterol Sulfate [Albuterol Sulfate Hfa] 1 - 2 puff INH Q4H PRN 12/10/19 [History] Budesonide/Formoterol Fumarate [Symbicort 80-4.5 MCG] 2 puff INH BID 12/10/19 [History] Clobetasol [Clobetasol 0.05%] 1 applic TOP BID PRN 12/10/19 [History] Fluocinolone Acetonide [[employer] 0.01% Shampoo] 1 applic TOP .TO SCALP PRN 12/10/19 [History] Folic Acid 1 mg PO DAILY 12/10/19 [History] Mv-Mn/Iron/FA/Herbal/Digestive [ One Tablet] 1 tab PO DAILY 12/10/19 [History] Potassium Chloride 40 meq PO DAILY 12/10/19 [History] Amylase/Lipase/Protease [John LYLE 12,000 Units] 12,000 unit PO .WITH SNACKS 02/14/20 [History] Amitriptyline [Elavil] 10 mg PO BEDTIME 08/03/20 [History] Furosemide 40 mg PO BID 08/03/20 [History] Naproxen 500 mg PO Q12H PRN 08/03/20 [History] Sertraline [Zoloft] 100 mg PO DAILY 08/03/20 [History] traMADol [Ultram] 50 mg PO TID PRN 08/03/20 [History] oxyCODONE 5 mg PO Q8H PRN #6 tablet 08/07/20 [Rx] Past Medical History HEENT History: Reports: Impaired Vision Other HEENT History: wears glasses Cardiovascular History: Reports: None Other Cardiovascular History: edema Respiratory History: Reports: COPD Other Respiratory History: states wheezes at times from smoking Gastrointestinal History: Reports: Fatty Liver, Pancreatitis Other Gastrointestinal History: fatty liver Genitourinary History: Reports: None 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 Psychiatric History: Reports: Anxiety, Bipolar, Depression, Panic Attack, PTSD, Other (See Below) Endocrine/Metabolic History: Reports: Hypothyroidism, Obesity/BMI 30+ Hematologic History: Reports: Other (See Below) Other Hematologic History: Hep C Immunologic History: Reports: None Oncologic (Cancer) History: Reports: None Dermatologic History: Reports: Psoriasis - Infectious Disease History Infectious Disease History: Reports: Hepatitis C - Past Surgical History Head Surgeries/Procedures: Reports: None HEENT Surgical History: Reports: None Cardiovascular Surgical History: Reports: None Respiratory Surgical History: Reports: None GI Surgical History: Reports: Hernia Repair/Other Female Surgical History: Reports: Tubal Ligation Endocrine Surgical History: Reports: None Neurological Surgical History: Reports: None Musculoskeletal Surgical History: Reports: None Oncologic Surgical History: Reports: None Dermatological Surgical History: Reports: None Social & Family History - Family History Family Medical History: No Pertinent Family History - Caffeine Use Caffeine Use: Reports: None ED ROS GENERAL - Review of Systems Review Of Systems: Comprehensive ROS is negative, except as noted in HPI. ED EXAM, GI/ABD - Physical Exam Exam: See Below (See dictation) Course - Vital Signs Last Recorded V/S: Last Vital Signs Temp 98.4 F 10/25/20 18:16 Pulse 81 10/25/20 18:16 Resp 18 10/25/20 18:16 BP 133/86 10/25/20 18:16 Pulse Ox 95 10/25/20 18:16 - Orders/Labs/Meds Orders: Active Orders 24 hr Category Date Time Status Admission Status [Patient Status] [ADT] Stat ADT 10/25/20 18:45 Ordered CIWAA Assessment [RC] ASDIRECTED Care 10/25/20 14:00 Active Labs: Laboratory Tests 10/25/20 10/25/20 10/25/20 Range/Units 15:10 15:10 16:10 WBC 4.79 (4.0-11.0) K/uL RBC 3.53 L (4.30-5.90) M/uL Hgb 11.8 L (12.0-16.0) g/dL Hct 35.4 L (36.0-46.0) % MCV 100.3 H (80.0-98.0) fL MCH 33.4 H (27.0-32.0) pg MCHC 33.3 (31.0-37.0) g/dL RDW Std Deviation 53.8 (28.0-62.0) fl RDW Coeff of Jennifer 15 (11.0-15.0) % Plt Count 148 L (150-400) K/uL MPV 9.80 (7.40-12.00) fL Neut % (Auto) 59.6 (48.0-80.0) % Lymph % (Auto) 29.4 (16.0-40.0) % Cole % (Auto) 7.3 (0.0-15.0) % Eos % (Auto) 3.3 (0.0-7.0) % Baso % (Auto) 0.4 (0.0-1.5) % Neut # (Auto) 2.9 (1.4-5.7) K/uL Lymph # (Auto) 1.4 (0.6-2.4) K/uL Cole # (Auto) 0.4 (0.0-0.8) K/uL Eos # (Auto) 0.2 (0.0-0.7) K/uL Baso # (Auto) 0.0 (0.0-0.1) K/uL Nucleated RBC % 0.0 /100WBC Nucleated RBCs # 0 K/uL Sodium 141 (136-145) mmol/L Potassium 3.8 (3.5-5.1) mmol/L Chloride 106 (98-107) mmol/L Carbon Dioxide 26.2 (21.0-32.0) mmol/L BUN 5 L (7.0-18.0) mg/dL Creatinine 0.9 (0.6-1.0) mg/dL Est Cr Clr Drug Dosing 68.04 mL/min Estimated GFR (MDRD) > 60.0 ml/min Glucose 86 (74-106) mg/dL Calcium 7.4 L (8.5-10.1) mg/dL Magnesium 1.6 L (1.8-2.4) mg/dL Total Bilirubin 0.4 (0.2-1.0) mg/dL AST 55 H (15-37) IU/L ALT 39 (14-63) IU/L Alkaline Phosphatase 81 (46-116) U/L Total Protein 5.7 L (6.4-8.2) g/dL Albumin 2.9 L (3.4-5.0) g/dL Globulin 2.8 (2.6-4.0) g/dL Albumin/Globulin Ratio 1.0 (0.9-1.6) Lipase 277 (73-393) U/L Urine Color YELLOW Urine Appearance CLEAR Urine pH 6.0 (5.0-8.0) Ur Specific [place] 1.015 (1.001-1.035) Urine Protein NEGATIVE (NEGATIVE) mg/dL Urine Glucose (UA) NEGATIVE (NEGATIVE) mg/dL Urine Ketones TRACE H (NEGATIVE) mg/dL Urine Occult Blood TRACE-INTACT H (NEGATIVE) Urine Nitrite NEGATIVE (NEGATIVE) Urine Bilirubin NEGATIVE (NEGATIVE) Urine Urobilinogen 0.2 (<2.0) EU/dL Ur Leukocyte Esterase NEGATIVE (NEGATIVE) Urine RBC 0-2 (0-2/HPF) Urine WBC 0-2 (0-5/HPF) Ur Epithelial Cells OCCASIONAL (NONE-FEW) Urine Bacteria FEW (NEGATIVE) Urine Mucus LIGHT (NONE-MOD) Urine HCG, Qual (NEGATIVE) Ethyl Alcohol 4 mg/dL 10/25/20 Range/Units 16:10 WBC (4.0-11.0) K/uL RBC (4.30-5.90) M/uL Hgb (12.0-16.0) g/dL Hct (36.0-46.0) % MCV (80.0-98.0) fL MCH (27.0-32.0) pg MCHC (31.0-37.0) g/dL RDW Std Deviation (28.0-62.0) fl RDW Coeff of Jennifer (11.0-15.0) % Plt Count (150-400) K/uL MPV (7.40-12.00) fL Neut % (Auto) (48.0-80.0) % Lymph % (Auto) (16.0-40.0) % Cole % (Auto) (0.0-15.0) % Eos % (Auto) (0.0-7.0) % Baso % (Auto) (0.0-1.5) % Neut # (Auto) (1.4-5.7) K/uL Lymph # (Auto) (0.6-2.4) K/uL Cole # (Auto) (0.0-0.8) K/uL Eos # (Auto) (0.0-0.7) K/uL Baso # (Auto) (0.0-0.1) K/uL Nucleated RBC % /100WBC Nucleated RBCs # K/uL Sodium (136-145) mmol/L Potassium (3.5-5.1) mmol/L Chloride (98-107) mmol/L Carbon Dioxide (21.0-32.0) mmol/L BUN (7.0-18.0) mg/dL Creatinine (0.6-1.0) mg/dL Est Cr Clr Drug Dosing mL/min Estimated GFR (MDRD) ml/min Glucose (74-106) mg/dL Calcium (8.5-10.1) mg/dL Magnesium (1.8-2.4) mg/dL Total Bilirubin (0.2-1.0) mg/dL AST (15-37) IU/L ALT (14-63) IU/L Alkaline Phosphatase (46-116) U/L Total Protein (6.4-8.2) g/dL Albumin (3.4-5.0) g/dL Globulin (2.6-4.0) g/dL Albumin/Globulin Ratio (0.9-1.6) Lipase (73-393) U/L Urine Color Urine Appearance Urine pH (5.0-8.0) Ur Specific [place] (1.001-1.035) Urine Protein (NEGATIVE) mg/dL Urine Glucose (UA) (NEGATIVE) mg/dL Urine Ketones (NEGATIVE) mg/dL Urine Occult Blood (NEGATIVE) Urine Nitrite (NEGATIVE) Urine Bilirubin (NEGATIVE) Urine Urobilinogen (<2.0) EU/dL Ur Leukocyte Esterase (NEGATIVE) Urine RBC (0-2/HPF) Urine WBC (0-5/HPF) Ur Epithelial Cells (NONE-FEW) Urine Bacteria (NEGATIVE) Urine Mucus (NONE-MOD) Urine HCG, Qual NEGATIVE (NEGATIVE) Ethyl Alcohol mg/dL Meds: Medications Discontinued Medications Generic Name Dose Route Start Last Admin Trade Name Freq PRN Reason Stop Dose Admin Diazepam 10 mg 10/25/20 18:48 Diazepam 5 Mg Tab PO 10/25/20 18:49 ONETIME ONE Hydromorphone HCl 0.5 mg 10/25/20 18:45 Hydromorphone 2 Mg/Ml Syringe IVPUSH 10/25/20 18:46 ONETIME ONE Sodium Chloride 1,000 mls @ 999 mls/hr 10/25/20 13:51 10/25/20 14:11 Normal Saline IV 10/25/20 14:51 999 mls/hr STAT ONE Administration Iopamidol 100 ml 10/25/20 18:38 10/25/20 18:39 Iopamidol 755 Mg/Ml 500 Ml Multipack Bottle IVPUSH 10/25/20 18:39 100 ml ONETIME STA Administration Ketorolac Tromethamine 30 mg 10/25/20 14:49 10/25/20 15:20 Ketorolac 30 Mg/Ml Sdv IVPUSH 10/25/20 14:50 30 mg ONETIME ONE Administration Lorazepam 1 mg 10/25/20 14:00 10/25/20 14:13 Lorazepam 2 Mg/Ml Sdv IVPUSH 10/25/20 14:01 1 mg ONETIME ONE Administration Tramadol HCl 50 mg 10/25/20 17:48 10/25/20 18:14 Tramadol 50 Mg Tab PO 10/25/20 17:49 50 mg ONETIME ONE Administration Departure - Departure Time of Disposition: 19:00 Disposition: Refer to Observation Clinical Impression: Duodenitis Pancreatitis Qualifiers: Chronicity: chronic Pancreatitis type: alcohol induced Qualified Code(s): K86.0 - Alcohol-induced chronic pancreatitis - Discharge Information Referrals: Gisel Durham PA [Primary Care Provider] - Forms: ED Department Discharge Sepsis Event Note (ED) - Evaluation Sepsis Screening Result: No Definite Risk - Focused Exam Vital Signs: Vital Signs Temp Pulse Resp BP Pulse Ox 10/25/20 18:16 98.4 F 81 18 133/86 95 10/25/20 15:29 85 131/89 90 L 10/25/20 14:55 76 128/91 H 90 L 10/25/20 14:21 87 144/94 H 90 L 10/25/20 13:45 96.8 F L 102 H 20 114/86 92 L - My Orders Last 24 Hours: My Active Orders 10/25/20 14:00 CIWAA Assessment [RC] ASDIRECTED 10/25/20 18:45 Admission Status [Patient Status] [ADT] Stat - Assessment/Plan Last 24 Hours: My Active Orders 10/25/20 14:00 CIWAA Assessment [RC] ASDIRECTED 10/25/20 18:45 Admission Status [Patient Status] [ADT] Stat
[2020-10-25] MEDS ORDERED: Ketorolac 30 MG/ML SDV IVPUSH ONE (14:49)
[2020-10-25 16:01] LABS: BLOOD UREA NITROGEN,BUN 5 mg/dL (7.0-18.0); CARBON DIOXIDE,CO2 26.2 mmol/L (21.0-32.0); CHLORIDE,CL 106 mmol/L (98-107); GLUCOSE RANDOM 86 mg/dL (74-106); LIPASE 277 U/L (73-393); POTASSIUM,K 3.8 mmol/L (3.5-5.1); SODIUM,NA 141 mmol/L (136-145)
[2020-10-25] MEDS ORDERED: traMADol 50 MG Tab PO ONE (17:48)
--- NOTE | 2020-10-25 18:34 | CT ---
INDICATION: Upper abdominal pain, history of pancreatitis. TECHNIQUE: CT of the abdomen and pelvis with 100 cc Isovue 370 IV contrast. Coronal and sagittal reconstructions. COMPARISON: CT of the abdomen and pelvis 08/03/2020. FINDINGS: The liver is enlarged measuring 21 cm in length. Moderate to severe diffuse hepatic steatosis. The gallbladder, spleen, and adrenal glands are negative. No biliary dilation. Hepatic and portal veins are patent. There is new mild fat stranding between the uncinate process of the pancreas and the transverse duodenum which could represent mild acute pancreatitis versus duodenitis. The pancreas enhances uniformly without evidence of necrosis. No dilation of the pancreatic duct. No fluid collection to suggest pseudocyst. Symmetric enhancement of the kidneys. No hydronephrosis or ureteral dilation. No obstructing urinary calculi. Underdistended urinary bladder. The uterus is normal in appearance. Few subcentimeter follicles in the left ovary. No bowel dilation. Again seen is submucosal fat deposition throughout the ascending colon which is a nonspecific finding that can be seen in the setting of chronic inflammation. A diminutive appendix is identified which is negative. No intraperitoneal free air or fluid. Prior ventral hernia repair with mesh. No lymphadenopathy. The bones are unremarkable. Calcified granuloma right lower lobe. The lung bases are otherwise clear. IMPRESSION: 1. New mild fat stranding between the uncinate process of the pancreas and the transverse duodenum could represent mild acute pancreatitis versus duodenitis. 2. Hepatomegaly with moderate to severe diffuse hepatic steatosis. Please note that all CT scans at this facility use dose modulation, iterative reconstruction, and/or weight-based dosing when appropriate to reduce radiation dose to as low as reasonably achievable. Dictated by Evonne Thomas MD @ 10/25/2020 6:33:37 PM (Electronically Signed)
[2020-10-25] MEDS ORDERED: Iopamidol 755 MG/ML 500 ML Multipack Bottle IVPUSH STA (18:38)
[2020-10-25] MEDS ORDERED: HYDROmorphone 2 MG/ML Syringe IVPUSH ONE (18:45)
[2020-10-25] MEDS ORDERED: Diazepam 5 MG Tab PO ONE (18:48)
[2020-10-25] MEDS ORDERED: Albuterol/Ipratropium 3.0-0.5 MG/3 ML Neb Soln NEB PRN (19:28)
[2020-10-25] MEDS ORDERED: Ondansetron 4 MG/2 ML SDV IVPUSH PRN (19:28)
--- NOTE | 2020-10-25 19:39 | PCM.HP.2 ---
H&P History of Present Illness - General Date of Service: 10/25/20 Admit Problem/Dx: Admission Diagnosis/Problem Admission Diagnosis/Problem Duodenitis - History of Present Illness Initial Comments - Free Text/Narative: Patient is a 50-year-old female who presents to the emergency room with complaints of right upper quadrant pain, nausea, vomiting, diarrhea and alcohol withdrawal. Patient has a longstanding history of alcohol abuse, alcohol induced pancreatitis, hepatitis C, anxiety/depression, alcohol withdrawal with seizures and hallucinations. Patient was last admitted on 08/03/2020 for pancreatitis and alcohol withdrawal. Patient states that she tried being sober and get into a rehab facility but due to insurance issues she was not able to go to rehab. She ended up started drinking again. States that she started to wean her off 3 days ago after that she started to feel symptoms of withdrawal and to help her and that she had a couple of shots this morning. Patient states that thereafter she started having severe abdominal pain nausea and vomiting. Patient denies any fever, chills, headache, change in vision, syncope or near syncope. Denies any chest pain, back pain, shortness of breath or cough. Denies any constipation, dysuria, nor blood in urine or stool.No acute lab findings are noted. Her lipase is within normal limits. CT of the abdomen shows a new mild fat stranding between the uncinate process of the pancreas and the transverse duodenum could represent mild acute pancreatitis versus duodenitis. Hepatomegaly with moderate to severe diffuse hepatic steatosis. She is asked multiple times for narcotic pain medication, received Toradol in the ER. Patient was able to tolerate oral Toradol but continued to have severe pain. Initial plan was to send patient home but patient got very upset and started crying in the ER wanting to be admitted. She states that she would not be able to handle the pain and nausea at home and she will not be able to eat or drink anything. Patient was eventually admitted to the hospital for further management Middle Abd Pain Score (Numeric/FACES): 8 - Related Data Allergies/Adverse Reactions: Allergies Allergy/AdvReac Type Severity Reaction Status Date / Time No Known Allergies Allergy Verified 10/25/20 23:14 Home Medications: Home Meds Amylase/Lipase/Protease [John LYLE 24,000 Unit] 24,000 unit PO TIDMEALS 01/21/18 [History] Levothyroxine [Levothroid] 300 mcg PO DAILY 01/21/18 [History] Omeprazole 40 mg PO DAILY 01/21/18 [History] hydrOXYzine HCL [hydrOXYzine] 10 mg PO BEDTIME PRN 01/21/18 [History] Albuterol Sulfate [Albuterol Sulfate Hfa] 1 - 2 puff INH Q4H PRN 12/10/19 [History] Budesonide/Formoterol Fumarate [Symbicort 80-4.5 MCG] 2 puff INH BID 12/10/19 [History] Clobetasol [Clobetasol 0.05%] 1 applic TOP BID PRN 12/10/19 [History] Fluocinolone Acetonide [[employer] 0.01% Shampoo] 1 applic TOP .TO SCALP PRN 12/10/19 [History] Folic Acid 1 mg PO DAILY 12/10/19 [History] Mv-Mn/Iron/FA/Herbal/Digestive [ One Tablet] 1 tab PO DAILY 12/10/19 [History] Potassium Chloride 40 meq PO DAILY 12/10/19 [History] Amylase/Lipase/Protease [Creon DR 12,000 Units] 12,000 unit PO .WITH SNACKS 02/14/20 [History] Amitriptyline [Elavil] 10 mg PO BEDTIME 08/03/20 [History] Furosemide 40 mg PO BID 08/03/20 [History] Naproxen 500 mg PO Q12H PRN 08/03/20 [History] Sertraline [Zoloft] 100 mg PO DAILY 08/03/20 [History] traMADol [Ultram] 50 mg PO TID PRN 08/03/20 [History] oxyCODONE 5 mg PO Q8H PRN #6 tablet 08/07/20 [Rx] Past Medical History HEENT History: Reports: Impaired Vision Other HEENT History: wears glasses Cardiovascular History: Reports: None Other Cardiovascular History: edema Respiratory History: Reports: COPD Other Respiratory History: states wheezes at times from smoking Gastrointestinal History: Reports: Fatty Liver, Pancreatitis Other Gastrointestinal History: fatty liver Genitourinary History: Reports: None 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 Psychiatric History: Reports: Anxiety, Bipolar, Depression, Panic Attack, PTSD, Other (See Below) Endocrine/Metabolic History: Reports: Hypothyroidism, Obesity/BMI 30+ Hematologic History: Reports: Other (See Below) Other Hematologic History: Hep C Immunologic History: Reports: None Oncologic (Cancer) History: Reports: None Dermatologic History: Reports: Psoriasis - Infectious Disease History Infectious Disease History: Reports: Hepatitis C - Past Surgical History Head Surgeries/Procedures: Reports: None HEENT Surgical History: Reports: None Cardiovascular Surgical History: Reports: None Respiratory Surgical History: Reports: None GI Surgical History: Reports: Hernia Repair/Other Female Surgical History: Reports: Tubal Ligation Endocrine Surgical History: Reports: None Neurological Surgical History: Reports: None Musculoskeletal Surgical History: Reports: None Oncologic Surgical History: Reports: None Dermatological Surgical History: Reports: None Social & Family History - Family History Family Medical History: No Pertinent Family History - Tobacco Use Tobacco Use Status *Q: Current Every Day Tobacco User Years of Tobacco use: 35 Packs/Tins Daily: 1 - Caffeine Use Caffeine Use: Reports: None - Recreational Drug Use Recreational Drug Use: Yes Drug Use in Last 12 Months: Yes Recreational Drug Type: Reports: Marijuana/Hashish Recreational Drug Use Frequency: Monthly H&P Review of Systems - Review of Systems: Review Of Systems: See Below General: Denies: Fever, Chills, Malaise, Weakness Pulmonary: Denies: Shortness of Breath, Wheezing Cardiovascular: Denies: Chest Pain, Palpitations, Dyspnea on Exertion Gastrointestinal: Reports: Abdominal Pain, Anorexia, Decreased Appetite, Nausea, Vomiting. Denies: Bloody Stool, Constipation, Diarrhea, Difficulty Swallowing, Distension Genitourinary: Denies: Dysuria, Frequency, Burning Musculoskeletal: Denies: Neck Pain, Shoulder Pain, Arm Pain Skin: Denies: Cyanosis, Jaundice, Mottled, Pallor Psychiatric: Denies: Confusion, Depression, Mood Lability Neurological: Denies: Confusion, Dizziness, Headache Exam - Exam Exam: See Below - Vital Signs Vital Signs: Last Vital Signs Temp 36.4 C 10/25/20 19:18 Pulse 89 10/25/20 19:18 Resp 18 10/25/20 19:18 BP 127/91 H 10/25/20 19:18 Pulse Ox 97 10/25/20 19:18 Weight: 104.326 kg - Exam General: Alert, Oriented Neck: Supple, Trachea Midline Lungs: Clear to Auscultation Cardiovascular: Regular Rate, Regular Rhythm GI/Abdominal Exam: Normal Bowel Sounds, Soft, Tender. No: Hepatomegaly, Splenomegaly - Patient Data Lab Results Last 24 hrs: Laboratory Results - last 24 hr 10/25/20 10/25/20 10/25/20 Range/Units 15:10 15:10 16:10 WBC 4.79 (4.0-11.0) K/uL RBC 3.53 L (4.30-5.90) M/uL Hgb 11.8 L (12.0-16.0) g/dL Hct 35.4 L (36.0-46.0) % MCV 100.3 H (80.0-98.0) fL MCH 33.4 H (27.0-32.0) pg MCHC 33.3 (31.0-37.0) g/dL RDW Std Deviation 53.8 (28.0-62.0) fl RDW Coeff of Jennifer 15 (11.0-15.0) % Plt Count 148 L (150-400) K/uL MPV 9.80 (7.40-12.00) fL Neut % (Auto) 59.6 (48.0-80.0) % Lymph % (Auto) 29.4 (16.0-40.0) % Wilkin % (Auto) 7.3 (0.0-15.0) % Eos % (Auto) 3.3 (0.0-7.0) % Baso % (Auto) 0.4 (0.0-1.5) % Neut # (Auto) 2.9 (1.4-5.7) K/uL Lymph # (Auto) 1.4 (0.6-2.4) K/uL Wilkin # (Auto) 0.4 (0.0-0.8) K/uL Eos # (Auto) 0.2 (0.0-0.7) K/uL Baso # (Auto) 0.0 (0.0-0.1) K/uL Nucleated RBC % 0.0 /100WBC Nucleated RBCs # 0 K/uL Sodium 141 (136-145) mmol/L Potassium 3.8 (3.5-5.1) mmol/L Chloride 106 (98-107) mmol/L Carbon Dioxide 26.2 (21.0-32.0) mmol/L BUN 5 L (7.0-18.0) mg/dL Creatinine 0.9 (0.6-1.0) mg/dL Est Cr Clr Drug Dosing 68.04 mL/min Estimated GFR (MDRD) > 60.0 ml/min Glucose 86 (74-106) mg/dL Calcium 7.4 L (8.5-10.1) mg/dL Magnesium 1.6 L (1.8-2.4) mg/dL Total Bilirubin 0.4 (0.2-1.0) mg/dL AST 55 H (15-37) IU/L ALT 39 (14-63) IU/L Alkaline Phosphatase 81 (46-116) U/L Total Protein 5.7 L (6.4-8.2) g/dL Albumin 2.9 L (3.4-5.0) g/dL Globulin 2.8 (2.6-4.0) g/dL Albumin/Globulin Ratio 1.0 (0.9-1.6) Lipase 277 (73-393) U/L Urine Color YELLOW Urine Appearance CLEAR Urine pH 6.0 (5.0-8.0) Ur Specific [place] 1.015 (1.001-1.035) Urine Protein NEGATIVE (NEGATIVE) mg/dL Urine Glucose (UA) NEGATIVE (NEGATIVE) mg/dL Urine Ketones TRACE H (NEGATIVE) mg/dL Urine Occult Blood TRACE-INTACT H (NEGATIVE) Urine Nitrite NEGATIVE (NEGATIVE) Urine Bilirubin NEGATIVE (NEGATIVE) Urine Urobilinogen 0.2 (<2.0) EU/dL Ur Leukocyte Esterase NEGATIVE (NEGATIVE) Urine RBC 0-2 (0-2/HPF) Urine WBC 0-2 (0-5/HPF) Ur Epithelial Cells OCCASIONAL (NONE-FEW) Urine Bacteria FEW (NEGATIVE) Urine Mucus LIGHT (NONE-MOD) Urine HCG, Qual (NEGATIVE) Ethyl Alcohol 4 mg/dL 10/25/20 Range/Units 16:10 WBC (4.0-11.0) K/uL RBC (4.30-5.90) M/uL Hgb (12.0-16.0) g/dL Hct (36.0-46.0) % MCV (80.0-98.0) fL MCH (27.0-32.0) pg MCHC (31.0-37.0) g/dL RDW Std Deviation (28.0-62.0) fl RDW Coeff of Jennifer (11.0-15.0) % Plt Count (150-400) K/uL MPV (7.40-12.00) fL Neut % (Auto) (48.0-80.0) % Lymph % (Auto) (16.0-40.0) % Wilkin % (Auto) (0.0-15.0) % Eos % (Auto) (0.0-7.0) % Baso % (Auto) (0.0-1.5) % Neut # (Auto) (1.4-5.7) K/uL Lymph # (Auto) (0.6-2.4) K/uL Wilkin # (Auto) (0.0-0.8) K/uL Eos # (Auto) (0.0-0.7) K/uL Baso # (Auto) (0.0-0.1) K/uL Nucleated RBC % /100WBC Nucleated RBCs # K/uL Sodium (136-145) mmol/L Potassium (3.5-5.1) mmol/L Chloride (98-107) mmol/L Carbon Dioxide (21.0-32.0) mmol/L BUN (7.0-18.0) mg/dL Creatinine (0.6-1.0) mg/dL Est Cr Clr Drug Dosing mL/min Estimated GFR (MDRD) ml/min Glucose (74-106) mg/dL Calcium (8.5-10.1) mg/dL Magnesium (1.8-2.4) mg/dL Total Bilirubin (0.2-1.0) mg/dL AST (15-37) IU/L ALT (14-63) IU/L Alkaline Phosphatase (46-116) U/L Total Protein (6.4-8.2) g/dL Albumin (3.4-5.0) g/dL Globulin (2.6-4.0) g/dL Albumin/Globulin Ratio (0.9-1.6) Lipase (73-393) U/L Urine Color Urine Appearance Urine pH (5.0-8.0) Ur Specific [place] (1.001-1.035) Urine Protein (NEGATIVE) mg/dL Urine Glucose (UA) (NEGATIVE) mg/dL Urine Ketones (NEGATIVE) mg/dL Urine Occult Blood (NEGATIVE) Urine Nitrite (NEGATIVE) Urine Bilirubin (NEGATIVE) Urine Urobilinogen (<2.0) EU/dL Ur Leukocyte Esterase (NEGATIVE) Urine RBC (0-2/HPF) Urine WBC (0-5/HPF) Ur Epithelial Cells (NONE-FEW) Urine Bacteria (NEGATIVE) Urine Mucus (NONE-MOD) Urine HCG, Qual NEGATIVE (NEGATIVE) Ethyl Alcohol mg/dL Result Diagrams: 10/25/20 15:10 10/25/20 15:10 Sepsis Event Note - Evaluation Sepsis Screening Result: No Definite Risk - Focused Exam Vital Signs: Vital Signs Temp Pulse Resp BP Pulse Ox 10/25/20 19:18 36.4 C 89 18 127/91 H 97 10/25/20 18:16 36.9 C 81 18 133/86 95 10/25/20 15:29 85 131/89 90 L 10/25/20 14:55 76 128/91 H 90 L 10/25/20 14:21 87 144/94 H 90 L 10/25/20 13:45 36.0 C L 102 H 20 114/86 92 L - Problem List (1) Abdominal pain SNOMED Code(s): 60832440 ICD Code: R10.9 - UNSPECIFIED ABDOMINAL PAIN Status: Acute Current Visit: Yes (2) Duodenitis SNOMED Code(s): 51739391 ICD Code: K29.80 - DUODENITIS WITHOUT BLEEDING Status: Acute Current Visit: Yes (3) Pancreatitis SNOMED Code(s): 52434729 ICD Code: K85.90 - ACUTE PANCREATITIS WITHOUT NECROSIS OR INFECTION, UNSP Status: Acute Current Visit: Yes Qualifiers: Chronicity: chronic Pancreatitis type: alcohol induced Qualified Code(s): K86.0 - Alcohol-induced chronic pancreatitis (4) Hypomagnesemia SNOMED Code(s): 332784362 ICD Code: E83.42 - HYPOMAGNESEMIA Status: Acute Current Visit: Yes (5) Alcohol use disorder SNOMED Code(s): 9143746 ICD Code: NWD5485 - Status: Acute Current Visit: No (6) Alcohol withdrawal SNOMED Code(s): 315094970 ICD Code: F10.239 - ALCOHOL DEPENDENCE WITH WITHDRAWAL, UNSPECIFIED Status: Acute Current Visit: No Qualifiers: Complication of substance-induced condition: with perceptual disturbance Qualified Code(s): F10.232 - Alcohol dependence with withdrawal with perceptual disturbance (7) Alcohol abuse SNOMED Code(s): 51026057 ICD Code: F10.10 - ALCOHOL ABUSE, UNCOMPLICATED Status: Chronic Current Visit: No (8) Hypothyroidism SNOMED Code(s): 17532073 ICD Code: E03.9 - HYPOTHYROIDISM, UNSPECIFIED Status: Chronic Current Vi sit: No (9) Tobacco abuse SNOMED Code(s): 306725730 ICD Code: Z72.0 - TOBACCO USE Status: Chronic Current Visit: No Problem List Initiated/Reviewed/Updated: Yes Orders Last 24hrs: Active Orders 24 hr Category Date Time Status Admission Status [Patient Status] [ADT] Stat ADT 10/25/20 18:45 Active Ambulate [RC] ASDIRECTED Care 10/25/20 19:28 Ordered Antiembolic Devices [RC] PER UNIT ROUTINE Care 10/25/20 19:30 Ordered Blood Glucose Check, Bedside [RC] Q6H Care 10/25/20 19:28 Ordered CIWAA Assessment [RC] ASDIRECTED Care 10/25/20 14:00 Active Oxygen Therapy [RC] PRN Care 10/25/20 19:28 Ordered Pulse Oximetry [RC] PRN Care 10/25/20 19:29 Ordered RT Aerosol Therapy [RC] ASDIRECTED Care 10/25/20 19:31 Ordered VTE/DVT Education [RC] PER UNIT ROUTINE Care 10/25/20 19:28 Ordered Vital Signs [RC] Q4H Care 10/25/20 19:28 Ordered Nothing per Oral Now Diet [DIET] Diet 10/25/20 Dinner Ordered Albuterol/Ipratropium [DuoNeb 3.0-0.5 MG/3 ML] Med 10/25/20 19:28 Ordered 3 ml NEB Q4HRRT PRN Enoxaparin [Lovenox] Med 10/25/20 19:30 Ordered 40 mg SUBCUT Q24H HYDROmorphone [Dilaudid] Med 10/25/20 19:28 Ordered 0.5 mg IVPUSH Q3H PRN LORazepam [Ativan] Med 10/25/20 19:32 Ordered See Protocol IVPUSH Q4H PRN Lactated Ringers @ 125 MLS/HR(1000ml) Med 10/25/20 19:30 Ordered Lactated Ringers [Ringers, Lactated] 1,000 ml IV ASDIRECTED Ondansetron [Zofran] Med 10/25/20 19:28 Ordered 4 mg IVPUSH Q4H PRN Pantoprazole [ProTONIX IV] Med 10/25/20 19:30 Ordered 40 mg IV DAILY Sequential Compression Device [OM.PC] Per Unit Routine Oth 10/25/20 19:29 Ordered Resuscitation Status Routine Resus Stat 10/25/20 19:28 Ordered Medication Orders Albuterol/Ipratropium (Albuterol/Ipratropium 3.0-0.5 Mg/3 Ml Neb Soln) 3 ml NEB Q4HRRT PRN PRN Reason: Shortness Of Breath/wheezing Enoxaparin Sodium (Enoxaparin 40 Mg/0.4 Ml Syringe) 40 mg SUBCUT Q24H DIANA Hydromorphone HCl (Hydromorphone 2 Mg/Ml Syringe) 0.5 mg IVPUSH Q3H PRN PRN Reason: Pain (severe 7-10) Lactated Ringer's (Ringers, Lactated) 1,000 mls @ 125 mls/hr IV ASDIRECTED DIANA Lorazepam (Lorazepam 2 Mg/Ml Sdv) 0 mg IVPUSH Q4H PRN; Protocol PRN Reason: Withdrawal Symptoms Ondansetron HCl (Ondansetron 4 Mg/2 Ml Sdv) 4 mg IVPUSH Q4H PRN PRN Reason: Nausea/Vomiting Pantoprazole Sodium (Pantoprazole 40 Mg Vial) 40 mg IV DAILY DIANA Assessment/Plan Comment:: 50-year-old female admitted for intractable nausea vomiting likely secondary to duodenitis versus pancreatitis due to patient's binge drinking of hard liquor Start patient on IV fluids, will keep her n.p.o. except ice chips IV PPI daily IV Zofran for nausea vomiting IV Dilaudid 0.5 mg every 3 hours for pain, transition to oral when able to to lerate oral diet Will replete magnesium Start patient on oral thiamine and folic acid if able to tolerate if not then will start patient on IV thiamine and folic acid IV Ativan per CIWA protocol Check CIWA per protocol SCD for DVT prophylaxis
[2020-10-25] MEDS ORDERED: Magnesium Sulfate/Water 2 GM in Premix Bag 1 BAG IV ONE (19:59)
[2020-10-25] MEDS: Pantoprazole 40 MG Vial IV SCH (21:25)
[2020-10-25] MEDS: Folic Acid 1 MG Tab PO SCH (21:25)
[2020-10-25] MEDS: Thiamine 100 MG Tab PO SCH (21:25)
[2020-10-25] MEDS: Enoxaparin 40 MG/0.4 ML Syringe SUBCUT SCH (21:26)
[2020-10-25] MEDS: Lactated Ringers 1,000 ML IV SCH (22:46)
[2020-10-25] MEDS: LORazepam 2 MG/ML SDV IVPUSH PRN (22:46)
[2020-10-26] MEDS: Nicotine 21 MG/24 Hr Patch TRDERM SCH ×2 (00:18→08:03)
[2020-10-26] MEDS: HYDROmorphone 2 MG/ML Syringe IVPUSH PRN ×4 (00:24→11:29)
[2020-10-26] MEDS ORDERED: Amylase/Lipase/Protease 6,000 Unit Cap.CR PO SCH (01:00)
[2020-10-26] MEDS: LORazepam 2 MG/ML SDV IVPUSH PRN ×4 (03:50→20:54)
[2020-10-26] MEDS: Lactated Ringers 1,000 ML IV SCH ×3 (06:36→23:22)
[2020-10-26 06:44] LABS: BLOOD UREA NITROGEN,BUN 5 mg/dL (7.0-18.0); CARBON DIOXIDE,CO2 28.5 mmol/L (21.0-32.0); CHLORIDE,CL 102 mmol/L (98-107); GLUCOSE RANDOM 85 mg/dL (74-106); POTASSIUM,K 3.8 mmol/L (3.5-5.1); SODIUM,NA 138 mmol/L (136-145)
[2020-10-26] MEDS: Pantoprazole 40 MG Vial IV SCH (08:01)
[2020-10-26] MEDS: Diazepam 5 MG Tab PO SCH ×3 (08:02→23:22)
[2020-10-26] MEDS: Levothyroxine 150 MCG Tab PO SCH (08:02)
[2020-10-26] MEDS: Sertraline 100 MG Tab PO SCH (08:03)
--- NOTE | 2020-10-26 14:15 | PCM.PN ---
- General Info Date of Service: 10/26/20 Admission Dx/Problem (Free Text): Admission Diagnosis/Problem Admission Diagnosis/Problem Duodenitis Subjective Update: Seen and examined at bedside, states that her Dilaudid is not lasting more than 2 hours. Patient is still n.p.o. not able to tolerate oral diet Functional Status: Reports: Ambulating, Urinating. Denies: Tolerating Diet - Review of Systems General: Denies: Fever Pulmonary: Denies: Shortness of Breath, Pleuritic Chest Pain, Cough Cardiovascular: Denies: Chest Pain, Palpitations, Dyspnea on Exertion Gastrointestinal: Reports: Abdominal Pain, Decreased Appetite, Nausea. Denies: Constipation, Diarrhea, Difficulty Swallowing, Melena, Vomiting Genitourinary: Denies: Dysuria, Frequency, Burning, Pain Musculoskeletal: Denies: Neck Pain, Shoulder Pain, Arm Pain Skin: Denies: Cyanosis, Jaundice, Mottled, Pallor Neurological: Denies: Confusion, Dizziness, Headache - Patient Data Vitals - Most Recent: Last Vital Signs Temp 36.5 C 10/26/20 12:15 Pulse 79 10/26/20 12:15 Resp 16 10/26/20 12:15 BP 128/82 10/26/20 12:15 Pulse Ox 90 L 10/26/20 12:15 Weight - Most Recent: 115.212 kg I&O - Last 24 Hours: Intake & Output 10/25/20 10/26/20 10/26/20 22:59 06:59 14:59 Intake Total 600 Output Total 800 Balance -200 Lab Results Last 24 Hours: Laboratory Results - last 24 hr 10/25/20 10/25/20 10/25/20 Range/Units 15:10 15:10 16:10 WBC 4.79 (4.0-11.0) K/uL RBC 3.53 L (4.30-5.90) M/uL Hgb 11.8 L (12.0-16.0) g/dL Hct 35.4 L (36.0-46.0) % MCV 100.3 H (80.0-98.0) fL MCH 33.4 H (27.0-32.0) pg MCHC 33.3 (31.0-37.0) g/dL RDW Std Deviation 53.8 (28.0-62.0) fl RDW Coeff of Jennifer 15 (11.0-15.0) % Plt Count 148 L (150-400) K/uL MPV 9.80 (7.40-12.00) fL Neut % (Auto) 59.6 (48.0-80.0) % Lymph % (Auto) 29.4 (16.0-40.0) % Oliver % (Auto) 7.3 (0.0-15.0) % Eos % (Auto) 3.3 (0.0-7.0) % Baso % (Auto) 0.4 (0.0-1.5) % Neut # (Auto) 2.9 (1.4-5.7) K/uL Lymph # (Auto) 1.4 (0.6-2.4) K/uL Oliver # (Auto) 0.4 (0.0-0.8) K/uL Eos # (Auto) 0.2 (0.0-0.7) K/uL Baso # (Auto) 0.0 (0.0-0.1) K/uL Nucleated RBC % 0.0 /100WBC Nucleated RBCs # 0 K/uL Sodium 141 (136-145) mmol/L Potassium 3.8 (3.5-5.1) mmol/L Chloride 106 (98-107) mmol/L Carbon Dioxide 26.2 (21.0-32.0) mmol/L BUN 5 L (7.0-18.0) mg/dL Creatinine 0.9 (0.6-1.0) mg/dL Est Cr Clr Drug Dosing 68.04 mL/min Estimated GFR (MDRD) > 60.0 ml/min Glucose 86 (74-106) mg/dL POC Glucose (70-99) mg/dL Calcium 7.4 L (8.5-10.1) mg/dL Phosphorus (2.6-4.7) mg/dL Magnesium 1.6 L (1.8-2.4) mg/dL Total Bilirubin 0.4 (0.2-1.0) mg/dL AST 55 H (15-37) IU/L ALT 39 (14-63) IU/L Alkaline Phosphatase 81 (46-116) U/L Total Protein 5.7 L (6.4-8.2) g/dL Albumin 2.9 L (3.4-5.0) g/dL Globulin 2.8 (2.6-4.0) g/dL Albumin/Globulin Ratio 1.0 (0.9-1.6) Lipase 277 (73-393) U/L Urine Color YELLOW Urine Appearance CLEAR Urine pH 6.0 (5.0-8.0) Ur Specific [place] 1.015 (1.001-1.035) Urine Protein NEGATIVE (NEGATIVE) mg/dL Urine Glucose (UA) NEGATIVE (NEGATIVE) mg/dL Urine Ketones TRACE H (NEGATIVE) mg/dL Urine Occult Blood TRACE-INTACT H (NEGATIVE) Urine Nitrite NEGATIVE (NEGATIVE) Urine Bilirubin NEGATIVE (NEGATIVE) Urine Urobilinogen 0.2 (<2.0) EU/dL Ur Leukocyte Esterase NEGATIVE (NEGATIVE) Urine RBC 0-2 (0-2/HPF) Urine WBC 0-2 (0-5/HPF) Ur Epithelial Cells OCCASIONAL (NONE-FEW) Urine Bacteria FEW (NEGATIVE) Urine Mucus LIGHT (NONE-MOD) Urine HCG, Qual (NEGATIVE) Ethyl Alcohol 4 mg/dL SARS-CoV-2 RNA (DICK) (NEGATIVE) 10/25/20 10/25/20 10/26/20 Range/Units 16:10 19:00 00:20 WBC (4.0-11.0) K/uL RBC (4.30-5.90) M/uL Hgb (12.0-16.0) g/dL Hct (36.0-46.0) % MCV (80.0-98.0) fL MCH (27.0-32.0) pg MCHC (31.0-37.0) g/dL RDW Std Deviation (28.0-62.0) fl RDW Coeff of Jennifer (11.0-15.0) % Plt Count (150-400) K/uL MPV (7.40-12.00) fL Neut % (Auto) (48.0-80.0) % Lymph % (Auto) (16.0-40.0) % Oliver % (Auto) (0.0-15.0) % Eos % (Auto) (0.0-7.0) % Baso % (Auto) (0.0-1.5) % Neut # (Auto) (1.4-5.7) K/uL Lymph # (Auto) (0.6-2.4) K/uL Oliver # (Auto) (0.0-0.8) K/uL Eos # (Auto) (0.0-0.7) K/uL Baso # (Auto) (0.0-0.1) K/uL Nucleated RBC % /100WBC Nucleated RBCs # K/uL Sodium (136-145) mmol/L Potassium (3.5-5.1) mmol/L Chloride (98-107) mmol/L Carbon Dioxide (21.0-32.0) mmol/L BUN (7.0-18.0) mg/dL Creatinine (0.6-1.0) mg/dL Est Cr Clr Drug Dosing mL/min Estimated GFR (MDRD) ml/min Glucose (74-106) mg/dL POC Glucose 97 (70-99) mg/dL Calcium (8.5-10.1) mg/dL Phosphorus (2.6-4.7) mg/dL Magnesium (1.8-2.4) mg/dL Total Bilirubin (0.2-1.0) mg/dL AST (15-37) IU/L ALT (14-63) IU/L Alkaline Phosphatase (46-116) U/L Total Protein (6.4-8.2) g/dL Albumin (3.4-5.0) g/dL Globulin (2.6-4.0) g/dL Albumin/Globulin Ratio (0.9-1.6) Lipase (73-393) U/L Urine Color Urine Appearance Urine pH (5.0-8.0) Ur Specific [place] (1.001-1.035) Urine Protein (NEGATIVE) mg/dL Urine Glucose (UA) (NEGATIVE) mg/dL Urine Ketones (NEGATIVE) mg/dL Urine Occult Blood (NEGATIVE) Urine Nitrite (NEGATIVE) Urine Bilirubin (NEGATIVE) Urine Urobilinogen (<2.0) EU/dL Ur Leukocyte Esterase (NEGATIVE) Urine RBC (0-2/HPF) Urine WBC (0-5/HPF) Ur Epithelial Cells (NONE-FEW) Urine Bacteria (NEGATIVE) Urine Mucus (NONE-MOD) Urine HCG, Qual NEGATIVE (NEGATIVE) Ethyl Alcohol mg/dL SARS-CoV-2 RNA (DICK) NEGATIVE (NEGATIVE) 09/02/21 09/02/21 09/02/21 Range/Units 05:40 05:40 06:35 WBC 5.88 (4.0-11.0) K/uL RBC 3.73 L (4.30-5.90) M/uL Hgb 12.3 (12.0-16.0) g/dL Hct 38.1 (36.0-46.0) % MCV 102.1 H (80.0-98.0) fL MCH 33.0 H (27.0-32.0) pg MCHC 32.3 (31.0-37.0) g/dL RDW Std Deviation 54.8 (28.0-62.0) fl RDW Coeff of Jennifer 15 (11.0-15.0) % Plt Count 172 (150-400) K/uL MPV 10.00 (7.40-12.00) fL Neut % (Auto) 55.3 (48.0-80.0) % Lymph % (Auto) 36.4 (16.0-40.0) % Oliver % (Auto) 4.8 (0.0-15.0) % Eos % (Auto) 3.2 (0.0-7.0) % Baso % (Auto) 0.3 (0.0-1.5) % Neut # (Auto) 3.3 (1.4-5.7) K/uL Lymph # (Auto) 2.1 (0.6-2.4) K/uL Oliver # (Auto) 0.3 (0.0-0.8) K/uL Eos # (Auto) 0.2 (0.0-0.7) K/uL Baso # (Auto) 0.0 (0.0-0.1) K/uL Nucleated RBC % 0.5 /100WBC Nucleated RBCs # 0 K/uL Sodium 138 (136-145) mmol/L Potassium 3.8 (3.5-5.1) mmol/L Chloride 102 (98-107) mmol/L Carbon Dioxide 28.5 (21.0-32.0) mmol/L BUN 5 L (7.0-18.0) mg/dL Creatinine 0.9 (0.6-1.0) mg/dL Est Cr Clr Drug Dosing 68.04 mL/min Estimated GFR (MDRD) > 60.0 ml/min Glucose 85 (74-106) mg/dL POC Glucose 94 (70-99) mg/dL Calcium 7.9 L (8.5-10.1) mg/dL Phosphorus 3.3 (2.6-4.7) mg/dL Magnesium 2.4 (1.8-2.4) mg/dL Total Bilirubin (0.2-1.0) mg/dL AST (15-37) IU/L ALT (14-63) IU/L Alkaline Phosphatase (46-116) U/L Total Protein (6.4-8.2) g/dL Albumin (3.4-5.0) g/dL Globulin (2.6-4.0) g/dL Albumin/Globulin Ratio (0.9-1.6) Lipase (73-393) U/L Urine Color Urine Appearance Urine pH (5.0-8.0) Ur Specific [place] (1.001-1.035) Urine Protein (NEGATIVE) mg/dL Urine Glucose (UA) (NEGATIVE) mg/dL Urine Ketones (NEGATIVE) mg/dL Urine Occult Blood (NEGATIVE) Urine Nitrite (NEGATIVE) Urine Bilirubin (NEGATIVE) Urine Urobilinogen (<2.0) EU/dL Ur Leukocyte Esterase (NEGATIVE) Urine RBC (0-2/HPF) Urine WBC (0-5/HPF) Ur Epithelial Cells (NONE-FEW) Urine Bacteria (NEGATIVE) Urine Mucus (NONE-MOD) Urine HCG, Qual (NEGATIVE) Ethyl Alcohol mg/dL SARS-CoV-2 RNA (DICK) (NEGATIVE) Med Orders - Current: Current Medications Albuterol/Ipratropium (Albuterol/Ipratropium 3.0-0.5 Mg/3 Ml Neb Soln) 3 ml NEB Q4HRRT PRN PRN Reason: Shortness Of Breath/wheezing Amitriptyline HCl (Amitriptyline 10 Mg Tab) 10 mg PO BEDTIME [facility] Lipase/Protease/Amylase (Amylase/Lipase/Protease 6,000 Unit Cap.Cr) 2 cap PO .WITH SNACKS [facility] Diazepam (Diazepam 5 Mg Tab) 5 mg PO Q8H [facility] Last Admin: 10/26/20 08:02 Dose: 5 mg Documented by: Enoxaparin Sodium (Enoxaparin 40 Mg/0.4 Ml Syringe) 40 mg SUBCUT Q24H [facility] Last Admin: 10/25/20 21:26 Dose: 40 mg Documented by: Folic Acid (Folic Acid 1 Mg Tab) 1 mg PO BEDTIME [facility] Last Admin: 10/25/20 21:25 Dose: 1 mg Documented by: Hydromorphone HCl (Hydromorphone 1 Mg/Ml Syringe) 0.5 mg IVPUSH Q2H PRN PRN Reason: Pain (severe 7-10) Lactated Ringer's (Ringers, Lactated) 1,000 mls @ 125 mls/hr IV ASDIRECTED [facility] Last Admin: 10/26/20 06:36 Dose: 125 mls/hr Documented by: Pantoprazole Sodium 40 mg/ (Sodium Chloride) 10 mls @ 300 mls/hr IV Q24H [facility] Levothyroxine Sodium (Levothyroxine 150 Mcg Tab) 300 mcg PO DAILY@0700 [facility] Last Admin: 10/26/20 08:02 Dose: 300 mcg Documented by: Lorazepam (Lorazepam 2 Mg/Ml Sdv) 0 mg IVPUSH Q4H PRN; Protocol PRN Reason: Withdrawal Symptoms Last Admin: 10/26/20 13:43 Dose: 1 mg Documented by: Nicotine (Nicotine 21 Mg/24 Hr Patch) 21 mg TRDERM DAILY [facility] Last Admin: 10/26/20 08:03 Dose: 21 mg Documented by: Ondansetron HCl (Ondansetron 4 Mg/2 Ml Sdv) 4 mg IVPUSH Q4H PRN PRN Reason: Nausea/Vomiting Sertraline HCl (Sertraline 100 Mg Tab) 100 mg PO DAILY [facility] Last Admin: 10/26/20 08:03 Dose: 100 mg Documented by: Thiamine HCl (Thiamine 100 Mg Tab) 100 mg PO BEDTIME [facility] Last Admin: 10/25/20 21:25 Dose: 100 mg Documented by: Discontinued Medications Diazepam (Diazepam 5 Mg Tab) 10 mg PO ONETIME ONE Stop: 10/25/20 18:49 Last Admin: 10/25/20 19:11 Dose: 10 mg Documented by: Hydromorphone HCl (Hydromorphone 2 Mg/Ml Syringe) 0.5 mg IVPUSH ONETIME ONE Stop: 10/25/20 18:46 Last Admin: 10/25/20 19:17 Dose: 0.5 mg Documented by: Hydromorphone HCl (Hydromorphone 2 Mg/Ml Syringe) 0.5 mg IVPUSH Q3H PRN PRN Reason: Pain (severe 7-10) Last Admin: 10/26/20 11:29 Dose: 0.5 mg Documented by: Sodium Chloride (Normal Saline) 1,000 mls @ 999 mls/hr IV STAT ONE Stop: 10/25/20 14:51 Last Admin: 10/25/20 14:11 Dose: 999 mls/hr Documented by: Magnesium Sulfate 2 gm/ Premix 50 mls @ 50 mls/hr IV ONETIME ONE Stop: 10/25/20 20:58 Last Admin: 10/25/20 21:36 Dose: 50 mls/hr Documented by: Iopamidol (Iopamidol 755 Mg/Ml 500 Ml Multipack Bottle) 100 ml IVPUSH ONETIME STA Stop: 10/25/20 18:39 Last Admin: 10/25/20 18:39 Dose: 100 ml Documented by: Ketorolac Tromethamine (Ketorolac 30 Mg/Ml Sdv) 30 mg IVPUSH ONETIME ONE Stop: 10/25/20 14:50 Last Admin: 10/25/20 15:20 Dose: 30 mg Documented by: Lorazepam (Lorazepam 2 Mg/Ml Sdv) 1 mg IVPUSH ONETIME ONE Stop: 10/25/20 14:01 Last Admin: 10/25/20 14:13 Dose: 1 mg Documented by: Pantoprazole Sodium (Pantoprazole 40 Mg Vial) 40 mg IV DAILY [facility] Last Admin: 10/26/20 08:01 Dose: 40 mg Documented by: Tramadol HCl (Tramadol 50 Mg Tab) 50 mg PO ONETIME ONE Stop: 10/25/20 17:49 Last Admin: 10/25/20 18:14 Dose: 50 mg Documented by: - Exam Quality Assessment: Supplemental Oxygen General: Alert, Oriented Lungs: Clear to Auscultation Cardiovascular: Regular Rate, Regular Rhythm GI/Abdominal Exam: Normal Bowel Sounds, Soft, Guarding, Tender. No: Mass, Hepatomegaly, Splenomegaly Extremities: Normal Inspection, Normal Range of Motion, Non-Tender, No Pedal Edema - Patient Data Lab Results Last 24 hrs: Laboratory Results - last 24 hr 10/25/20 10/25/20 10/25/20 Range/Units 15:10 15:10 16:10 WBC 4.79 (4.0-11.0) K/uL RBC 3.53 L (4.30-5.90) M/uL Hgb 11.8 L (12.0-16.0) g/dL Hct 35.4 L (36.0-46.0) % MCV 100.3 H (80.0-98.0) fL MCH 33.4 H (27.0-32.0) pg MCHC 33.3 (31.0-37.0) g/dL RDW Std Deviation 53.8 (28.0-62.0) fl RDW Coeff of Jennifer 15 (11.0-15.0) % Plt Count 148 L (150-400) K/uL MPV 9.80 (7.40-12.00) fL Neut % (Auto) 59.6 (48.0-80.0) % Lymph % (Auto) 29.4 (16.0-40.0) % Oliver % (Auto) 7.3 (0.0-15.0) % Eos % (Auto) 3.3 (0.0-7.0) % Baso % (Auto) 0.4 (0.0-1.5) % Neut # (Auto) 2.9 (1.4-5.7) K/uL Lymph # (Auto) 1.4 (0.6-2.4) K/uL Oliver # (Auto) 0.4 (0.0-0.8) K/uL Eos # (Auto) 0.2 (0.0-0.7) K/uL Baso # (Auto) 0.0 (0.0-0.1) K/uL Nucleated RBC % 0.0 /100WBC Nucleated RBCs # 0 K/uL Sodium 141 (136-145) mmol/L Potassium 3.8 (3.5-5.1) mmol/L Chloride 106 (98-107) mmol/L Carbon Dioxide 26.2 (21.0-32.0) mmol/L BUN 5 L (7.0-18.0) mg/dL Creatinine 0.9 (0.6-1.0) mg/dL Est Cr Clr Drug Dosing 68.04 mL/min Estimated GFR (MDRD) > 60.0 ml/min Glucose 86 (74-106) mg/dL POC Glucose (70-99) mg/dL Calcium 7.4 L (8.5-10.1) mg/dL Phosphorus (2.6-4.7) mg/dL Magnesium 1.6 L (1.8-2.4) mg/dL Total Bilirubin 0.4 (0.2-1.0) mg/dL AST 55 H (15-37) IU/L ALT 39 (14-63) IU/L Alkaline Phosphatase 81 (46-116) U/L Total Protein 5.7 L (6.4-8.2) g/dL Albumin 2.9 L (3.4-5.0) g/dL Globulin 2.8 (2.6-4.0) g/dL Albumin/Globulin Ratio 1.0 (0.9-1.6) Lipase 277 (73-393) U/L Urine Color YELLOW Urine Appearance CLEAR Urine pH 6.0 (5.0-8.0) Ur Specific [place] 1.015 (1.001-1.035) Urine Protein NEGATIVE (NEGATIVE) mg/dL Urine Glucose (UA) NEGATIVE (NEGATIVE) mg/dL Urine Ketones TRACE H (NEGATIVE) mg/dL Urine Occult Blood TRACE-INTACT H (NEGATIVE) Urine Nitrite NEGATIVE (NEGATIVE) Urine Bilirubin NEGATIVE (NEGATIVE) Urine Urobilinogen 0.2 (<2.0) EU/dL Ur Leukocyte Esterase NEGATIVE (NEGATIVE) Urine RBC 0-2 (0-2/HPF) Urine WBC 0-2 (0-5/HPF) Ur Epithelial Cells OCCASIONAL (NONE-FEW) Urine Bacteria FEW (NEGATIVE) Urine Mucus LIGHT (NONE-MOD) Urine HCG, Qual (NEGATIVE) Ethyl Alcohol 4 mg/dL SARS-CoV-2 RNA (DICK) (NEGATIVE) 10/25/20 10/25/20 10/26/20 Range/Units 16:10 19:00 00:20 WBC (4.0-11.0) K/uL RBC (4.30-5.90) M/uL Hgb (12.0-16.0) g/dL Hct (36.0-46.0) % MCV (80.0-98.0) fL MCH (27.0-32.0) pg MCHC (31.0-37.0) g/dL RDW Std Deviation (28.0-62.0) fl RDW Coeff of Jennifer (11.0-15.0) % Plt Count (150-400) K/uL MPV (7.40-12.00) fL Neut % (Auto) (48.0-80.0) % Lymph % (Auto) (16.0-40.0) % Oliver % (Auto) (0.0-15.0) % Eos % (Auto) (0.0-7.0) % Baso % (Auto) (0.0-1.5) % Neut # (Auto) (1.4-5.7) K/uL Lymph # (Auto) (0.6-2.4) K/uL Oliver # (Auto) (0.0-0.8) K/uL Eos # (Auto) (0.0-0.7) K/uL Baso # (Auto) (0.0-0.1) K/uL Nucleated RBC % /100WBC Nucleated RBCs # K/uL Sodium (136-145) mmol/L Potassium (3.5-5.1) mmol/L Chloride (98-107) mmol/L Carbon Dioxide (21.0-32.0) mmol/L BUN (7.0-18.0) mg/dL Creatinine (0.6-1.0) mg/dL Est Cr Clr Drug Dosing mL/min Estimated GFR (MDRD) ml/min Glucose (74-106) mg/dL POC Glucose 97 (70-99) mg/dL Calcium (8.5-10.1) mg/dL Phosphorus (2.6-4.7) mg/dL Magnesium (1.8-2.4) mg/dL Total Bilirubin (0.2-1.0) mg/dL AST (15-37) IU/L ALT (14-63) IU/L Alkaline Phosphatase (46-116) U/L Total Protein (6.4-8.2) g/dL Albumin (3.4-5.0) g/dL Globulin (2.6-4.0) g/dL Albumin/Globulin Ratio (0.9-1.6) Lipase (73-393) U/L Urine Color Urine Appearance Urine pH (5.0-8.0) Ur Specific [place] (1.001-1.035) Urine Protein (NEGATIVE) mg/dL Urine Glucose (UA) (NEGATIVE) mg/dL Urine Ketones (NEGATIVE) mg/dL Urine Occult Blood (NEGATIVE) Urine Nitrite (NEGATIVE) Urine Bilirubin (NEGATIVE) Urine Urobilinogen (<2.0) EU/dL Ur Leukocyte Esterase (NEGATIVE) Urine RBC (0-2/HPF) Urine WBC (0-5/HPF) Ur Epithelial Cells (NONE-FEW) Urine Bacteria (NEGATIVE) Urine Mucus (NONE-MOD) Urine HCG, Qual NEGATIVE (NEGATIVE) Ethyl Alcohol mg/dL SARS-CoV-2 RNA (DICK) NEGATIVE (NEGATIVE) 10/26/20 10/26/20 10/26/20 Range/Units 05:40 05:40 06:35 WBC 5.88 (4.0-11.0) K/uL RBC 3.73 L (4.30-5.90) M/uL Hgb 12.3 (12.0-16.0) g/dL Hct 38.1 (36.0-46.0) % MCV 102.1 H (80.0-98.0) fL MCH 33.0 H (27.0-32.0) pg MCHC 32.3 (31.0-37.0) g/dL RDW Std Deviation 54.8 (28.0-62.0) fl RDW Coeff of Jennifer 15 (11.0-15.0) % Plt Count 172 (150-400) K/uL MPV 10.00 (7.40-12.00) fL Neut % (Auto) 55.3 (48.0-80.0) % Lymph % (Auto) 36.4 (16.0-40.0) % Oliver % (Auto) 4.8 (0.0-15.0) % Eos % (Auto) 3.2 (0.0-7.0) % Baso % (Auto) 0.3 (0.0-1.5) % Neut # (Auto) 3.3 (1.4-5.7) K/uL Lymph # (Auto) 2.1 (0.6-2.4) K/uL Oliver # (Auto) 0.3 (0.0-0.8) K/uL Eos # (Auto) 0.2 (0.0-0.7) K/uL Baso # (Auto) 0.0 (0.0-0.1) K/uL Nucleated RBC % 0.5 /100WBC Nucleated RBCs # 0 K/uL Sodium 138 (136-145) mmol/L Potassium 3.8 (3.5-5.1) mmol/L Chloride 102 (98-107) mmol/L Carbon Dioxide 28.5 (21.0-32.0) mmol/L BUN 5 L (7.0-18.0) mg/dL Creatinine 0.9 (0.6-1.0) mg/dL Est Cr Clr Drug Dosing 68.04 mL/min Estimated GFR (MDRD) > 60.0 ml/min Glucose 85 (74-106) mg/dL POC Glucose 94 (70-99) mg/dL Calcium 7.9 L (8.5-10.1) mg/dL Phosphorus 3.3 (2.6-4.7) mg/dL Magnesium 2.4 (1.8-2.4) mg/dL Total Bilirubin (0.2-1.0) mg/dL AST (15-37) IU/L ALT (14-63) IU/L Alkaline Phosphatase (46-116) U/L Total Protein (6.4-8.2) g/dL Albumin (3.4-5.0) g/dL Globulin (2.6-4.0) g/dL Albumin/Globulin Ratio (0.9-1.6) Lipase (73-393) U/L Urine Color Urine Appearance Urine pH (5.0-8.0) Ur Specific [place] (1.001-1.035) Urine Protein (NEGATIVE) mg/dL Urine Glucose (UA) (NEGATIVE) mg/dL Urine Ketones (NEGATIVE) mg/dL Urine Occult Blood (NEGATIVE) Urine Nitrite (NEGATIVE) Urine Bilirubin (NEGATIVE) Urine Urobilinogen (<2.0) EU/dL Ur Leukocyte Esterase (NEGATIVE) Urine RBC (0-2/HPF) Urine WBC (0-5/HPF) Ur Epithelial Cells (NONE-FEW) Urine Bacteria (NEGATIVE) Urine Mucus (NONE-MOD) Urine HCG, Qual (NEGATIVE) Ethyl Alcohol mg/dL SARS-CoV-2 RNA (DICK) (NEGATIVE) Result Diagrams: 10/26/20 05:40 10/26/20 05:40 Sepsis Event Note - Evaluation Sepsis Screening Result: No Definite Risk - Focused Exam Vital Signs: Vital Signs Temp Pulse Resp BP Pulse Ox 10/26/20 12:15 36.5 C 79 16 128/82 90 L 10/26/20 08:00 36.1 C 83 17 122/85 94 L 10/26/20 03:48 36.4 C 84 16 116/81 95 - Problem List & Annotations (1) Abdominal pain SNOMED Code(s): 05743636 Code(s): R10.9 - UNSPECIFIED ABDOMINAL PAIN Status: Acute Current Visit: Yes (2) Duodenitis SNOMED Code(s): 20247523 Code(s): K29.80 - DUODENITIS WITHOUT BLEEDING Status: Acute Current Visit: Yes (3) Pancreatitis SNOMED Code(s): 56074681 Code(s): K85.90 - ACUTE PANCREATITIS WITHOUT NECROSIS OR INFECTION, UNSP Status: Acute Current Visit: Yes Qualifiers: Chronicity: chronic Pancreatitis type: alcohol induced Qualified Code(s): K86.0 - Alcohol-induced chronic pancreatitis (4) Hypomagnesemia SNOMED Code(s): 286286878 Code(s): E83.42 - HYPOMAGNESEMIA Status: Acute Current Visit: Yes (5) Alcohol use disorder SNOMED Code(s): 8119968 Code(s): VWV6031 - Status: Acute Current Visit: No (6) Alcohol withdrawal SNOMED Code(s): 031356121 Code(s): F10.239 - ALCOHOL DEPENDENCE WITH WITHDRAWAL, UNSPECIFIED Status: Acute Current Visit: No Qualifiers: Complication of substance-induced condition: with perceptual disturbance Qualified Code(s): F10.232 - Alcohol dependence with withdrawal with perceptual disturbance (7) Alcohol abuse SNOMED Code(s): 32676970 Code(s): F10.10 - ALCOHOL ABUSE, UNCOMPLICATED Status: Chronic Current Visit: No (8) Hypothyroidism SNOMED Code(s): 43277112 Code(s): E03.9 - HYPOTHYROIDISM, UNSPECIFIED Status: Chronic Current Visit: No (9) Tobacco abuse SNOMED Code(s): 408957910 Code(s): Z72.0 - TOBACCO USE Status: Chronic Current Visit: No - Problem List Review Problem List Initiated/Reviewed/Updated: Yes - My Orders Last 24 Hours: My Active Orders 10/25/20 Dinner Nothing per Oral Now Diet [DIET] 10/25/20 19:28 Blood Glucose Check, Bedside [RC] Q6H Oxygen Therapy [RC] PRN VTE/DVT Education [RC] PER UNIT ROUTINE Vital Signs [RC] Q4H Albuterol/Ipratropium [DuoNeb 3.0-0.5 MG/3 ML] 3 ml NEB Q4HRRT PRN Ondansetron [Zofran] 4 mg IVPUSH Q4H PRN Resuscitation Status Routine 10/25/20 19:29 Pulse Oximetry [RC] PRN Sequential Compression Device [OM.PC] Per Unit Routine 10/25/20 19:30 Antiembolic Devices [RC] PER UNIT ROUTINE Enoxaparin [Lovenox] 40 mg SUBCUT Q24H Lactated Ringers [Ringers, Lactated] 1,000 ml IV ASDIRECTED 10/25/20 19:31 RT Aerosol Therapy [RC] ASDIRECTED 10/25/20 19:32 LORazepam [Ativan] See Protocol IVPUSH Q4H PRN 10/25/20 21:00 Folic Acid 1 mg PO BEDTIME Thiamine [Vitamin B-1] 100 mg PO BEDTIME 10/25/20 23:45 Nicotine [Habitrol] 21 mg TRDERM DAILY 10/26/20 01:00 Amylase/Lipase/Protease [Creon DR 6,000 Units] 2 cap PO .WITH SNACKS 10/26/20 07:00 Levothyroxine 300 mcg PO DAILY@0700 diazePAM [Valium.] 5 mg PO Q8H 10/26/20 09:00 Sertraline [Zoloft] 100 mg PO DAILY 10/26/20 14:00 HYDROmorphone [Dilaudid] 0.5 mg IVPUSH Q2H PRN 10/26/20 21:00 Amitriptyline [Elavil] 10 mg PO BEDTIME 10/27/20 09:00 Pantoprazole [ProTONIX IV] 40 mg Sodium Chloride 0.9% [Normal Saline] 10 ml IV Q24H - Plan Plan:: 50-year-old female admitted for intractable nausea vomiting likely secondary to duodenitis versus pancreatitis due to patient's binge drinking of hard liquor Start patient on IV fluids, will keep her n.p.o. except ice chips IV PPI daily IV Zofran for nausea vomiting increase frequency of IV Dilaudid 0.5 mg every 2 hours for pain, transition to oral when able to tolerate oral diet Monitor and replete electrolytes Start patient on oral thiamine and folic acid if able to tolerate if not then will start patient on IV thiamine and folic acid IV Ativan per CIWA protocol Check CIWA per protocol SCD for DVT prophylaxis
[2020-10-26] MEDS: HYDROmorphone 1 MG/ML Syringe IVPUSH PRN ×4 (14:57→23:25)
[2020-10-26] MEDS: Enoxaparin 40 MG/0.4 ML Syringe SUBCUT SCH (18:30)
[2020-10-26] MEDS: Thiamine 100 MG Tab PO SCH (20:54)
[2020-10-26] MEDS: Amitriptyline 10 MG Tab PO SCH (20:54)
[2020-10-26] MEDS: Folic Acid 1 MG Tab PO SCH (20:54)
[2020-10-27] MEDS: HYDROmorphone 1 MG/ML Syringe IVPUSH PRN ×5 (03:23→22:59)
[2020-10-27] MEDS: LORazepam 2 MG/ML SDV IVPUSH PRN ×4 (03:23→17:05)
[2020-10-27] MEDS: Levothyroxine 150 MCG Tab PO SCH (06:15)
[2020-10-27] MEDS: Diazepam 5 MG Tab PO SCH ×2 (06:15→18:41)
[2020-10-27 06:18] LABS: BLOOD UREA NITROGEN,BUN 4 mg/dL (7.0-18.0); CARBON DIOXIDE,CO2 29.2 mmol/L (21.0-32.0); CHLORIDE,CL 99 mmol/L (98-107); GLUCOSE RANDOM 82 mg/dL (74-106); POTASSIUM,K 3.5 mmol/L (3.5-5.1); SODIUM,NA 136 mmol/L (136-145)
[2020-10-27] MEDS: Sertraline 100 MG Tab PO SCH (08:50)
[2020-10-27] MEDS: Nicotine 21 MG/24 Hr Patch TRDERM SCH (08:50)
[2020-10-27] MEDS: Pantoprazole 40 MG in Sodium Chloride 0.9% 10 ML IV SCH (09:28)
--- NOTE | 2020-10-27 09:45 | PCM.PN ---
- General Info Date of Service: 10/27/20 Admission Dx/Problem (Free Text): Admission Diagnosis/Problem Admission Diagnosis/Problem Duodenitis/chronic pancreatitis Subjective Update: Reporting she is continuing to have the significant abdominal pain. But also wanting to eat. Patient counseled heavily on not starting a diet while she is continue have abdominal pain. She was drinking greater than 1 L of ice chips. She was counseled she can have 2 cups per 12-hour shift otherwise we should not be putting anything into her abdomen if she is having significant pain. Patient also quite sedated on Valium as well as Ativan. Patient denies any chest pain. Denies any dysuria. Denies any headache or neck pain. Patient reports she is passing gas. Functional Status: Reports: Ambulating, Urinating. Denies: Pain Controlled, Tolerating Diet - Review of Systems General: Reports: No Symptoms HEENT: Reports: No Symptoms. Denies: Headaches, Sore Throat Pulmonary: Denies: Shortness of Breath Cardiovascular: Denies: Chest Pain Gastrointestinal: Reports: Abdominal Pain (Epigastric), Flatus. Denies: Diarrhea, Nausea, Vomiting Genitourinary: Reports: No Symptoms. Denies: Dysuria, Frequency, Burning Musculoskeletal: Reports: No Symptoms Skin: Reports: No Symptoms Neurological: Reports: No Symptoms Psychiatric: Reports: No Symptoms - Patient Data Vitals - Most Recent: Last Vital Signs Temp 97.4 F 10/27/20 07:00 Pulse 88 10/27/20 07:00 Resp 16 10/27/20 07:00 BP 134/82 10/27/20 07:00 Pulse Ox 89 L 10/27/20 07:00 Weight - Most Recent: 115.212 kg I&O - Last 24 Hours: Intake & Output 10/26/20 10/27/20 10/27/20 22:59 06:59 14:59 Intake Total 2860 600 Output Total 400 800 Balance 2460 -200 Lab Results Last 24 Hours: Laboratory Results - last 24 hr 10/26/20 10/26/20 10/27/20 Range/Units 15:07 18:23 01:17 WBC (4.0-11.0) K/uL RBC (4.30-5.90) M/uL Hgb (12.0-16.0) g/dL Hct (36.0-46.0) % MCV (80.0-98.0) fL MCH (27.0-32.0) pg MCHC (31.0-37.0) g/dL RDW Std Deviation (28.0-62.0) fl RDW Coeff of Jennifer (11.0-15.0) % Plt Count (150-400) K/uL MPV (7.40-12.00) fL Neut % (Auto) (48.0-80.0) % Lymph % (Auto) (16.0-40.0) % [place] % (Auto) (0.0-15.0) % Eos % (Auto) (0.0-7.0) % Baso % (Auto) (0.0-1.5) % Neut # (Auto) (1.4-5.7) K/uL Lymph # (Auto) (0.6-2.4) K/uL [place] # (Auto) (0.0-0.8) K/uL Eos # (Auto) (0.0-0.7) K/uL Baso # (Auto) (0.0-0.1) K/uL Nucleated RBC % /100WBC Nucleated RBCs # K/uL Sodium (136-145) mmol/L Potassium (3.5-5.1) mmol/L Chloride (98-107) mmol/L Carbon Dioxide (21.0-32.0) mmol/L BUN (7.0-18.0) mg/dL Creatinine (0.6-1.0) mg/dL Est Cr Clr Drug Dosing mL/min Estimated GFR (MDRD) ml/min Glucose (74-106) mg/dL POC Glucose 106 H 92 87 (70-99) mg/dL Calcium (8.5-10.1) mg/dL Phosphorus (2.6-4.7) mg/dL Magnesium (1.8-2.4) mg/dL 10/27/20 10/27/20 10/27/20 Range/Units 05:05 05:05 06:49 WBC 5.56 (4.0-11.0) K/uL RBC 3.58 L (4.30-5.90) M/uL Hgb 12.0 (12.0-16.0) g/dL Hct 36.6 (36.0-46.0) % MCV 102.2 H (80.0-98.0) fL MCH 33.5 H (27.0-32.0) pg MCHC 32.8 (31.0-37.0) g/dL RDW Std Deviation 54.3 (28.0-62.0) fl RDW Coeff of Jennifer 15 (11.0-15.0) % Plt Count 154 (150-400) K/uL MPV 10.00 (7.40-12.00) fL Neut % (Auto) 54.6 (48.0-80.0) % Lymph % (Auto) 36.7 (16.0-40.0) % [place] % (Auto) 5.4 (0.0-15.0) % Eos % (Auto) 2.9 (0.0-7.0) % Baso % (Auto) 0.4 (0.0-1.5) % Neut # (Auto) 3.0 (1.4-5.7) K/uL Lymph # (Auto) 2.0 (0.6-2.4) K/uL [place] # (Auto) 0.3 (0.0-0.8) K/uL Eos # (Auto) 0.2 (0.0-0.7) K/uL Baso # (Auto) 0.0 (0.0-0.1) K/uL Nucleated RBC % 0.7 /100WBC Nucleated RBCs # 0 K/uL Sodium 136 (136-145) mmol/L Potassium 3.5 (3.5-5.1) mmol/L Chloride 99 (98-107) mmol/L Carbon Dioxide 29.2 (21.0-32.0) mmol/L BUN 4 L (7.0-18.0) mg/dL Creatinine 0.7 (0.6-1.0) mg/dL Est Cr Clr Drug Dosing 87.48 mL/min Estimated GFR (MDRD) > 60.0 ml/min Glucose 82 (74-106) mg/dL POC Glucose 120 H (70-99) mg/dL Calcium 8.1 L (8.5-10.1) mg/dL Phosphorus 2.6 (2.6-4.7) mg/dL Magnesium 1.9 (1.8-2.4) mg/dL Med Orders - Current: Current Medications Albuterol/Ipratropium (Albuterol/Ipratropium 3.0-0.5 Mg/3 Ml Neb Soln) 3 ml NEB Q4HRRT PRN PRN Reason: Shortness Of Breath/wheezing Amitriptyline HCl (Amitriptyline 10 Mg Tab) 10 mg PO BEDTIME [facility] Last Admin: 10/26/20 20:54 Dose: 10 mg Documented by: Lipase/Protease/Amylase (Amylase/Lipase/Protease 6,000 Unit Cap.Cr) 2 cap PO .W ITH SNACKS [facility] Diazepam (Diazepam 5 Mg Tab) 5 mg PO Q8H [facility] Last Admin: 10/27/20 06:15 Dose: 5 mg Documented by: Enoxaparin Sodium (Enoxaparin 40 Mg/0.4 Ml Syringe) 40 mg SUBCUT Q24H [facility] Last Admin: 10/26/20 18:30 Dose: 40 mg Documented by: Folic Acid (Folic Acid 1 Mg Tab) 1 mg PO BEDTIME [facility] Last Admin: 10/26/20 20:54 Dose: 1 mg Documented by: Hydromorphone HCl (Hydromorphone 1 Mg/Ml Syringe) 0.5 mg IVPUSH Q2H PRN PRN Reason: Pain (severe 7-10) Last Admin: 10/27/20 09:26 Dose: 0.5 mg Documented by: Lactated Ringer's (Ringers, Lactated) 1,000 mls @ 125 mls/hr IV ASDIRECTED [facility] Last Admin: 10/26/20 23:22 Dose: 125 mls/hr Documented by: Pantoprazole Sodium 40 mg/ (Sodium Chloride) 10 mls @ 300 mls/hr IV Q24H [facility] Last Admin: 10/27/20 09:28 Dose: 300 mls/hr Documented by: Levothyroxine Sodium (Levothyroxine 150 Mcg Tab) 300 mcg PO DAILY@0700 [facility] Last Admin: 10/27/20 06:15 Dose: 300 mcg Documented by: Lorazepam (Lorazepam 2 Mg/Ml Sdv) 0 mg IVPUSH Q4H PRN; Protocol PRN Reason: Withdrawal Symptoms Last Admin: 10/27/20 03:23 Dose: 1 mg Documented by: Nicotine (Nicotine 21 Mg/24 Hr Patch) 21 mg TRDERM DAILY [facility] Last Admin: 10/27/20 08:50 Dose: 21 mg Documented by: Ondansetron HCl (Ondansetron 4 Mg/2 Ml Sdv) 4 mg IVPUSH Q4H PRN PRN Reason: Nausea/Vomiting Sertraline HCl (Sertraline 100 Mg Tab) 100 mg PO DAILY [facility] Last Admin: 10/27/20 08:50 Dose: 100 mg Documented by: Thiamine HCl (Thiamine 100 Mg Tab) 100 mg PO BEDTIME DIA[facility] Last Admin: 10/26/20 20:54 Dose: 100 mg Documented by: Discontinued Medications Diazepam (Diazepam 5 Mg Tab) 10 mg PO ONETIME ONE Stop: 10/25/20 18:49 Last Admin: 10/25/20 19:11 Dose: 10 mg Documented by: Hydromorphone HCl (Hydromorphone 2 Mg/Ml Syringe) 0.5 mg IVPUSH ONETIME ONE Stop: 10/25/20 18:46 Last Admin: 10/25/20 19:17 Dose: 0.5 mg Documented by: Hydromorphone HCl (Hydromorphone 2 Mg/Ml Syringe) 0.5 mg IVPUSH Q3H PRN PRN Reason: Pain (severe 7-10) Last Admin: 10/26/20 11:29 Dose: 0.5 mg Documented by: Sodium Chloride (Normal Saline) 1,000 mls @ 999 mls/hr IV STAT ONE Stop: 10/25/20 14:51 Last Admin: 10/25/20 14:11 Dose: 999 mls/hr Documented by: Magnesium Sulfate 2 gm/ Premix 50 mls @ 50 mls/hr IV ONETIME ONE Stop: 10/25/20 20:58 Last Admin: 10/25/20 21:36 Dose: 50 mls/hr Documented by: Iopamidol (Iopamidol 755 Mg/Ml 500 Ml Multipack Bottle) 100 ml IVPUSH ONETIME STA Stop: 10/25/20 18:39 Last Admin: 10/25/20 18:39 Dose: 100 ml Documented by: Ketorolac Tromethamine (Ketorolac 30 Mg/Ml Sdv) 30 mg IVPUSH ONETIME ONE Stop: 10/25/20 14:50 Last Admin: 10/25/20 15:20 Dose: 30 mg Documented by: Lorazepam (Lorazepam 2 Mg/Ml Sdv) 1 mg IVPUSH ONETIME ONE Stop: 10/25/20 14:01 Last Admin: 10/25/20 14:13 Dose: 1 mg Documented by: Pantoprazole Sodium (Pantoprazole 40 Mg Vial) 40 mg IV DAILY DIANA Last Admin: 10/26/20 08:01 Dose: 40 mg Documented by: Tramadol HCl (Tramadol 50 Mg Tab) 50 mg PO ONETIME ONE Stop: 10/25/20 17:49 Last Admin: 10/25/20 18:14 Dose: 50 mg Documented by: - Exam Quality Assessment: DVT Prophylaxis. No: Supplemental Oxygen General: Alert, Oriented, Cooperative Lungs: Clear to Auscultation, Normal Respiratory Effort Cardiovascular: Regular Rate, Regular Rhythm GI/Abdominal Exam: Normal Bowel Sounds, Soft, No Mass, Tender (Epigastric) Back Exam: Normal Inspection, Full Range of Motion Extremities: Normal Inspection, Normal Range of Motion, Non-Tender, No Pedal Edema Neurological: No New Focal Deficit Psy/Mental Status: Alert, Normal Affect, Normal Mood - Patient Data Lab Results Last 24 hrs: Laboratory Results - last 24 hr 10/26/20 10/26/20 10/27/20 Range/Units 15:07 18:23 01:17 WBC (4.0-11.0) K/uL RBC (4.30-5.90) M/uL Hgb (12.0-16.0) g/dL Hct (36.0-46.0) % MCV (80.0-98.0) fL MCH (27.0-32.0) pg MCHC (31.0-37.0) g/dL RDW Std Deviation (28.0-62.0) fl RDW Coeff of Jennifer (11.0-15.0) % Plt Count (150-400) K/uL MPV (7.40-12.00) fL Neut % (Auto) (48.0-80.0) % Lymph % (Auto) (16.0-40.0) % [place] % (Auto) (0.0-15.0) % Eos % (Auto) (0.0-7.0) % Baso % (Auto) (0.0-1.5) % Neut # (Auto) (1.4-5.7) K/uL Lymph # (Auto) (0.6-2.4) K/uL [place] # (Auto) (0.0-0.8) K/uL Eos # (Auto) (0.0-0.7) K/uL Baso # (Auto) (0.0-0.1) K/uL Nucleated RBC % /100WBC Nucleated RBCs # K/uL Sodium (136-145) mmol/L Potassium (3.5-5.1) mmol/L Chloride (98-107) mmol/L Carbon Dioxide (21.0-32.0) mmol/L BUN (7.0-18.0) mg/dL Creatinine (0.6-1.0) mg/dL Est Cr Clr Drug Dosing mL/min Estimated GFR (MDRD) ml/min Glucose (74-106) mg/dL POC Glucose 106 H 92 87 (70-99) mg/dL Calcium (8.5-10.1) mg/dL Phosphorus (2.6-4.7) mg/dL Magnesium (1.8-2.4) mg/dL 10/27/20 10/27/20 10/27/20 Range/Units 05:05 05:05 06:49 WBC 5.56 (4.0-11.0) K/uL RBC 3.58 L (4.30-5.90) M/uL Hgb 12.0 (12.0-16.0) g/dL Hct 36.6 (36.0-46.0) % MCV 102.2 H (80.0-98.0) fL MCH 33.5 H (27.0-32.0) pg MCHC 32.8 (31.0-37.0) g/dL RDW Std Deviation 54.3 (28.0-62.0) fl RDW Coeff of Jennifer 15 (11.0-15.0) % Plt Count 154 (150-400) K/uL MPV 10.00 (7.40-12.00) fL Neut % (Auto) 54.6 (48.0-80.0) % Lymph % (Auto) 36.7 (16.0-40.0) % [place] % (Auto) 5.4 (0.0-15.0) % Eos % (Auto) 2.9 (0.0-7.0) % Baso % (Auto) 0.4 (0.0-1.5) % Neut # (Auto) 3.0 (1.4-5.7) K/uL Lymph # (Auto) 2.0 (0.6-2.4) K/uL [place] # (Auto) 0.3 (0.0-0.8) K/uL Eos # (Auto) 0.2 (0.0-0.7) K/uL Baso # (Auto) 0.0 (0.0-0.1) K/uL Nucleated RBC % 0.7 /100WBC Nucleated RBCs # 0 K/uL Sodium 136 (136-145) mmol/L Potassium 3.5 (3.5-5.1) mmol/L Chloride 99 (98-107) mmol/L Carbon Dioxide 29.2 (21.0-32.0) mmol/L BUN 4 L (7.0-18.0) mg/dL Creatinine 0.7 (0.6-1.0) mg/dL Est Cr Clr Drug Dosing 87.48 mL/min Estimated GFR (MDRD) > 60.0 ml/min Glucose 82 (74-106) mg/dL POC Glucose 120 H (70-99) mg/dL Calcium 8.1 L (8.5-10.1) mg/dL Phosphorus 2.6 (2.6-4.7) mg/dL Magnesium 1.9 (1.8-2.4) mg/dL Result Diagrams: 10/27/20 05:05 10/27/20 05:05 Sepsis Event Note - Evaluation Sepsis Screening Result: No Definite Risk - Focused Exam Vital Signs: Vital Signs Temp Pulse Resp BP Pulse Ox 10/27/20 07:00 97.4 F 88 16 134/82 89 L 10/27/20 04:00 97.0 F 79 18 110/53 L 96 10/26/20 23:21 97.0 F 80 18 126/76 94 L - Problem List & Annotations (1) Abdominal pain SNOMED Code(s): 28548750 Code(s): R10.9 - UNSPECIFIED ABDOMINAL PAIN Status: Acute Current Visit: Yes (2) Duodenitis SNOMED Code(s): 53587617 Code(s): K29.80 - DUODENITIS WITHOUT BLEEDING Status: Acute Current Visit: Yes (3) Hypomagnesemia SNOMED Code(s): 865701481 Code(s): E83.42 - HYPOMAGNESEMIA Status: Acute Current Visit: Yes (4) Alcohol use disorder SNOMED Code(s): 5645277 Code(s): [id number] - Status: Acute Current Visit: No (5) Alcohol withdrawal SNOMED Code(s): 805870426 Code(s): F10.239 - ALCOHOL DEPENDENCE WITH WITHDRAWAL, UNSPECIFIED Status: Acute Current Visit: No Qualifiers: Complication of substance-induced condition: with perceptual disturbance Qualified Code(s): F10.232 - Alcohol dependence with withdrawal with perceptual disturbance (6) Chronic pancreatitis SNOMED Code(s): 640931022 Code(s): K86.1 - OTHER CHRONIC PANCREATITIS Status: Chronic Current Visit: No Qualifiers: Pancreatitis type: alcohol induced Qualified Code(s): K86.0 - Alcohol- induced chronic pancreatitis - Problem List Review Problem List Initiated/Reviewed/Updated: Yes - Plan Plan:: 50-year-old female admitted for intractable nausea vomiting likely secondary to duodenitis versus pancreatitis due to patient's binge drinking of hard liquor 1. Duodenitis/chronic pancreatitis/gastritis -Continue n.p.o. -Decrease frequency of Dilaudid to every 3 hours, Dilaudid 0.5 mg every 3 hours for pain -Continue IV fluids -Daily PPI -Zofran as needed pain 2. Alcohol abuse -Continue Valium will decrease to every 12 due to patient's sedation level. -CIWA protocol with Ativan -CIWA assessment -Continue thiamine and folic acid VTE prophylaxis: SCDs GI prophylaxis: Protonix CODE STATUS: Full code Dispo: 2 to 3 days pending improvement
[2020-10-27] MEDS: Lactated Ringers 1,000 ML IV SCH ×2 (11:05→18:45)
[2020-10-27] MEDS ORDERED: PROTEASE PO SCH ×2 (13:30)
[2020-10-27] MEDS ORDERED: AMYLASE PO SCH ×2 (13:30)
[2020-10-27] MEDS ORDERED: LIPASE PO SCH ×2 (13:30)
[2020-10-27] MEDS: Enoxaparin 40 MG/0.4 ML Syringe SUBCUT SCH (18:40)
[2020-10-27] MEDS: Thiamine 100 MG Tab PO SCH (20:06)
[2020-10-27] MEDS: Folic Acid 1 MG Tab PO SCH (20:06)
[2020-10-27] MEDS: Amitriptyline 10 MG Tab PO SCH (20:06)
[2020-10-28] MEDS: HYDROmorphone 1 MG/ML Syringe IVPUSH PRN ×3 (05:36→13:49)
[2020-10-28] MEDS: Lactated Ringers 1,000 ML IV SCH ×3 (05:37→20:05)
[2020-10-28] MEDS: Levothyroxine 150 MCG Tab PO SCH (06:24)
[2020-10-28] MEDS: Diazepam 5 MG Tab PO SCH (06:24)
[2020-10-28 07:47] LABS: BLOOD UREA NITROGEN,BUN 3 mg/dL (7.0-18.0); CARBON DIOXIDE,CO2 29.9 mmol/L (21.0-32.0); CHLORIDE,CL 105 mmol/L (98-107); GLUCOSE RANDOM 87 mg/dL (74-106); POTASSIUM,K 3.2 mmol/L (3.5-5.1); SODIUM,NA 141 mmol/L (136-145)
[2020-10-28] MEDS: Pantoprazole 40 MG in Sodium Chloride 0.9% 10 ML IV SCH (09:33)
[2020-10-28] MEDS: Sertraline 100 MG Tab PO SCH (09:37)
[2020-10-28] MEDS: Nicotine 21 MG/24 Hr Patch TRDERM SCH (09:37)
[2020-10-28] MEDS ORDERED: Potassium Chloride Riders 20 MEQ in Premix Bag 1 BAG IV ONE (09:42)
[2020-10-28] MEDS ORDERED: Magnesium Sulfate/Water 2 GM in Premix Bag 1 BAG IV ONE (09:42)
--- NOTE | 2020-10-28 14:40 | PCM.PN ---
- General Info Date of Service: 10/28/20 Admission Dx/Problem (Free Text): Admission Diagnosis/Problem Admission Diagnosis/Problem Duodenitis/chronic pancreatitis Subjective Update: Reporting some improvement in pain today, patient wants to start some soft diet today. Functional Status: Reports: Ambulating, Urinating - Review of Systems General: Reports: Weakness, Fatigue. Denies: Malaise, Chills Pulmonary: Denies: Shortness of Breath, Pleuritic Chest Pain Cardiovascular: Denies: Chest Pain, Palpitations, Dyspnea on Exertion Gastrointestinal: Denies: Abdominal Pain, Constipation, Decreased Appetite, Diarrhea, Nausea, Vomiting Genitourinary: Denies: Dysuria, Frequency, Burning Musculoskeletal: Denies: Neck Pain, Shoulder Pain, Arm Pain Skin: Denies: Cyanosis, Jaundice, Mottled, Pallor - Patient Data Vitals - Most Recent: Last Vital Signs Temp 35.6 C L 10/28/20 12:00 Pulse 67 10/28/20 12:00 Resp 20 10/28/20 12:00 BP 122/77 10/28/20 12:00 Pulse Ox 97 10/28/20 12:00 Weight - Most Recent: 115.212 kg I&O - Last 24 Hours: Intake & Output 10/27/20 10/28/20 10/28/20 22:59 06:59 14:59 Intake Total 2115 1900 Output Total 1300 1225 Balance 815 675 Lab Results Last 24 Hours: Laboratory Results - last 24 hr 10/27/20 10/27/20 10/28/20 Range/Units 18:41 23:05 06:00 WBC (4.0-11.0) K/uL RBC (4.30-5.90) M/uL Hgb (12.0-16.0) g/dL Hct (36.0-46.0) % MCV (80.0-98.0) fL MCH (27.0-32.0) pg MCHC (31.0-37.0) g/dL RDW Std Deviation (28.0-62.0) fl RDW Coeff of Jennifer (11.0-15.0) % Plt Count (150-400) K/uL MPV (7.40-12.00) fL Neut % (Auto) (48.0-80.0) % Lymph % (Auto) (16.0-40.0) % Simpson % (Auto) (0.0-15.0) % Eos % (Auto) (0.0-7.0) % Baso % (Auto) (0.0-1.5) % Neut # (Auto) (1.4-5.7) K/uL Lymph # (Auto) (0.6-2.4) K/uL Simpson # (Auto) (0.0-0.8) K/uL Eos # (Auto) (0.0-0.7) K/uL Baso # (Auto) (0.0-0.1) K/uL Nucleated RBC % /100WBC Nucleated RBCs # K/uL Sodium (136-145) mmol/L Potassium (3.5-5.1) mmol/L Chloride (98-107) mmol/L Carbon Dioxide (21.0-32.0) mmol/L BUN (7.0-18.0) mg/dL Creatinine (0.6-1.0) mg/dL Est Cr Clr Drug Dosing mL/min Estimated GFR (MDRD) ml/min Glucose (74-106) mg/dL POC Glucose 113 H 116 H 84 (70-99) mg/dL Calcium (8.5-10.1) mg/dL Magnesium (1.8-2.4) mg/dL Total Bilirubin (0.2-1.0) mg/dL AST (15-37) IU/L ALT (14-63) IU/L Alkaline Phosphatase (46-116) U/L Total Protein (6.4-8.2) g/dL Albumin (3.4-5.0) g/dL Globulin (2.6-4.0) g/dL Albumin/Globulin Ratio (0.9-1.6) 10/28/20 10/28/20 Range/Units 06:30 06:30 WBC 4.58 (4.0-11.0) K/uL RBC 3.34 L (4.30-5.90) M/uL Hgb 11.1 L (12.0-16.0) g/dL Hct 33.7 L (36.0-46.0) % MCV 100.9 H (80.0-98.0) fL MCH 33.2 H (27.0-32.0) pg MCHC 32.9 (31.0-37.0) g/dL RDW Std Deviation 54.5 (28.0-62.0) fl RDW Coeff of Jennifer 15 (11.0-15.0) % Plt Count 134 L (150-400) K/uL MPV 10.30 (7.40-12.00) fL Neut % (Auto) 54.4 (48.0-80.0) % Lymph % (Auto) 37.3 (16.0-40.0) % Simpson % (Auto) 5.7 (0.0-15.0) % Eos % (Auto) 2.2 (0.0-7.0) % Baso % (Auto) 0.4 (0.0-1.5) % Neut # (Auto) 2.5 (1.4-5.7) K/uL Lymph # (Auto) 1.7 (0.6-2.4) K/uL Simpson # (Auto) 0.3 (0.0-0.8) K/uL Eos # (Auto) 0.1 (0.0-0.7) K/uL Baso # (Auto) 0.0 (0.0-0.1) K/uL Nucleated RBC % 0.0 /100WBC Nucleated RBCs # 0 K/uL Sodium 141 (136-145) mmol/L Potassium 3.2 L (3.5-5.1) mmol/L Chloride 105 (98-107) mmol/L Carbon Dioxide 29.9 (21.0-32.0) mmol/L BUN 3 L (7.0-18.0) mg/dL Creatinine 0.7 (0.6-1.0) mg/dL Est Cr Clr Drug Dosing 87.48 mL/min Estimated GFR (MDRD) > 60.0 ml/min Glucose 87 (74-106) mg/dL POC Glucose (70-99) mg/dL Calcium 7.9 L (8.5-10.1) mg/dL Magnesium 1.6 L (1.8-2.4) mg/dL Total Bilirubin 0.3 (0.2-1.0) mg/dL AST 48 H (15-37) IU/L ALT 38 (14-63) IU/L Alkaline Phosphatase 65 (46-116) U/L Total Protein 5.2 L (6.4-8.2) g/dL Albumin 2.5 L (3.4-5.0) g/dL Globulin 2.7 (2.6-4.0) g/dL Albumin/Globulin Ratio 0.9 (0.9-1.6) Med Orders - Current: Current Medications Albuterol/Ipratropium (Albuterol/Ipratropium 3.0-0.5 Mg/3 Ml Neb Soln) 3 ml NEB Q4HRRT PRN PRN Reason: Shortness Of Breath/wheezing Amitriptyline HCl (Amitriptyline 10 Mg Tab) 10 mg PO BEDTIME [facility] Last Admin: 10/27/20 20:06 Dose: 10 mg Documented by: Diazepam (Diazepam 5 Mg Tab) 5 mg PO Q12H [facility] Last Admin: 10/28/20 06:24 Dose: 5 mg Documented by: Enoxaparin Sodium (Enoxaparin 40 Mg/0.4 Ml Syringe) 40 mg SUBCUT Q24H [facility] Last Admin: 10/27/20 18:40 Dose: 40 mg Documented by: Folic Acid (Folic Acid 1 Mg Tab) 1 mg PO BEDTIME [facility] Last Admin: 10/27/20 20:06 Dose: 1 mg Documented by: Hydromorphone HCl (Hydromorphone 1 Mg/Ml Syringe) 0.5 mg IVPUSH Q3H PRN PRN Reason: Pain (severe 7-10) Last Admin: 10/28/20 13:49 Dose: 0.5 mg Documented by: Lactated Ringer's (Ringers, Lactated) 1,000 mls @ 125 mls/hr IV ASDIRECTED [facility] Last Admin: 10/28/20 11:13 Dose: 125 mls/hr Documented by: Pantoprazole Sodium 40 mg/ (Sodium Chloride) 10 mls @ 300 mls/hr IV Q24H [facility] Last Admin: 10/28/20 09:33 Dose: 300 mls/hr Documented by: Levothyroxine Sodium (Levothyroxine 150 Mcg Tab) 300 mcg PO DAILY@0700 [facility] Last Admin: 10/28/20 06:24 Dose: 300 mcg Documented by: Lorazepam (Lorazepam 2 Mg/Ml Sdv) 0 mg IVPUSH Q4H PRN; Protocol PRN Reason: CIWAA Last Admin: 10/27/20 17:05 Dose: 1 mg Documented by: Nicotine (Nicotine 21 Mg/24 Hr Patch) 21 mg TRDERM DAILY [facility] Last Admin: 10/28/20 09:37 Dose: 21 mg Documented by: Ondansetron HCl (Ondansetron 4 Mg/2 Ml Sdv) 4 mg IVPUSH Q4H PRN PRN Reason: Nausea/Vomiting Amylase/Lipase/Protease 06620 Unit Cap.Cr 2 each PO .WITH MEALS [facility] Sertraline HCl (Sertraline 100 Mg Tab) 100 mg PO DAILY [facility] Last Admin: 10/28/20 09:37 Dose: 100 mg Documented by: Thiamine HCl (Thiamine 100 Mg Tab) 100 mg PO BEDTIME [facility] Last Admin: 10/27/20 20:06 Dose: 100 mg Documented by: Discontinued Medications Lipase/Protease/Amylase (Amylase/Lipase/Protease 6,000 Unit Cap.Cr) 2 cap PO .WITH SNACKS [facility] Diazepam (Diazepam 5 Mg Tab) 10 mg PO ONETIME ONE Stop: 10/25/20 18:49 Last Admin: 10/25/20 19:11 Dose: 10 mg Documented by: Diazepam (Diazepam 5 Mg Tab) 5 mg PO Q8H [facility] Last Admin: 10/27/20 06:15 Dose: 5 mg Documented by: Hydromorphone HCl (Hydromorphone 2 Mg/Ml Syringe) 0.5 mg IVPUSH ONETIME ONE Stop: 10/25/20 18:46 Last Admin: 10/25/20 19:17 Dose: 0.5 mg Documented by: Hydromorphone HCl (Hydromorphone 2 Mg/Ml Syringe) 0.5 mg IVPUSH Q3H PRN PRN Reason: Pain (severe 7-10) Last Admin: 10/26/20 11:29 Dose: 0.5 mg Documented by: Hydromorphone HCl (Hydromorphone 1 Mg/Ml Syringe) 0.5 mg IVPUSH Q2H PRN PRN Reason: Pain (severe 7-10) Last Admin: 10/27/20 09:26 Dose: 0.5 mg Documented by: Sodium Chloride (Normal Saline) 1,000 mls @ 999 mls/hr IV STAT ONE Stop: 10/25/20 14:51 Last Admin: 10/25/20 14:11 Dose: 999 mls/hr Documented by: Magnesium Sulfate 2 gm/ Premix 50 mls @ 50 mls/hr IV ONETIME ONE Stop: 10/25/20 20:58 Last Admin: 10/25/20 21:36 Dose: 50 mls/hr Documented by: Magnesium Sulfate 2 gm/ Premix 50 mls @ 12.5 mls/hr IV ONETIME ONE Stop: 10/28/20 13:41 Last Admin: 10/28/20 10:10 Dose: 12.5 mls/hr Documented by: Potassium Chloride 20 meq/ (Premix) 50 mls @ 25 mls/hr IV ONETIME ONE Stop: 10/28/20 11:41 Last Admin: 10/28/20 11:04 Dose: 25 mls/hr Documented by: Iopamidol (Iopamidol 755 Mg/Ml 500 Ml Multipack Bottle) 100 ml IVPUSH ONETIME STA Stop: 10/25/20 18:39 Last Admin: 10/25/20 18:39 Dose: 100 ml Documented by: Ketorolac Tromethamine (Ketorolac 30 Mg/Ml Sdv) 30 mg IVPUSH ONETIME ONE Stop: 10/25/20 14:50 Last Admin: 10/25/20 15:20 Dose: 30 mg Documented by: Lorazepam (Lorazepam 2 Mg/Ml Sdv) 1 mg IVPUSH ONETIME ONE Stop: 10/25/20 14:01 Last Admin: 10/25/20 14:13 Dose: 1 mg Documented by: Pantoprazole Sodium (Pantoprazole 40 Mg Vial) 40 mg IV DAILY [facility] Last Admin: 10/26/20 08:01 Dose: 40 mg Documented by: Amylase/Lipase/Protease 41139 Unit Cap.Cr 2 each PO .WITH MEALS AND SNACKS [facility] Tramadol HCl (Tramadol 50 Mg Tab) 50 mg PO ONETIME ONE Stop: 10/25/20 17:49 Last Admin: 10/25/20 18:14 Dose: 50 mg Documented by: - Exam General: Alert, Oriented Lungs: Clear to Auscultation Cardiovascular: Regular Rate, Regular Rhythm GI/Abdominal Exam: Normal Bowel Sounds, Soft, Guarding, Tender, Hepatomegaly. No: Distended, Splenomegaly - Patient Data Lab Results Last 24 hrs: Laboratory Results - last 24 hr 09/03/21 09/03/21 09/04/21 Range/Units 18:41 23:05 06:00 WBC (4.0-11.0) K/uL RBC (4.30-5.90) M/uL Hgb (12.0-16.0) g/dL Hct (36.0-46.0) % MCV (80.0-98.0) fL MCH (27.0-32.0) pg MCHC (31.0-37.0) g/dL RDW Std Deviation (28.0-62.0) fl RDW Coeff of Jennifer (11.0-15.0) % Plt Count (150-400) K/uL MPV (7.40-12.00) fL Neut % (Auto) (48.0-80.0) % Lymph % (Auto) (16.0-40.0) % Simpson % (Auto) (0.0-15.0) % Eos % (Auto) (0.0-7.0) % Baso % (Auto) (0.0-1.5) % Neut # (Auto) (1.4-5.7) K/uL Lymph # (Auto) (0.6-2.4) K/uL Simpson # (Auto) (0.0-0.8) K/uL Eos # (Auto) (0.0-0.7) K/uL Baso # (Auto) (0.0-0.1) K/uL Nucleated RBC % /100WBC Nucleated RBCs # K/uL Sodium (136-145) mmol/L Potassium (3.5-5.1) mmol/L Chloride (98-107) mmol/L Carbon Dioxide (21.0-32.0) mmol/L BUN (7.0-18.0) mg/dL Creatinine (0.6-1.0) mg/dL Est Cr Clr Drug Dosing mL/min Estimated GFR (MDRD) ml/min Glucose (74-106) mg/dL POC Glucose 113 H 116 H 84 (70-99) mg/dL Calcium (8.5-10.1) mg/dL Magnesium (1.8-2.4) mg/dL Total Bilirubin (0.2-1.0) mg/dL AST (15-37) IU/L ALT (14-63) IU/L Alkaline Phosphatase (46-116) U/L Total Protein (6.4-8.2) g/dL Albumin (3.4-5.0) g/dL Globulin (2.6-4.0) g/dL Albumin/Globulin Ratio (0.9-1.6) 10/28/20 10/28/20 Range/Units 06:30 06:30 WBC 4.58 (4.0-11.0) K/uL RBC 3.34 L (4.30-5.90) M/uL Hgb 11.1 L (12.0-16.0) g/dL Hct 33.7 L (36.0-46.0) % MCV 100.9 H (80.0-98.0) fL MCH 33.2 H (27.0-32.0) pg MCHC 32.9 (31.0-37.0) g/dL RDW Std Deviation 54.5 (28.0-62.0) fl RDW Coeff of Jennifer 15 (11.0-15.0) % Plt Count 134 L (150-400) K/uL MPV 10.30 (7.40-12.00) fL Neut % (Auto) 54.4 (48.0-80.0) % Lymph % (Auto) 37.3 (16.0-40.0) % Simpson % (Auto) 5.7 (0.0-15.0) % Eos % (Auto) 2.2 (0.0-7.0) % Baso % (Auto) 0.4 (0.0-1.5) % Neut # (Auto) 2.5 (1.4-5.7) K/uL Lymph # (Auto) 1.7 (0.6-2.4) K/uL Simpson # (Auto) 0.3 (0.0-0.8) K/uL Eos # (Auto) 0.1 (0.0-0.7) K/uL Baso # (Auto) 0.0 (0.0-0.1) K/uL Nucleated RBC % 0.0 /100WBC Nucleated RBCs # 0 K/uL Sodium 141 (136-145) mmol/L Potassium 3.2 L (3.5-5.1) mmol/L Chloride 105 (98-107) mmol/L Carbon Dioxide 29.9 (21.0-32.0) mmol/L BUN 3 L (7.0-18.0) mg/dL Creatinine 0.7 (0.6-1.0) mg/dL Est Cr Clr Drug Dosing 87.48 mL/min Estimated GFR (MDRD) > 60.0 ml/min Glucose 87 (74-106) mg/dL POC Glucose (70-99) mg/dL Calcium 7.9 L (8.5-10.1) mg/dL Magnesium 1.6 L (1.8-2.4) mg/dL Total Bilirubin 0.3 (0.2-1.0) mg/dL AST 48 H (15-37) IU/L ALT 38 (14-63) IU/L Alkaline Phosphatase 65 (46-116) U/L Total Protein 5.2 L (6.4-8.2) g/dL Albumin 2.5 L (3.4-5.0) g/dL Globulin 2.7 (2.6-4.0) g/dL Albumin/Globulin Ratio 0.9 (0.9-1.6) Result Diagrams: 10/28/20 06:30 10/28/20 06:30 Sepsis Event Note - Evaluation Sepsis Screening Result: No Definite Risk - Focused Exam Vital Signs: Vital Signs Temp Pulse Resp BP Pulse Ox 10/28/20 12:00 35.6 C L 67 20 122/77 97 10/28/20 08:00 36.1 C 70 20 117/95 H 93 L 10/28/20 04:00 36.4 C 61 22 H 117/81 90 L - Problem List & Annotations (1) Abdominal pain SNOMED Code(s): 74247797 Code(s): R10.9 - UNSPECIFIED ABDOMINAL PAIN Status: Acute Current Visit: Yes (2) Duodenitis SNOMED Code(s): 05221383 Code(s): K29.80 - DUODENITIS WITHOUT BLEEDING Status: Acute Current Visit: Yes (3) Pancreatitis SNOMED Code(s): 99865361 Code(s): K85.90 - ACUTE PANCREATITIS WITHOUT NECROSIS OR INFECTION, UNSP Status: Acute Current Visit: Yes Qualifiers: Chronicity: chronic Pancreatitis type: alcohol induced Qualified Code(s): K86.0 - Alcohol-induced chronic pancreatitis (4) Hypomagnesemia SNOMED Code(s): 813719083 Code(s): E83.42 - HYPOMAGNESEMIA Status: Acute Current Visit: Yes (5) Alcohol use disorder SNOMED Code(s): 9365214 Code(s): ZPF0280 - Status: Acute Current Visit: No (6) Alcohol withdrawal SNOMED Code(s): 872406126 Code(s): F10.239 - ALCOHOL DEPENDENCE WITH WITHDRAWAL, UNSPECIFIED Status: Acute Current Visit: No Qualifiers: Complication of substance-induced condition: with perceptual disturbance Qu alified Code(s): F10.232 - Alcohol dependence with withdrawal with perceptual disturbance (7) Alcohol abuse SNOMED Code(s): 84164257 Code(s): F10.10 - ALCOHOL ABUSE, UNCOMPLICATED Status: Chronic Current Visit: No (8) Hypothyroidism SNOMED Code(s): 16501360 Code(s): E03.9 - HYPOTHYROIDISM, UNSPECIFIED Status: Chronic Current Visit: No (9) Tobacco abuse SNOMED Code(s): 722170355 Code(s): Z72.0 - TOBACCO USE Status: Chronic Current Visit: No - Problem List Review Problem List Initiated/Reviewed/Updated: Yes - My Orders Last 24 Hours: My Active Orders 10/28/20 Lunch Clear Liquid Diet [DIET] - Plan Plan:: 50-year-old female admitted for intractable nausea vomiting likely secondary to duodenitis versus pancreatitis due to patient's binge drinking of hard liquor 1. Duodenitis/chronic pancreatitis/gastritis -Start patient on clear liquid, will advance as tolerated -If able to tolerate oral diet will DC IV Dilaudid and start patient on oral oxycodone -Continue IV fluids for now, DC once patient able to tolerate adequate diet -Daily PPI -Zofran as needed pain 2. Alcohol abuse -Continue Valium will decrease frequency to daily -CIWA protocol with Ativan -CIWA assessment -Continue thiamine and folic acid VTE prophylaxis: SCDs GI prophylaxis: Protonix CODE STATUS: Full code Dispo: 2 to 3 days pending improvement
[2020-10-28] MEDS: LORazepam 2 MG/ML SDV IVPUSH PRN (16:48)
[2020-10-28] MEDS: oxyCODONE 5 MG Tab PO PRN ×2 (16:48→23:08)
[2020-10-28] MEDS: Enoxaparin 40 MG/0.4 ML Syringe SUBCUT SCH (20:05)
[2020-10-28] MEDS: Thiamine 100 MG Tab PO SCH (20:06)
[2020-10-28] MEDS: Amitriptyline 10 MG Tab PO SCH (20:07)
[2020-10-28] MEDS: Folic Acid 1 MG Tab PO SCH (20:07)
[2020-10-29] MEDS: Lactated Ringers 1,000 ML IV SCH ×3 (05:39→22:28)
[2020-10-29 07:41] LABS: BLOOD UREA NITROGEN,BUN 3 mg/dL (7.0-18.0); CARBON DIOXIDE,CO2 32.4 mmol/L (21.0-32.0); CHLORIDE,CL 107 mmol/L (98-107); GLUCOSE RANDOM 88 mg/dL (74-106); POTASSIUM,K 3.2 mmol/L (3.5-5.1); SODIUM,NA 145 mmol/L (136-145)
[2020-10-29] MEDS: Levothyroxine 150 MCG Tab PO SCH (08:14)
[2020-10-29] MEDS: Pantoprazole 40 MG in Sodium Chloride 0.9% 10 ML IV SCH (08:15)
[2020-10-29] MEDS: Nicotine 21 MG/24 Hr Patch TRDERM SCH (08:15)
[2020-10-29] MEDS: Sertraline 100 MG Tab PO SCH (08:15)
[2020-10-29] MEDS: oxyCODONE 5 MG Tab PO PRN ×4 (08:16→22:34)
[2020-10-29] MEDS ORDERED: Diazepam 5 MG Tab PO SCH (09:00)
[2020-10-29] MEDS: LORazepam 2 MG/ML SDV IVPUSH PRN ×2 (09:49→22:27)
[2020-10-29] MEDS ORDERED: Potassium Chloride 20 MEQ Tab.ER PO ONE (11:59)
--- NOTE | 2020-10-29 12:20 | PCM.PN ---
- General Info Date of Service: 10/29/20 - Review of Systems Systems Review Comment:: abdominal pain improving - Patient Data Vitals - Most Recent: Last Vital Signs Temp 36.5 C 10/29/20 08:00 Pulse 65 10/29/20 08:00 Resp 18 10/29/20 08:00 BP 139/98 H 10/29/20 08:00 Pulse Ox 95 10/29/20 08:00 Weight - Most Recent: 115.212 kg I&O - Last 24 Hours: Intake & Output 10/28/20 10/29/20 10/29/20 22:59 06:59 14:59 Intake Total 1756 400 Output Total 0 Balance 1756 400 Lab Results Last 24 Hours: Laboratory Results - last 24 hr 10/29/20 10/29/20 Range/Units 07:07 07:07 WBC 4.37 (4.0-11.0) K/uL RBC 3.45 L (4.30-5.90) M/uL Hgb 11.5 L (12.0-16.0) g/dL Hct 34.6 L (36.0-46.0) % MCV 100.3 H (80.0-98.0) fL MCH 33.3 H (27.0-32.0) pg MCHC 33.2 (31.0-37.0) g/dL RDW Std Deviation 56.4 (28.0-62.0) fl RDW Coeff of Jennifer 16 H (11.0-15.0) % Plt Count 167 (150-400) K/uL MPV 10.20 (7.40-12.00) fL Neut % (Auto) 51.9 (48.0-80.0) % Lymph % (Auto) 38.2 (16.0-40.0) % Park % (Auto) 7.6 (0.0-15.0) % Eos % (Auto) 2.1 (0.0-7.0) % Baso % (Auto) 0.2 (0.0-1.5) % Neut # (Auto) 2.3 (1.4-5.7) K/uL Lymph # (Auto) 1.7 (0.6-2.4) K/uL [place] # (Auto) 0.3 (0.0-0.8) K/uL Eos # (Auto) 0.1 (0.0-0.7) K/uL Baso # (Auto) 0.0 (0.0-0.1) K/uL Nucleated RBC % 0.0 /100WBC Nucleated RBCs # 0 K/uL Sodium 145 (136-145) mmol/L Potassium 3.2 L (3.5-5.1) mmol/L Chloride 107 (98-107) mmol/L Carbon Dioxide 32.4 H (21.0-32.0) mmol/L BUN 3 L (7.0-18.0) mg/dL Creatinine 0.8 (0.6-1.0) mg/dL Est Cr Clr Drug Dosing 76.54 mL/min Estimated GFR (MDRD) > 60.0 ml/min Glucose 88 (74-106) mg/dL Calcium 8.0 L (8.5-10.1) mg/dL Phosphorus 4.0 (2.6-4.7) mg/dL Magnesium 1.9 (1.8-2.4) mg/dL Med Orders - Current: Current Medications Albuterol/Ipratropium (Albuterol/Ipratropium 3.0-0.5 Mg/3 Ml Neb Soln) 3 ml NEB Q4HRRT PRN PRN Reason: Shortness Of Breath/wheezing Last Admin: 10/29/20 09:08 Dose: 3 ml Documented by: Amitriptyline HCl (Amitriptyline 10 Mg Tab) 10 mg PO BEDTIME [facility] Last Admin: 10/28/20 20:07 Dose: 10 mg Documented by: Diazepam (Diazepam 5 Mg Tab) 5 mg PO DAILY [facility] Last Admin: 10/29/20 08:15 Dose: 5 mg Documented by: Enoxaparin Sodium (Enoxaparin 40 Mg/0.4 Ml Syringe) 40 mg SUBCUT Q24H [facility] Last Admin: 10/28/20 20:05 Dose: 40 mg Documented by: Folic Acid (Folic Acid 1 Mg Tab) 1 mg PO BEDTIME [facility] Last Admin: 10/28/20 20:07 Dose: 1 mg Documented by: Lactated Ringer's (Ringers, Lactated) 1,000 mls @ 125 mls/hr IV ASDIRECTED [facility] Last Admin: 10/29/20 05:39 Dose: 125 mls/hr Documented by: Pantoprazole Sodium 40 mg/ (Sodium Chloride) 10 mls @ 300 mls/hr IV Q24H [facility] Last Admin: 10/29/20 08:15 Dose: 300 mls/hr Documented by: Levothyroxine Sodium (Levothyroxine 150 Mcg Tab) 300 mcg PO DAILY@0700 [facility] Last Admin: 10/29/20 08:14 Dose: 300 mcg Documented by: Lorazepam (Lorazepam 2 Mg/Ml Sdv) 0 mg IVPUSH Q4H PRN; Protocol PRN Reason: CIWAA Last Admin: 10/29/20 09:49 Dose: 1 mg Documented by: Nicotine (Nicotine 21 Mg/24 Hr Patch) 21 mg TRDERM DAILY [facility] Last Admin: 10/29/20 08:15 Dose: 21 mg Documented by: Ondansetron HCl (Ondansetron 4 Mg/2 Ml Sdv) 4 mg IVPUSH Q4H PRN PRN Reason: Nausea/Vomiting Oxycodone HCl (Oxycodone 5 Mg Tab) 5 mg PO Q4H PRN PRN Reason: Abdominal Pain Amylase/Lipase/Protease 04436 Unit Cap.Cr 2 each PO .WITH MEALS [facility] Sertraline HCl (Sertraline 100 Mg Tab) 100 mg PO DAILY [facility] Last Admin: 10/29/20 08:15 Dose: 100 mg Documented by: Thiamine HCl (Thiamine 100 Mg Tab) 100 mg PO BEDTIME [facility] Last Admin: 10/28/20 20:06 Dose: 100 mg Documented by: Discontinued Medications Lipase/Protease/Amylase (Amylase/Lipase/Protease 6,000 Unit Cap.Cr) 2 cap PO .WITH SNACKS [facility] Diazepam (Diazepam 5 Mg Tab) 10 mg PO ONETIME ONE Stop: 10/25/20 18:49 Last Admin: 10/25/20 19:11 Dose: 10 mg Documented by: Diazepam (Diazepam 5 Mg Tab) 5 mg PO Q8H [facility] Last Admin: 10/27/20 06:15 Dose: 5 mg Documented by: Diazepam (Diazepam 5 Mg Tab) 5 mg PO Q12H [facility] Last Admin: 10/28/20 06:24 Dose: 5 mg Documented by: Hydromorphone HCl (Hydromorphone 2 Mg/Ml Syringe) 0.5 mg IVPUSH ONETIME ONE Stop: 10/25/20 18:46 Last Admin: 10/25/20 19:17 Dose: 0.5 mg Documented by: Hydromorphone HCl (Hydromorphone 2 Mg/Ml Syringe) 0.5 mg IVPUSH Q3H PRN PRN Reason: Pain (severe 7-10) Last Admin: 10/26/20 11:29 Dose: 0.5 mg Documented by: Hydromorphone HCl (Hydromorphone 1 Mg/Ml Syringe) 0.5 mg IVPUSH Q2H PRN PRN Reason: Pain (severe 7-10) Last Admin: 10/27/20 09:26 Dose: 0.5 mg Documented by: Hydromorphone HCl (Hydromorphone 1 Mg/Ml Syringe) 0.5 mg IVPUSH Q3H PRN PRN Reason: Pain (severe 7-10) Last Admin: 10/28/20 13:49 Dose: 0.5 mg Documented by: Sodium Chloride (Normal Saline) 1,000 mls @ 999 mls/hr IV STAT ONE Stop: 10/25/20 14:51 Last Admin: 10/25/20 14:11 Dose: 999 mls/hr Documented by: Magnesium Sulfate 2 gm/ Premix 50 mls @ 50 mls/hr IV ONETIME ONE Stop: 10/25/20 20:58 Last Admin: 10/25/20 21:36 Dose: 50 mls/hr Documented by: Magnesium Sulfate 2 gm/ Premix 50 mls @ 12.5 mls/hr IV ONETIME ONE Stop: 10/28/20 13:41 Last Admin: 10/28/20 10:10 Dose: 12.5 mls/hr Documented by: Potassium Chloride 20 meq/ (Premix) 50 mls @ 25 mls/hr IV ONETIME ONE Stop: 10/28/20 11:41 Last Admin: 10/28/20 11:04 Dose: 25 mls/hr Documented by: Iopamidol (Iopamidol 755 Mg/Ml 500 Ml Multipack Bottle) 100 ml IVPUSH ONETIME STA Stop: 10/25/20 18:39 Last Admin: 10/25/20 18:39 Dose: 100 ml Documented by: Ketorolac Tromethamine (Ketorolac 30 Mg/Ml Sdv) 30 mg IVPUSH ONETIME ONE Stop: 10/25/20 14:50 Last Admin: 09/01/21 15:20 Dose: 30 mg Documented by: Lorazepam (Lorazepam 2 Mg/Ml Sdv) 1 mg IVPUSH ONETIME ONE Stop: 10/25/20 14:01 Last Admin: 10/25/20 14:13 Dose: 1 mg Documented by: Oxycodone HCl (Oxycodone 5 Mg Tab) 5 mg PO Q6H PRN PRN Reason: Abdominal Pain Last Admin: 10/29/20 08:16 Dose: 5 mg Documented by: Pantoprazole Sodium (Pantoprazole 40 Mg Vial) 40 mg IV DAILY DIANA Last Admin: 10/26/20 08:01 Dose: 40 mg Documented by: Amylase/Lipase/Protease 93004 Unit Cap.Cr 2 each PO .WITH MEALS AND SNACKS DIANA Potassium Chloride (Potassium Chloride 20 Meq Tab.Er) 40 meq PO ONETIME ONE Stop: 10/29/20 12:00 Tramadol HCl (Tramadol 50 Mg Tab) 50 mg PO ONETIME ONE Stop: 10/25/20 17:49 Last Admin: 10/25/20 18:14 Dose: 50 mg Documented by: - Exam General: Alert, Oriented Neck: Supple Lungs: Clear to Auscultation, Normal Respiratory Effort Cardiovascular: Regular Rate, Regular Rhythm GI/Abdominal Exam: Normal Bowel Sounds, Soft, Non-Tender Extremities: Non-Tender, No Pedal Edema Skin: Warm, Dry, Intact Neurological: No New Focal Deficit - Patient Data Lab Results Last 24 hrs: Laboratory Results - last 24 hr 10/29/20 10/29/20 Range/Units 07:07 07:07 WBC 4.37 (4.0-11.0) K/uL RBC 3.45 L (4.30-5.90) M/uL Hgb 11.5 L (12.0-16.0) g/dL Hct 34.6 L (36.0-46.0) % MCV 100.3 H (80.0-98.0) fL MCH 33.3 H (27.0-32.0) pg MCHC 33.2 (31.0-37.0) g/dL RDW Std Deviation 56.4 (28.0-62.0) fl RDW Coeff of Jennifer 16 H (11.0-15.0) % Plt Count 167 (150-400) K/uL MPV 10.20 (7.40-12.00) fL Neut % (Auto) 51.9 (48.0-80.0) % Lymph % (Auto) 38.2 (16.0-40.0) % Park % (Auto) 7.6 (0.0-15.0) % Eos % (Auto) 2.1 (0.0-7.0) % Baso % (Auto) 0.2 (0.0-1.5) % Neut # (Auto) 2.3 (1.4-5.7) K/uL Lymph # (Auto) 1.7 (0.6-2.4) K/uL Park # (Auto) 0.3 (0.0-0.8) K/uL Eos # (Auto) 0.1 (0.0-0.7) K/uL Baso # (Auto) 0.0 (0.0-0.1) K/uL Nucleated RBC % 0.0 /100WBC Nucleated RBCs # 0 K/uL Sodium 145 (136-145) mmol/L Potassium 3.2 L (3.5-5.1) mmol/L Chloride 107 (98-107) mmol/L Carbon Dioxide 32.4 H (21.0-32.0) mmol/L BUN 3 L (7.0-18.0) mg/dL Creatinine 0.8 (0.6-1.0) mg/dL Est Cr Clr Drug Dosing 76.54 mL/min Estimated GFR (MDRD) > 60.0 ml/min Glucose 88 (74-106) mg/dL Calcium 8.0 L (8.5-10.1) mg/dL Phosphorus 4.0 (2.6-4.7) mg/dL Magnesium 1.9 (1.8-2.4) mg/dL Result Diagrams: 10/29/20 07:07 10/29/20 07:07 Sepsis Event Note - Evaluation Sepsis Screening Result: No Definite Risk - Focused Exam Vital Signs: Vital Signs Temp Pulse Resp BP Pulse Ox 10/29/20 08:00 36.5 C 65 18 139/98 H 95 10/29/20 05:34 36.6 C 61 17 109/79 90 L - Problem List Review Problem List Initiated/Reviewed/Updated: Yes - My Orders Last 24 Hours: My Active Orders 10/29/20 12:12 oxyCODONE 5 mg PO Q4H PRN 10/30/20 05:11 CBC WITH AUTO DIFF [HEME] AM COMPREHENSIVE METABOLIC PN,CMP [CHEM] AM MAGNESIUM [CHEM] AM PHOSPHORUS [CHEM] AM - Plan Plan:: 50-year-old female admitted for intractable nausea vomiting likely secondary to duodenitis versus pancreatitis due to patient's binge drinking of hard liquor 1. Duodenitis/chronic pancreatitis/gastritis -continue clear liquid diet -continue oxycodone -Continue IV fluids for now, DC once patient able to tolerate adequate diet -Daily PPI -Zofran as needed pain 2. Alcohol abuse -Continue Valium daily -CIWA protocol with Ativan -Continue thiamine and folic acid VTE prophylaxis: SCDs GI prophylaxis: Protonix CODE STATUS: Full code Dispo: 2 to 3 days pending improvement
[2020-10-29] MEDS: Enoxaparin 40 MG/0.4 ML Syringe SUBCUT SCH (18:34)
[2020-10-29] MEDS: Amitriptyline 10 MG Tab PO SCH (20:21)
[2020-10-29] MEDS: Folic Acid 1 MG Tab PO SCH (20:21)
[2020-10-29] MEDS: Thiamine 100 MG Tab PO SCH (20:21)
[2020-10-30] MEDS: Levothyroxine 150 MCG Tab PO SCH (06:34)
[2020-10-30] MEDS: Lactated Ringers 1,000 ML IV SCH (06:34)
[2020-10-30 06:56] LABS: BLOOD UREA NITROGEN,BUN 2 mg/dL (7.0-18.0); CARBON DIOXIDE,CO2 33.1 mmol/L (21.0-32.0); CHLORIDE,CL 107 mmol/L (98-107); GLUCOSE RANDOM 88 mg/dL (74-106); POTASSIUM,K 3.4 mmol/L (3.5-5.1); SODIUM,NA 144 mmol/L (136-145)
[2020-10-30] MEDS: Nicotine 21 MG/24 Hr Patch TRDERM SCH (08:58)
[2020-10-30] MEDS: Pantoprazole 40 MG in Sodium Chloride 0.9% 10 ML IV SCH (08:59)
[2020-10-30] MEDS: Sertraline 100 MG Tab PO SCH (09:00)
--- NOTE | 2020-10-30 10:13 | PCM.DCSUM1 ---
Discharge Summary - Discharge Data Discharge Date: 10/30/20 Discharge Disposition: Home, Self-Care 01 Condition: Stable - Referral to Home Health Primary Care Physician: ELENA Romero - Patient Summary/Data Hospital Course: Patient is a 50-year-old female who presents to the emergency room with complaints of right upper quadrant pain, nausea, vomiting, diarrhea and alcohol withdrawal. Patient has a longstanding history of alcohol abuse, alcohol induced pancreatitis, hepatitis C, anxiety/depression, alcohol withdrawal with seizures and hallucinations. Her acute on chronic pancreatitis was treated with IV fluids, pain medications and bowel rest. She did have improvement in her symptoms and was tolerating an oral diet before discharge. For her alcohol withdrawal she was placed on Valium and CIWAA protocol. Her valium was taperred off and today she is requesting discharge. She is to follow up with primary care provider. - Patient Instructions Diet: Usual Diet as Tolerated Activity: As Tolerated - Discharge Plan Prescriptions/Med Rec: Amitriptyline [Elavil] 10 mg PO BEDTIME #30 oxyCODONE 5 mg PO Q6H PRN #8 tablet PRN Reason: Abdominal Pain Home Medications: Home Meds Amylase/Lipase/Protease [John LYLE 24,000 Unit] 24,000 unit PO TIDMEALS 01/21/18 [History] Levothyroxine [Levothroid] 300 mcg PO DAILY 01/21/18 [History] Omeprazole 40 mg PO DAILY 01/21/18 [History] hydrOXYzine HCL [hydrOXYzine] 10 mg PO BEDTIME PRN 01/21/18 [History] Albuterol Sulfate [Albuterol Sulfate Hfa] 1 - 2 puff INH Q4H PRN 12/10/19 [History] Budesonide/Formoterol Fumarate [Symbicort 80-4.5 MCG] 2 puff INH BID 12/10/19 [History] Clobetasol [Clobetasol 0.05%] 1 applic TOP BID PRN 12/10/19 [History] Fluocinolone Acetonide [Capex 0.01% Shampoo] 1 applic TOP .TO SCALP PRN 12/10/19 [History] Folic Acid 1 mg PO DAILY 12/10/19 [History] Mv-Mn/Iron/FA/Herbal/Digestive [ One Tablet] 1 tab PO DAILY 12/10/19 [History] Potassium Chloride 40 meq PO DAILY 12/10/19 [History] Amylase/Lipase/Protease [John LYLE 12,000 Units] 12,000 unit PO .WITH SNACKS 1 04/16/19 [History] Furosemide 40 mg PO BID 08/03/20 [History] Naproxen 500 mg PO Q12H PRN 08/03/20 [History] Sertraline [Zoloft] 100 mg PO DAILY 08/03/20 [History] Amitriptyline [Elavil] 10 mg PO BEDTIME #30 10/30/20 [Rx] oxyCODONE 5 mg PO Q6H PRN #8 tablet 10/30/20 [Rx] Forms: ED Department Discharge Referrals: Toni Mata MD [Physician] - 11/06/20 9:30 am (Please arrive 15 minutes early, bring insurance ID and wear mask.) - Discharge Summary/Plan Comment DC Time >30 min.: No Total # of Minutes for Discharge Time: 20 - Patient Data Vitals - Most Recent: Last Vital Signs Temp 36.4 C 10/30/20 08:00 Pulse 64 10/30/20 08:00 Resp 16 10/30/20 08:00 BP 139/89 10/30/20 08:00 Pulse Ox 90 L 10/30/20 08:00 Weight - Most Recent: 115.212 kg I&O - Last 24 hours: Intake & Output 10/29/20 10/30/20 10/30/20 22:59 06:59 14:59 Intake Total 3519 1250 Output Total 0 1000 Balance 3519 250 Lab Results - Last 24 hrs: Laboratory Results - last 24 hr 10/30/20 10/30/20 Range/Units 05:43 05:43 WBC 3.95 L (4.0-11.0) K/uL RBC 3.24 L (4.30-5.90) M/uL Hgb 10.9 L (12.0-16.0) g/dL Hct 32.7 L (36.0-46.0) % MCV 100.9 H (80.0-98.0) fL MCH 33.6 H (27.0-32.0) pg MCHC 33.3 (31.0-37.0) g/dL RDW Std Deviation 56.6 (28.0-62.0) fl RDW Coeff of Jennifer 16 H (11.0-15.0) % Plt Count 196 (150-400) K/uL MPV 10.20 (7.40-12.00) fL Neut % (Auto) 41.8 L (48.0-80.0) % Lymph % (Auto) 47.3 H (16.0-40.0) % Ashley % (Auto) 8.1 (0.0-15.0) % Eos % (Auto) 2.3 (0.0-7.0) % Baso % (Auto) 0.5 (0.0-1.5) % Neut # (Auto) 1.7 (1.4-5.7) K/uL Lymph # (Auto) 1.9 (0.6-2.4) K/uL Ashley # (Auto) 0.3 (0.0-0.8) K/uL Eos # (Auto) 0.1 (0.0-0.7) K/uL Baso # (Auto) 0.0 (0.0-0.1) K/uL Nucleated RBC % 0.0 /100WBC Nucleated RBCs # 0 K/uL Sodium 144 (136-145) mmol/L Potassium 3.4 L (3.5-5.1) mmol/L Chloride 107 (98-107) mmol/L Carbon Dioxide 33.1 H (21.0-32.0) mmol/L BUN 2 L (7.0-18.0) mg/dL Creatinine 0.8 (0.6-1.0) mg/dL Est Cr Clr Drug Dosing 76.54 mL/min Estimated GFR (MDRD) > 60.0 ml/min Glucose 88 (74-106) mg/dL Calcium 7.7 L (8.5-10.1) mg/dL Phosphorus 4.6 (2.6-4.7) mg/dL Magnesium 1.7 L (1.8-2.4) mg/dL Total Bilirubin 0.3 (0.2-1.0) mg/dL AST 45 H (15-37) IU/L ALT 44 (14-63) IU/L Alkaline Phosphatase 65 (46-116) U/L Total Protein 5.1 L (6.4-8.2) g/dL Albumin 2.4 L (3.4-5.0) g/dL Globulin 2.7 (2.6-4.0) g/dL Albumin/Globulin Ratio 0.9 (0.9-1.6) Med Orders - Current: Current Medications Albuterol/Ipratropium (Albuterol/Ipratropium 3.0-0.5 Mg/3 Ml Neb Soln) 3 ml NEB Q4HRRT PRN PRN Reason: Shortness Of Breath/wheezing Last Admin: 10/29/20 09:08 Dose: 3 ml Documented by: Amitriptyline HCl (Amitriptyline 10 Mg Tab) 10 mg PO BEDTIME [facility] Last Admin: 10/29/20 20:21 Dose: 10 mg Documented by: Enoxaparin Sodium (Enoxaparin 40 Mg/0.4 Ml Syringe) 40 mg SUBCUT Q24H [facility] Last Admin: 10/29/20 18:34 Dose: 40 mg Documented by: Folic Acid (Folic Acid 1 Mg Tab) 1 mg PO BEDTIME [facility] Last Admin: 10/29/20 20:21 Dose: 1 mg Documented by: Lactated Ringer's (Ringers, Lactated) 1,000 mls @ 125 mls/hr IV ASDIRECTED [facility] Last Admin: 10/30/20 06:34 Dose: 125 mls/hr Documented by: Pantoprazole Sodium 40 mg/ (Sodium Chloride) 10 mls @ 300 mls/hr IV Q24H [facility] Last Admin: 10/30/20 08:59 Dose: 300 mls/hr Documented by: Levothyroxine Sodium (Levothyroxine 150 Mcg Tab) 300 mcg PO DAILY@0700 [facility] Last Admin: 10/30/20 06:34 Dose: 300 mcg Documented by: Lorazepam (Lorazepam 2 Mg/Ml Sdv) 0 mg IVPUSH Q4H PRN; Protocol PRN Reason: CIWAA Last Admin: 10/29/20 22:27 Dose: 1 mg Documented by: Nicotine (Nicotine 21 Mg/24 Hr Patch) 21 mg TRDERM DAILY [facility] Last Admin: 10/30/20 08:58 Dose: 21 mg Documented by: Ondansetron HCl (Ondansetron 4 Mg/2 Ml Sdv) 4 mg IVPUSH Q4H PRN PRN Reason: Nausea/Vomiting Oxycodone HCl (Oxycodone 5 Mg Tab) 5 mg PO Q4H PRN PRN Reason: Abdominal Pain Last Admin: 10/29/20 22:34 Dose: 5 mg Documented by: Amylase/Lipase/Protease 03257 Unit Cap.Cr 2 each PO .WITH MEALS [facility] Sertraline HCl (Sertraline 100 Mg Tab) 100 mg PO DAILY [facility] Last Admin: 10/30/20 09:00 Dose: 100 mg Documented by: Thiamine HCl (Thiamine 100 Mg Tab) 100 mg PO BEDTIME [facility] Last Admin: 10/29/20 20:21 Dose: 100 mg Documented by: Discontinued Medications Lipase/Protease/Amylase (Amylase/Lipase/Protease 6,000 Unit Cap.Cr) 2 cap PO .WITH SNACKS [facility] Diazepam (Diazepam 5 Mg Tab) 10 mg PO ONETIME ONE Stop: 10/25/20 18:49 Last Admin: 10/25/20 19:11 Dose: 10 mg Documented by: Diazepam (Diazepam 5 Mg Tab) 5 mg PO Q8H [facility] Last Admin: 10/27/20 06:15 Dose: 5 mg Documented by: Diazepam (Diazepam 5 Mg Tab) 5 mg PO Q12H [facility] Last Admin: 10/28/20 06:24 Dose: 5 mg Documented by: Diazepam (Diazepam 5 Mg Tab) 5 mg PO DAILY [facility] Last Admin: 10/29/20 08:15 Dose: 5 mg Documented by: Hydromorphone HCl (Hydromorphone 2 Mg/Ml Syringe) 0.5 mg IVPUSH ONETIME ONE Stop: 10/25/20 18:46 Last Admin: 10/25/20 19:17 Dose: 0.5 mg Documented by: Hydromorphone HCl (Hydromorphone 2 Mg/Ml Syringe) 0.5 mg IVPUSH Q3H PRN PRN Reason: Pain (severe 7-10) Last Admin: 10/26/20 11:29 Dose: 0.5 mg Documented by: Hydromorphone HCl (Hydromorphone 1 Mg/Ml Syringe) 0.5 mg IVPUSH Q2H PRN PRN Reason: Pain (severe 7-10) Last Admin: 10/27/20 09:26 Dose: 0.5 mg Documented by: Hydromorphone HCl (Hydromorphone 1 Mg/Ml Syringe) 0.5 mg IVPUSH Q3H PRN PRN Reason: Pain (severe 7-10) Last Admin: 10/28/20 13:49 Dose: 0.5 mg Documented by: Sodium Chloride (Normal Saline) 1,000 mls @ 999 mls/hr IV STAT ONE Stop: 10/25/20 14:51 Last Admin: 10/25/20 14:11 Dose: 999 mls/hr Documented by: Magnesium Sulfate 2 gm/ Premix 50 mls @ 50 mls/hr IV ONETIME ONE Stop: 10/25/20 20:58 Last Admin: 10/25/20 21:36 Dose: 50 mls/hr Documented by: Magnesium Sulfate 2 gm/ Premix 50 mls @ 12.5 mls/hr IV ONETIME ONE Stop: 10/28/20 13:41 Last Admin: 10/28/20 10:10 Dose: 12.5 mls/hr Documented by: Potassium Chloride 20 meq/ (Premix) 50 mls @ 25 mls/hr IV ONETIME ONE Stop: 10/28/20 11:41 Last Admin: 10/28/20 11:04 Dose: 25 mls/hr Documented by: Iopamidol (Iopamidol 755 Mg/Ml 500 Ml Multipack Bottle) 100 ml IVPUSH ONETIME STA Stop: 10/25/20 18:39 Last Admin: 10/25/20 18:39 Dose: 100 ml Documented by: Ketorolac Tromethamine (Ketorolac 30 Mg/Ml Sdv) 30 mg IVPUSH ONETIME ONE Stop: 10/25/20 14:50 Last Admin: 10/25/20 15:20 Dose: 30 mg Documented by: Lorazepam (Lorazepam 2 Mg/Ml Sdv) 1 mg IVPUSH ONETIME ONE Stop: 10/25/20 14:01 Last Admin: 10/25/20 14:13 Dose: 1 mg Documented by: Oxycodone HCl (Oxycodone 5 Mg Tab) 5 mg PO Q6H PRN PRN Reason: Abdominal Pain Last Admin: 10/29/20 08:16 Dose: 5 mg Documented by: Pantoprazole Sodium (Pantoprazole 40 Mg Vial) 40 mg IV DAILY [facility] Last Admin: 10/26/20 08:01 Dose: 40 mg Documented by: Amylase/Lipase/Protease 32195 Unit Cap.Cr 2 each PO .WITH MEALS AND SNACKS [facility] Potassium Chloride (Potassium Chloride 20 Meq Tab.Er) 40 meq PO ONETIME ONE Stop: 10/29/20 12:00 Last Admin: 10/29/20 13:27 Dose: 40 meq Documented by: Tramadol HCl (Tramadol 50 Mg Tab) 50 mg PO ONETIME ONE Stop: 10/25/20 17:49 Last Admin: 10/25/20 18:14 Dose: 50 mg Documented by:
== END 2020-10-30 12:10 | disposition home or self-care (01) | DRG 896 ==
LOC: MW.ED 12:34 → MW.MS 18:45 → OBSVTOIN 10-26 15:50 → MW.MS 10-26 15:51
PROVIDERS: ADMIT Student in an Organized Health Care Education/Training Program; ATTEND Student in an Organized Health Care Education/Training Program
DX: F10.232 Alcohol dependence with withdrawal with perceptual disturbance (principal); K85.20 Alcohol induced acute pancreatitis without necrosis or infection; K86.0 Alcohol-induced chronic pancreatitis; K29.80 Duodenitis without bleeding; E83.42 Hypomagnesemia; E03.9 Hypothyroidism, unspecified; Z20.822 Contact with and (suspected) exposure to COVID-19; F41.0 Panic disorder [episodic paroxysmal anxiety]; K76.0 Fatty (change of) liver, not elsewhere classified; F17.210 Nicotine dependence, cigarettes, uncomplicated; H54.7 Unspecified visual loss; M19.90 Unspecified osteoarthritis, unspecified site; F43.10 Post-traumatic stress disorder, unspecified; Y90.0 Blood alcohol level of less than 20 mg/100 ml; Z79.890 Hormone replacement therapy; Z79.899 Other long term (current) drug therapy
CPT/HCPCS: 36415; 74177; 74177-26; 80048; 80053; 80307; 81001; 81025; 82947; 83690; 83735; 84100; 85025; 94640; 96372; 96374; 96375; 96376; 99285-25; A9270-GY; C9113; G0378; J1170; J1650; J1885; J2060; J3475; J3480; J7030; J7120; J7620-GY; Q9967; U0002

== ENCOUNTER 2021-01-03 20:26 | Emergency (ER) | payer MEDICAID ==
[2021-01-03] MEDS ORDERED: Ondansetron 4 MG/2 ML SDV IVPUSH ONE (21:23)
[2021-01-03] MEDS ORDERED: Dextrose 5%-Lactated Ringers 1,000 ML IV SCH (21:30)
[2021-01-03 21:41] LABS: CARBON DIOXIDE,CO2 27.8 mmol/L (21.0-32.0); POTASSIUM,K 4.3 mmol/L (3.5-5.1)
[2021-01-03] MEDS ORDERED: Morphine 4 MG/ML VIAL IVPUSH ONE ×2 (21:43→23:02)
[2021-01-03] MEDS ORDERED: Iopamidol 755 MG/ML 500 ML Multipack Bottle IVPUSH STA (23:53)
--- NOTE | 2021-01-04 00:26 | CT ---
INDICATION: Abdominal pain TECHNIQUE: Axial images were obtained from the diaphragm to the pubic symphysis. Reformats were obtained in the coronal and sagittal plane. IV Contrast: 100 cc Isovue 370 Oral Contrast: None COMPARISON: Abdomen and pelvis CT 10/25/2020 FINDINGS: Lower chest: Basilar discoid atelectasis. Liver: Diffusely decreased density of the liver without focal lesion. Gallbladder and bile ducts: Unremarkable. No stones or inflammation. No biliary dilatation. Spleen: Unremarkable. Normal in size without mass. Pancreas: Mild fat stranding adjacent to the pancreatic head. Adrenal glands: Unremarkable. No nodules. Kidneys: Unremarkable. No masses, stones, or hydronephrosis. Vasculature: Unremarkable. GI tract: No dilated loops of large or small intestine. Ventral hernia mesh. Pelvis: Uterus is anteverted. Right ovarian cyst measuring 4.0 centimeters. Bones: Unremarkable for age. IMPRESSION: 1. Mild fat stranding adjacent to the pancreatic head suggesting acute pancreatitis. No focal fluid collection. 2. Hepatic steatosis. 3. Right ovarian cyst measuring 4.0 centimeters. Please note that all CT scans at this facility use dose modulation, iterative reconstruction, and/or weight-based dosing when appropriate to reduce radiation dose to as low as reasonably achievable. Dictated by Jarrett Medel MD @ 01/04/2021 12:24:43 AM (Electronically Signed)
[2021-01-04] MEDS ORDERED: fentaNYL 50 MCG/ML SDV IVPUSH ONE ×4 (00:27→09:25)
[2021-01-04] MEDS ORDERED: Lactated Ringers 1,000 ML IV SCH (00:30)
--- NOTE | 2021-01-04 03:37 | EDM.PDOC ---
ED HPI GENERAL MEDICAL PROBLEM - General Chief Complaint: Abdominal Pain Stated Complaint: ABDOMINAL PAIN Time Seen by Provider: 01/03/21 21:19 - History of Present Illness INITIAL COMMENTS - FREE TEXT/NARRATIVE: CHIEF COMPLAINT(S): Abdominal pain HISTORY OF PRESENT ILLNESS: This is a 50-year-old woman with a past medical history of alcohol use disorder, prior history of alcohol withdraw, and pancreatitis who comes to the emergency department with a chief complaint of abdominal pain. The patient states that for approximately 1 day now she has been experiencing epigastric abdominal pain which she rates as 10 out of 10 as sociated with nonbloody nonbilious vomitus. She states that this radiates to her back and feels exactly like when she had pancreatitis in the past. She denies any melena or hematochezia. She states that she has been drinking alcohol more recently. She states her last drink was 8 AM yesterday morning. She states that she does have a history of alcohol withdrawal but states she does not feel like she is in alcohol withdrawal currently. She drinks approximately 1/5 of heavy liquor per day. She states that there is no aggravating or relieving factors of her abdominal pain. She has not yet tried anything for pain. REVIEW OF SYSTEMS: Constitutional: Denies fever, chills. Eyes: Denies eye pain Ears, Nose, Mouth, & Throat: Denies earache Cardiovascular: Denies chest pain Respiratory: Denies shortness of breath Gastrointestinal: Positive for epigastric abdominal pain, nausea, vomiting. Denies diarrhea, hematochezia, hematemesis, bilious emesis, melena Genitourinary: Denies hematuria Skin:Denies a rash MSK: Denies joint pain Neurological: Denies blurred vision Psychiatric: Denies depression PAST MEDICAL HISTORY: As per history of present illness and as reviewed below otherwise noncontributory. SURGICAL HISTORY: As per history of present illness and as reviewed below otherwise noncontributory. SOCIAL HISTORY: As per history of present illness and as reviewed below otherw ise noncontributory. FAMILY HISTORY: As per history of present illness and as reviewed below otherwise noncontributory. EXAMINATION OF ORGAN SYSTEMS/BODY AREAS: Constitutional: Blood pressure is 133/67, heart rate 115, respiratory rate 18 with an oxygen saturation 96% on room air. Temperature 36.4 General: Young woman who appears to be in no acute distress. Psychiatric: Appropriate mood and affect. Eyes: No scleral icterus or conjunctival erythema ENMT: Moist mucous membranes. No pharyngeal erythema Cardiovascular: Regular, rate, and rhythm. No gallops, murmurs, or rubs. Bilateral upper extremity pulses symmetric and intact. No peripheral edema. No JVD. Respiratory: Lungs clear to auscultation bilaterally. No wheezes, rales, or rhonchi. Gastrointestinal: Soft, nondistended, tenderness to palpation in the epigastric region. Negative Murillo's and McBurney's. No rebound or guarding. Normoactive bowel sounds Genitourinary: No suprapubic tenderness Musculoskeletal: Normal range of motion. Skin: No lesions or abrasions. Neurological: Alert, GCS 15 MEDICAL DECISION MAKING AND COURSE IN THE ED WITH INTERPRETATION/REVIEW OF DIAGNOSTIC STUDIES: This is a 50-year-old woman with a past medical history of alcohol use disorder, alcohol withdrawal, and pancreatitis who comes to the emergency department with acute onset epigastric pain associated with vomiting who is mildly tachycardic but overall appears well. At this time we will provide the patient with morphine for pain relief, Zofran for nausea and 1 L of lactated Ringer's. Will obtain labs including CBC, CMP, lipase, urinalysis, serum alcohol and a Covid screen. At this time the patient does not have any Murillo sign and I do believe this is likely secondary to patient's alcohol use and possible pancreatitis. DDx: Pancreatitis, cholecystitis, gastroenteritis Laboratory: CBC is unremarkable. CMP reveals elevated BUN at 6 and creatinine of 1.1, transaminitis with an AST of 73, ALT of 73, alkaline phosphatase of 133. Total bilirubin is 0.4. Lipase is normal at 169. Urinalysis reveals ketonuria otherwise unremarkable. Serum alcohol level is 9. Covid is negative. The radiological images were viewed by myself along with reading the report from the radiologist. CT abdomen pelvis with contrast reveals fat stranding surrounding the pancreatic head consistent with acute pancreatitis. There is a right ovarian cyst measuring 4 cm. After imaging the patient had continued abdominal pain therefore we will provide the patient with an additional 50 mcg of fentanyl and 4 mg of Zofran. At this time given the acute pancreatitis the patient requires admission. I did discuss this with the patient and she was amenable to this plan. I did discuss that at this time we do not have a available bed here at our institution. She was amenable to transfer at this time. Therefore we contacted [facility] in [facility], [facility] in [facility] all of which did not have any capacity for an admission. Therefore we did contact [facility] which is at capacity. I spoke with Dr. Anderson at [facility] and he accepted the patient for transfer. At this time we have 1 awaiting transfer and there are no surrounding ambulance services available to transport the patient. The patient will be observed here in the emergency department until ambulance is available for transport to [facility] in [place]. Patient continued to remain stable and ready required an additional dose of fentanyl. Awaiting EMS transport possibly around 8 AM. DISPOSITION: Patient was signed out to oncoming day team physician pending EMS transport to [facility] CONDITION: Fair PROCEDURES: None FINAL IMPRESSION(S)/DIAGNOSES: 1. Acute on chronic pancreatitis Taurus Eldridge M.D. Abdomen Pain Score (Numeric/FACES): 8 - Related Data Allergies Allergy/AdvReac Type Severity Reaction Status Date / Time No Known Allergies Allergy Verified 01/03/21 20:54 Home Meds: Home Meds Amylase/Lipase/Protease [John LYLE 24,000 Unit] 24,000 unit PO TIDMEALS 01/21/18 [History] Levothyroxine [Levothroid] 300 mcg PO DAILY 01/21/18 [History] Omeprazole 40 mg PO DAILY 01/21/18 [History] hydrOXYzine HCL [hydrOXYzine] 10 mg PO BEDTIME PRN 01/21/18 [History] Albuterol Sulfate [Albuterol Sulfate Hfa] 1 - 2 puff INH Q4H PRN 12/10/19 [History] Budesonide/Formoterol Fumarate [Symbicort 80-4.5 MCG] 2 puff INH BID 12/10/19 [History] Clobetasol [Clobetasol 0.05%] 1 applic TOP BID PRN 12/10/19 [History] Fluocinolone Acetonide [C[employer]x 0.01% Shampoo] 1 applic TOP .TO SCALP PRN 12/10/19 [History] Folic Acid 1 mg PO DAILY 12/10/19 [History] Mv-Mn/Iron/FA/Herbal/Digestive [ One Tablet] 1 tab PO DAILY 12/10/19 [History] Potassium Chloride 40 meq PO DAILY 12/10/19 [History] Amylase/Lipase/Protease [Creon DR 12,000 Units] 12,000 unit PO .WITH SNACKS 02/14/20 [History] Furosemide 40 mg PO BID 08/03/20 [History] Naproxen 500 mg PO Q12H PRN 08/03/20 [History] Sertraline [Zoloft] 100 mg PO DAILY 08/03/20 [History] Amitriptyline [Elavil] 10 mg PO BEDTIME #30 10/30/20 [Rx] oxyCODONE 5 mg PO Q6H PRN #8 tablet 10/30/20 [Rx] Past Medical History HEENT History: Reports: Impaired Vision Other HEENT History: wears glasses Cardiovascular History: Reports: None Other Cardiovascular History: Edema Respiratory History: Reports: COPD Other Respiratory History: states wheezes at times from smoking Gastrointestinal History: Reports: Fatty Liver, Pancreatitis Other Gastrointestinal History: fatty liver Genitourinary History: Reports: None MACHINE PACKER History: Reports: None Other MACHINE PACKER History: Patient has tubes tied. 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: N/A Hematologic History: Reports: Other (See Below) Other Hematologic History: Hep C Immunologic History: Reports: None Oncologic (Cancer) History: Reports: None Dermatologic History: Reports: Psoriasis - Infectious Disease History Infectious Disease History: Reports: Hepatitis C - Past Surgical History Head Surgeries/Procedures: Reports: None HEENT Surgical History: Reports: None Cardiovascular Surgical History: Reports: None Respiratory Surgical History: Reports: None GI Surgical History: Reports: Hernia Repair/Other Female Surgical History: Reports: Tubal Ligation Endocrine Surgical History: Reports: None Neurological Surgical History: Reports: None Musculoskeletal Surgical History: Reports: None Oncologic Surgical History: Reports: None Dermatological Surgical History: Reports: None Social & Family History - Family History Family Medical History: No Pertinent Family History - Caffeine Use Caffeine Use: Reports: None - Recreational Drug Use Recreational Drug Use: No ED ROS GENERAL - Review of Systems Review Of Systems: See Below ED EXAM, GENERAL - Physical Exam Exam: See Below Course - Vital Signs Last Recorded V/S: Last Vital Signs Temp 36.4 C 01/03/21 20:54 Pulse 97 01/04/21 10:19 Resp 18 01/04/21 02:47 BP 130/102 H 01/04/21 10:19 Pulse Ox 100 01/04/21 10:19 - Orders/Labs/Meds Labs: Laboratory Tests 01/03/21 01/03/21 01/03/21 Range/Units 21:05 21:05 21:05 WBC 5.59 (4.0-11.0) K/uL RBC 4.46 (4.30-5.90) M/uL Hgb 14.5 (12.0-16.0) g/dL Hct 42.5 (36.0-46.0) % MCV 95.3 (80.0-98.0) fL MCH 32.5 H (27.0-32.0) pg MCHC 34.1 (31.0-37.0) g/dL RDW Std Deviation 46.9 (28.0-62.0) fl RDW Coeff of Jennifer 14 (11.0-15.0) % Plt Count 388 (150-400) K/uL MPV 10.40 (7.40-12.00) fL Neut % (Auto) 45.4 L (48.0-80.0) % Lymph % (Auto) 45.1 H (16.0-40.0) % [place] % (Auto) 7.5 (0.0-15.0) % Eos % (Auto) 1.8 (0.0-7.0) % Baso % (Auto) 0.2 (0.0-1.5) % Neut # (Auto) 2.5 (1.4-5.7) K/uL Lymph # (Auto) 2.5 H (0.6-2.4) K/uL [place] # (Auto) 0.4 (0.0-0.8) K/uL Eos # (Auto) 0.1 (0.0-0.7) K/uL Baso # (Auto) 0.0 (0.0-0.1) K/uL Nucleated RBC % 0.0 /100WBC Nucleated RBCs # 0 K/uL Sodium 140 (136-145) mmol/L Potassium 4.3 (3.5-5.1) mmol/L Chloride 103 (98-107) mmol/L Carbon Dioxide 27.8 (21.0-32.0) mmol/L BUN 6 L (7.0-18.0) mg/dL Creatinine 1.1 H (0.6-1.0) mg/dL Est Cr Clr Drug Dosing 55.67 mL/min Estimated GFR (MDRD) 52.8 ml/min Glucose 119 H (74-106) mg/dL POC Glucose (70-99) mg/dL Calcium 8.6 (8.5-10.1) mg/dL Total Bilirubin 0.4 (0.2-1.0) mg/dL AST 73 H (15-37) IU/L ALT 73 H (14-63) IU/L Alkaline Phosphatase 133 H (46-116) U/L Total Protein 7.8 (6.4-8.2) g/dL Albumin 3.2 L (3.4-5.0) g/dL Globulin 4.6 H (2.6-4.0) g/dL Albumin/Globulin Ratio 0.7 L (0.9-1.6) Lipase 169 (73-393) U/L Urine Color Urine Appearance Urine pH (5.0-8.0) Ur Specific [place] (1.001-1.035) Urine Protein (NEGATIVE) mg/dL Urine Glucose (UA) (NEGATIVE) mg/dL Urine Ketones (NEGATIVE) mg/dL Urine Occult Blood (NEGATIVE) Urine Nitrite (NEGATIVE) Urine Bilirubin (NEGATIVE) Urine Urobilinogen (<2.0) EU/dL Ur Leukocyte Esterase (NEGATIVE) Urine HCG, Qual (NEGATIVE) Ethyl Alcohol 9 mg/dL SARS-CoV-2 RNA (DICK) (NEGATIVE) 01/03/21 01/03/21 01/03/21 Range/Units 21:56 23:20 23:20 WBC (4.0-11.0) K/uL RBC (4.30-5.90) M/uL Hgb (12.0-16.0) g/dL Hct (36.0-46.0) % MCV (80.0-98.0) fL MCH (27.0-32.0) pg MCHC (31.0-37.0) g/dL RDW Std Deviation (28.0-62.0) fl RDW Coeff of Jennifer (11.0-15.0) % Plt Count (150-400) K/uL MPV (7.40-12.00) fL Neut % (Auto) (48.0-80.0) % Lymph % (Auto) (16.0-40.0) % [place] % (Auto) (0.0-15.0) % Eos % (Auto) (0.0-7.0) % Baso % (Auto) (0.0-1.5) % Neut # (Auto) (1.4-5.7) K/uL Lymph # (Auto) (0.6-2.4) K/uL [place] # (Auto) (0.0-0.8) K/uL Eos # (Auto) (0.0-0.7) K/uL Baso # (Auto) (0.0-0.1) K/uL Nucleated RBC % /100WBC Nucleated RBCs # K/uL Sodium (136-145) mmol/L Potassium (3.5-5.1) mmol/L Chloride (98-107) mmol/L Carbon Dioxide (21.0-32.0) mmol/L BUN (7.0-18.0) mg/dL Creatinine (0.6-1.0) mg/dL Est Cr Clr Drug Dosing mL/min Estimated GFR (MDRD) ml/min Glucose (74-106) mg/dL POC Glucose 216 H (70-99) mg/dL Calcium (8.5-10.1) mg/dL Total Bilirubin (0.2-1.0) mg/dL AST (15-37) IU/L ALT (14-63) IU/L Alkaline Phosphatase (46-116) U/L Total Protein (6.4-8.2) g/dL Albumin (3.4-5.0) g/dL Globulin (2.6-4.0) g/dL Albumin/Globulin Ratio (0.9-1.6) Lipase (73-393) U/L Urine Color YELLOW Urine Appearance CLEAR Urine pH 5.5 (5.0-8.0) Ur Specific [place] >= 1.030 (1.001-1.035) Urine Protein NEGATIVE (NEGATIVE) mg/dL Urine Glucose (UA) NEGATIVE (NEGATIVE) mg/dL Urine Ketones 15 H (NEGATIVE) mg/dL Urine Occult Blood NEGATIVE (NEGATIVE) Urine Nitrite NEGATIVE (NEGATIVE) Urine Bilirubin NEGATIVE (NEGATIVE) Urine Urobilinogen 0.2 (<2.0) EU/dL Ur Leukocyte Esterase NEGATIVE (NEGATIVE) Urine HCG, Qual NEGATIVE (NEGATIVE) Ethyl Alcohol mg/dL SARS-CoV-2 RNA (DICK) (NEGATIVE) 01/04/21 Range/Units 00:58 WBC (4.0-11.0) K/uL RBC (4.30-5.90) M/uL Hgb (12.0-16.0) g/dL Hct (36.0-46.0) % MCV (80.0-98.0) fL MCH (27.0-32.0) pg MCHC (31.0-37.0) g/dL RDW Std Deviation (28.0-62.0) fl RDW Coeff of Jennifer (11.0-15.0) % Plt Count (150-400) K/uL MPV (7.40-12.00) fL Neut % (Auto) (48.0-80.0) % Lymph % (Auto) (16.0-40.0) % [place] % (Auto) (0.0-15.0) % Eos % (Auto) (0.0-7.0) % Baso % (Auto) (0.0-1.5) % Neut # (Auto) (1.4-5.7) K/uL Lymph # (Auto) (0.6-2.4) K/uL [place] # (Auto) (0.0-0.8) K/uL Eos # (Auto) (0.0-0.7) K/uL Baso # (Auto) (0.0-0.1) K/uL Nucleated RBC % /100WBC Nucleated RBCs # K/uL Sodium (136-145) mmol/L Potassium (3.5-5.1) mmol/L Chloride (98-107) mmol/L Carbon Dioxide (21.0-32.0) mmol/L BUN (7.0-18.0) mg/dL Creatinine (0.6-1.0) mg/dL Est Cr Clr Drug Dosing mL/min Estimated GFR (MDRD) ml/min Glucose (74-106) mg/dL POC Glucose (70-99) mg/dL Calcium (8.5-10.1) mg/dL Total Bilirubin (0.2-1.0) mg/dL AST (15-37) IU/L ALT (14-63) IU/L Alkaline Phosphatase (46-116) U/L Total Protein (6.4-8.2) g/dL Albumin (3.4-5.0) g/dL Globulin (2.6-4.0) g/dL Albumin/Globulin Ratio (0.9-1.6) Lipase (73-393) U/L Urine Color Urine Appearance Urine pH (5.0-8.0) Ur Specific [place] (1.001-1.035) Urine Protein (NEGATIVE) mg/dL Urine Glucose (UA) (NEGATIVE) mg/dL Urine Ketones (NEGATIVE) mg/dL Urine Occult Blood (NEGATIVE) Urine Nitrite (NEGATIVE) Urine Bilirubin (NEGATIVE) Urine Urobilinogen (<2.0) EU/dL Ur Leukocyte Esterase (NEGATIVE) Urine HCG, Qual (NEGATIVE) Ethyl Alcohol mg/dL SARS-CoV-2 RNA (DICK) NEGATIVE (NEGATIVE) Meds: Medications Discontinued Medications Generic Name Dose Route Start Last Admin Trade Name Freq PRN Reason Stop Dose Admin Fentanyl 50 mcg 01/04/21 00:27 01/04/21 00:50 Fentanyl 50 Mcg/Ml Sdv IVPUSH 01/04/21 00:28 50 mcg ONETIME ONE Administration Fentanyl 50 mcg 01/04/21 04:27 01/04/21 04:46 Fentanyl 50 Mcg/Ml Sdv IVPUSH 01/04/21 04:28 50 mcg ONETIME ONE Administration Fentanyl 50 mcg 01/04/21 07:39 01/04/21 07:46 Fentanyl 50 Mcg/Ml Sdv IVPUSH 01/04/21 07:40 50 mcg ONETIME ONE Administration Fentanyl 50 mcg 01/04/21 09:25 01/04/21 09:29 Fentanyl 50 Mcg/Ml Sdv IVPUSH 01/04/21 09:26 50 mcg ONETIME ONE Administration Dextrose/Lactated Ringer's 1,000 mls @ 999 mls/hr 01/03/21 21:30 01/03/21 21:39 Dextrose 5%-Lactated Ringers IV 999 mls/hr ASDIRECTED DIANA Administration Lactated Ringer's 1,000 mls @ 150 mls/hr 01/04/21 00:30 01/04/21 00:50 Ringers, Lactated IV 150 mls/hr ASDIRECTED DIANA Administration Iopamidol 100 ml 01/03/21 23:53 01/03/21 23:53 Iopamidol 755 Mg/Ml 500 Ml Multipack Bottle IVPUSH 01/03/21 23:54 100 ml ONETIME STA Administration Morphine Sulfate 4 mg 01/03/21 21:43 01/03/21 21:51 Morphine 4 Mg/Ml Vial IVPUSH 01/03/21 21:44 4 mg ONETIME ONE Administration Morphine Sulfate 4 mg 01/03/21 23:02 01/03/21 23:24 Morphine 4 Mg/Ml Vial IVPUSH 01/03/21 23:03 Not Given ONETIME ONE Ondansetron HCl 4 mg 01/03/21 21:23 01/03/21 21:39 Ondansetron 4 Mg/2 Ml Sdv IVPUSH 01/03/21 21:24 4 mg ONETIME ONE Administration Departure - Departure Time of Disposition: 07:00 Disposition: DC/Tfer to Acute Hospital 02 Condition: Fair Clinical Impression: Acute pancreatitis - Discharge Information Referrals: Gisel Durham PA [Primary Care Provider] - Forms: ED Department Discharge Sepsis Event Note (ED) - Evaluation Sepsis Screening Result: No Definite Risk
== END 2021-01-04 10:35 ==
LOC: MW.ED 20:26
DX: K86.1 Other chronic pancreatitis (principal); J44.9 Chronic obstructive pulmonary disease, unspecified; E03.9 Hypothyroidism, unspecified; E66.9 Obesity, unspecified; Z68.39 Body mass index [BMI] 39.0-39.9, adult; Z79.899 Other long term (current) drug therapy; Z20.822 Contact with and (suspected) exposure to COVID-19
CPT/HCPCS: 36415; 74177; 80053; 80307; 81003; 81025; 82947; 83690; 85025; 87635; 96374; 96375; 99285; J2270; J2405; J3010; J7120; J7121; Q9967; U0002

== ENCOUNTER 2021-07-26 11:41 | Emergency (ER) | payer MEDICAID ==
[2021-07-26] MEDS ORDERED: Sodium Chloride 0.9% 10 ML Syringe FLUSH PRN (11:43)
[2021-07-26] MEDS ORDERED: Sodium Chloride 0.9% 2.5 ML Syringe FLUSH PRN (11:43)
[2021-07-26] MEDS ORDERED: Morphine 4 MG/ML VIAL IVPUSH ONE (12:29)
[2021-07-26] MEDS ORDERED: Sodium Chloride 0.9% 1,000 ML IV ONE ×2 (12:29→13:37)
[2021-07-26] MEDS ORDERED: Ondansetron 4 MG/2 ML SDV IVPUSH ONE (12:29)
[2021-07-26 12:59] LABS: CARBON DIOXIDE,CO2 28.4 mmol/L (21.0-32.0); POTASSIUM,K 4.5 mmol/L (3.5-5.1)
== END 2021-07-26 15:47 | disposition home or self-care (01) ==
LOC: MW.ED 11:41
DX: N39.0 Urinary tract infection, site not specified (principal); N17.9 Acute kidney failure, unspecified; R74.01 Elevation of levels of liver transaminase levels; J44.9 Chronic obstructive pulmonary disease, unspecified; E03.9 Hypothyroidism, unspecified; E66.9 Obesity, unspecified; Z68.45 Body mass index [BMI] 70 or greater, adult; Z79.899 Other long term (current) drug therapy
CPT/HCPCS: 36415; 74177; 80053; 81001; 83690; 84484; 84703; 85025; 93005; 96361; 96374; 96375; 99284; J2270; J2405; J3490; J7030

== ENCOUNTER 2022-02-02 18:25 | Emergency (ER) | payer MEDICAID ==
[2022-02-02] MEDS ORDERED: Morphine 4 MG/ML Syringe IVPUSH ONE (19:45)
[2022-02-02] MEDS ORDERED: Lactated Ringers 1,000 ML IV STA ×2 (19:45→20:48)
[2022-02-02 20:32] LABS: CORONAVIRUS COVID-19 NAA NEGATIVE (NEGATIVE); INFLUENZA A NAA NEGATIVE (NEGATIVE); INFLUENZA B NAA NEGATIVE (NEGATIVE); RESPIRATORY SYNCYTIAL VIR NAA NEGATIVE (NEGATIVE)
[2022-02-02 20:53] LABS: CARBON DIOXIDE,CO2 30.4 mmol/L (21.0-32.0); POTASSIUM,K 4.3 mmol/L (3.5-5.1)
[2022-02-02] MEDS ORDERED: HYDROmorphone 1 MG/ML Syringe IVPUSH ONE (20:56)
[2022-02-02] MEDS ORDERED: Iopamidol 755 MG/ML 500 ML Multipack Bottle IVPUSH ONE (21:08)
== END 2022-02-02 23:05 | disposition home or self-care (01) ==
LOC: MW.ED 18:25
DX: R10.13 Epigastric pain (principal); J44.9 Chronic obstructive pulmonary disease, unspecified; E03.9 Hypothyroidism, unspecified; F17.210 Nicotine dependence, cigarettes, uncomplicated; E66.9 Obesity, unspecified; Z68.38 Body mass index [BMI] 38.0-38.9, adult; Z79.899 Other long term (current) drug therapy; Z20.822 Contact with and (suspected) exposure to COVID-19
CPT/HCPCS: 0241U; 36415; 74177; 80053; 81001; 83690; 85025; 96361; 96374; 96375; 99284; J1170; J2270; J7120; Q9967

== ENCOUNTER 2022-02-03 11:59 | Emergency (ER) | payer MEDICAID ==
[2022-02-03] MEDS ORDERED: Lactated Ringers 1,000 ML IV ONE (12:03)
[2022-02-03] MEDS ORDERED: Ketorolac 30 MG/ML SDV IVPUSH ONE (12:04)
[2022-02-03] MEDS ORDERED: Ondansetron 4 MG/2 ML SDV IVPUSH ONE (12:04)
[2022-02-03] MEDS ORDERED: Morphine 4 MG/ML Syringe IVPUSH ONE (12:22)
[2022-02-03 13:31] LABS: CARBON DIOXIDE,CO2 27.5 mmol/L (21.0-32.0); POTASSIUM,K 3.7 mmol/L (3.5-5.1)
[2022-02-03] MEDS ORDERED: Alum Hydro/Mag Hydro/Simeth XS 15 ML, Metoclopramide 5 MG, Lidocaine 2% 5 ML PO ONE ×3 (13:49)
[2022-02-03] MEDS ORDERED: Famotidine 20 MG Tab PO ONE (13:49)
[2022-02-03] MEDS ORDERED: Omeprazole 20 MG Cap.CR PO ONE (13:49)
[2022-02-03] MEDS ORDERED: oxyCODONE 5 MG/5 ML Cup PO ONE (14:32)
[2022-02-03] MEDS ORDERED: oxyCODONE 5 MG Tab PO ONE (14:40)
== END 2022-02-03 14:49 | disposition home or self-care (01) ==
LOC: MW.ED 11:59
DX: R10.12 Left upper quadrant pain (principal); J44.9 Chronic obstructive pulmonary disease, unspecified; F17.210 Nicotine dependence, cigarettes, uncomplicated; E66.9 Obesity, unspecified; Z68.30 Body mass index [BMI] 30.0-30.9, adult; Z79.899 Other long term (current) drug therapy
CPT/HCPCS: 36415; 74018; 80053; 83605; 83690; 85025; 96361; 96374; 96375; 99284; A9270; J1885; J2270; J2405; J7120